=== PATIENT | male | born 1930 | race Caucasian/White ===

== ENCOUNTER → 2017-01-07 | Outpatient (CLI) | payer MEDICARE, BC ==
[~2017-01-07] MED LIST: DILA100C PO; ENAL5TAB98 PO; LABE100T2 PO; LEXA5TAB PO; PHEN30 PO; PROS5TAB2 PO; TAB-TAB PO; TAMS0.4C67 PO; VITA500T10 PO; ZITH250T PO
[2017-01-07 13:33] LABS: AUTOMATED NEUTROPHIL # 3.9 TH/MM3 (1.8-7.7); BASOPHIL # 0.1 TH/MM3 (0-0.2); BASOPHIL % 0.9 % (0.0-2.0); EOSINOPHIL # 0.3 TH/MM3 (0-0.4); EOSINOPHIL % 4.2 % (0.0-4.0); HEMATOCRIT 40.9 % (39.0-51.0); HEMO FLAGS DIFF FINAL; LYMPH % 22.2 % (9.0-44.0); LYMPHOCYTE # 1.3 TH/MM3 (1.0-4.8); MEAN CELL VOLUME 90.1 FL (80.0-100.0); MEAN CORPUSCULAR HEMOGLOBIN 30.2 PG (27.0-34.0); MEAN CORPUSCULAR HGB CONC 33.5 % (32.0-36.0); NEUT % 64.7 % (16.0-70.0); PLATELET COUNT 196 TH/MM3 (150-450); RED BLOOD COUNT 4.54 MIL/MM3 (4.50-5.90); RED CELL DISTRIBUTION WIDTH 13.4 % (11.6-17.2)
[2017-01-07 14:15] LABS: ALKALINE PHOSPHATASE 58 U/L (45-117); ALT (GPT) 24 U/L (12-78); ANION GAP 8 MEQ/L (5-15); AST (GOT) 20 U/L (15-37); BLOOD UREA NITROGEN 15 MG/DL (7-18); CHLORIDE 106 MEQ/L (98-107); GLOMERULAR FILTRATION RATE 63 ML/MIN (>89); GLUCOSE,FASTING 145 MG/DL (74-99); HDL CHOLESTEROL 33.6 MG/DL (40.0-60.0); LDL CHOLESTEROL 99 MG/DL (0-99); POTASSIUM 5.1 MEQ/L (3.5-5.1); SODIUM (NA) 142 MEQ/L (136-145); TOTAL BILIRUBIN ADULT 0.5 MG/DL (0.2-1.0)
[2017-01-07 15:58] LABS: HEMOGLOBIN A1a 1.1 %; HEMOGLOBIN Ao 84.3 %; HEMOGLOBIN F 0.8 %; HEMOGLOBIN LA1C 2.1 %; HEMOGLOBIN P3 3.7 %
== END ==
LOC: PLAB 08:28
DX: I10 Essential (primary) hypertension (principal); E11.9 Type 2 diabetes mellitus without complications; E78.5 Hyperlipidemia, unspecified
CPT/HCPCS: 36415; 80053; 80061; 83036; 84443; 85025

== ENCOUNTER 2017-04-20 10:51 | Inpatient (IN) | payer MEDICARE, BC ==
[~2017-04-20] VITALS: Ht 177.8 cm; Wt 80.0 kg
[2017-04-20] VITALS (7 sets, daily range): BP systolic 169–198; BP diastolic 72–91; PULSE 51–78; RESP 18–20; TEMP 96.1–98.2; O2SAT 96–98
[2017-04-20] MEDS ORDERED: SODIUM CHLOR 0.9% 1000 ML INJ 1,000 ML IV ONE (10:56)
[2017-04-20 11:33] LABS: I-STAT POTASSIUM 4.5 MMOL/L (3.5-4.9); I-STAT SODIUM 140 MMOL/L (138-146)
[2017-04-20 11:35] LABS: AUTOMATED NEUTROPHIL # 3.9 TH/MM3 (1.8-7.7); BASOPHIL % 0.3 % (0.0-2.0); EOSINOPHIL # 0.2 TH/MM3 (0-0.4); EOSINOPHIL % 2.9 % (0.0-4.0); HEMATOCRIT 42.3 % (39.0-51.0); HEMO FLAGS DIFF FINAL; LYMPH % 25.6 % (9.0-44.0); LYMPHOCYTE # 1.6 TH/MM3 (1.0-4.8); MEAN CELL VOLUME 89.6 FL (80.0-100.0); MEAN CORPUSCULAR HGB CONC 34.6 % (32.0-36.0); MONO % 10.4 % (0.0-8.0); NEUT % 60.8 % (16.0-70.0); PLATELET COUNT 179 TH/MM3 (150-450); RED BLOOD COUNT 4.72 MIL/MM3 (4.50-5.90); RED CELL DISTRIBUTION WIDTH 12.9 % (11.6-17.2); WHITE BLOOD COUNT 6.4 TH/MM3 (4.0-11.0)
[2017-04-20 11:46] LABS: APTT (PATIENT) 27.7 SEC (24.3-30.1); PROTHROMBIN TIME - PATIENT 10.5 SEC (9.8-11.6)
[2017-04-20 11:50] LABS: AMPHETAMINE, URINE NEG (NEG); BARBITURATES, URINE NEG (NEG); COCAINE, URINE NEG (NEG)
[2017-04-20 11:53] LABS: CREATINE KINASE 296 U/L (39-308)
--- NOTE | 2017-04-20 11:59 | PD ---
HPI Chief Complaint: Neuro Symptoms/ Deficits Time Seen by Provider: 10:55 Travel History International Travel<30 days: No Contact w/Intl Traveler<30days: No Traveled to known affect area: No History of Present Illness HPI Patient 86-year-old male presents emergency Department with his for complaints of right-sided weakness and dysphasia started approximately 6:30 this morning. 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 Last one was several years ago. Is followed by Dr. Chaudhary. His states that he woke today this morning and was feeling that his leg was cramping, he then displayed slurred speech and was unable to get out of the bed. This occurred approximately 06 30. His states that she thinks that the symptoms started just then certainly is possible that she awoke with the symptoms but she is not 100% sure. No medications prior to arrival, does not take any anticoagulants. PFSH Past Medical History Arthritis: Yes Cerebrovascular Accident: Yes (stroke) Diabetes: Yes Patient Takes Glucophage: No Genitourinary: Yes (PROSTATE PROBLEMS) Past Surgical History Other Surgery: Yes Social History Alcohol Use: No Tobacco Use: No Substance Use: No Allergies-Medications (Allergen,Severity, Reaction): Coded Allergies: Penicillin (Verified Allergy, Severe, rash, 10/13/10) Reported Meds & Prescriptions Reported Meds & Active Scripts Active Zithromax Z-Italo (Azithromycin) 250 Mg Tab 250 Mg PO DIRECTED 5 Days 500 MG (2 TABLETS) PO ON DAY 1, THEN 250 MG (1 TABLET) PO ON DAYS 2 TO 5. Reported Lexapro (Escitalopram Oxalate) 5 Mg Tab 5 Mg PO DAILY Normodyne (Labetalol HCl) 100 Mg Tab 50 Mg PO BID UNKNOWN DOSE Vasotec (Enalapril Maleate) 5 Mg Tab 5 Mg PO BID Dilantin Kapseals (Phenytoin Sodium) 30 Mg Cap 30 Mg PO PM Dilantin Kapseals (Phenytoin Sodium) 100 Mg Cap 100 Mg PO AM Vitamin C (Ascorbic Acid) 500 Mg Tab 500 Mg PO DAILY Flomax (Tamsulosin HCl) 0.4 Mg Cap 0.4 Mg PO DAILY Proscar (Finasteride) 5 Mg Tab 5 Mg PO DAILY Multivitamin (Multivitamins) 1 Tab Tab 1 Tab PO DAILY Review of Systems Except as stated in HPI: all other systems reviewed are Neg Physical Exam Narrative GENERAL: Well-developed well-nourished no obvious distress. SKIN: Focused skin assessment warm/dry. HEAD: Atraumatic. Normocephalic. EYES: Pupils equal and round. No scleral icterus. No injection or drainage. ENT: No nasal bleeding or discharge. Mucous membranes pink and moist. NECK: Trachea midline. No JVD. CARDIOVASCULAR: Regular rate and rhythm. No murmur appreciated. RESPIRATORY: No accessory muscle use. Clear to auscultation. Breath sounds equal bilaterally. GASTROINTESTINAL: Abdomen soft, non-tender, nondistended. Hepatic and splenic margins not palpable. MUSCULOSKELETAL: No obvious deformities. No clubbing. No cyanosis. No edema. NEUROLOGICAL: Awake and alert. Cranial nerves II through XII are grossly intact and nonfocal, 5 out of 5 strength in all 4 extremity's, cerebellar testing negative, no pronator drift, no neglect, no slurred speech. Total NIH stroke scale of 0 PSYCHIATRIC: Appropriate mood and affect; insight and judgment normal. Data Data Last Documented VS Vital Signs Date Time Temp Pulse Resp B/P Pulse Ox O2 Delivery O2 Flow Rate FiO2 04/20/17 13:27 55 20 169/88 04/20/17 11:01 98 04/20/17 10:59 Nasal Cannula 2 04/20/17 10:53 98.2 Orders Diet Npo (04/20/17 Lunch) Activity Bed Rest (04/20/17 ) Electrocardiogram (04/20/17 ) I-Stat Creatinine (04/20/17 10:56) I-Stat Profile (04/20/17 10:56) Prothrombin Time / Inr (Pt) (04/20/17 10:56) Act Partial Throm Time (Ptt) (04/20/17 10:56) Complete Blood Count With Diff (04/20/17 10:56) Fibrinogen (04/20/17 10:56) Creatine Kinase (Cpk) (04/20/17 10:56) Troponin I (04/20/17 10:56) Ua Includes Microscopic (04/20/17 10:56) Drug Screen, Random Urine (04/20/17 10:56) Type And Screen (04/20/17 10:56) Blood Glucose (04/20/17 10:56) Ecg Monitoring (04/20/17 10:56) Neuro Checks Q2HX12,Q4H (04/20/17 10:56) Nursing Bedside Swallow Assess .ONCE (04/20/17 10:56) Iv Access Insert/Monitor (04/20/17 10:56) NPO (04/20/17 10:56) Oximetry (04/20/17 10:56) Oxygen Administration (04/20/17 10:56) Sodium Chlor 0.9% 1000 Ml Inj (Ns 1000 M (04/20/17 10:56) Resp Oxygen Mckinley C Titrat 1-4 L (04/20/17 10:56) Cath For Specimen (04/20/17 10:56) Ct Brain W/O Iv Contrast(Rout) (04/20/17 11:10) Mra Brain W/O Contrast (Cow) (04/20/17 ) Westergren Sedimentation Rate (04/20/17 12:23) Rapid Plasma Regin (Rpr) W Ttr (04/20/17 12:23) Ira Screen (04/20/17 12:23) Thyroid Stimulating Hormone (04/20/17 12:23) Vitamin B12 (04/20/17 12:23) Ast (Sgot) (04/20/17 12:23) Alt (Sgpt) (04/20/17 12:23) Mri Brain W&W/O Contrast (04/20/17 12:23) Eeg Study (04/20/17 12:23) Echo 2d Comp With Doppler (04/20/17 12:23) Holter Monitor Recording (04/20/17 12:23) Slat Pickler / Telemetry FRANCES.Q8H (04/20/17 12:23) ^ Seizure Precautions (04/20/17 12:23) [place] (04/20/17 12:23) Aspirin Ec (Ecotrin Ec) (04/20/17 13:00) Sodium Chlor 0.9% 1000 Ml Inj (Ns 1000 M (04/20/17 12:23) Lipid Profile (04/20/17 12:23) Mra Carotids W Contrast (04/20/17 12:23) Scd&Teds Bilateral/Knee High FRANCES.QSHIFT (04/20/17 12:23) Aspirin Chew (Aspirin Chew) (04/20/17 12:45) Gadodiamide Pf Inj (Omniscan Pf Inj) (04/20/17 13:11) Admit Order (Ed Use Only) (04/20/17 ) Place In Observation (04/20/17 ) Vital Signs (Adult) Q2HX12,Q4H (04/20/17 13:43) Nih Stroke Scale - Nihss .Daily (04/20/17 13:43) Neuro Checks Q2HX12,Q4H (04/20/17 13:43) Notify Dr: Other (04/20/17 13:43) Remove Urinary Catheter .ONCE (04/20/17 13:43) Pt Request For Service (04/20/17 13:43) Activity Oob Ad Caridad (04/20/17 13:43) Nursing Bedside Swallow Assess .ONCE (04/20/17 13:43) Scd Bilateral/Knee High FRANCES.QSHIFT (04/20/17 13:43) Hemoglobin (Hgb) A1c (04/20/17 13:43) Lipid Profile (04/21/17 06:00) ^ Hold Medication (04/20/17 13:43) Sodium Chloride 0.9% Flush (Ns Flush) (04/20/17 21:00) Sodium Chloride 0.9% Flush (Ns Flush) (04/20/17 13:45) Bedside Glucose FRANCES.AC&HS (04/20/17 13:43) Slat Pickler / Telemetry FRANCES.Q8H (04/20/17 13:43) Consult Stoke Navigator (04/20/17 ) Enoxaparin Inj (Lovenox Inj) (04/20/17 15:00) Labs Laboratory Tests Test 04/20/17 04/20/17 11:02 11:10 White Blood Count 6.4 TH/MM3 Red Blood Count 4.72 MIL/MM3 Hemoglobin 14.6 GM/DL Bedside Hemoglobin 14.3 G/DL Hematocrit 42.3 % Bedside Hematocrit 42.0 % Mean Corpuscular Volume 89.6 FL Mean Corpuscular Hemoglobin 31.0 PG Mean Corpuscular Hemoglobin 34.6 % Concent Red Cell Distribution Width 12.9 % Platelet Count 179 TH/MM3 Mean Platelet Volume 8.3 FL Neutrophils (%) (Auto) 60.8 % Lymphocytes (%) (Auto) 25.6 % Monocytes (%) (Auto) 10.4 % Eosinophils (%) (Auto) 2.9 % Basophils (%) (Auto) 0.3 % Neutrophils # (Auto) 3.9 TH/MM3 Lymphocytes # (Auto) 1.6 TH/MM3 Monocytes # (Auto) 0.7 TH/MM3 Eosinophils # (Auto) 0.2 TH/MM3 Basophils # (Auto) 0.0 TH/MM3 CBC Comment DIFF FINAL Differential Comment Prothrombin Time 10.5 SEC Prothromb Time International 1.0 RATIO Ratio Activated Partial 27.7 SEC Thromboplast Time Fibrinogen 324 mg/dL Bedside Sodium 140 MMOL/L Bedside Potassium 4.5 MMOL/L Bedside Chloride 106 MMOL/L Bedside Blood Urea Nitrogen 14 MG/DL Bedside Creatinine 1.1 MG/DL Bedside Glucose 137 MG/DL Total Creatine Kinase 296 U/L Troponin I LESS THAN 0.02 NG/ML Blood Type A POSITIVE Antibody Screen NEGATIVE Blood Bank Comment Urine Color YELLOW Urine Turbidity CLEAR Urine pH 7.5 Urine Specific [place] 1.012 Urine Protein NEG mg/dL Urine Glucose (UA) NEG mg/dL Urine Ketones NEG mg/dL Urine Occult Blood NEG Urine Nitrite NEG Urine Bilirubin NEG Urine Urobilinogen LESS THAN 2.0 MG/DL Urine Leukocyte Esterase NEG Urine RBC LESS THAN 1 /hpf Urine WBC 1 /hpf Microscopic Urinalysis Comment Urine Opiates Screen NEG Urine Barbiturates Screen NEG Urine Amphetamines Screen NEG Urine Benzodiazepines Screen NEG Urine Cocaine Screen NEG Urine Cannabinoids Screen NEG MDM Medical Decision Making Medical Screen Exam Complete: Yes Emergency Medical Condition: Yes Differential Diagnosis Stroke, TIA, intracranial hemorrhage, electrolyte abnormality, atrial fibrillation, carotid stenosis. Narrative Course Patient roomed emergency department, on arrival to the emergency department his NIH stroke scale is 0, he does not meet criteria for an acute stroke, furthermore given his history of multiple hemorrhages in the past to be a very poor candidate for TPA. Patient was given aspirin after discussed with Dr. Mahmood CAT scan of the head showed no acute changes. Neurologically nonfocal , MRI MRA ordered. Basic labs ordered and negative, the patient is in sinus rhythm on EKG. Patient was discussed with Dr. Mendez for admission to the hospital. Diagnosis Primary Impression: TIA (transient ischemic attack) Qualified Code: G45.9 - Transient cerebral ischemia, unspecified type Admitting Information Admitting Physician Requests: Observation Condition: Stable Harjeet Shah MD Apr 20, 2017 11:59
[2017-04-20 12:06] LABS: BLOOD, URINE NEG (NEG); GLUCOSE,URINE NEG (NEG); KETONE, URINE NEG (NEG); NITRITE,URINE NEG (NEG); PH, URINE 7.5 (5.0-8.5); URINE COLOR YELLOW (YELLW/STRAW)
[2017-04-20] MEDS ORDERED: SODIUM CHLOR 0.9% 1000 ML INJ 1,000 ML IV SCH (12:23)
[2017-04-20] MEDS ORDERED: ASPIRIN 81 MG CHEW TAB CHEW ONE (12:45)
--- NOTE | 2017-04-20 12:47 | RADRPT ---
EXAM DATE/TIME: 04/20/2017 12:16 [facility] COMPARISON: CT BRAIN W/O CONTRAST, January 03, 2010, 3:15. INDICATIONS : Right sided weakness and aphasia today. RADIATION DOSE: 56.35 CTDIvol (mGy) MEDICAL HISTORY : Stroke. diabetes SURGICAL HISTORY : None. ENCOUNTER: Initial ACUITY: 1 day PAIN SCALE: 0/10 LOCATION: Bilateral head TECHNIQUE: Multiple contiguous axial images were obtained of the head. Using automated exposure control and adj ustment of the mA and/or kV according to patient size, radiation dose was kept as low as reasonably a chievable to obtain optimal diagnostic quality images. DICOM format image data is available electro nically for review and comparison. FINDINGS: CEREBRUM: A prominent area of encephalomalacia is identified in the right exit the lobe extending into the osmany etal lobe. This was the site of a previous large hematoma. There is no evidence of acute infarct or h emorrhage at this time. There is no significant mass effect. POSTERIOR FOSSA: The cerebellum and brainstem are intact. The 4th ventricle is midline. The cerebellopontine angle i s unremarkable. EXTRACRANIAL: The visualized portion of the orbits is intact. SKULL: The calvaria is intact. No evidence of skull fracture. CONCLUSION: 1. 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 2. No evidence of acute infarct, hemorrhage, mass or edema. 3. Stable CSF spaces. Arnie Austin MD on April 20, 2017 at 12:43 Board Certified Radiologist. This report was verified electronically.
--- NOTE | 2017-04-20 13:03 | MB ---
cc: GIGI ASHFORD M.D. DATE OF CONSULTATION: 04/20/2017. HISTORY OF PRESENT ILLNESS: This is an 86-year-old right-handed man with hypertension, non-insulin diabetes, positive right EEG in the past, a right parietal intracranial hemorrhage back in 2009. This morning he woke up and had some slurred speech. No facial droop or asymmetrical weakness or numbness but was leaning a little bit over to the right. It lasted about 30 minutes or so. He felt it was a speech production problem and it was not just slurred speech. No headache, chest pain or palpitations with it. Then it recurred about two hours later for a few minutes and he came into the hospital. It has since resolved. REVIEW OF SYSTEMS: He denies any hypercholesterolemia, myocardial infarction, CABG, stents, angioplasty, atrial fibrillation, coumadin, renal, hepatic, or pulmonary disease, thyroid disease, lupus, ulcer. SOCIAL HISTORY: He is not a smoker or a drinker. He lives with his . FAMILY HISTORY: Negative for cancer, seizure or stroke. MEDICATIONS: 1. He does not take an aspirin or any blood thinners a day. 2. He is on Lexapro. 3. Normodyne. 4. Vasotec. 5. It is written down here he is on dilantin but I believe he is not on dilantin, I believe he is on Keppra 500 milligrams a day extended-release. 6. Flomax. 7. Proscar. 8. A multivitamin. ALLERGIES: PENICILLIN. PHYSICAL EXAMINATION: VITAL SIGNS: Sinus rhythm, 78, 21, 88/78. NECK: There are no carotid bruits. HEART: Regular rhythm. I do not detect a murmur. NEUROLOGICAL EXAMINATION: Pupils are equal. Visual nam are full. Extraocular movements intact without nystagmus. Face is symmetric with normal sensation. Tongue was midline. No drift. Normal strength in upper and lower extremities bilaterally. DTRs are 1+ and symmetric throughout. Toes are downgoing bilaterally. Pin prick is intact throughout. He is not ataxic on [id number]. He had normal speech. He had normal naming, calculations, repetition. There is no language problem now or facial droop. LABORATORY STUDIES: CBC is normal. Urine drug screen is negative. Urinalysis is negative. Coags normal. Basic metabolic profile is normal. Troponin negative. Glucose 137. IMPRESSION TIA. He is having CT scan now and if that is negative, I would give him aspirin 325. Do an MRI of the brain. MRA [place] and neck. Check an echocardiogram. I do know he had a negative carotid ultrasound back in 2010 and a normal ejection fraction by an echo in the past. A small seizure could also be considered. Will check an EEG. He does have a history of right parietal intracranial hemorrhage and that is why he has not been on aspirin a day. I note he did have an MRA of the [place] in the past that was normal remotely. MD MICHELE Pina/KAYLEY /12:26 PM /12:56 PM
[2017-04-20] MEDS ORDERED: GADODIAMIDE PF 287 MG/ML 20 ML VIAL (for RAD MRI) IV ONE (13:11)
[2017-04-20] MEDS: ASPIRIN EC 325 MG TABEC PO SCH (13:27)
[2017-04-20] MEDS ORDERED: SODIUM CHLORIDE 0.9% FLUSH 5 ML FLUSH IV FLUSH PRN (13:45)
--- NOTE | 2017-04-20 13:47 | RADRPT ---
EXAM DATE/TIME: 04/20/2017 12:49 [facility] COMPARISON: No previous studies available for comparison. INDICATIONS : Slurred speech. CONTRAST: 20 cc Omniscan (gadodiamide) IV MEDICAL HISTORY : Hypertension. Diabetes mellitus type 2. SURGICAL HISTORY : Rotator cuff, left. ENCOUNTER: Initial ACUITY: 1 day PAIN SCORE: 0/10 LOCATION: cranial TECHNIQUE: Multiplanar, multisequence MRI of the brain was performed both prior to and following the administrat ion of paramagnetic contrast. FINDINGS: There is encephalomalacia in the right occipital lobe extending to the periventricular regions. Slight degree of brain atrophy is seen. Slight periventricular white matter changes are seen nonspeci fic mostly consistent with chronic small vessel ischemic changes. There is small area of restriction diffusion involving the posterior portion of the internal capsule on the left side characteristic of small acute lacunar infarction. There is no hemorrhage or mass effect. CONCLUSION: Small area of acute lacunar infarction in the posterior portion of the left posterior limb internal c apsule without hemorrhage or mass effect. Mary Lou Baltazar MD on April 20, 2017 at 13:41 Board Certified Radiologist. This report was verified electronically.
--- NOTE | 2017-04-20 13:49 | RADRPT ---
EXAM DATE/TIME: 04/20/2017 12:49 [facility] COMPARISON: MRI BRAIN W & W/O CONTRAST, April 20, 2017, 12:49. MRA CAROTIDS W CONTRAST, April 20, 2017, 12:49. C T BRAIN W/O CONTRAST, April 20, 2017, 12:16. INDICATIONS : Slurred speech. MEDICAL HISTORY : Hypertension. Diabetes mellitus type 2. SURGICAL HISTORY : Left rotator cuff ENCOUNTER: Initial ACUITY: 1 day PAIN SCORE: 0/10 LOCATION: cranial Please note a normal MRA of the brain does not entirely exclude the possibility of a small aneurysm, nor the possibility of distal intracranial vessel disease. TECHNIQUE: 3D time of flight MRA was performed. Source images, multiplanar STS MIP, and 3D volume MIP reconstru ctions were reviewed. FINDINGS: No significant vascular malformations, vessel truncation or aneurysmal dilatations are seen except fo r slight atherosclerotic changes involving multiple branches bilaterally mainly the MCAs. CONCLUSION: Slight atherosclerotic changes of distal branches bilaterally, otherwise unremarkable . Mary Lou Baltazar MD on April 20, 2017 at 13:46 Board Certified Radiologist. This report was verified electronically.
--- NOTE | 2017-04-20 13:50 | RADRPT ---
EXAM DATE/TIME: 04/20/2017 12:49 [facility] COMPARISON: No previous studies available for comparison. INDICATIONS : Slurred speech CONTRAST: 20 cc Omniscan (gadodiamide) IV MEDICAL HISTORY : Hypertension. Diabetes mellitus type 2. SURGICAL HISTORY : Rotator cuff, left. ENCOUNTER: Initial ACUITY: 1 day PAIN SCORE: 0/10 LOCATION: neck Percent stenosis is calculated using the diameter of the stenotic region over the diameter of the nor mal distal internal carotid artery. TECHNIQUE: Bolus infused MRA of the extracranial circulation was performed using a neurovascular coil. Post pro cessing was performed including rotating subvolume maximum intensity projections of each carotid marcie ry, rotating full volume maximum intensity projections of both carotid arteries, sagittal and coronal sliding thin slab reformations of each carotid artery, and left oblique sliding thin slab reformatio n through the aortic arch to include the origin of the arch branch vessels. FINDINGS: AORTIC ARCH: There is a three vessel origin of the great vessels from the aorta. No evidence of ostial narrowing. RIGHT CAROTID: The common carotid artery is intact. The carotid bulb has a normal configuration without ulceration or narrowing. The internal carotid artery lumen is smooth without stenosis. The external carotid ar karley is intact. LEFT CAROTID: The common carotid artery is intact. The carotid bulb has a normal configuration without ulceration or narrowing. The internal carotid artery lumen is smooth without stenosis. The external carotid ar karley is intact. VERTEBRALS: The vertebral arteries have a symmetric diameter. No stenotic lesions are seen. CONCLUSION: Normal examination. Mary Lou Baltazar MD on April 20, 2017 at 13:47 Board Certified Radiologist. This report was verified electronically.
[2017-04-20] MEDS ORDERED: ENOXAPARIN SODIUM 30 MG/0.3 ML SYRINGE SQ SCH (15:00)
--- NOTE | 2017-04-20 15:02 | HHI.HP ---
cc: Alhaji Mahmood MD [facility]Staff Admission Diagnosis TIA Diagnoses: Chief Complaint: dysarthria/slurred speech Travel History International Travel<30 Days: No Contact w/Intl Traveler <30 Da: No Traveled to Known Affected Are: No History of Present Illness 86-year-old male with history of hypertension, ICH in 2009, diet controlled diabetes, BPH, presents with acute onset of slurred speech today. The patient reports early this morning he was stretching his legs in bed, then tried to speak to his however noticed it was difficult for him to put a sentence together and his speech was slurred. The patient states his symptoms resolved within 30 minutes, however later on while he was sitting down eating lunch the slurred speech and dysarthria returned therefore he decided to come to the ER. His also noticed him to be leaning more towards the right while sitting in the chair. He denies any headache, lightheadedness, dizziness, blurred vision, facial droop, unilateral numbness or weakness. The patient has not been on any anticoagulation including aspirin since his ICH in 2009. He has followed with neurologist Dr. Mahmood for the last 7years. Patient is currently seen in the ED, brain MRI positive for small acute lacunar infarct. The patient reports his speech still does not feel "right". He is able to form sentences, but occasionally has trouble getting the words out throughout conversation. Review of Systems Except as stated in HPI: all other systems reviewed are Neg Past Family Social History Past Medical History Hypertension Diabetes Mellitus, diet controlled Intracranial Hemorrhage 2009 BPH Osteoarthritis Past Surgical History Bilateral shoulder rotator cuff repair 2 Left elbow surgery Tonsillectomy as a child Arthroscopic knee surgery Reported Medications Testosterone (Testosterone (Bulk)) 1 Pow Pow 125 DAILY Cialis (Tadalafil) 5 Mg Tab 5 Mg PO DAILY Do not exceed 1 dose/day. Probiotic (Lactobacillus Combo No.10) 1 Each Capsule 1 DAILY Centrum (Multiple Vitamins W/ Minerals) 1 Chew 1 Tab CHEW DAILY [place]-C 500 mg Tablet (Ascorbate Calcium/Bioflavonoid) 1 Each Tablet 500 DAILY Tylenol Extra Strength (Acetaminophen) 500 Mg Tablet 1,000 BID Flomax (Tamsulosin HCl) 0.4 Mg Cap 0.4 Mg PO HS Keppra (Levetiracetam) 500 Mg Tab 500 Mg PO DAILY Enalapril (Enalapril Maleate) 10 Mg Tab 10 Mg PO BID Labetalol (Labetalol HCl) 100 Mg Tab 100 Mg PO BID Finasteride 5 Mg Tab 5 Mg PO DAILY Do not crush. Allergies: Coded Allergies: Penicillin (Verified Allergy, Severe, rash, 10/13/10) Active Ordered Medications Current Medications Medications (Trade) Dose Ordered Sig/Kalin Route Start Time Stop Time Status Last Admin Aspirin 325 mg 325 mg DAILY PO 04/20/17 13:00 (NS 1000 ml Inj) 1,000 ml @ 75 mls/hr [id number] IV 04/20/17 12:23 04/20/17 12:46 (NS Flush) 2 ml BID IV FLUSH 04/20/17 21:00 (NS Flush) 2 ml UNSCH PRN IV FLUSH 04/20/17 13:45 (Lovenox Inj) 30 mg Q24H SQ 04/20/17 15:00 04/20/17 14:53 Family History Mother with colon cancer, age 89 Father with heart disease, age 81 Children fairly healthy Social History Denies any tobacco, alcohol, or illicit drug use. Lives at home with his Ambulates with a cane however does not use it all the time Physical Exam Vital Signs Vital Signs Date Time Temp Pulse Resp B/P Pulse Ox O2 Delivery O2 Flow Rate FiO2 04/20/17 14:11 57 20 186/89 04/20/17 13:27 55 20 169/88 04/20/17 12:18 78 20 188/78 04/20/17 11:01 98 04/20/17 10:59 Nasal Cannula 2 04/20/17 10:53 98.2 68 20 198/88 96 Physical Exam GENERAL: Well-nourished, well-developed pleasant elderly male patient in [facility]. SKIN: Warm and dry. No rash. HEAD: Normocephalic. Atraumatic. EYES: Pupils equal and round. No scleral icterus. No injection or drainage. ENT: No nasal bleeding or discharge. Mucous membranes pink and moist. NECK: Supple. Trachea midline. CARDIOVASCULAR: Regular rate and rhythm. S1, S2 noted. No murmur appreciated. RESPIRATORY: No accessory muscle use. Clear to auscultation. Breath sounds equal bilaterally. GASTROINTESTINAL: Abdomen soft, non-tender, nondistended. Normoactive bowel sounds x4. MUSCULOSKELETAL: No obvious deformities. Extremities without clubbing, cyanosis , or edema. NEUROLOGICAL: Awake and alert. No obvious cranial nerve deficits. Motor grossly within normal limits. 5/5 muscle strength in bilateral upper and lower extremities. Normal speech, however occasional difficulty/hesitation getting his words out but still able to form sentences.. No facial droop/lid lag/ tongue deviation. Nasolabial fold symmetric. Equal and intact sensation throughout the face, upper and lower extremities. PSYCHIATRIC: Appropriate mood and affect; insight and judgment normal. Laboratory Laboratory Tests Test 04/20/17 04/20/17 11:02 11:10 White Blood Count 6.4 Red Blood Count 4.72 Hemoglobin 14.6 Bedside Hemoglobin 14.3 Hematocrit 42.3 Bedside Hematocrit 42.0 Mean Corpuscular Volume 89.6 Mean Corpuscular Hemoglobin 31.0 Mean Corpuscular Hemoglobin 34.6 Concent Red Cell Distribution Width 12.9 Platelet Count 179 Mean Platelet Volume 8.3 Neutrophils (%) (Auto) 60.8 Lymphocytes (%) (Auto) 25.6 Monocytes (%) (Auto) 10.4 Eosinophils (%) (Auto) 2.9 Basophils (%) (Auto) 0.3 Neutrophils # (Auto) 3.9 Lymphocytes # (Auto) 1.6 Monocytes # (Auto) 0.7 Eosinophils # (Auto) 0.2 Basophils # (Auto) 0.0 CBC Comment DIFF FINAL Differential Comment Prothrombin Time 10.5 Prothromb Time International 1.0 Ratio Activated Partial 27.7 Thromboplast Time Fibrinogen 324 Bedside Sodium 140 Bedside Potassium 4.5 Bedside Chloride 106 Bedside Blood Urea Nitrogen 14 Bedside Creatinine 1.1 Bedside Glucose 137 Total Creatine Kinase 296 Troponin I LESS THAN 0.02 Blood Type A POSITIVE Antibody Screen NEGATIVE Blood Bank Comment Urine Color YELLOW Urine Turbidity CLEAR Urine pH 7.5 Urine Specific [place] 1.012 Urine Protein NEG Urine Glucose (UA) NEG Urine Ketones NEG Urine Occult Blood NEG Urine Nitrite NEG Urine Bilirubin NEG Urine Urobilinogen LESS THAN 2.0 Urine Leukocyte Esterase NEG Urine RBC LESS THAN 1 Urine WBC 1 Microscopic Urinalysis Comment Urine Opiates Screen NEG Urine Barbiturates Screen NEG Urine Amphetamines Screen NEG Urine Benzodiazepines Screen NEG Urine Cocaine Screen NEG Urine Cannabinoids Screen NEG Result Diagram: 04/20/17 1102 Imaging Last Impressions Neck Magnetic Resonance Angiography 04/20/17 1223 Signed Impressions: Service Date/Time: Thursday, April 20, 2017 12:49 - CONCLUSION: Normal examination. Mary Lou Baltazar MD Brain MRI 04/20/17 1223 Signed Impressions: Service Date/Time: Thursday, April 20, 2017 12:49 - CONCLUSION: Small area of acute lacunar infarction in the posterior portion of the left posterior limb internal capsule without hemorrhage or mass effect. Mary Lou Baltazar MD Head CT 04/20/17 1110 Signed Impressions: Service Date/Time: Thursday, April 20, 2017 12:16 - CONCLUSION: 1. 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 2. No evidence of acute infarct, hemorrhage, mass or edema. 3. Stable CSF spaces. Arnie Austin MD Head Magnetic Resonance Angiography 04/20/17 0000 Signed Impressions: Service Date/Time: Thursday, April 20, 2017 12:49 - CONCLUSION: Slight atherosclerotic changes of distal branches bilaterally, otherwise unremarkable. Mary Lou Baltazar MD Assessment and Plan Problem List: (1) Acute ischemic stroke ICD Code: I63.9 Status: Acute Assessment and Plan 86-year-old male with history of hypertension, ICH in 2010, diet controlled diabetes, BPH, osteoarthritis, presents with acute onset of slurred speech today. Acute Ischemic CVA: Patient presented with slurred speech/dysarthria, symptoms improving. -Initial head CT images reviewed, shows right parietal-occipital cephalohematoma from prior parenchymal hemorrhage; no acute infarct/hemorrhage/ mass/edema. -Brain MRI images reviewed, shows small area of acute lacunar infarction in the posterior portion of the left posterior limb internal capsule without hemorrhage or mass effect. -Head/neck MRA reviewed, shows slight atherosclerotic changes, no hemodynamically significant stenosis. -Monitor neuro checks, NIHSS -HOB flat x12hrs, allow permissive hypertension -PT/ST evaluation -Start statin, Check lipid panel, HgbA1c -Consult stroke navigator, rehab medicine -Check holter monitor, echocardiogram, EEG -Neurology Dr. Mahmood consulted, started on full strength aspirin 325mg daily Hypertension: awaiting medication list to be updated however allowing permissive hypertension for now -monitor BP, restart antihypertensives in 24hours or when ok with neurology -IV Vasotec 1.25mg q6h prn SBP > 220 Diet Controlled Diabetes: -checking HgbA1c -monitor Accu-checks -will need diabetic diet after swallow evaluation BPH: chronic -continue patient's flomax and proscar All other medical conditions stable, continue home meds once list updated. DVT Prophylaxis: teds/SCDs, avoid further chemical prophylaxis with history of ICH (will defer to neurology) Discussed Condition With Patient, patient's and friends at bedside, Dr. Mendez, ED RN Attending Statement Attestation Patient seen and examined with Katya Helm PA-C. The exam, history, and the medical decision-making described in the above note were completed with the assistance of the dictating practitioner. I attest that I had a [id number] encounter with the patient on the same day, and personally performed all of the history, exam, or medical decision making. Discussed case with her thoroughly after seeing the patient, reviewed and agreed with the plan. Please see addendum in History, Physical examination. See below for any errata/additional input: This is 86-year-old male with history of hypertension, ICH in 2010, diet controlled diabetes, BPH, presents with acute onset of slurred speech today, dysarthria, and imbalance. This initially resolved but symptoms returned after a few hours since patient presented to the hospital. Presently, patient's symptoms have improved. MRI showed a left lacunar infarct internal capsule. For details please see above. Not in distress Regular rate and rhythm Clear breath sounds Abdomen soft, nontender Alert, awake, oriented 3. Very mild dysarthria, no expressive aphasia seen, mildly deficient concentration, no dysdiadochokinesia. Cranial nerves are intact. Negative for meningismus. Muscle strength testing 5 over 5. Agree with above, admitted to inpatient. Permissive hypertension, check echocardiogram, hemoglobin A1c, lipid panel, EEG. Neurology consulted. Will defer DVT prophylaxis to neurology given history of ICH. Ashley Helm PA-C Apr 20, 2017 15:02 Juan Mendez MD Apr 20, 2017 17:48
[2017-04-20] MEDS ORDERED: ENALAPRILAT 1.25 MG/ML VIAL IV PRN (15:45)
[2017-04-20] MEDS ORDERED: ENAL10TA PO (15:57)
[2017-04-20] MEDS ORDERED: TEST-55 (15:57)
[2017-04-20] MEDS ORDERED: LACT1CAP18 (15:57)
[2017-04-20] MEDS ORDERED: CIAL5TAB PO (15:57)
[2017-04-20] MEDS ORDERED: LABE100T2 PO (15:57)
[2017-04-20] MEDS ORDERED: CENTCHW4 CHEW (15:57)
[2017-04-20] MEDS ORDERED: ACET-822 (15:57)
[2017-04-20] MEDS ORDERED: ESTETAB3 (15:57)
[2017-04-20] MEDS ORDERED: TAMS5CAP PO (15:57)
[2017-04-20] MEDS ORDERED: LEVE500 PO (15:57)
[2017-04-20] MEDS ORDERED: FINA5TAB2 PO (15:57)
[2017-04-20 18:31] LABS: HDL CHOLESTEROL 36.5 MG/DL (40.0-60.0)
[2017-04-20] MEDS: ATORVASTATIN 40 MG TAB PO SCH (20:52)
[2017-04-20] MEDS: TAMSULOSIN HCL 0.4 MG CAP PO SCH (20:52)
[2017-04-20] MEDS: SODIUM CHLORIDE 0.9% FLUSH 5 ML FLUSH IV FLUSH SCH (20:52)
[2017-04-20] MEDS: SODIUM CHLOR 0.9% 1000 ML INJ 1,000 ML IV SCH (22:21)
[2017-04-21] VITALS (8 sets, daily range): BP systolic 155–193; BP diastolic 70–92; PULSE 55–86; RESP 16–20; TEMP 96.1–98.3; O2SAT 95–97
--- NOTE | 2017-04-21 07:47 | HHI.PR ---
Subjective Remarks sr Objective Vital Signs Date Time Temp Pulse Resp B/P Pulse Ox O2 Delivery O2 Flow Rate FiO2 04/21/17 00:00 96.3 56 18 163/70 97 04/21/17 00:00 97.3 55 18 155/74 96 04/20/17 20:00 96.1 52 18 182/72 96 04/20/17 16:36 51 20 181/91 04/20/17 14:58 Nasal Cannula 2.00 04/20/17 14:11 57 20 186/89 04/20/17 13:27 55 20 169/88 04/20/17 12:18 78 20 188/78 04/20/17 11:01 98 04/20/17 10:59 Nasal Cannula 2 04/20/17 10:53 98.2 68 20 198/88 96 Result Diagram: 04/20/17 1102 Objective Remarks awake alert vff face sym 5/5 t/o Assessment and Plan Assessment and Plan imp sr likley lacunar cva asa 325 mrax2 neg small left deep lacunar cva on mri [id number] could do statin fu echo and holter prob dc in am keep ivf on and bp up for now Alhaji Mahmood MD Apr 21, 2017 07:47
[2017-04-21] MEDS ORDERED: levETIRAcetam 500 MG TAB PO SCH (09:00)
[2017-04-21] MEDS: FINASTERIDE 5 MG TAB PO SCH (09:48)
[2017-04-21] MEDS: ASPIRIN EC 325 MG TABEC PO SCH (09:48)
[2017-04-21] MEDS: SODIUM CHLORIDE 0.9% FLUSH 5 ML FLUSH IV FLUSH SCH ×2 (09:49→21:00)
[2017-04-21] MEDS: SODIUM CHLOR 0.9% 1000 ML INJ 1,000 ML IV SCH ×2 (09:51→23:48)
[2017-04-21 11:27] LABS: RAPID PLASMA REAGIN SCREEN NON-REACTIVE (NON-REACTVE)
[2017-04-21 11:49] LABS: HDL CHOLESTEROL 31.7 MG/DL (40.0-60.0)
--- NOTE | 2017-04-21 13:01 | HHI.PR ---
Subjective Remarks Follow-up lacunar CVA 04/21/17-patient seen and examined, reports some improvement of slurred speech ; by the bedside Objective Vitals Vital Signs Date Time Temp Pulse Resp B/P Pulse Ox O2 Delivery O2 Flow Rate FiO2 04/21/17 11:12 Nasal Cannula 2.00 04/21/17 08:00 96.4 56 16 171/81 96 04/21/17 00:00 96.3 56 18 163/70 97 04/21/17 00:00 97.3 55 18 155/74 96 04/20/17 20:00 96.1 52 18 182/72 96 04/20/17 16:36 51 20 181/91 04/20/17 14:58 Nasal Cannula 2.00 04/20/17 14:11 57 20 186/89 04/20/17 13:27 55 20 169/88 Result Diagram: 04/20/17 1102 Imaging Last Impressions Neck Magnetic Resonance Angiography 04/20/17 1223 Signed Impressions: Service Date/Time: Thursday, April 20, 2017 12:49 - CONCLUSION: Normal examination. Mary Lou Baltazar MD Brain MRI 04/20/17 1223 Signed Impressions: Service Date/Time: Thursday, April 20, 2017 12:49 - CONCLUSION: Small area of acute lacunar infarction in the posterior portion of the left posterior limb internal capsule without hemorrhage or mass effect. Mary Lou Baltazar MD Head CT 04/20/17 1110 Signed Impressions: Service Date/Time: Thursday, April 20, 2017 12:16 - CONCLUSION: 1. 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 2. No evidence of acute infarct, hemorrhage, mass or edema. 3. Stable CSF spaces. Arnie Austin MD Head Magnetic Resonance Angiography 04/20/17 0000 Signed Impressions: Service Date/Time: Thursday, April 20, 2017 12:49 - CONCLUSION: Slight atherosclerotic changes of distal branches bilaterally, otherwise unremarkable. Mary Lou Baltazar MD Objective Remarks GENERAL: NAD SKIN: Warm and dry. HEAD: Normocephalic. EYES: No scleral icterus. No injection or drainage. NECK: Supple, trachea midline. No JVD or lymphadenopathy. CARDIOVASCULAR: Regular rate and rhythm without murmurs, gallops, or rubs. RESPIRATORY: Breath sounds equal bilaterally. No accessory muscle use. GASTROINTESTINAL: Abdomen soft, non-tender, nondistended. MUSCULOSKELETAL: No cyanosis, or edema. BACK: Nontender without obvious deformity. No CVA tenderness. A/P Problem List: (1) Acute ischemic stroke ICD Code: I63.9 Status: Acute (2) Lacunar infarct, acute ICD Code: I63.9 Status: Acute Assessment and Plan 86-year-old man with Acute Lacunar CVA: -Initial head CT images reviewed, shows right parietal-occipital cephalohematoma from prior parenchymal hemorrhage; no acute infarct/hemorrhage/ mass/edema. -Brain MRI images reviewed, shows small area of acute lacunar infarction in the posterior portion of the left posterior limb internal capsule without hemorrhage or mass effect. -Head/neck MRA reviewed, shows slight atherosclerotic changes, no hemodynamically significant stenosis. -Monitor neuro checks, NIHSS -allow permissive hypertension -PT/ST/OT evaluation -Continue statin, aspirin, HgbA1c -Consult stroke navigator, rehab medicine -Check holter monitor, echocardiogram, EEG -Appreciate input from Neurology Dr. Mccloud Hypertension Continue permissive hypertension -IV Vasotec 1.25mg q6h prn SBP > 220 Diet Controlled Diabetes: -A1c pending -monitor Accu-checks; insulin sliding scale BPH: chronic -continue Flomax and Proscar All other medical conditions stable, continue home meds once list updated. DVT Prophylaxis: zaid/Gretchen Tanner Eric MD Apr 21, 2017 13:01
[2017-04-21 14:46] LABS: ANA SCREEN NEG (NEG)
--- NOTE | 2017-04-21 16:37 | MG ---
cc: YAZAN KOO MD Lab No: Date: 04/21/2017 Age: Sex: M Race: DATE OF [address] Mahmood[address] PAST MEDICAL HISTORY 1. Right-sided weakness. 2. Dysphasia. 3. Slurred speech. 4. Cramping. 5. History of multiple hemorrhages. 6. Arthritis. 7. Prostate. 8. Urinary frequency. 9. Stroke. MEDICATIONS 1. Flomax. 2. Lipitor. 3. Vasotec. 4. Aspirin. DESCRIPTION The background activity is 8-9 Hz alpha located posteriorly superimposed by excess movement artifact. During the recording there were intermittent periods of background slowing. Photic stimulation did not elicit a driving response. Hyperventilation was not done. There was excessive muscle artifact during the recording. There were no electrographic seizures or epileptiform discharges noted during the recording. INTERPRETATION This is an awake EEG with excess muscle artifact. Intermittent background slowing, may indicate mild encephalopathy. The absence of electrographic seizures or epileptiform discharges does not rule out a diagnosis of epilepsy. Clinical correlation. Yazan Koo MD RGO/KK /4:12 PM /4:26 PM [id number]
[2017-04-21 16:52] LABS: HEMOGLOBIN A1a 1.3 %; HEMOGLOBIN Ao 84.6 %; HEMOGLOBIN F 0.9 %; HEMOGLOBIN LA1C 1.5 %; HEMOGLOBIN P3 3.6 %
--- NOTE | 2017-04-21 19:36 | EKG ---
Date Performed: 04/20/2017 Time Performed: 10:58:59 PTAGE: 86 years EKG: SINUS BRADYCARDIA WITH SINUS ARRHYTHMIA WITH FIRST DEGREE AV BLOCK INFERIOR MYOCARDIAL INFA RCTION ABNORMAL ECG PREVIOUS TRACING : 01/01/2010 10.34 Since previous tracing, no significant change noted DOCTOR: John Mata Interpretating Date/Time 04/21/2017 19:35:08
--- NOTE | 2017-04-21 22:15 | ECHRPT ---
Indication: CVA/TIA CONCLUSIONS Normal left ventricular size. Mild concentric left ventricular hypertrophy. The left ventricular systolic function is grossly normal on limited imaging. Doppler parameters are consistent with impaired left ventricular relaxtion (grade 1 diastolic dysfun ction). No regional wall motion abnormalities are present. BP: 198 / 88 HR: 78 Rhythm: Sinus MEASUREMENTS (Male / Female) Normal Values Technical Quality:Technically difficult study 2D ECHO LVOT Diameter 2.2 cm Aortic Root Diameter 3.2 cm M-MODE LV Diastolic Diameter MM 5.8 cm 4.2 - 5.9 / 3.9 - 5.3 cm LV Systolic Diameter MM 3.6 cm LV Ejection Fraction MM Teich 65.8 % LV Cardiac Index MM Teich 4236.4 cm/minm IVS Diastolic Thickness MM 1.2 cm 0.6 - 1.0 / 0.6 - 0.9 cm LVPW Diastolic Thickness MM 1.2 cm 0.6 - 1.0 / 0.6 - 0.9 cm LV Relative Wall Thickness MM 0.4 0.24 - 0.42 / 0.22 - 0.42 LV Mass Index MM 143.3 g/m 49 - 115 / 43 - 95 g/m AV Cusp Separation MM 2.0 cm DOPPLER AV Peak Velocity 113.0 cm/s AV Peak Gradient 5.1 mmHg AV Mean Gradient 3.0 mmHg AV Velocity Time Integral 25.2 cm LVOT Peak Velocity 75.2 cm/s LVOT Peak Gradient 2.3 mmHg LVOT Velocity Time Integral 16.9 cm LVOT Cardiac Index 2512.3 cm/minm AV Area Cont Eq vti 2.5 cm AV Area Cont Eq pk 2.5 cm Mitral E Point Velocity 100.0 cm/s Mitral A Point Velocity 118.0 cm/s Mitral E to A Ratio 0.8 LV E' Lateral Velocity 7.8 cm/s Mitral E to LV E' Lateral Ratio 12.8 LV E' Septal Velocity 8.6 cm/s Mitral E to LV E' Septal Ratio 11.7 FINDINGS LEFT VENTRICLE Normal left ventricular size. Mild concentric left ventricular hypertrophy. The left ventricular systolic function is grossly normal on limited imaging. Doppler parameters are consistent with impaired left ventricular relaxtion (grade 1 diastolic dysfun ction). No regional wall motion abnormalities are present. Riccardo Caballero MD, FACC (Electronically Signed) Final Date:21 April 2017 22:14
--- NOTE | 2017-04-21 23:25 | RADRPT ---
EXAM DATE/TIME: 04/21/2017 22:52 [place] COMPARISON: CT BRAIN W/O CONTRAST, April 20, 2017, 12:16. INDICATIONS : Trauma, fall today. RADIATION DOSE: 56.77 CTDIvol (mGy) MEDICAL HISTORY : Stroke. Diabetes mellitus type 2. SURGICAL HISTORY : None. ENCOUNTER: Initial ACUITY: 1 day PAIN SCALE: 0/10 LOCATION: cranial TECHNIQUE: Multiple contiguous axial images were obtained of the head. Using automated exposure control and adj ustment of the mA and/or kV according to patient size, radiation dose was kept as low as reasonably a chievable to obtain optimal diagnostic quality images. DICOM format image data is available electro nically for review and comparison. FINDINGS: CEREBRUM: The ventricles are normal for age. There is bilateral cortical atrophy. There is a stable area of enc ephalomalacia involving the right occipital lobe. No evidence of midline shift, mass lesion, hemorrha ge or acute infarction. No extra-axial fluid collections are seen. POSTERIOR FOSSA: The cerebellum and brainstem are intact. The 4th ventricle is midline. The cerebellopontine angle i s unremarkable. EXTRACRANIAL: The visualized portion of the orbits is intact. SKULL: The calvaria is intact. No evidence of skull fracture. No significant change compared to the prior examination. CONCLUSION: 1. No focal or acute intracranial hemorrhage. 2. Stable CT scan of the brain compared to the prior examination. Alex Dupont MD on April 21, 2017 at 23:21 Board Certified Radiologist. This report was verified electronically.
[2017-04-21] MEDS: ATORVASTATIN 40 MG TAB PO SCH (23:44)
[2017-04-21] MEDS: TAMSULOSIN HCL 0.4 MG CAP PO SCH (23:45)
[2017-04-21] MEDS: levETIRAcetam 500 MG TAB PO SCH (23:45)
[2017-04-22] VITALS (16 sets, daily range): BP systolic 135–198; BP diastolic 77–92; PULSE 65–180; RESP 18–20; TEMP 96–99.7; O2SAT 93–97
--- NOTE | 2017-04-22 07:32 | HHI.PR ---
Subjective Remarks sr Objective Vital Signs Date Time Temp Pulse Resp B/P Pulse Ox O2 Delivery O2 Flow Rate FiO2 04/22/17 04:00 96.0 83 20 184/92 95 04/22/17 01:31 65 04/22/17 00:00 96.6 79 20 191/90 97 04/21/17 22:30 169/85 04/21/17 21:32 86 192/92 96 04/21/17 21:30 192/92 04/21/17 20:00 98.3 73 20 193/84 95 04/21/17 20:00 98.3 73 20 193/84 95 04/21/17 16:02 96.1 65 20 184/73 96 04/21/17 12:00 98.1 66 17 191/85 97 04/21/17 11:12 Nasal Cannula 2.00 04/21/17 08:00 56 04/21/17 08:00 96.4 56 16 171/81 96 04/21/17 08:00 56 I/O 04/21/17 04/21/17 04/21/17 04/22/17 04/22/17 04/22/17 06:59 14:59 22:59 06:59 14:59 22:59 Intake Total 240 ml 495 ml Output Total 800 ml Balance 240 ml -305 ml Intake Oral 240 ml IV Total 495 ml Output Urine Total 800 ml # Voids 4 3 2 Result Diagram: 04/20/17 1102 Objective Remarks awake alert vff face sym 5/5 t/o still Assessment and Plan Assessment and Plan imp sr likley lacunar cva asa 325 mrax2 neg small left deep lacunar cva on mri ldl99 on statin fu echo and holter pend prob dc in am keep ivf on and bp now ok to rx to/ oob and filipe dc tomotoorow if bp better and steady on feet Alhaji Mahmood MD Apr 22, 2017 07:32
[2017-04-22] MEDS: SODIUM CHLORIDE 0.9% FLUSH 5 ML FLUSH IV FLUSH SCH ×2 (08:20→21:00)
[2017-04-22] MEDS: LABETALOL HCL 100 MG TAB PO SCH ×2 (08:20→22:58)
[2017-04-22] MEDS: ASPIRIN EC 325 MG TABEC PO SCH (08:20)
[2017-04-22] MEDS: FINASTERIDE 5 MG TAB PO SCH (08:20)
[2017-04-22] MEDS: ENALAPRIL MALEATE 10 MG TAB PO SCH ×2 (08:20→22:57)
[2017-04-22] MEDS: SODIUM CHLOR 0.9% 1000 ML INJ 1,000 ML IV SCH (12:34)
--- NOTE | 2017-04-22 12:46 | HHI.PR ---
Subjective Remarks Follow-up lacunar CVA 04/21/17-patient seen and examined, reports some improvement of slurred speech ; by the bedside 04/22/17-patient seen and examined, states he's feeling much better, reports significant improvement of slurred speech. Able to ambulate. Objective Vitals Vital Signs Date Time Temp Pulse Resp B/P Pulse Ox O2 Delivery O2 Flow Rate FiO2 04/22/17 08:13 97.7 77 18 167/77 95 04/22/17 07:00 81 04/22/17 04:00 96.0 83 20 184/92 95 04/22/17 01:31 65 04/22/17 00:00 96.6 79 20 191/90 97 04/21/17 22:30 169/85 04/21/17 21:32 86 192/92 96 04/21/17 21:30 192/92 04/21/17 20:00 98.3 73 20 193/84 95 04/21/17 20:00 98.3 73 20 193/84 95 04/21/17 16:02 96.1 65 20 184/73 96 I/O 04/21/17 04/21/17 04/21/17 04/22/17 04/22/17 04/22/17 07:00 15:00 23:00 07:00 15:00 23:00 Intake Total 240 ml 495 ml Output Total 800 ml Balance 240 ml -305 ml Intake Oral 240 ml IV Total 495 ml Output Urine Total 800 ml # Voids 4 3 2 Result Diagram: 04/20/17 1102 Imaging Last Impressions Head CT 04/21/17 0000 Signed Impressions: Service Date/Time: Friday, April 21, 2017 22:52 - CONCLUSION: 1. No focal or acute intracranial hemorrhage. 2. Stable CT scan of the brain compared to the prior examination. Alex Dupont MD Neck Magnetic Resonance Angiography 04/20/17 1223 Signed Impressions: Service Date/Time: Thursday, April 20, 2017 12:49 - CONCLUSION: Normal examination. Mary Lou Baltazar MD Brain MRI 04/20/17 1223 Signed Impressions: Service Date/Time: Thursday, April 20, 2017 12:49 - CONCLUSION: Small area of acute lacunar infarction in the posterior portion of the left posterior limb internal capsule without hemorrhage or mass effect. Mary Lou Baltazar MD Head Magnetic Resonance Angiography 04/20/17 0000 Signed Impressions: Service Date/Time: Thursday, April 20, 2017 12:49 - CONCLUSION: Slight atherosclerotic changes of distal branches bilaterally, otherwise unremarkable. Mary Lou Baltazar MD Objective Remarks GENERAL: NAD SKIN: Warm and dry. HEAD: Normocephalic. EYES: No scleral icterus. No injection or drainage. NECK: Supple, trachea midline. No JVD or lymphadenopathy. CARDIOVASCULAR: Regular rate and rhythm without murmurs, gallops, or rubs. RESPIRATORY: Breath sounds equal bilaterally. No accessory muscle use. GASTROINTESTINAL: Abdomen soft, non-tender, nondistended. MUSCULOSKELETAL: No cyanosis, or edema. BACK: Nontender without obvious deformity. No CVA tenderness. A/P Problem List: (1) Acute ischemic stroke ICD Code: I63.9 Status: Acute (2) Lacunar infarct, acute ICD Code: I63.9 Status: Acute Assessment and Plan 86-year-old man with Acute Lacunar CVA: -Initial head CT images reviewed, shows right parietal-occipital cephalohematoma from prior parenchymal hemorrhage; no acute infarct/hemorrhage/ mass/edema. -Brain MRI images reviewed, shows small area of acute lacunar infarction in the posterior portion of the left posterior limb internal capsule without hemorrhage or mass effect. -Head/neck MRA reviewed, shows slight atherosclerotic changes, no hemodynamically significant stenosis. -Monitor neuro checks, NIHSS -d/c permissive hypertension -PT/ST/OT evaluation -Continue statin, aspirin, HgbA1c -Consult stroke navigator, rehab medicine -Check holter monitor, echocardiogram, EEG -Appreciate input from Neurology Dr. Mccloud Hypertension d/c permissive hypertension Resume outpatient oral antihypertensive medication today 04/22/17 IV Vasotec 1.25mg q6h prn SBP > 220 Diet Controlled Diabetes: -A1c pending -monitor Accu-checks; insulin sliding scale BPH: chronic -continue Flomax and Proscar All other medical conditions stable, continue home meds DVT Prophylaxis: teds/SCDs, Discharge Planning Likely discharge home with home health care 04/23/17 pending clearance from neurology Jj Godinez MD Apr 22, 2017 12:46
--- NOTE | 2017-04-22 19:33 | HM ---
Date Performed: 04/20/2017 Time Performed: 19:48:00 HOOKUP DATE: 04/20/17 07:48:00 PM Sun ANALYSIS START TIME: 04/20/2017 7:53:00 PM ANALYSIS END TIME: 04/21/2017 7:57:00 PM PATIENT AGE: 86 PATIENT HEIGHT PATIENT WEIGHT DRUG LIST PATIENT DIAGNOSIS: NEURO TEST NARRATIVE: The patient's average heart rate was 64 BPM. No episodes of tachycardia wer e noted. Heart rates less than 50 BPM were noted 10% of the time. No pauses exceeding 2.0 second s were noted. 22 ventricular ectopics, which represented < 1% of the total beat count, were noted . The highest ventricular ectopic frequency occurred from 12:00 AM to 01:00 AM Mon. During this laura e 3 VE(s) occurred. Ventricular ectopics were observed as 20 isolated beat(s) and as 1 couplet(s). No runs were noted. 40 supraventricular ectopics, which represented < 1% of the total beat count, were noted. The highest supraventricular ectopic frequency occurred from 03:00 PM to 04:00 PM Mon. During this time 10 SVE(s) occurred. No episodes of ST depression (defined as -1.0 mm or more) w ere noted in channel 1. No episodes of ST depression (defined as -1.0 mm or more) were noted in [place] 2. No episodes of ST depression (defined as -1.0 mm or more) were noted in channel 3. no diary m aintained TEST INTERPRETATION: 1) Baseline Sinus rhythm with sinus arrhythmia 2) Heart rate less than 50 bpm 10% of the time, no pauses noted, no AV blocks noted 3) Rare PVC 4) Rare PAC, 2 atrial runs of 3 beats each, not felt to be atrial fibrillation 5) N o ST changes noted 6) No diary with symptoms available Signed by : Miguel Mishra
[2017-04-22] MEDS: TAMSULOSIN HCL 0.4 MG CAP PO SCH (22:57)
[2017-04-22] MEDS: ATORVASTATIN 40 MG TAB PO SCH (22:58)
[2017-04-22] MEDS: levETIRAcetam 500 MG TAB PO SCH (23:01)
[2017-04-23] VITALS (7 sets, daily range): BP systolic 132–190; BP diastolic 61–86; PULSE 64–99; RESP 17–20; TEMP 97.8–98.7; O2SAT 92–95
[2017-04-23] MEDS: SODIUM CHLOR 0.9% 1000 ML INJ 1,000 ML IV SCH ×2 (02:42→16:02)
--- NOTE | 2017-04-23 07:52 | HHI.PR ---
Subjective Remarks sr on toilet had inc hr 180 and near syncope very lethargic and woke right up in bed Objective Vital Signs Date Time Temp Pulse Resp B/P Pulse Ox O2 Delivery O2 Flow Rate FiO2 04/23/17 04:00 98.2 84 20 148/71 92 04/23/17 00:00 97.8 93 20 145/74 95 04/23/17 00:00 97.8 93 20 145/74 95 04/22/17 22:10 93 04/22/17 20:22 97 21 04/22/17 20:00 98.1 110 20 173/80 93 04/22/17 20:00 98.1 110 20 173/80 93 04/22/17 17:44 97.8 97 20 164/77 93 04/22/17 17:42 98.8 98 20 179/82 95 04/22/17 17:15 180 20 176/82 95 04/22/17 17:12 175 20 135/91 93 04/22/17 15:44 99.7 84 18 181/88 96 04/22/17 15:00 91 04/22/17 12:47 98.2 73 18 198/88 97 04/22/17 10:45 96 04/22/17 08:13 97.7 77 18 167/77 95 I/O 04/22/17 04/22/17 04/22/17 04/23/17 04/23/17 04/23/17 07:00 15:00 23:00 07:00 15:00 23:00 Intake Total 495 ml 360 ml Output Total 800 ml Balance -305 ml 360 ml Intake Oral 360 ml IV Total 495 ml Output Urine Total 800 ml # Voids 2 2 1 Result Diagram: 04/20/17 1102 Objective Remarks awake alert vff face sym 5/5 t/o still Assessment and Plan Assessment and Plan imp sr likley lacunar cva asa 325 mrax2 neg small left deep lacunar cva on mri [id number] on statin fu echo and holter both neg 2 bp meds started yest and syncope on toilet probable vasovagal with recent cva however have cards see and trop and recheck mri if all ok could dc then if bp stable check standing bp Alhaji Mahmood MD Apr 23, 2017 07:52
[2017-04-23] MEDS: SODIUM CHLORIDE 0.9% FLUSH 5 ML FLUSH IV FLUSH SCH ×2 (08:14→21:00)
[2017-04-23] MEDS: LABETALOL HCL 100 MG TAB PO SCH ×2 (08:15→20:33)
[2017-04-23] MEDS: ASPIRIN EC 325 MG TABEC PO SCH (08:15)
[2017-04-23] MEDS: ENALAPRIL MALEATE 10 MG TAB PO SCH ×2 (08:15→20:33)
[2017-04-23] MEDS: FINASTERIDE 5 MG TAB PO SCH (08:15)
--- NOTE | 2017-04-23 12:28 | MB ---
cc: NATACHA GARCIA DATE OF CONSULTATION: 04/23/2017 DATE OF : 1930 REASON FOR CONSULTATION CVA/syncope. HISTORY OF PRESENT ILLNESS 86-year-old male with past medical history significant for hypertension, diabetes and right parietal intracranial hemorrhage in 2009, who was admitted to the hospital with symptoms of slurred speech that lasted about 30 minutes in the setting of an acute ischemic stroke. Yesterday during the day apparently the patient while he was walking to the bathroom had an episode of syncope. Telemetry is showing SVT at 170. Cardiology has been consulted for evaluation of syncope. REVIEW OF SYSTEMS A review of systems is negative except for what is mentioned in the HPI. PAST MEDICAL HISTORY 1. Hypertension. 2. Diabetes. 3. Seizures. 4. Right parietal intracranial hemorrhage in 2009. 5. Hyperlipidemia. PAST SURGICAL HISTORY 1. Bilateral rotator cuff repair. 2. Left elbow surgery. 3. Tonsillectomy. 4. Knee surgery. MEDICATIONS Cardiac home medications: 1. Labetalol 100 mg p.o. b.i.d. 2. Enalapril 10 mg p.o. b.i.d. ALLERGIES PENICILLIN. FAMILY HISTORY Noncontributory. SOCIAL HISTORY Denies alcohol, tobacco or illicit drug use. PHYSICAL EXAMINATION VITAL SIGNS: Temperature 98, heart rate 79, respiratory rate 18, blood pressure 153/70, O2 sat 94% on room air. GENERAL: Awake, alert, oriented x3, in no acute distress. NECK: No JVD. No carotid bruits. HEART: Regular rate and rhythm. No murmurs, rubs or gallops. LUNGS: Clear to auscultation bilaterally. No wheezes, rhonchi or rales. ABDOMEN: Soft, nontender, nondistended. Positive bowel sounds. EXTREMITIES: No cyanosis or edema. Pulses throughout. LABORATORY Hemoglobin 14, hematocrit 42, platelet count 179. INR 1. Sodium 140, potassium 4.7, BUN 14, creatinine 1.1. Troponin less than 0.02 and 0.2. Triglycerides 198, cholesterol 175, LDL 99, HDL 36. Urinalysis is unremarkable. IMAGING Brain MRI: A small area of acute lacunar infarction in the posterior fossa in the left posterior limb in the internal capsule without hemorrhage. ECHOCARDIOGRAM Normal LV systolic size and function with no wall motion abnormalities. Holter is unremarkable. ASSESSMENT AND PLAN 86-year-old male admitted with a stroke, consulted for syncope. He remains afebrile and hemodynamically stable. Interestingly, his episode of syncope correlated with an episode of SVT on telemetry. He converted back to normal sinus rhythm, however, I wonder whether he has paroxysmal atrial fibrillation. He has a benign Holter monitor done here as well as an echocardiogram that was unremarkable. However, the question of an atrial fibrillation state is still in mid, especially with the negative neurological work-up. If this actually is atrial fibrillation his CHADS score is 4, for which he is an 8.5% increase risk per year to have another event, thus chronic oral anticoagulation will be strongly recommended. However, he has history of a hemorrhagic stroke in 2010 and will need clearance from Neurology if chronic anticoagulation. In regards to SVT given Holter monitor was unremarkable will recommended to get a LINQ's monitor to assess atrial fibrillation burden. RECOMMENDATIONS 1. Start chronic oral anticoagulation if cleared by neurology. 2. Loop recorder implantation. 3. Continue rate control for heart rate. Thank you for the opportunity to take part in the care of this patient. MD TEJINDER Perry/BT /11:20 AM /12:11 PM REGINO
--- NOTE | 2017-04-23 12:49 | HHI.PR ---
Subjective Remarks had syncope/ SVT episode last night denies palpitations denies cp/sob denies headache Objective Vitals Vital Signs Date Time Temp Pulse Resp B/P Pulse Ox O2 Delivery O2 Flow Rate FiO2 04/23/17 12:00 98.5 71 17 132/61 95 04/23/17 08:00 98.3 79 18 153/70 94 04/23/17 08:00 64 04/23/17 04:00 98.2 84 20 148/71 92 04/23/17 00:00 97.8 93 20 145/74 95 04/23/17 00:00 97.8 93 20 145/74 95 04/22/17 22:10 93 04/22/17 20:22 97 21 04/22/17 20:00 98.1 110 20 173/80 93 04/22/17 20:00 98.1 110 20 173/80 93 04/22/17 17:44 97.8 97 20 164/77 93 04/22/17 17:42 98.8 98 20 179/82 95 04/22/17 17:15 180 20 176/82 95 04/22/17 17:12 175 20 135/91 93 04/22/17 15:44 99.7 84 18 181/88 96 04/22/17 15:00 91 I/O 04/22/17 04/22/17 04/22/17 04/23/17 04/23/17 04/23/17 07:00 15:00 23:00 07:00 15:00 23:00 Intake Total 495 ml 360 ml Output Total 800 ml 220 ml Balance -305 ml 360 ml -220 ml Intake Oral 360 ml IV Total 495 ml Output Urine Total 800 ml 220 ml # Voids 2 2 1 Result Diagram: 04/20/17 1102 Imaging Last Impressions Head CT 04/21/17 0000 Signed Impressions: Service Date/Time: Friday, April 21, 2017 22:52 - CONCLUSION: 1. No focal or acute intracranial hemorrhage. 2. Stable CT scan of the brain compared to the prior examination. Alex Dupont MD Neck Magnetic Resonance Angiography 04/20/17 1223 Signed Impressions: Service Date/Time: Thursday, April 20, 2017 12:49 - CONCLUSION: Normal examination. Mary Lou Baltazar MD Brain MRI 04/20/17 1223 Signed Impressions: Service Date/Time: Thursday, April 20, 2017 12:49 - CONCLUSION: Small area of acute lacunar infarction in the posterior portion of the left posterior limb internal capsule without hemorrhage or mass effect. Mary Lou Baltazar MD Head Magnetic Resonance Angiography 04/20/17 0000 Signed Impressions: Service Date/Time: Thursday, April 20, 2017 12:49 - CONCLUSION: Slight atherosclerotic changes of distal branches bilaterally, otherwise unremarkable. Mary Lou Baltazar MD Objective Remarks AAOx3, nad Clear lungs BL S1S2 RRR, no MRG Medications and IVs Current Medications Medications (Trade) Dose Ordered Sig/Kalin Route Start Time Stop Time Status Last Admin (Ecotrin Ec) 325 mg DAILY PO 04/20/17 13:00 04/23/17 08:15 (NS Flush) 2 ml BID IV FLUSH 04/20/17 21:00 04/22/17 21:00 (NS Flush) 2 ml UNSCH PRN IV FLUSH 04/20/17 13:45 (Vasotec Inj) 1.25 mg Q4H PRN IV 04/20/17 15:45 (Proscar) 5 mg DAILY PO 04/21/17 09:00 04/23/17 08:15 (Flomax) 0.4 mg HS PO 04/20/17 21:00 04/23/17 20:33 Atorvastatin Calcium 40 mg 40 mg HS PO 04/20/17 21:00 04/23/17 20:33 (NS 1000 ml Inj) 1,000 ml @ 75 mls/hr [id number] IV 04/20/17 21:22 04/23/17 16:02 (Keppra) 500 mg DAILY@2150 PO 04/21/17 21:50 04/22/17 23:01 (Vasotec) 10 mg BID PO 04/22/17 09:00 04/23/17 20:33 Labetalol HCl 100 mg 100 mg BID PO 04/22/17 09:00 04/23/17 20:33 (NS 1000 ml Inj) 1,000 ml @ 30 mls/hr Q24H IV 04/23/17 17:45 Urinary Catheter: No Vascular Central Line Catheter: No A/P Problem List: (1) Acute ischemic stroke ICD Code: I63.9 Status: Acute (2) Lacunar infarct, acute ICD Code: I63.9 Status: Acute Assessment and Plan 86-year-old man with Acute Lacunar CVA: -Initial head CT images reviewed, shows right parietal-occipital cephalohematoma from prior parenchymal hemorrhage; no acute infarct/hemorrhage/ mass/edema. -Brain MRI images reviewed, shows small area of acute lacunar infarction in the posterior portion of the left posterior limb internal capsule without hemorrhage or mass effect. -Head/neck MRA reviewed, shows slight atherosclerotic changes, no hemodynamically significant stenosis. -Monitor neuro checks, NIHSS -Continue PT/ST/OT evaluation -Continue statin, aspirin, HgbA1c - 6.6 -appreciate rehab medicine consultation -EEG positive for encephalopathy but negative for epileptiform discharges. -Appreciate input from Neurology Dr. Mccloud Hypertension Oral antihypertensive medications resumed on 04/22/17 Patient currently on enalapril 10 mg by mouth twice a day, labetalol 100 mg by mouth twice a day IV Vasotec 1.25mg q6h prn SBP > 220 Patient still with a severe exacerbation of hypertension. I will increase the dose of enalapril to 20 mg by mouth twice a day Diet Controlled Diabetes: -A1c 6.6. Blood sugar stable -monitor Accu-checks; insulin sliding scale BPH: chronic -continue Flomax and Proscar Syncope/SVT -Patient had a syncopal episode last night. Concurrently SVT on telemetry. Cardiology consulted. -Cardiology recommends a loop recorder and to start anticoagulation when cleared by neurology. All other medical conditions stable, continue home meds DVT Prophylaxis: teds/SCDs, Discharge Planning Continue to monitor in the medical floor. Vasu Peoples MD Apr 23, 2017 12:49
[2017-04-23] MEDS ORDERED: VANCOMYCIN HCL 1000 MG VIAL ONE (17:28)
[2017-04-23] MEDS ORDERED: SODIUM CHLOR 0.9% 250 ML INJ 250 ML ONE (17:28)
[2017-04-23] MEDS ORDERED: MIDAZOLAM HCL 2 MG/2 ML VIAL ONE (17:42)
[2017-04-23] MEDS ORDERED: MUPIROCIN 2% OINT 1 APPLIC/GM SYR NASAL SCH (17:45)
[2017-04-23] MEDS ORDERED: ceFAZolin 2 GM PREMIX 50 ML IV SCH (17:45)
[2017-04-23] MEDS ORDERED: POVIDONE IODINE 5% (ANTISEPSIS KIT) 4 APPLICATIONS EACH NARE SCH (17:45)
[2017-04-23] MEDS ORDERED: CHLORHEXIDINE GLUCONATE 2 % 1 PACK (2 CLOTHS) TOPICAL SCH (17:45)
[2017-04-23] MEDS ORDERED: VANCOMYCIN HCL 1000 MG ON-CALL/NS 250 ML IV SCH ×2 (17:45)
[2017-04-23] MEDS: NS 1000 ML IV SCH (17:45)
[2017-04-23] MEDS: ATORVASTATIN 40 MG TAB PO SCH (20:33)
[2017-04-23] MEDS: TAMSULOSIN HCL 0.4 MG CAP PO SCH (20:33)
[2017-04-23] MEDS: levETIRAcetam 500 MG TAB PO SCH (21:50)
[2017-04-24] VITALS (11 sets, daily range): BP systolic 164–205; BP diastolic 72–92; PULSE 76–92; RESP 17–20; TEMP 96.1–99; O2SAT 94–98
[2017-04-24] MEDS: SODIUM CHLOR 0.9% 1000 ML INJ 1,000 ML IV SCH ×2 (05:22→15:52)
[2017-04-24 07:25] LABS: AUTOMATED NEUTROPHIL # 6.6 TH/MM3 (1.8-7.7); BASOPHIL % 0.3 % (0.0-2.0); EOSINOPHIL # 0.1 TH/MM3 (0-0.4); EOSINOPHIL % 0.6 % (0.0-4.0); HEMATOCRIT 38.4 % (39.0-51.0); HEMO FLAGS DIFF FINAL; LYMPH % 9.9 % (9.0-44.0); LYMPHOCYTE # 0.9 TH/MM3 (1.0-4.8); MEAN CELL VOLUME 88.1 FL (80.0-100.0); MEAN CORPUSCULAR HEMOGLOBIN 30.9 PG (27.0-34.0); MONO % 16.6 % (0.0-8.0); NEUT % 72.6 % (16.0-70.0); PLATELET COUNT 153 TH/MM3 (150-450); RED BLOOD COUNT 4.36 MIL/MM3 (4.50-5.90); RED CELL DISTRIBUTION WIDTH 12.9 % (11.6-17.2); WHITE BLOOD COUNT 9.2 TH/MM3 (4.0-11.0)
--- NOTE | 2017-04-24 07:31 | HHI.PR ---
Subjective Remarks sr loop in no more syncope bp up still Objective Vital Signs Date Time Temp Pulse Resp B/P Pulse Ox O2 Delivery O2 Flow Rate FiO2 04/24/17 05:44 168/72 04/24/17 04:31 178/72 04/24/17 04:00 98.6 85 20 205/92 94 04/24/17 00:00 98.3 83 20 164/77 94 04/23/17 20:00 98.7 90 20 175/81 93 04/23/17 17:46 21 04/23/17 16:00 98.2 99 19 190/86 94 170/77 174/79 04/23/17 15:00 85 04/23/17 12:00 98.5 71 17 132/61 95 04/23/17 08:00 98.3 79 18 153/70 94 04/23/17 08:00 64 I/O 04/23/17 04/23/17 04/23/17 04/24/17 04/24/17 04/24/17 06:59 14:59 22:59 06:59 14:59 22:59 Intake Total 240 ml 0 ml Output Total 220 ml Balance -220 ml 240 ml 0 ml Intake Oral 240 ml 0 ml Output Urine Total 220 ml # Voids 1 3 1 1 # Bowel Movements 1 0 0 Result Diagram: 04/24/17 0657 Objective Remarks awake alert vff face sym 5/ t/o still no change Assessment and Plan Assessment and Plan imp sr likley lacunar cva asa 325 mrax2 neg small left deep lacunar cva on mri ldl99 on statin fu echo and holter both neg 2 bp meds started yest and syncope on toilet probable vasovagal with recent cva however have cards see and trop and recheck mri if all ok could dc then if bp stable check standing bp 04/24/17 loop in no afib documented likely lacunar cva so asa and if any afib on cloop can change to eliquis in future he can dc when bp lower to 120-140/ Alhaji Mahmood MD Apr 24, 2017 07:31
[2017-04-24 07:49] LABS: ANION GAP 8 MEQ/L (5-15); AST (GOT) 36 U/L (15-37); BICARBONATE 25.2 MEQ/L (21.0-32.0); BLOOD UREA NITROGEN 15 MG/DL (7-18); CHLORIDE 104 MEQ/L (98-107); MAGNESIUM 1.8 MG/DL (1.5-2.5); POTASSIUM 3.8 MEQ/L (3.5-5.1); SODIUM (NA) 137 MEQ/L (136-145)
[2017-04-24 07:56] LABS: ALKALINE PHOSPHATASE 57 U/L (45-117); ALT (GPT) 28 U/L (12-78); GLOMERULAR FILTRATION RATE 72 ML/MIN (>89); TOTAL BILIRUBIN ADULT 1.1 MG/DL (0.2-1.0)
[2017-04-24] MEDS: LABETALOL HCL 100 MG TAB PO SCH ×2 (08:01→21:06)
[2017-04-24] MEDS: FINASTERIDE 5 MG TAB PO SCH (08:02)
[2017-04-24] MEDS: ASPIRIN EC 325 MG TABEC PO SCH (08:02)
[2017-04-24] MEDS: SODIUM CHLORIDE 0.9% FLUSH 5 ML FLUSH IV FLUSH SCH ×2 (08:02→21:08)
[2017-04-24] MEDS: ENALAPRIL MALEATE 10 MG TAB PO SCH ×2 (08:02→21:06)
--- NOTE | 2017-04-24 09:31 | RADRPT ---
EXAM DATE/TIME: 04/24/2017 08:52 [place] COMPARISON: MRI BRAIN W & W/O CONTRAST, April 20, 2017, 12:49. INDICATIONS : Slurred speech. MEDICAL HISTORY : Hypertension. Diabetes mellitus type 2. SURGICAL HISTORY : Tonsillectomy. knee, eblow, cataract, [employer] reveal linq loop recorder ENCOUNTER: Subsequent ACUITY: 4-6 days PAIN SCORE: 3/10 LOCATION: neck TECHNIQUE: Multiplanar, multisequence MRI of the brain was performed without contrast. FINDINGS: Redemonstration of right parieto-occipital encephalomalacic defect containing old blood products and extending to the periventricular region. Evolution of previous small region of restricted diffusion i n the posterior left internal capsule. No new or regions of restricted diffusion. Remainder of exam i s unchanged. There is mild diffuse cerebral atrophy. Exvacuo dilatation of the posterior right lateral ventricle. Ventricles otherwise stable and within normal limits for degree of atrophy. Minimal periventricular i ncreased flair signal consistent with ischemic white matter demyelination. Midbrain and cerebellum ar e unremarkable. No significant intra-or extra-axial fluid collections or mass or hemorrhage. CONCLUSION: 1. Evolving subacute lacunar infarction of the left posterior limb of the internal capsule. 2. 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 3. Otherwise, no acute abnormality. Lucian Farley MD on April 24, 2017 at 9:13 Board Certified Radiologist. This report was verified electronically.
--- NOTE | 2017-04-24 14:57 | HHI.PR ---
Subjective Remarks seen ambulating with PT denies cp/sob BP elevated Objective Vitals Vital Signs Date Time Temp Pulse Resp B/P Pulse Ox O2 Delivery O2 Flow Rate FiO2 04/24/17 12:00 98.1 85 17 177/82 95 04/24/17 08:05 96.1 81 18 178/79 96 04/24/17 08:00 76 04/24/17 05:44 168/72 04/24/17 04:31 178/72 04/24/17 04:00 98.6 85 20 205/92 94 04/24/17 00:00 98.3 83 20 164/77 94 04/23/17 20:00 98.7 90 20 175/81 93 04/23/17 17:46 21 04/23/17 16:00 98.2 99 19 190/86 94 170/77 174/79 04/23/17 15:00 85 I/O 04/23/17 04/23/17 04/23/17 04/24/17 04/24/17 04/24/17 06:59 14:59 22:59 06:59 14:59 22:59 Intake Total 240 ml 0 ml Output Total 220 ml Balance -220 ml 240 ml 0 ml Intake Oral 240 ml 0 ml Output Urine Total 220 ml # Voids 1 3 1 1 # Bowel Movements 1 0 0 Result Diagram: 04/24/17 0657 04/24/17 0657 Imaging Last Impressions Brain MRI 04/24/17 0000 Signed Impressions: Service Date/Time: April 08:52 - CONCLUSION: 1. Evolving subacute lacunar infarction of the left posterior limb of the internal capsule. 2. 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 3. Otherwise, no acute abnormality. Lucian Farley MD Head CT 04/21/17 0000 Signed Impressions: Service Date/Time: Friday, April 21, 2017 22:52 - CONCLUSION: 1. No focal or acute intracranial hemorrhage. 2. Stable CT scan of the brain compared to the prior examination. Alex Dupont MD Neck Magnetic Resonance Angiography 04/20/17 1223 Signed Impressions: Service Date/Time: Thursday, April 20, 2017 12:49 - CONCLUSION: Normal examination. Mary Lou Baltazar MD Head Magnetic Resonance Angiography 04/20/17 0000 Signed Impressions: Service Date/Time: Thursday, April 20, 2017 12:49 - CONCLUSION: Slight atherosclerotic changes of distal branches bilaterally, otherwise unremarkable. Mary Lou Baltazar MD Objective Remarks AAOx3, nad Clear lungs BL S1S2 RRR, no MRG Procedures sp Loop recorder implantation Medications and IVs Current Medications Medications (Trade) Dose Ordered Sig/Kalin Route Start Time Stop Time Status Last Admin (Ecotrin Ec) 325 mg DAILY PO 04/20/17 13:00 04/24/17 08:02 (NS Flush) 2 ml BID IV FLUSH 04/20/17 21:00 04/24/17 08:02 (NS Flush) 2 ml UNSCH PRN IV FLUSH 04/20/17 13:45 (Vasotec Inj) 1.25 mg Q4H PRN IV 04/20/17 15:45 (Proscar) 5 mg DAILY PO 04/21/17 09:00 04/24/17 08:02 (Flomax) 0.4 mg HS PO 04/20/17 21:00 04/23/17 20:33 Atorvastatin Calcium 40 mg 40 mg HS PO 04/20/17 21:00 04/23/17 20:33 (NS 1000 ml Inj) 1,000 ml @ 75 mls/hr [id number] IV 04/20/17 21:22 04/23/17 16:02 (Keppra) 500 mg DAILY@2150 PO 04/21/17 21:50 04/23/17 21:50 Labetalol HCl 100 mg 100 mg BID PO 04/22/17 09:00 04/24/17 08:01 (NS 1000 ml Inj) 1,000 ml @ 30 mls/hr Q24H IV 04/23/17 17:45 (Vasotec) 20 mg BID PO 04/24/17 09:00 04/24/17 08:02 (K-Phos Neutral) 250 mg Q8HR PO 04/24/17 15:00 04/24/17 15:00 (Cardura) 2 mg DAILY PO 04/25/17 09:00 A/P Problem List: (1) Acute ischemic stroke ICD Code: I63.9 Status: Acute (2) Lacunar infarct, acute ICD Code: I63.9 Status: Acute (3) Uncontrolled hypertension ICD Code: I10 Status: Acute (4) SVT (supraventricular tachycardia) ICD Code: I47.1 Status: Resolved Assessment and Plan 86-year-old man with Acute Lacunar CVA: -Initial head CT images reviewed, shows right parietal-occipital cephalohematoma from prior parenchymal hemorrhage; no acute infarct/hemorrhage/ mass/edema. -Brain MRI images reviewed, shows small area of acute lacunar infarction in the posterior portion of the left posterior limb internal capsule without hemorrhage or mass effect. -Head/neck MRA reviewed, shows slight atherosclerotic changes, no hemodynamically significant stenosis. -Monitor neuro checks, NIHSS -Continue PT/ST/OT evaluation -Continue statin, aspirin, HgbA1c - 6.6 -appreciate rehab medicine consultation -EEG positive for encephalopathy but negative for epileptiform discharges. -Appreciate input from Neurology Dr. Mccloud - Patient cleared for DC by neurology once BP controlled. Hypertension Oral antihypertensive medications resumed on 04/22/17 Patient currently on enalapril 20 mg by mouth twice a day, labetalol 100 mg by mouth twice a day 04/24 BP still severely uncontrolled - will start patient on Doxazosin 2mg po daily - first dose now. Continue IV Vasotec 1.25mg q6h prn SBP > 220 Diet Controlled Diabetes: -A1c 6.6. Blood sugar stable -monitor Accu-checks; insulin sliding scale BPH: chronic -continue Flomax and Proscar Syncope/SVT -Patient had a syncopal episode last night. Concurrently SVT on telemetry. Cardiology consulted. -sp Loop recorder implantation - recommendation is to switch aspirin to Coumadin if there is A. fib on loop recorder. All other medical conditions stable, continue home meds DVT Prophylaxis: teds/SCDs, Discharge Planning Continue to monitor in the medical floor. Vasu Peoples MD Apr 24, 2017 14:57
[2017-04-24] MEDS: POTASSIUM PHOSPHATE/SODIUM PHOSPHATE 250 MG TAB PO SCH ×2 (15:00→21:12)
[2017-04-24] MEDS ORDERED: DOXAZOSIN MESYLATE 4 MG TAB PO SCH (15:00)
[2017-04-24] MEDS: NS 1000 ML IV SCH (15:52)
[2017-04-24] MEDS: ACETAMINOPHEN/HYDROcodone 325 MG/5 MG TAB PO PRN (21:04)
[2017-04-24] MEDS: ATORVASTATIN 40 MG TAB PO SCH (21:05)
[2017-04-24] MEDS: TAMSULOSIN HCL 0.4 MG CAP PO SCH (21:07)
[2017-04-24] MEDS: levETIRAcetam 500 MG TAB PO SCH (21:12)
[2017-04-24] MEDS: DOXAZOSIN MESYLATE 2 MG TAB PO SCH (21:12)
[2017-04-25 00:45] VITALS: BP 170/77; PULSE 69; RESP 19; TEMP 97; O2SAT 96
[2017-04-25] MEDS: ACETAMINOPHEN/HYDROcodone 325 MG/5 MG TAB PO PRN ×3 (01:00→21:06)
[2017-04-25] MEDS: SODIUM CHLOR 0.9% 1000 ML INJ 1,000 ML IV SCH ×2 (01:03→21:22)
[2017-04-25 05:55] VITALS: PULSE 74
[2017-04-25] MEDS: POTASSIUM PHOSPHATE/SODIUM PHOSPHATE 250 MG TAB PO SCH ×3 (05:55→21:05)
[2017-04-25 08:50] VITALS: BP 163/79; PULSE 78; RESP 16; TEMP 98.4; O2SAT 94
[2017-04-25] MEDS: ASPIRIN EC 325 MG TABEC PO SCH (08:56)
[2017-04-25] MEDS: DOXAZOSIN MESYLATE 2 MG TAB PO SCH (08:56)
[2017-04-25] MEDS: LABETALOL HCL 100 MG TAB PO SCH ×2 (08:56→21:06)
[2017-04-25] MEDS: ENALAPRIL MALEATE 10 MG TAB PO SCH ×2 (08:56→21:05)
[2017-04-25] MEDS: FINASTERIDE 5 MG TAB PO SCH (08:56)
[2017-04-25] MEDS: SODIUM CHLORIDE 0.9% FLUSH 5 ML FLUSH IV FLUSH SCH ×2 (08:57→21:43)
[2017-04-25] MEDS ORDERED: DEXAMETHASONE SOD PHOS 4 MG/ML VIAL IV PUSH ONE (09:00)
[2017-04-25] MEDS ORDERED: DOXAZOSIN MESYLATE 2 MG TAB PO SCH (09:00)
--- NOTE | 2017-04-25 09:00 | HHI.PR ---
Subjective Remarks sr loop in no more syncope bp up still Objective Vital Signs Date Time Temp Pulse Resp B/P Pulse Ox O2 Delivery O2 Flow Rate FiO2 04/25/17 08:50 98.4 78 16 163/79 94 04/25/17 00:45 97.0 69 19 170/77 96 04/24/17 21:30 99.0 92 20 180/86 94 04/24/17 20:03 86 04/24/17 16:00 98.0 85 18 190/88 98 04/24/17 15:00 87 04/24/17 12:00 98.1 85 17 177/82 95 I/O 04/24/17 04/24/17 04/24/17 04/25/17 04/25/17 04/25/17 07:00 15:00 23:00 07:00 15:00 23:00 Intake Total 0 ml 480 ml 500 ml 900 ml Balance 0 ml 480 ml 500 ml 900 ml Intake Oral 0 ml 480 ml 500 ml IV Total 900 ml # Voids 1 2 0 # Bowel Movements 0 0 Result Diagram: 04/24/1757 04/24/17 0657 Objective Remarks awake alert vff face sym 5/5 t/o still no change left thumb painful as is left trap not red or swollen Assessment and Plan Assessment and Plan imp sr likley lacunar cva asa 325 mrax2 neg small left deep lacunar cva on mri [id number] on statin fu echo and holter both neg 2 bp meds started yest and syncope on toilet probable vasovagal with recent cva however have cards see and trop and recheck mri if all ok could dc then if bp stable check standing bp 04/24/17 loop in no afib documented likely lacunar cva so asa and if any afib on cloop can change to eliquis in future he can dc when bp lower to 120-140/ 04/25/17 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
[2017-04-25] MEDS: FAMOTIDINE 20 MG TAB PO SCH ×2 (09:30→21:06)
[2017-04-25 12:03] VITALS: BP 171/81; PULSE 82; RESP 16; TEMP 98.7; O2SAT 94
[2017-04-25] MEDS ORDERED: GLUCAGON 1 MG/ML VIAL OTHER PRN (16:30)
[2017-04-25] MEDS ORDERED: DEXTROSE 50% IN WATER 50 ML VIAL(D50) IV PRN (16:30)
[2017-04-25 16:35] VITALS: BP 135/63; PULSE 72; RESP 16; TEMP 98.4; O2SAT 93
--- NOTE | 2017-04-25 19:29 | HHI.PR ---
Subjective Remarks Patient c/o of neck pain also c/o left thumb pain localized at the base of the thumb denies headache Objective Vitals Vital Signs Date Time Temp Pulse Resp B/P Pulse Ox O2 Delivery O2 Flow Rate FiO2 04/25/17 16:35 98.4 72 16 135/63 93 04/25/17 12:03 98.7 82 16 171/81 94 04/25/17 08:50 98.4 78 16 163/79 94 04/25/17 05:55 74 04/25/17 00:45 97.0 69 19 170/77 96 04/24/17 21:30 99.0 92 20 180/86 94 04/24/17 20:03 86 I/O 04/24/17 04/24/17 04/24/17 04/25/17 04/25/17 04/25/17 06:59 14:59 22:59 06:59 14:59 22:59 Intake Total 0 ml 480 ml 500 ml 900 ml 480 ml Balance 0 ml 480 ml 500 ml 900 ml 480 ml Intake Oral 0 ml 480 ml 500 ml 480 ml IV Total 900 ml # Voids 1 2 0 5 # Bowel Movements 0 0 Result Diagram: 04/24/17 0657 04/24/17 0657 Imaging Last Impressions Brain MRI 04/24/17 0000 Signed Impressions: Service Date/Time: April 08:52 - CONCLUSION: 1. Evolving subacute lacunar infarction of the left posterior limb of the internal capsule. 2. 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 3. Otherwise, no acute abnormality. Lucian Farley MD Head CT 04/21/17 0000 Signed Impressions: Service Date/Time: Friday, April 21, 2017 22:52 - CONCLUSION: 1. No focal or acute intracranial hemorrhage. 2. Stable CT scan of the brain compared to the prior examination. Alex Dupont MD Neck Magnetic Resonance Angiography 04/20/17 1223 Signed Impressions: Service Date/Time: Thursday, April 20, 2017 12:49 - CONCLUSION: Normal examination. Mary Lou Baltazar MD Head Magnetic Resonance Angiography 04/20/17 0000 Signed Impressions: Service Date/Time: Thursday, April 20, 2017 12:49 - CONCLUSION: Slight atherosclerotic changes of distal branches bilaterally, otherwise unremarkable. Mary Lou Baltazar MD Objective Remarks AAOx3, nad Clear lungs BL S1S2 RRR, no MRG Procedures sp Loop recorder implantation Medications and IVs Current Medications Medications (Trade) Dose Ordered Sig/Kalin Route Start Time Stop Time Status Last Admin (Ecotrin Ec) 325 mg DAILY PO 04/20/17 13:00 04/25/17 08:56 (NS Flush) 2 ml BID IV FLUSH 04/20/17 21:00 04/24/17 21:08 (NS Flush) 2 ml UNSCH PRN IV FLUSH 04/20/17 13:45 (Vasotec Inj) 1.25 mg Q4H PRN IV 04/20/17 15:45 (Proscar) 5 mg DAILY PO 04/21/17 09:00 04/25/17 08:56 (Flomax) 0.4 mg HS PO 04/20/17 21:00 04/24/17 21:07 Atorvastatin Calcium 40 mg 40 mg HS PO 04/20/17 21:00 04/24/17 21:05 (NS 1000 ml Inj) 1,000 ml @ 75 mls/hr [id number] IV 04/20/17 21:22 04/25/17 01:03 (Keppra) 500 mg DAILY@2150 PO 04/21/17 21:50 04/24/17 21:12 (Trandate) 100 mg BID PO 04/22/17 09:00 04/25/17 08:56 (Vasotec) 20 mg BID PO 04/24/17 09:00 04/25/17 08:56 (K-Phos Neutral) 250 mg Q8HR PO 04/24/17 15:00 04/25/17 14:01 (Cardura) 2 mg DAILY PO 04/24/17 20:00 04/25/17 08:56 ([place] 5-325 Mg) 1 tab Q4H PRN PO 04/24/17 21:00 04/25/17 05:55 (Pepcid) 10 mg BID PO 04/25/17 09:00 04/25/17 09:30 (D50w (Vial) Inj) 50 ml UNSCH PRN IV 04/25/17 16:30 (Glucagon Inj) 1 mg UNSCH PRN OTHER 04/25/17 16:30 A/P Problem List: (1) Acute ischemic stroke ICD Code: I63.9 Status: Acute (2) Lacunar infarct, acute ICD Code: I63.9 Status: Acute (3) Uncontrolled hypertension ICD Code: I10 Status: Acute (4) SVT (supraventricular tachycardia) ICD Code: I47.1 Status: Resolved Assessment and Plan 86-year-old man with Acute Lacunar CVA: -Initial head CT images reviewed, shows right parietal-occipital cephalohematoma from prior parenchymal hemorrhage; no acute infarct/hemorrhage/ mass/edema. -Brain MRI images reviewed, shows small area of acute lacunar infarction in the posterior portion of the left posterior limb internal capsule without hemorrhage or mass effect. -Head/neck MRA reviewed, shows slight atherosclerotic changes, no hemodynamically significant stenosis. -Monitor neuro checks, NIHSS -Continue PT/ST/OT evaluation -Continue statin, aspirin, HgbA1c - 6.6 -appreciate rehab medicine consultation -EEG positive for encephalopathy but negative for epileptiform discharges. -Appreciate input from Neurology Dr. Mccloud - Patient cleared for DC by neurology once BP controlled. Hypertension Oral antihypertensive medications resumed on 04/22/17 Patient currently on enalapril 20 mg by mouth twice a day, labetalol 100 mg by mouth twice a day 04/24 BP still severely uncontrolled - will start patient on Doxazosin 2mg po daily - first dose now. Continue IV Vasotec 1.25mg q6h prn SBP > 220 04/25 BP much better - Continue Cardura 2 mg po daily. If BP goes up again will go up on dose to 4 mg. Diabetes with Hyperglycemia: -A1c 6.6. Blood sugar stable -04/25 Blood sugars severely elevated in the 300's. Hyperglycemia is steroid- induced. Will place on sliding scale and continue to monitor Accu-Cheks. BPH: chronic -continue Flomax and Proscar Syncope/SVT -Patient had a syncopal episode last night. Concurrently SVT on telemetry. Cardiology consulted. -sp Loop recorder implantation - recommendation is to switch aspirin to Coumadin if there is A. fib on loop recorder. -No a fib on loop recorder. Left Thumb pain -Likely after patient fell in hospital room. -Will x ray left hand to r/o fracture - Will order a splint. Neck pain -SP decadron by neurology without much relief. -Will order Flexeril. -Given that patient has had multiple falls - will order CT of cervical spine. All other medical conditions stable, continue home meds DVT Prophylaxis: teds/SCDs, Discharge Planning DC pending CT neck, hand x ray, bp stabilization. Possible DC in am. Vasu Peoples MD Apr 25, 2017 19:28
[2017-04-25] MEDS ORDERED: CYCLOBENZAPRINE HCL 10 MG TAB PO PRN (19:30)
[2017-04-25] MEDS ORDERED: PILL SPLITTER OTHER PRN (20:00)
--- NOTE | 2017-04-25 20:21 | RADRPT ---
EXAM DATE/TIME: 04/25/2017 20:00 [facility] COMPARISON: No previous studies available for comparison. INDICATIONS : Left hand pain and sensitivity in fingers, unknown cause. MEDICAL HISTORY : Stroke. Diabetes mellitus type 2. SURGICAL HISTORY : None. ENCOUNTER: Initial ACUITY: 1 day PAIN SCORE: 5/10 LOCATION: Left hand FINDINGS: There is severe degenerative changes at the thumb basal joint area no fracture or dislocation. Mild o steoarthritis of the DIP joints. Mild decreased bone density. No fracture. 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 Nahum Dubose MD on April 25, 2017 at 20:19 Board Certified Radiologist. This report was verified electronically.
--- NOTE | 2017-04-25 20:38 | RADRPT ---
EXAM DATE/TIME: 04/25/2017 20:14 [facility] COMPARISON: MRI BRAIN W/O CONTRAST, April 24, 2017, 8:52. INDICATIONS : Neck pain, back of neck.Fall, CVA RADIATION DOSE: 25.67 CTDIvol (mGy) MEDICAL HISTORY : Cerebrovascular disease. Hearling loss, diabetes. SURGICAL HISTORY : None. ENCOUNTER: Initial ACUITY: 3 days PAIN SCALE: 6/10 LOCATION: Bilateral neck TECHNIQUE: Volumetric scanning of the cervical spine was performed. Multiplanar reconstructions in the sagittal, coronal and oblique axial planes were performed. Using automated exposure control and adjustment o f the mA and/or kV according to patient size, radiation dose was kept as low as reasonably achievable to obtain optimal diagnostic quality images. DICOM format image data is available electronically f or review and comparison. FINDINGS: VERTEBRAE: Normal vertebral body height. There is prominent pannus formation posterior to the odontoid process w hich narrows the canal at this level. Multilevel facet hypertrophy greatest at C4-5. There is interve rtebral fusion at C5-6 and severe disc space narrowing at C6-7. There is no prevertebral soft tissue swelling or compression deformity. ALIGNMENT: No evidence of subluxation. C2-C3: Moderate left foraminal narrowing secondary to facet and uncovertebral hypertrophy. Moderate to sever e canal stenosis. C3-C4: Severe facet arthropathy and foraminal stenosis on the left. Mild canal stenosis. C4-C5: Moderate to severe bilateral foraminal narrowing secondary to facet and uncovertebral hypertrophy. Mi ld to moderate canal stenosis. C5-C6: Moderate bilateral foraminal narrowing secondary to facet and uncovertebral hypertrophy. Posterior di sc osteophyte complex is noted. Moderate canal stenosis. C6-C7: Moderate bilateral foraminal stenosis secondary to facet and posterior diffuse disc osteophyte comple x. Moderate canal stenosis. C7-T1: The bony spinal canal is normal in size. No evidence of disc bulge or herniation. The neural forami na are bilaterally patent. CONCLUSION: 1. Degenerative changes are noted as above. Nahum Dubose MD on April 25, 2017 at 20:33 Board Certified Radiologist. This report was verified electronically.
[2017-04-25] MEDS: ATORVASTATIN 40 MG TAB PO SCH (21:05)
[2017-04-25] MEDS: TAMSULOSIN HCL 0.4 MG CAP PO SCH (21:05)
[2017-04-25] MEDS: levETIRAcetam 500 MG TAB PO SCH (21:05)
[2017-04-25 21:45] VITALS: BP_SYST 166; BP_SYST 170; BP_DIAS 82; BP_DIAS 86; PULSE 79; RESP 18; TEMP 98.1; O2SAT 93
[2017-04-25] MEDS: INSULIN ASPART SUPPLEMENTAL SCALE SQ SCH (23:18)
[2017-04-26] VITALS (11 sets, daily range): BP systolic 144–179; BP diastolic 65–89; PULSE 54–78; RESP 17–20; TEMP 97.4–98.9; O2SAT 92–96
[2017-04-26] MEDS: POTASSIUM PHOSPHATE/SODIUM PHOSPHATE 250 MG TAB PO SCH ×3 (06:37→21:53)
[2017-04-26] MEDS: INSULIN ASPART SUPPLEMENTAL SCALE SQ SCH ×4 (06:38→21:51)
[2017-04-26] MEDS: SODIUM CHLORIDE 0.9% FLUSH 5 ML FLUSH IV FLUSH SCH (08:30)
[2017-04-26] MEDS: ENALAPRIL MALEATE 10 MG TAB PO SCH ×2 (08:31→21:54)
[2017-04-26] MEDS: FINASTERIDE 5 MG TAB PO SCH (08:31)
[2017-04-26] MEDS: DOXAZOSIN MESYLATE 2 MG TAB PO SCH (08:31)
[2017-04-26] MEDS: FAMOTIDINE 20 MG TAB PO SCH ×2 (08:31→21:54)
[2017-04-26] MEDS: ASPIRIN EC 325 MG TABEC PO SCH (08:31)
[2017-04-26] MEDS: LABETALOL HCL 100 MG TAB PO SCH ×2 (08:31→21:53)
[2017-04-26] MEDS: SODIUM CHLOR 0.9% 1000 ML INJ 1,000 ML IV SCH (08:33)
[2017-04-26] MEDS: ACETAMINOPHEN/HYDROcodone 325 MG/5 MG TAB PO PRN ×3 (11:40→21:55)
[2017-04-26] MEDS ORDERED: DOXAZOSIN MESYLATE 2 MG TAB PO ONE (16:30)
--- NOTE | 2017-04-26 17:42 | HHI.PR ---
Subjective Remarks neck pain is better left thumb pain improving BP still elevated this am Objective Vitals Vital Signs Date Time Temp Pulse Resp B/P Pulse Ox O2 Delivery O2 Flow Rate FiO2 04/26/17 16:56 98.1 58 18 145/67 95 04/26/17 13:16 97.4 61 17 144/65 94 04/26/17 11:57 54 04/26/17 10:47 94 21 04/26/17 08:57 97.4 69 17 179/89 95 04/26/17 04:30 98.9 69 19 163/83 96 04/26/17 03:34 92 04/26/17 01:22 70 04/26/17 00:40 97.8 78 20 165/80 94 04/25/17 21:45 98.1 79 18 166/82 93 170/86 I/O 04/25/17 04/25/17 04/25/17 04/26/17 04/26/17 04/26/17 07:00 15:00 23:00 07:00 15:00 23:00 Intake Total 900 ml 1130 ml 650 ml 240 ml Balance 900 ml 1130 ml 650 ml 240 ml Intake Oral 1130 ml 650 ml 240 ml IV Total 900 ml # Voids 6 4 # Bowel Movements 0 0 Result Diagram: 04/24/17 0657 04/24/17 0657 Imaging Last Impressions Hand X-Ray 04/25/17 0000 Signed Impressions: Service Date/Time: Tuesday, April 25, 2017 20:00 - CONCLUSION: 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 Nahum Dubose MD Cervical Spine CT 04/25/17 0000 Signed Impressions: Service Date/Time: Tuesday, April 25, 2017 20:14 - CONCLUSION: 1. Degenerative changes are noted as above. Nahum Dubose MD Brain MRI 04/24/17 0000 Signed Impressions: Service Date/Time: April 08:52 - CONCLUSION: 1. Evolving subacute lacunar infarction of the left posterior limb of the internal capsule. 2. 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 3. Otherwise, no acute abnormality. Lucian Farley MD Head CT 04/21/17 0000 Signed Impressions: Service Date/Time: Friday, April 21, 2017 22:52 - CONCLUSION: 1. No focal or acute intracranial hemorrhage. 2. Stable CT scan of the brain compared to the prior examination. Alex Dupont MD Neck Magnetic Resonance Angiography 04/20/17 1223 Signed Impressions: Service Date/Time: Thursday, April 20, 2017 12:49 - CONCLUSION: Normal examination. Mary Lou Blatazar MD Head Magnetic Resonance Angiography 04/20/17 0000 Signed Impressions: Service Date/Time: Thursday, April 20, 2017 12:49 - CONCLUSION: Slight atherosclerotic changes of distal branches bilaterally, otherwise unremarkable. Mary Lou Baltazar MD Objective Remarks AAOx3, nad Clear lungs BL S1S2 RRR, no MRG pain over palpation of left trap pain over palpation of the metacarpal phalangeal joint Procedures sp Loop recorder implantation Medications and IVs Current Medications Medications (Trade) Dose Ordered Sig/Kalin Route Start Time Stop Time Status Last Admin (Ecotrin Ec) 325 mg DAILY PO 04/20/17 13:00 04/26/17 08:31 (NS Flush) 2 ml BID IV FLUSH 04/20/17 21:00 04/26/17 08:30 (NS Flush) 2 ml UNSCH PRN IV FLUSH 04/20/17 13:45 (Vasotec Inj) 1.25 mg Q4H PRN IV 04/20/17 15:45 (Proscar) 5 mg DAILY PO 04/21/17 09:00 04/26/17 08:31 (Flomax) 0.4 mg HS PO 04/20/17 21:00 04/25/17 21:05 (Lipitor) 40 mg HS PO 04/20/17 21:00 04/25/17 21:05 (Keppra) 500 mg DAILY@2150 PO 04/21/17 21:50 04/25/17 21:05 (Trandate) 100 mg BID PO 04/22/17 09:00 04/26/17 08:31 (Vasotec) 20 mg BID PO 04/24/17 09:00 04/26/17 08:31 (K-Phos Neutral) 250 mg Q8HR PO 04/24/17 15:00 04/26/17 13:26 ([place] 5-325 Mg) 1 tab Q4H PRN PO 04/24/17 21:00 04/26/17 16:19 (Pepcid) 10 mg BID PO 04/25/17 09:00 04/26/17 08:31 (D50w (Vial) Inj) 50 ml UNSCH PRN IV 04/25/17 16:30 (Glucagon Inj) 1 mg UNSCH PRN OTHER 04/25/17 16:30 (Flexeril) 5 mg Q8H PRN PO 04/25/17 19:30 (Pill Splitter) 1 ea UNSCH PRN OTHER 04/25/17 20:00 (Cardura) 4 mg DAILY PO 04/27/17 09:00 A/P Problem List: (1) Acute ischemic stroke ICD Code: I63.9 Status: Acute (2) Lacunar infarct, acute ICD Code: I63.9 Status: Acute (3) Uncontrolled hypertension ICD Code: I10 Status: Acute (4) SVT (supraventricular tachycardia) ICD Code: I47.1 Status: Resolved Assessment and Plan 86-year-old man with Acute Lacunar CVA: -Initial head CT images reviewed, shows right parietal-occipital cephalohematoma from prior parenchymal hemorrhage; no acute infarct/hemorrhage/ mass/edema. -Brain MRI images reviewed, shows small area of acute lacunar infarction in the posterior portion of the left posterior limb internal capsule without hemorrhage or mass effect. -Head/neck MRA reviewed, shows slight atherosclerotic changes, no hemodynamically significant stenosis. -Monitor neuro checks, NIHSS -Continue PT/ST/OT evaluation -Continue statin, aspirin, HgbA1c - 6.6 -appreciate rehab medicine consultation -EEG positive for encephalopathy but negative for epileptiform discharges. -Appreciate input from Neurology Dr. Mccloud - Patient cleared for DC by neurology once BP controlled. Hypertension Oral antihypertensive medications resumed on 04/22/17 Patient currently on enalapril 20 mg by mouth twice a day, labetalol 100 mg by mouth twice a day 04/24 BP still severely uncontrolled - will start patient on Doxazosin 2mg po daily - first dose now. Continue IV Vasotec 1.25mg q6h prn SBP > 220 04/25 BP much better - Continue Cardura 2 mg po daily. If BP goes up again will go up on dose to 4 mg. Diabetes with Hyperglycemia: -A1c 6.6. Blood sugar stable -04/25 Blood sugars severely elevated in the 300's. Hyperglycemia is steroid- induced. Will place on sliding scale and continue to monitor Accu-Cheks. BPH: chronic -continue Flomax and Proscar Syncope/SVT -Patient had a syncopal episode last night. Concurrently SVT on telemetry. Cardiology consulted. -sp Loop recorder implantation - recommendation is to switch aspirin to Coumadin if there is A. fib on loop recorder. -No a fib on loop recorder. Left Thumb pain -Likely after patient fell in hospital room. - x ray of the left hand shows osteoarthritis of the DIP joints and severe degenerative changes at the thumb basal joint. Neck pain -SP decadron by neurology without much relief. - Neck pain which is improving. -Continue Flexeril. -CT of the cervical spine showed degenerative changes but no fracture. -Continue pain control with [place]. All other medical conditions stable, continue home meds DVT Prophylaxis: teds/SCDs, Discharge Planning Discharge home pending stabilization of blood pressure. Vasu Peoples MD Apr 26, 2017 17:42
[2017-04-26] MEDS: ATORVASTATIN 40 MG TAB PO SCH (21:53)
[2017-04-26] MEDS: levETIRAcetam 500 MG TAB PO SCH (21:54)
[2017-04-26] MEDS: TAMSULOSIN HCL 0.4 MG CAP PO SCH (21:54)
[2017-04-27] VITALS: BP 160/83; PULSE 66; RESP 20; TEMP 97.5; O2SAT 95
[2017-04-27 04:00] VITALS: BP 172/82; PULSE 66; RESP 18; TEMP 97.5; O2SAT 94
[2017-04-27] MEDS: POTASSIUM PHOSPHATE/SODIUM PHOSPHATE 250 MG TAB PO SCH ×2 (05:53→12:39)
[2017-04-27] MEDS: INSULIN ASPART SUPPLEMENTAL SCALE SQ SCH ×3 (06:18→16:15)
[2017-04-27 07:39] VITALS: BP 184/87; PULSE 55; RESP 16; TEMP 98; O2SAT 95
[2017-04-27] MEDS: FINASTERIDE 5 MG TAB PO SCH (07:44)
[2017-04-27] MEDS: ASPIRIN EC 325 MG TABEC PO SCH (07:44)
[2017-04-27] MEDS: ENALAPRIL MALEATE 10 MG TAB PO SCH (07:44)
[2017-04-27] MEDS: SODIUM CHLORIDE 0.9% FLUSH 5 ML FLUSH IV FLUSH SCH (07:45)
[2017-04-27] MEDS: FAMOTIDINE 20 MG TAB PO SCH (07:45)
[2017-04-27] MEDS: LABETALOL HCL 100 MG TAB PO SCH (07:45)
[2017-04-27] MEDS ORDERED: DOXAZOSIN MESYLATE 4 MG TAB PO SCH (09:00)
[2017-04-27 09:01] VITALS: O2SAT 95
[2017-04-27 12:00] VITALS: BP 145/63; PULSE 59; RESP 18; TEMP 97.7; O2SAT 97
[2017-04-27 12:05] VITALS: PULSE 54
[2017-04-27] MEDS ORDERED: amLODIPine BESYLATE 5 MG TAB PO ONE (13:45)
[2017-04-27] MEDS ORDERED: CARD4TAB2 PO (14:28)
[2017-04-27] MEDS ORDERED: AMLO5 PO (14:28)
[2017-04-27] MEDS ORDERED: LEVE500 PO (14:28)
[2017-04-27] MEDS ORDERED: CYCL1TAB29 PO (14:28)
[2017-04-27] MEDS ORDERED: HYDR-3516 PO (14:28)
[2017-04-27] MEDS ORDERED: ASPI325T33 PO (14:28)
[2017-04-27] MEDS ORDERED: ATOR40TA16 PO (14:28)
--- NOTE | 2017-04-27 14:29 | HHI.DCPOC ---
Discharge Care Plan Diagnosis: (1) Acute ischemic stroke (2) Lacunar infarct, acute (3) SVT (supraventricular tachycardia) (4) Uncontrolled hypertension Goals to Promote Your Health * To prevent worsening of your condition and complications * To maintain your health at the optimal level Directions to Meet Your Goals Take your medications as prescribed Follow your dietary instruction Follow activity as directed Keep your appointments as scheduled Take your immunizations and boosters as scheduled If your symptoms worsen call your PCP, if no PCP go to Urgent Care Center or Emergency Room Smoking is Dangerous to Your Health. Avoid second hand smoke Call the 24-hour hour crisis hotline for domestic abuse at Vasu Peoples MD Apr 27, 2017 14:29
--- NOTE | 2017-04-27 14:38 | HHI.DS ---
Discharge Summary Admission Date Apr 20, 2017 at 15:03 Discharge Date: Apr 27, 2017 Admitting Diagnosis TIA (1) Acute ischemic stroke ICD Code: I63.9 (2) Lacunar infarct, acute ICD Code: I63.9 (3) Uncontrolled hypertension ICD Code: I10 (4) SVT (supraventricular tachycardia) ICD Code: I47.1 Procedures sp Loop recorder implantation Brief History - From Admission 86-year-old male with history of hypertension, ICH in 2009, diet controlled diabetes, BPH, presents with acute onset of slurred speech today. The patient reports early this morning he was stretching his legs in bed, then tried to speak to his however noticed it was difficult for him to put a sentence together and his speech was slurred. The patient states his symptoms resolved within 30 minutes, however later on while he was sitting down eating lunch the slurred speech and dysarthria returned therefore he decided to come to the ER. His also noticed him to be leaning more towards the right while sitting in the chair. He denies any headache, lightheadedness, dizziness, blurred vision, facial droop, unilateral numbness or weakness. The patient has not been on any anticoagulation including aspirin since his ICH in 2009. He has followed with neurologist Dr. Mccloud for the last 7years. Patient is currently seen in the ED, brain MRI positive for small acute lacunar infarct. The patient reports his speech still does not feel "right". He is able to form sentences, but occasionally has trouble getting the words out throughout conversation. 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 Nahum Dubose MD Cervical Spine CT 04/25/17 0000 Signed Impressions: Service Date/Time: Tuesday, April 25, 2017 20:14 - CONCLUSION: 1. Degenerative changes are noted as above. Nahum Dubose MD Brain MRI 04/24/17 0000 Signed Impressions: Service Date/Time: April 08:52 - CONCLUSION: 1. Evolving subacute lacunar infarction of the left posterior limb of the internal capsule. 2. 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 3. Otherwise, no acute abnormality. Lucian Farley MD Head CT 04/21/17 0000 Signed Impressions: Service Date/Time: Friday, April 21, 2017 22:52 - CONCLUSION: 1. No focal or acute intracranial hemorrhage. 2. Stable CT scan of the brain compared to the prior examination. Alex Dupont MD Neck Magnetic Resonance Angiography 04/20/17 1223 Signed Impressions: Service Date/Time: Thursday, April 20, 2017 12:49 - CONCLUSION: Normal examination. Mary Lou Baltazar MD Head Magnetic Resonance Angiography 04/20/17 0000 Signed Impressions: Service Date/Time: Thursday, April 20, 2017 12:49 - CONCLUSION: Slight atherosclerotic changes of distal branches bilaterally, otherwise unremarkable. Mary Lou Baltazar MD PE at Discharge AAOx3, nad Clear lungs BL S1S2 RRR, no MRG pain over palpation of left trap pain over palpation of the metacarpal phalangeal joint Pt Condition on Discharge: Stable Discharge Disposition: Discharge Home Discharge Time: > 30 minutes Discharge Instructions DIET: Follow Instructions for: Diabetic Diet Speech Therapy-Diet Recommends: Regular Activities you can perform: See Additionl Instruction Other Activity Instructions: out of bed with assistance ambulate with assistance of walker Follow up Referrals: Cardiology - 2 Weeks with Yared Marlow MD Neurology - 2 Weeks PCP Follow-up New Medications: Amlodipine (Norvasc) 5 Mg Tab 5 MG PO DAILY Blood Pressure Management #[address] (Aspirin EC) 325 Mg Tabdr 325 MG PO DAILY Blood Clot Prevention #31 TAB Atorvastatin (Atorvastatin) 40 Mg Tab 40 MG PO HS Cholesterol Management #31 TAB Cyclobenzaprine (Flexeril) 10 Mg Tab 5 MG PO Q8H PRN NECK PAIN #30 TAB Doxazosin (Cardura) 4 Mg Tab 4 MG PO DAILY Blood Pressure Management #31 TAB Hydrocodone-Acetaminophen (Hydrocodone-Acetaminophen) 5-325 mg Tab 1 TAB PO Q4H PRN PAIN SCALE 1 TO 10 #31 TAB Continued Medications: Ascorbate Calcium/Bioflavonoid ([place]-C 500 mg Tablet) 1 Each Tablet 500 DAILY Finasteride (Finasteride) 5 Mg Tab 5 MG PO DAILY Do not crush. Manage Prostate Problems #30 Ref 0 TAB Labetalol (Labetalol) 100 Mg Tab 100 MG PO BID Blood Pressure Management Ref 0 TAB Lactobacillus Combo No.10 (Probiotic) 1 Each Capsule 1 DAILY Levetiracetam (Keppra) 500 Mg Tab 500 MG PO DAILY Control Seizures #60 Ref 0 TAB Multiple Vitamins W/ Minerals (Centrum) 1 Chew 1 TAB CHEW DAILY Nutritional Supplement Ref 0 TAB Tamsulosin (Flomax) 0.4 Mg Cap 0.4 MG PO HS Manage Prostate Problems #30 Ref 0 CAP Testosterone (Bulk) (Testosterone) 1 Pow Pow 125 DAILY Discontinued Medications: Acetaminophen (Tylenol Extra Strength) 500 Mg Tablet 1000 BID Enalapril (Enalapril) 10 Mg Tab 10 MG PO BID #60 Ref 0 TAB Tadalafil (Cialis) 5 Mg Tab 5 MG PO DAILY Do not exceed 1 dose/day. Ref 0 TAB Vasu Peoples MD Apr 27, 2017 14:38
[2017-04-28] MEDS ORDERED: amLODIPine BESYLATE 5 MG TAB PO SCH (09:00)
== END 2017-04-27 17:28 | disposition home or self-care (01) | DRG 65 ==
LOC: NEPE 10:51 → NEDA 13:46 → OBSVTOIN 15:03 → N05A 18:48
PROVIDERS: ADMIT Hospitalist; ATTEND Hospitalist
DX: I63.8 Other cerebral infarction (principal); I47.1 Supraventricular tachycardia; E11.65 Type 2 diabetes mellitus with hyperglycemia; I10 Essential (primary) hypertension; R47.02 Dysphasia; R29.700 NIHSS score 0; M19.90 Unspecified osteoarthritis, unspecified site; R47.81 Slurred speech; N40.0 Benign prostatic hyperplasia without lower urinary tract symptoms; R55 Syncope and collapse; M54.2 Cervicalgia; W19.XXXA Unspecified fall, initial encounter; Y92.230 Patient room in hospital as the place of occurrence of the external cause; M79.645 Pain in left finger(s); T38.0X5A Adverse effect of glucocorticoids and synthetic analogues, initial encounter; E78.5 Hyperlipidemia, unspecified; R29.6 Repeated falls; R47.1 Dysarthria and anarthria
CPT/HCPCS: 70450; 70544; 70548; 70551; 70553; 72125; 73130; 80053; 80061; 80307; 81001; 82435; 82550; 82565; 82607; 82947; 82948; 83036; 83735; 84100; 84132; 84295; 84443; 84450; 84460; 84484; 84520; 85025; 85384; 85610; 85652; 85730; 86038; 86592; 86850; 86900; 86901; 93005; 93225; 93226; 93306; 95819; 96360; 96361; A9579; G8987-GP; G8988-GP; J1100; J1650; J1815; J2250; J3010; J3370; J7030; J7050

== ENCOUNTER → 2017-05-08 | Outpatient (CLI) | payer MEDICARE, BC ==
[~2017-05-08] MED LIST changes: +AMLO5 PO; +ASPI325T33 PO; +ATOR40TA16 PO; +CARD4TAB2 PO; +CENTCHW4 CHEW; +CYCL1TAB29 PO; -DILA100C PO; -ENAL5TAB98 PO; +ESTETAB3; +FINA5TAB2 PO; +HYDR-3516 PO; +LACT1CAP18; +LEVE500 PO; -LEXA5TAB PO; -PHEN30 PO; -PROS5TAB2 PO; -TAB-TAB PO; -TAMS0.4C67 PO; +TAMS5CAP PO; +TEST-55; -VITA500T10 PO; -ZITH250T PO
[2017-05-08 09:41] LABS: ANION GAP 9 MEQ/L (5-15); AST (GOT) 15 U/L (15-37); BICARBONATE 28.1 MEQ/L (21.0-32.0); BLOOD UREA NITROGEN 18 MG/DL (7-18); CHLORIDE 99 MEQ/L (98-107); GLOMERULAR FILTRATION RATE 63 ML/MIN (>89); GLUCOSE,FASTING 166 MG/DL (74-99); POTASSIUM 4.1 MEQ/L (3.5-5.1); SODIUM (NA) 136 MEQ/L (136-145)
[2017-05-08 09:55] LABS: ALKALINE PHOSPHATASE 88 U/L (45-117); ALT (GPT) 22 U/L (12-78); HDL CHOLESTEROL 39.9 MG/DL (40.0-60.0); LDL CHOLESTEROL 49 MG/DL (0-99); TOTAL BILIRUBIN ADULT 0.8 MG/DL (0.2-1.0)
[2017-05-08 10:39] LABS: HEMOGLOBIN A1b 1.1 %; HEMOGLOBIN Ao 83.1 %; HEMOGLOBIN F 0.9 %; HEMOGLOBIN LA1C 2.3 %; HEMOGLOBIN P3 4.1 %
== END ==
LOC: PLAB 07:36
DX: E11.9 Type 2 diabetes mellitus without complications (principal); E78.5 Hyperlipidemia, unspecified
CPT/HCPCS: 36415; 80053; 80061; 83036; 84443

== ENCOUNTER → 2017-08-13 | Outpatient (CLI) | payer MEDICARE, BC ==
[~2017-08-13] MED LIST changes: +CYCL10TA PO; -CYCL1TAB29 PO
[2017-08-13 09:41] LABS: AUTOMATED NEUTROPHIL # 3.2 TH/MM3 (1.8-7.7); BASOPHIL % 0.7 % (0.0-2.0); EOSINOPHIL # 0.2 TH/MM3 (0-0.4); EOSINOPHIL % 4.4 % (0.0-4.0); HEMATOCRIT 40.5 % (39.0-51.0); HEMO FLAGS DIFF FINAL; LYMPH % 27.1 % (9.0-44.0); LYMPHOCYTE # 1.4 TH/MM3 (1.0-4.8); MEAN CELL VOLUME 89.1 FL (80.0-100.0); MEAN CORPUSCULAR HEMOGLOBIN 30.6 PG (27.0-34.0); MEAN CORPUSCULAR HGB CONC 34.3 % (32.0-36.0); MONO % 8.5 % (0.0-8.0); NEUT % 59.3 % (16.0-70.0); PLATELET COUNT 173 TH/MM3 (150-450); RED BLOOD COUNT 4.55 MIL/MM3 (4.50-5.90); RED CELL DISTRIBUTION WIDTH 13.5 % (11.6-17.2); WHITE BLOOD COUNT 5.3 TH/MM3 (4.0-11.0)
[2017-08-13 10:04] LABS: BLOOD, URINE NEG (NEG); GLUCOSE,URINE NEG (NEG); HYALINE CAST, URINE 1 /lpf (RARE); KETONE, URINE NEG (NEG); MUCUS URINE FEW /lpf (OCC); NITRITE,URINE NEG (NEG); PH, URINE 5.5 (5.0-8.5); URINE COLOR YELLOW (YELLW/STRAW)
[2017-08-13 12:44] LABS: ANION GAP 7 MEQ/L (5-15); AST (GOT) 20 U/L (15-37); BICARBONATE 26.5 MEQ/L (21.0-32.0); BLOOD UREA NITROGEN 14 MG/DL (7-18); CHLORIDE 107 MEQ/L (98-107); GLOMERULAR FILTRATION RATE 70 ML/MIN (>89); SODIUM (NA) 140 MEQ/L (136-145)
[2017-08-13 12:59] LABS: ALKALINE PHOSPHATASE 84 U/L (45-117); ALT (GPT) 26 U/L (12-78); CREATINE KINASE 134 U/L (39-308); GLUCOSE,FASTING 143 MG/DL (74-99); HDL CHOLESTEROL 41.1 MG/DL (40.0-60.0); LDL CHOLESTEROL 110 MG/DL (0-99); TOTAL BILIRUBIN ADULT 0.6 MG/DL (0.2-1.0)
[2017-08-13 17:25] LABS: HEMOGLOBIN A1a 1.1 %; HEMOGLOBIN Ao 84.1 %; HEMOGLOBIN F 0.9 %; HEMOGLOBIN LA1C 2.2 %; HEMOGLOBIN P3 3.7 %
[2017-08-13 18:04] LABS: MICRO ALBUMIN RANDOM URINE RAW 8.6 MG/L (0.0-30.0)
== END ==
LOC: PLAB 07:40
DX: E78.5 Hyperlipidemia, unspecified (principal); I10 Essential (primary) hypertension; E11.9 Type 2 diabetes mellitus without complications
CPT/HCPCS: 36415; 80053; 80061; 81001; 82043; 82550; 83036; 84443; 85025

== ENCOUNTER 2017-09-04 11:17 | Emergency (ER) | payer MEDICARE, BC ==
[2017-09-04 11:19] VITALS: BP 126/68; PULSE 79; TEMP 97.6; O2SAT 98
[2017-09-04] MEDS ORDERED: BACT800T5 PO (11:41)
[2017-09-04] MEDS ORDERED: CEPH-460 PO (11:41)
[2017-09-04] MEDS ORDERED: SULFAMETHOXAZOLE-TRIMETHOPRIM DS 800-160 MG TAB PO ONE (11:45)
[2017-09-04] MEDS ORDERED: CEPHALEXIN MONOHYDRATE 500 MG CAP PO ONE (11:45)
--- NOTE | 2017-09-04 11:48 | PD ---
HPI Chief Complaint: Skin Problem Time Seen by Provider: 11:38 Travel History International Travel<30 days: No Contact w/Intl Traveler<30days: No Traveled to known affect area: No History of Present Illness HPI This Is 86-year-old male with history of diet-controlled diabetes who presents for evaluation of right foot redness. He notes that 4-5 days ago there is a small blister lesion on the dorsal proximal right fourth toe which popped. Over the past few days he is developed some redness on the dorsum of the right foot around the area. This is what prompted evaluation today. He denies any pain, itching, denies history of diabetic neuropathy. Denies fevers, chills, decreased energy level. His primary care physician is Dr. Vargas. He has a shot blast equipment operator as well, Dr. Mcallister. No other complaints. PFSH Past Medical History Arthritis: Yes Atrial Fibrillation: Yes Cancer: No Cerebrovascular Accident: Yes (stroke) Diabetes: Yes (diet controlled) Patient Takes Glucophage: No Diminished Hearing: No Genitourinary: Yes (PROSTATE PROBLEMS) Immune Disorder: No Psychiatric: No Tetanus Vaccination: Unknown ?: Not Past Surgical History Other Surgery: Yes Social History Alcohol Use: No Tobacco Use: No Substance Use: No Allergies-Medications (Allergen,Severity, Reaction): Coded Allergies: penicillin G (Unverified Allergy, Severe, rash, 09/04/17) Reported Meds & Prescriptions Reported Meds & Active Scripts Active Keflex (Cephalexin) 500 Mg Cap 500 Mg PO Q8H Bactrim DS (Sulfamethoxazole-Trimethoprim) 800-160 Mg Tab 1 Tab PO BID Hydrocodone-Acetaminophen 5-325 mg Tab 1 Tab PO Q4H PRN Cardura (Doxazosin Mesylate) 4 Mg Tab 4 Mg PO DAILY Flexeril (Cyclobenzaprine HCl) 10 Mg Tab 5 Mg PO Q8H PRN Atorvastatin (Atorvastatin Calcium) 40 Mg Tab 40 Mg PO HS Aspirin EC (Aspirin) 325 Mg Tabdr 325 Mg PO DAILY Norvasc (Amlodipine Besylate) 5 Mg Tab 5 Mg PO DAILY Reported Testosterone (Testosterone (Bulk)) 1 Pow Pow 125 DAILY Probiotic (Lactobacillus Combo No.10) 1 Each Capsule 1 DAILY Centrum (Multiple Vitamins W/ Minerals) 1 Chew 1 Tab CHEW DAILY Angeles-C 500 mg Tablet (Ascorbate Calcium/Bioflavonoid) 1 Each Tablet 500 DAILY Flomax (Tamsulosin HCl) 0.4 Mg Cap 0.4 Mg PO HS Keppra (Levetiracetam) 500 Mg Tab 500 Mg PO DAILY Labetalol (Labetalol HCl) 100 Mg Tab 100 Mg PO BID Finasteride 5 Mg Tab 5 Mg PO DAILY Do not crush. Review of Systems General / Constitutional: No: Fever, Chills Cardiovascular: No: Chest Pain or Discomfort Respiratory: No: Shortness of Breath Gastrointestinal: No: Nausea, Vomiting Skin: Positive Other (positive for skin redness), No Itching Physical Exam Narrative GENERAL: Well-developed well-nourished male in no acute distress SKIN: Warm and dry. There is no area of erythema on the dorsum of the right foot. There is a small ruptured papular lesion on the dorsum of the proximal right fourth toe. There is no induration, drainage, fluctuance. HEAD: Atraumatic. Normocephalic. EYES: Pupils equal and round. No scleral icterus. No injection or drainage. ENT: No nasal bleeding or discharge. Mucous membranes pink and moist. NECK: Trachea midline. No JVD. CARDIOVASCULAR: Regular rate and rhythm. No murmur appreciated. RESPIRATORY: No accessory muscle use. Clear to auscultation. Breath sounds equal bilaterally. GASTROINTESTINAL: Abdomen soft, non-tender, nondistended. Hepatic and splenic margins not palpable. MUSCULOSKELETAL: Skin as noted above. No edema. 2+ dorsalis pedis and posterior tibial pulses. NEUROLOGICAL: Awake and alert. No obvious cranial nerve deficits. Motor grossly within normal limits. Normal speech. PSYCHIATRIC: Appropriate mood and affect; insight and judgment normal. Data Data Last Documented VS Vital Signs Date Time Temp Pulse Resp B/P (MAP) Pulse Ox O2 Delivery O2 Flow Rate FiO2 09/04/17 11:19 97.6 79 126/68 (87) 98 Orders Orders Sulfamet-Trimeth Ds 800-160 Mg (Bactrim (09/04/17 11:45) Cephalexin (Keflex) (09/04/17 11:45) Ed Discharge Order (09/04/17 11:43) MDM Medical Decision Making Medical Screen Exam Complete: Yes Emergency Medical Condition: Yes Medical Record Reviewed: Yes Differential Diagnosis Cellulitis, localized reaction, erysipelas, necrotizing fasciitis, osteomyelitis Narrative Course 86-year-old male presents for evaluation of an area of redness on the dorsum of the right foot. Examination is consistent with cellulitis. He appears well with no systemic symptoms or signs. The area of redness was circled with a surgical marker. The patient will be started on oral antibiotics and he will be following up with his shot blast equipment operator early next week. Discussed signs and symptoms that would warrant return to the emergency room. He is stable for discharge. Diagnosis Primary Impression: Cellulitis of right foot Additional Instructions: Medication as prescribed. Warm compresses several times a day 15 minutes at a time. Follow-up with your shot blast equipment operator. Return for any new or worsening symptoms such as increasing redness, increasing pain, red streaks up the leg, fevers, lethargy. Med/Other Pt SpecificInfo: Prescription(s) given Scripts Cephalexin (Keflex) 500 Mg Cap 500 MG PO Q8H for Infection, #30 CAP 0 Refills Prov: Harjeet Shah MD 09/04/17 Sulfamethoxazole-Trimethoprim (Bactrim DS) 800-160 Mg Tab 1 TAB PO BID for Infection, #20 TAB 0 Refills Prov: Harjeet Shah MD 09/04/17 Disposition: 01 DISCHARGE HOME Condition: Stable Crow Edouard Sep 04, 2017 11:48
== END 2017-09-04 12:29 | disposition home or self-care (01) ==
LOC: NEPC 11:17
DX: L03.115 Cellulitis of right lower limb (principal); E11.9 Type 2 diabetes mellitus without complications
CPT/HCPCS: 99284

== ENCOUNTER → 2017-11-18 | Outpatient (CLI) | payer MEDICARE, OTHER, BC ==
[~2017-11-18] MED LIST changes: +BACT800T5 PO; +CEPH-460 PO
[2017-11-18 13:51] LABS: AUTOMATED NEUTROPHIL # 3.9 TH/MM3 (1.8-7.7); BASOPHIL % 0.5 % (0.0-2.0); EOSINOPHIL # 0.2 TH/MM3 (0-0.4); EOSINOPHIL % 2.6 % (0.0-4.0); HEMATOCRIT 41.1 % (39.0-51.0); HEMOGLOBIN 14.2 GM/DL (13.0-17.0); LYMPH % 23.1 % (9.0-44.0); LYMPHOCYTE # 1.4 TH/MM3 (1.0-4.8); MEAN CELL VOLUME 89.7 FL (80.0-100.0); MEAN CORPUSCULAR HEMOGLOBIN 31.1 PG (27.0-34.0); MEAN CORPUSCULAR HGB CONC 34.6 % (32.0-36.0); MEAN PLATELET VOLUME 8.3 FL (7.0-11.0); MONO % 9.1 % (0.0-8.0); MONOCYTE # 0.6 TH/MM3 (0-0.9); NEUT % 64.7 % (16.0-70.0); PLATELET COUNT 207 TH/MM3 (150-450); RED BLOOD COUNT 4.58 MIL/MM3 (4.50-5.90); RED CELL DISTRIBUTION WIDTH 13.7 % (11.6-17.2); WHITE BLOOD COUNT 6.1 TH/MM3 (4.0-11.0)
[2017-11-18 14:02] LABS: ALBUMIN 3.9 GM/DL (3.4-5.0); ALT (GPT) 20 U/L (12-78); AST (GOT) 19 U/L (15-37); BICARBONATE 26.7 MEQ/L (21.0-32.0); BLOOD UREA NITROGEN 13 MG/DL (7-18); CALCIUM 9.3 MG/DL (8.5-10.1); CHLORIDE 105 MEQ/L (98-107); CREATININE 1.13 MG/DL (0.60-1.30); GLOMERULAR FILTRATION RATE 61 ML/MIN (>89); GLUCOSE,FASTING 148 MG/DL (74-99); SODIUM (NA) 139 MEQ/L (136-145)
[2017-11-18 14:03] LABS: TRIGLYCERIDES 93 MG/DL (42-150)
[2017-11-18 14:11] LABS: ALKALINE PHOSPHATASE 67 U/L (45-117); CHOLESTEROL 167 MG/DL (120-200); CHOLESTEROL/ HDL RATIO 4.03 RATIO; HDL CHOLESTEROL 41.4 MG/DL (40.0-60.0); LDL CHOLESTEROL 107 MG/DL (0-99); TOTAL BILIRUBIN ADULT 0.7 MG/DL (0.2-1.0); TOTAL PROTEIN 7.3 GM/DL (6.4-8.2)
[2017-11-18 14:18] LABS: BACTERIA, URINE RARE /hpf; BILIRUBIN, URINE NEG (NEG); BLOOD, URINE NEG (NEG); GLUCOSE,URINE NEG (NEG); KETONE, URINE NEG (NEG); MUCUS URINE FEW /lpf (OCC); NITRITE,URINE NEG (NEG); PH, URINE 5.5 (5.0-8.5); URINE COLOR YELLOW (YELLW/STRAW); URINE LEUKOCYTE ESTERASE MOD (NEG); WHITE BLOOD CELL CLUMPS RARE
[2017-11-18 17:56] LABS: HEMOGLOBIN A1C 6.4 % (4.3-6.0)
== END ==
LOC: PLAB 08:14
DX: I10 Essential (primary) hypertension (principal); E11.9 Type 2 diabetes mellitus without complications; E78.5 Hyperlipidemia, unspecified
CPT/HCPCS: 36415; 80053; 80061; 81001; 82043; 82550; 83036; 84443; 85025

== ENCOUNTER → 2017-12-16 | Day surgery (SDC) | payer MEDICARE, BC ==
[~2017-12-16] MED LIST changes: +APIX5TAB PO; +LIDOCAINE HCL 1% PF 30 ML VIAL INFIL ONE; +MEPERIDINE HCL 25 MG/ML VIAL IV ONE; +MIDAZOLAM HCL 2 MG/2 ML VIAL IV ONE; +PROPOFOL 200 MG/20 ML AMP IV ONE; +SODIUM CHLORIDE 0.9% 10 ML VIAL ONE; +methylPREDNISolone ACETATE 40 MG/ML VIAL I-ARTICULR ONE
--- NOTE | 2017-12-16 09:05 | M6 ---
cc: Pepe Machado MD 12/16/2017 PROCEDURE: Cooled radiofrequency ablation right S1, S2 and S3 nerve roots (right sacroiliac joint). History and physical was completed and signed. Consent was signed. Procedure site was marked. Medications were listed and reconciled. Pain score was recorded. Allergies were noted. Time out was taken. Fluoroscopy time was recorded where applicable. Sedation was administered or directed by Dr. Machado. The patient was given oxygen. The patient was monitored by a registered nurse. Total procedure time was greater than 15 minutes. IV was started, blood pressure cuff, pulse oximeter and EKG were applied. The patient was placed in the prone position on a Adam table, sedated with small amounts of propofol and Demerol titrated to effect. Vital signs were monitored and remained stable throughout the procedure. The sacral area was prepped with alcohol and 10% Betadine solution and draped with sterile drapes. Fluoroscopy was used to visualize the right S1, S2 and S3 neural foramen. The skin was infiltrated with 1% Xylocaine using a 27 gauge needle. Then an insulated 18 gauge radiofrequency introducers were placed just lateral to each neural foramen and thermal lesions were made at 60 degrees centigrade x 2.5 minutes at the cephalad and caudal portions just lateral to each neural foramen. This was followed by injection of a small amount of Depo-Medrol for a total of 40 mg of Depo-Medrol. Following the procedure, the patient was taken to the recovery room with stable vital signs neurologically intact. MD TAMMY Vizcaino/LIZANDRO , 08:27 AM , 09:03 AM
== END | disposition home or self-care (01) ==
LOC: PHSDC 06:33
PROVIDERS: ATTEND Pain Medicine Interventional Pain Medicine
DX: M54.5 Low back pain (principal); M25.551 Pain in right hip
CPT/HCPCS: 64635; 64636; 99152; 99153; J1030; J2175; J2250

== ENCOUNTER → 2018-01-27 | Outpatient (CLI) | payer MEDICARE, BC ==
[~2018-01-27] MED LIST changes: -AMLO5 PO; -ASPI325T33 PO; -BACT800T5 PO; -CEPH-460 PO; -CYCL10TA PO; -HYDR-3516 PO; -LIDOCAINE HCL 1% PF 30 ML VIAL INFIL ONE; -MEPERIDINE HCL 25 MG/ML VIAL IV ONE; -MIDAZOLAM HCL 2 MG/2 ML VIAL IV ONE; -PROPOFOL 200 MG/20 ML AMP IV ONE; -SODIUM CHLORIDE 0.9% 10 ML VIAL ONE; -methylPREDNISolone ACETATE 40 MG/ML VIAL I-ARTICULR ONE
[2018-01-27 10:24] LABS: ALBUMIN 3.7 GM/DL (3.4-5.0); ALT (GPT) 36 U/L (12-78); AST (GOT) 24 U/L (15-37); BICARBONATE 26.5 MEQ/L (21.0-32.0); BLOOD UREA NITROGEN 13 MG/DL (7-18); CALCIUM 8.8 MG/DL (8.5-10.1); CHLORIDE 106 MEQ/L (98-107); CHOLESTEROL 93 MG/DL (120-200); CREATININE 1.13 MG/DL (0.60-1.30); GLOMERULAR FILTRATION RATE 61 ML/MIN (>89); GLUCOSE,FASTING 184 MG/DL (74-99); SODIUM (NA) 141 MEQ/L (136-145)
[2018-01-27 10:26] LABS: ALKALINE PHOSPHATASE 104 U/L (45-117); CHOLESTEROL/ HDL RATIO 2.27 RATIO; HDL CHOLESTEROL 40.8 MG/DL (40.0-60.0); LDL CHOLESTEROL 41 MG/DL (0-99); TOTAL BILIRUBIN ADULT 0.9 MG/DL (0.2-1.0); TOTAL PROTEIN 7.3 GM/DL (6.4-8.2); TRIGLYCERIDES 57 MG/DL (42-150)
== END ==
LOC: PLAB 08:02
PROVIDERS: ATTEND Internal Medicine Cardiovascular Disease
DX: E78.5 Hyperlipidemia, unspecified (principal); I10 Essential (primary) hypertension
CPT/HCPCS: 36415; 80053; 80061; 82550

== ENCOUNTER → 2018-02-18 | Outpatient (CLI) | payer MEDICARE, BC ==
[2018-02-18 10:26] LABS: ALBUMIN 3.7 GM/DL (3.4-5.0); ALT (GPT) 44 U/L (12-78); AST (GOT) 29 U/L (15-37); BICARBONATE 25.9 MEQ/L (21.0-32.0); BLOOD UREA NITROGEN 12 MG/DL (7-18); CALCIUM 8.5 MG/DL (8.5-10.1); CHLORIDE 106 MEQ/L (98-107); CHOLESTEROL 112 MG/DL (120-200); CREATININE 1.07 MG/DL (0.60-1.30); GLOMERULAR FILTRATION RATE 65 ML/MIN (>89); GLUCOSE,FASTING 171 MG/DL (74-99); SODIUM (NA) 142 MEQ/L (136-145); TRIGLYCERIDES 97 MG/DL (42-150)
[2018-02-18 10:36] LABS: ALKALINE PHOSPHATASE 104 U/L (45-117); CHOLESTEROL/ HDL RATIO 2.68 RATIO; HDL CHOLESTEROL 41.7 MG/DL (40.0-60.0); LDL CHOLESTEROL 51 MG/DL (0-99); TOTAL BILIRUBIN ADULT 1.1 MG/DL (0.2-1.0); TOTAL PROTEIN 7.3 GM/DL (6.4-8.2)
[2018-02-18 15:45] LABS: HEMOGLOBIN A1C 7.6 % (4.3-6.0)
== END ==
LOC: PLAB 07:36
DX: E78.5 Hyperlipidemia, unspecified (principal); E11.9 Type 2 diabetes mellitus without complications
CPT/HCPCS: 36415; 80053; 80061; 82550; 83036; 84443

== ENCOUNTER 2018-09-01 20:28 | Inpatient (IN) ==
[2018-09-01] MEDS ORDERED: Aspirin 325 MG Tablet PO ONE (20:41)
--- NOTE | 2018-09-01 21:02 | XR ---
EXAM DATE: 09/01/2018 8:59 PM EST AGE/SEX: 87 years / Male INDICATIONS: Chest pain. CLINICAL DATA: This is the patient's initial encounter. Patient reports that signs and symptoms have been present for 1 day and indicates a pain score of 3/10. MEDICAL/SURGICAL HISTORY: . Cerebrovascular disease. Hearling loss, diabetes type 2. Stroke. . Stent placement. COMPARISON: No prior exams available for comparison. FINDINGS: A single AP view of the chest demonstrates the lungs to be symmetrically aerated without evidence of mass, infiltrate or effusion. The cardiomediastinal contours are unremarkable. Osseous structures a re intact. Pacemaker device overlying the left cardiac border CONCLUSION: Negative examination. Electronically signed by: Alexander Galvan MD 09/01/2018 9:00 PM EST
[2018-09-01 21:31] LABS: Baso % (Auto) 0.5 % (0.0-2.0); Eos # (Auto) 0.2 th/mm3 (0.0-0.4); Hematocrit 38.6 % (39.0-51.0); Hemoglobin 13.6 gm/dL (13.0-17.0); Lymph # (Auto) 1.8 th/mm3 (1.0-4.8); Lymph % (Auto) 30.6 % (9.0-44.0); Mean Corpuscular HGB Conc 35.2 % (32.0-36.0); Mean Corpuscular Hemoglobin 31.1 pg (27.0-34.0); Mean Corpuscular Volume 88.4 fL (80.0-100.0); Mean Platelet Volume 8.7 fL (7.0-11.0); Mono # (Auto) 0.6 th/mm3 (0.0-0.9); Neut # (Auto) 3.2 th/mm3 (1.8-7.7); Neut % (Auto) 55.9 % (16.0-70.0); Platelet Count 175 th/mm3 (150-450); Red Blood Count 4.37 mil/mm3 (4.50-5.90); Red Cell Distribution Width 13.5 % (11.6-17.2); White Blood Count 5.8 th/mm3 (4.0-11.0)
[2018-09-01 21:40] LABS: Activated Partial Thrombo Time 29.8 sec (23.4-31.7); INR 1.1 Ratio; Prothrombin Time 10.7 sec (9.8-11.6)
--- NOTE | 2018-09-01 21:48 | ED ---
HPI General Chief Complaint: Chest Pain Stated Complaint: cardiac Time Seen by Provider: 09/01/18 20:39 Source: patient and family Mode of arrival: ambulatory Limitations: no limitations History of Present Illness HPI narrative: Mr Webb is an 87 year old male who presents to the ED complaining of chest pain for several weeks that increased in intensity 3 days ago and peaked today. He describes the pain as pressure over the sternum without SOB. The pain was strictly upon exertion until 3 days ago when it began to occur at rest. He states it will occasionally radiate to the bilateral arms down to the elbow. Nitroglycerin relieves the pain for a few hours, and he has taken 2 today. He also takes 81mg of ASA daily and has taken his dose today. He denies nausea, vomiting, fever, abdominal pain, cough, SOB, or syncope. The patient sees a computer network and systems engineer regularly and has an appointment scheduled on 2017 to discuss catheterization and possible pacemaker implantation. The patient 's PMH is also significant for chronic back pain, HTN, a TIA, and diabetes. He denies tobacco, alcohol, and drug use. He follows up with Dr Gómez. Takes aspirin daily and no blood thinners. No stents or CABG history in the past. MD complaint: Reports chest pain Related Data Home Medications Medication Instructions Recorded Confirmed amlodipine 2.5 mg PO DAILY 09/01/18 09/01/18 aspirin [Aspir-Low] 81 mg PO DAILY 09/01/18 09/01/18 doxazosin 4 mg PO DAILY 09/01/18 09/01/18 finasteride 5 mg PO DAILY 09/01/18 09/01/18 isosorbide dinitrate 30 mg PO DAILY 09/01/18 09/01/18 levetiracetam 500 mg PO HS 09/01/18 09/01/18 nitroglycerin [Nitrostat] 0.4 mg SUBLINGUAL Q5-15M PRN 09/01/18 09/01/18 tamsulosin 0.4 mg PO DAILY 09/01/18 09/01/18 Allergies Allergy/AdvReac Type Severity Reaction Status Date / Time penicillin G Allergy Severe rash Verified 09/01/18 21:30 Review of Systems ROS: all other systems reviewed are negative [facility] Medical History Medical History Aneurysm (Acute) Diabetes (Acute) Hypertension (Acute) Surgical History Surgical History H/O eye surgery (Acute) H/O knee surgery (Acute) H/O shoulder surgery (Acute) Social History Social History Second Hand Smoke Exposure: No Smoking Status: Never smoker How Often Do You Have a Drink Containing Alcohol: Never Recent Travel in [facility] within the Last 8 Weeks: No Recent Out of Country Travel within the Last 8 Weeks: No Immunization History Tetanus Immunization: >5 Years Exam Narrative Exam Narrative: GENERAL: Patient is a well developed well nourished male in [facility]. SKIN: Warm and dry. HEAD: Atraumatic. Normocephalic. EYES: Pupils equal and round. No scleral icterus. No injection or drainage. ENT: No nasal bleeding or discharge. Mucous membranes pink and moist. NECK: Trachea midline. No JVD. CARDIOVASCULAR: Regular rate and rhythm. No murmurs rubs or gallops. Mild pain with palpation of the sternum. RESPIRATORY: No accessory muscle use. Clear to auscultation. Breath sounds equal bilaterally. GASTROINTESTINAL: Abdomen soft, non-tender, nondistended. Hepatic and splenic margins not palpable. MUSCULOSKELETAL: Extremities without clubbing, cyanosis, or edema. No obvious deformities. Full ROM of the upper and lower extremities bilaterally. 2+ pulses. NEUROLOGICAL: Awake and alert. No obvious cranial nerve deficits. Motor grossly within normal limits. Five out of 5 muscle strength in the arms and legs. Normal speech. PSYCHIATRIC: Appropriate mood and affect; insight and judgment normal. Course Initial Documented Vital Signs Temperature 97.8 F 09/01/18 20:30 Pulse Rate 78 09/01/18 20:30 Respiratory Rate 18 09/01/18 20:30 Blood Pressure 191/81 H 09/01/18 20:30 Pulse Oximetry 97 09/01/18 20:30 Last Documented Vital Signs Temperature 97.8 F 09/01/18 20:30 Pulse Rate 76 09/01/18 22:40 Respiratory Rate 14 09/01/18 22:40 Blood Pressure 166/79 H 09/01/18 22:40 Pulse Oximetry 96 09/01/18 22:40 Medical Decision Making WILLIE Attestation WILLIE supervised visit: Yes Attestation: I, Dr. Garcia, have reviewed the advance practice practitioner's documentation and am in agreement, met with the patient face to face, made the diagnosis, and the medical decision making was done by me. See his note for further details. This is an 87-year-old male with several cardiac risk factors, followed by computer network and systems engineer Dr. li, here with his for evaluation of intermittent sense of chest pain. His pain resolved with sublingual nitroglycerin. He has ST depressions in V2 through V5 as well as lateral limb leads which are new for him. There are no ST segment elevations. On exam he is overall very well- appearing and is comfortable. Sounds like he has unstable angina. His troponin is 0.08. He has had a slightly elevated troponin in the past. He will be admitted for further treatment and evaluation. MDM Narrative Medical decision making narrative: 87 yo male that presents to the ED for evaluation of chest pain. Patient was properly examined and found to have findings concerning for unstable angina. Labs and imaging ordered. My attending Dr Garcia agrees with plan. Aspirin and nitro given with improvement of symptoms. Labs and imaging here showed positive troponin of 0.08, and some changes to his EKG but no obvious ST elevation. Dr Garcia recommends admission to medicine. Discussed case with Dr Heath who agrees to admission to her service. At this time she recommends no heparin. Medical Screen Exam Complete: Yes Emergency Medical Condition: Yes Differential Diagnosis Differential Diagnosis: chest pain vs atypical chest pain vs ACS vs NSTEMI vs unstable angina Medical Records Medical records reviewed: Yes I reviewed the patient's medical records. Lab Data Lab results reviewed: Yes I reviewed the patient's lab results. Result diagrams: 09/01/18 21:00 09/01/18 21:00 Lab Results 09/01/18 09/01/18 09/01/18 Range/Units 21:00 21:00 21:00 WBC 5.8 (4.0-11.0) th/mm3 RBC 4.37 L (4.50-5.90) mil/mm3 Hgb 13.6 (13.0-17.0) gm/dL Hct 38.6 L (39.0-51.0) % MCV 88.4 (80.0-100.0) fL MCH 31.1 (27.0-34.0) pg MCHC 35.2 (32.0-36.0) % RDW 13.5 (11.6-17.2) % Plt Count 175 (150-450) th/mm3 MPV 8.7 (7.0-11.0) fL Neut % (Auto) 55.9 (16.0-70.0) % Lymph % (Auto) 30.6 (9.0-44.0) % Imperial % (Auto) 10.0 H (0.0-8.0) % Eos % (Auto) 3.0 (0.0-4.0) % Baso % (Auto) 0.5 (0.0-2.0) % Neut # (Auto) 3.2 (1.8-7.7) th/mm3 Lymph # (Auto) 1.8 (1.0-4.8) th/mm3 Imperial # (Auto) 0.6 (0.0-0.9) th/mm3 Eos # (Auto) 0.2 (0.0-0.4) th/mm3 Baso # (Auto) 0.0 (0.0-0.2) th/mm3 WBC Differential . Differential Comment Auto diff final PT 10.7 (9.8-11.6) sec INR 1.1 Ratio APTT 29.8 (23.4-31.7) sec Sodium 138 (136-145) meq/L Potassium 4.1 (3.5-5.1) meq/L Chloride 106 (98-107) meq/L Carbon Dioxide 26.2 (21.0-32.0) meq/L Anion Gap 6 (5-15) meq/L BUN 17 (7-18) mg/dL Creatinine 1.19 (0.60-1.30) mg/dL Estimated GFR 58 L (>89) mL/min Random Glucose 175 H (74-106) mg/dL Calcium 8.9 (8.5-10.1) mg/dL Total Bilirubin 0.4 (0.2-1.0) mg/dL AST 31 (15-37) U/L ALT 49 (12-78) U/L Alkaline Phosphatase 120 H (45-117) U/L Total Creatine Kinase 74 (39-308) U/L Troponin I 0.08 H (0.02-0.05) ng/mL Total Protein 7.5 (6.4-8.2) g/dL Albumin 3.7 (3.4-5.0) g/dL Imaging Data Attestation: I personally reviewed and interpreted this imaging study as follows : Radiologist's impression: Chest X-Ray 09/01/18 20:41 CONCLUSION: Negative examination. ECG Data Attestation: I personally reviewed and interpreted this ECG as follows: Interpretation: EKG shows sinus rhythm but no obvious ST elevation. Read by me and attending. Discharge Plan Discharge Disposition Patient Disposition: 30 Still Patient Discharge Details Diagnosis: Chest pain, Elevated troponin, Acute electrocardiogram changes Physicians Team ED Provider: Tarun Garcia ED Midlevel Provider: Gianni Matos Primary Care Provider: Oliver Vargas Attending Provider: Liya Heath Status ED Status: Admitted Patient
[2018-09-01 21:53] LABS: Albumin 3.7 g/dL (3.4-5.0); Anion Gap 6 meq/L (5-15); Aspartate Aminotransferase 31 U/L (15-37); Blood Urea Nitrogen 17 mg/dL (7-18); Calcium 8.9 mg/dL (8.5-10.1); Carbon Dioxide 26.2 meq/L (21.0-32.0); Chloride 106 meq/L (98-107); Glomerular Filtration Rate 58 mL/min (>89); Glucose,Random 175 mg/dL (74-106); Potassium 4.1 meq/L (3.5-5.1); Sodium 138 meq/L (136-145)
[2018-09-01 21:54] LABS: Alanine Aminotransferase 49 U/L (12-78)
[2018-09-01 21:58] LABS: Alkaline Phosphatase 120 U/L (45-117); Total Protein 7.5 g/dL (6.4-8.2); Troponin I 0.08 ng/mL (0.02-0.05)
[2018-09-01 21:59] LABS: Creatine Kinase 74 U/L (39-308)
[2018-09-02] MEDS ORDERED: Acetaminophen 325 MG Tablet PO PRN (00:13)
[2018-09-02] MEDS ORDERED: Bisacodyl 10 MG Supp RECTAL PRN (00:13)
[2018-09-02] MEDS ORDERED: Prochlorperazine 25 MG Supp RECTAL PRN (00:13)
[2018-09-02] MEDS ORDERED: Nitroglycerin SL (Override) 0.4 MG Tab SL PRN (00:18)
--- NOTE | 2018-09-02 01:29 | P.HP ---
History of Present Illness Service: [facility] Primary Care Physician: Oliver Vargas MD History of Present Illness: 87-year-old male with a past medical history significant for hypertension, hyperlipidemia, diet controlled diabetes mellitus, BPH and history of intracranial hemorrhage 8 years ago presents to the emergency department for evaluation of chest pain. The patient is currently undergoing a chest pain workup as an outpatient with his scallop cutter machine, Dr. Sanchez. He currently has a loop recorder. He states there was discussion of doing a cardiac catheterization in the near future. The patient reports that he was sitting at rest earlier yesterday afternoon when he had chest pain which he described as a substernal pressure that radiated down his bilateral upper extremities that was relieved by nitro. He reports the pressure returned 1 hour later and he had to take another nitro. At that time, the patient's insisted that he come to the emergency department for further evaluation. He denies any episodes of diaphoresis. No associated shortness of breath. No abdominal pain. No nausea/ vomiting/diarrhea. No fever/chills. No focal neurologic symptoms. Inpatient Certification: I certify that the inpatient services were ordered in accordance with Medicare regulations governing the order. This includes certification that hospital inpatient services are reasonable and necessary and in the case of services not specified as inpatient-only under 42 CFR 419.22(n), that they are appropriately provided as inpatient services in accordance to with the 2-midnight benchmark under 43 CFR 412.3(e) Estimated Total Length of Stay (Days): 3 Plans for Post Hospital Care: Not yet determined Review of Systems All other systems reviewed negative except as stated in HPI [facility] - History History Provided By: Patient, Family Member - Medical History Medical History: Medical History (Last Updated 09/02/18 @ 01:17 by Liya Heath MD) Aneurysm BPH (benign prostatic hyperplasia) Diabetes Hyperlipidemia Hypertension Intracranial hemorrhage - Surgical History Surgical History: Surgical History (Last Reviewed 09/02/18 @ 01:17 by Liya Heath MD) H/O eye surgery H/O knee surgery H/O shoulder surgery - Family History Family History: Family History (Last Updated 09/02/18 @ 01:17 by Liya Heath MD) Other Coronary artery disease Diabetes mellitus - Social History I have reviewed the patient's Social History: Yes - Tobacco History Second Hand Smoke Exposure: No Smoking Status: Never smoker - Alcohol History How Often Do You Have a Drink Containing Alcohol: Never - Travel History Recent Travel in the [place] Within the Last 8 Weeks: No Recent Travel Out of the Country Within the Last 8 Weeks: No - Immunization History Tetanus Immunization: >5 Years Medications and Allergies Active Medications: Active Medications Acetaminophen (Tylenol) 650 mg PO Q4H PRN PRN Reason: Temp > 100.4 Amlodipine Besylate (Norvasc) 2.5 mg PO DAILY [facility] Aspirin (Ecotrin) 81 mg PO DAILY [facility] Bisacodyl (Dulcolax Supp) 10 mg RECTAL DAILY PRN PRN Reason: SEVERE CONSITIPATION Doxazosin Mesylate (Cardura) 4 mg PO DAILY [facility] Finasteride (Proscar) 5 mg PO DAILY [facility] Levetiracetam (Keppra) 500 mg PO HS [facility] Nitroglycerin (Nitrostat Sl (Override)) 0.4 mg SL Q5M PRN PRN Reason: Chest Pain Non-Formulary Medication (Isosorbide Dinitrate [Isosorbide Dinitrate]) 30 mg PO DAILY [facility] Prochlorperazine (Compazine Supp) 25 mg RECTAL Q12HR PRN PRN Reason: NAUSEA OR VOMITING Sennosides (Senokot) 17.2 mg PO Q12H PRN PRN Reason: Moderate Constipation Tamsulosin HCl (Flomax) 0.4 mg PO DAILY [facility] Allergies Allergy/AdvReac Type Severity Reaction Status Date / Time penicillin G Allergy Severe rash Verified 09/01/18 21:30 Home Medications Medication Instructions Recorded Confirmed Type amlodipine 2.5 mg PO DAILY 09/01/18 09/01/18 History aspirin [Aspir-Low] 81 mg PO DAILY 09/01/18 09/01/18 History doxazosin 4 mg PO DAILY 09/01/18 09/01/18 History finasteride 5 mg PO DAILY 09/01/18 09/01/18 History isosorbide dinitrate 30 mg PO DAILY 09/01/18 09/01/18 History levetiracetam 500 mg PO HS 09/01/18 09/01/18 History nitroglycerin [Nitrostat] 0.4 mg SUBLINGUAL Q5-15M PRN 09/01/18 09/01/18 History tamsulosin 0.4 mg PO DAILY 09/01/18 09/01/18 History Exam Vital signs: Vital Signs 09/01/18 20:30 09/01/18 20:41 09/01/18 21:16 Temperature 97.8 F Pulse Rate 78 87 71 Respiratory Rate 18 20 16 Blood Pressure 191/81 H 164/79 H 171/74 H Pulse Oximetry 97 96 96 09/01/18 21:30 09/01/18 22:25 09/01/18 22:40 Temperature Pulse Rate 70 60 76 Respiratory Rate 14 14 14 Blood Pressure 156/79 H 178/80 H 166/79 H Pulse Oximetry 96 97 96 Intake & Output 09/01/18 09/01/18 09/02/18 06:59 18:59 06:59 Weight 68.492 kg Narrative: Gen.: No acute distress Head: Normocephalic. Atraumatic. EENT: Pupils equal round and reactive to light. Nose without drainage. Airway intact. Throat without injection. Cardiovascular: Regular rate and rhythm. No murmurs, rubs or gallops. Respiratory: Lungs clear to auscultation bilaterally. No wheezes or rhonchi. Abdomen: Soft, nontender, nondistended. No peritoneal signs. Musculoskeletal: No gross deformities. No edema. Skin: No obvious rashes or erythema. Neuro: Sensory and motor grossly intact. Cranial nerves II through XII grossly intact. Results - Labs CBC & Chem 7: 09/01/18 21:00 09/01/18 21:00 Labs: Laboratory Results - last 24 hr 09/01/18 09/01/18 09/01/18 21:00 21:00 21:00 WBC 5.8 RBC 4.37 L Hgb 13.6 Hct 38.6 L MCV 88.4 MCH 31.1 MCHC 35.2 RDW 13.5 Plt Count 175 MPV 8.7 Neut % (Auto) 55.9 Lymph % (Auto) 30.6 Frederick % (Auto) 10.0 H Eos % (Auto) 3.0 Baso % (Auto) 0.5 Neut # (Auto) 3.2 Lymph # (Auto) 1.8 Frederick # (Auto) 0.6 Eos # (Auto) 0.2 Baso # (Auto) 0.0 WBC Differential . Differential Comment Auto diff final PT 10.7 INR 1.1 APTT 29.8 Sodium 138 Potassium 4.1 Chloride 106 Carbon Dioxide 26.2 Anion Gap 6 BUN 17 Creatinine 1.19 Estimated GFR 58 L Random Glucose 175 H Calcium 8.9 Total Bilirubin 0.4 AST 31 ALT 49 Alkaline Phosphatase 120 H Total Creatine Kinase 74 Troponin I 0.08 H Total Protein 7.5 Albumin 3.7 - Imaging Impressions Chest X-Ray 09/01/18 20:41 CONCLUSION: Negative examination. Caprini VTE Risk Assessment Caprini VTE Risk Assessment: Moderate/High Risk (score >= 2) Caprini Risk Assessment Model: Point Value = 1 Point Value = 2 Point Value = 3 Point Value = 5 Age 41-60 Minor surgery BMI > 25 kg/m2 Swollen legs Varicose veins or History of unexplained or recurrent spontaneous Oral contraceptives or hormone replacement Sepsis (< 1 month) Serious lung disease, including pneumonia (< 1 month) Abnormal pulmonary function Acute myocardial infarction Congestive heart failure (< 1 month) History of inflammatory bowel disease Medical patient at bed rest Age 61-74 Arthroscopic surgery Major open surgery (> 45 min) Laparoscopic surgery (> 45 min) Malignancy Confined to bed (> 72 hours) Immobilizing plaster cast Central venous access Age >= 75 History of VTE Family history of VTE Factor V Leiden Prothrombin [id number] Lupus anticoagulant Anticardiolipin antibodies Elevated serum homocysteine Heparin-induced thrombocytopenia Other congenital or acquired thrombophilia Stroke (< 1 month) Elective arthroplasty Hip, pelvis, or leg fracture Acute spinal cord injury (< 1 month) Prophylaxis Regimen: Total Risk Factor Score Risk Level Prophylaxis Regimen 0-1 Low Early ambulation 2 Moderate Order ONE of the following: *Sequential Compression Device (SCD) *Heparin 5000 units SQ BID 3-4 Higher Order ONE of the following medications: *Heparin 5000 units SQ TID *Enoxaparin/Lovenox 40 mg SQ daily (WT < 150 kg, CrCl > 30 mL/min) *Enoxaparin/Lovenox 30 mg SQ daily (WT < 150 kg, CrCl > 10-29 mL/min) *Enoxaparin/Lovenox 30 mg SQ BID (WT < 150 kg, CrCl > 30 mL/min) AND/OR *Sequential Compression Device (SCD) 5 or more Highest Order ONE of the following medications: *Heparin 5000 units SQ TID (Preferred with Epidurals) *Enoxaparin/Lovenox 40 mg SQ daily (WT < 150 kg, CrCl > 30 mL/min) *Enoxaparin/Lovenox 30 mg SQ daily (WT < 150 kg, CrCl > 10-29 mL/min) *Enoxaparin/Lovenox 30 mg SQ BID (WT < 150 kg, CrCl > 30 mL/min) AND *Sequential Compression Device (SCD) Assessment and Plan - Plan Assessment/plan: 1. Unstable angina Initial troponin 0.08 EKG shows sinus rhythm with nonspecific ST and T wave abnormalities, no ST segment elevation or depression, personally reviewed Chest pain resolved at this time ACS rule out pending; serial troponins/EKGs Patient's scallop cutter machine consulted, appreciate recommendations 2. History of intracranial hemorrhage Patient reports spontaneous intracranial hemorrhage 8 years ago On Keppra nightly -continue Caution with systemic anticoagulation; patient's neurologist is Dr. Mahmood 3. Hypertension/hyperlipidemia Continue home medications 4. BPH Continue home finasteride FEN N.p.o. Electrolytes: Monitor and replete as needed NS at 70 cc/hour SCDs
[2018-09-02] MEDS ORDERED: Sod Chloride 0.9% Inj 1,000 ML IV.CONT SCH ×2 (01:30→09:00)
[2018-09-02 03:17] LABS: Troponin I 0.13 ng/mL (0.02-0.05)
--- NOTE | 2018-09-02 07:54 | ECG ---
Date Performed: 09/01/2018 Time Performed: 21:11:06 PTAGE: 87 years EKG: Sinus rhythm WITH SINUS ARRHYTHMIA NONSPECIFIC ST & T-WAVE ABNORMALITY BORDERLINE ECG PREVIOUS TRACING : 04/20/2017 10.58 DOCTOR: Alexander Landaverde Interpretating Date/Time 09/02/2018 07:53:57
[2018-09-02] MEDS ORDERED: diazePAM 5 MG Tablet PO SCH (09:00)
[2018-09-02] MEDS ORDERED: amLODIPine 5 MG Tablet PO SCH (09:00)
--- NOTE | 2018-09-02 09:46 | ECG ---
Date Performed: 09/02/2018 Time Performed: 03:12:11 PTAGE: 87 years EKG: Sinus rhythm WITH OCCASIONAL SUPRAVENTRICULAR PREMATURE COMPLEXES NONSPECIFIC ST & T-WAVE ABNORMALITY BORDERLINE ECG PREVIOUS TRACING : 09/01/2018 21.11 DOCTOR: Alexander Landaverde Interpretating Date/Time 09/02/2018 09:44:34
[2018-09-02] MEDS: Doxazosin 4 MG Tablet PO SCH (09:58)
[2018-09-02] MEDS: Finasteride 5 MG Tablet PO SCH (09:58)
[2018-09-02] MEDS: Isosorbide Mononitrate 30 MG ER 24HR Tablet (Imdur) PO SCH (09:59)
[2018-09-02 10:10] LABS: Troponin I 0.21 ng/mL (0.02-0.05)
--- NOTE | 2018-09-02 10:11 | ECG ---
Date Performed: 09/01/2018 Time Performed: 20:46:56 PTAGE: 87 years EKG: Sinus rhythm WITH OCCASIONAL SUPRAVENTRICULAR PREMATURE COMPLEXES POSSIBLE RIGHT VENTRICULAR CONDUCTION DELAY NON SPECIFIC ST & T-WAVE ABNORMALITY BORDERLINE ECG NO PREVIOUS TRACING DOCTOR: Alexander Landaverde Interpretating Date/Time 09/02/2018 10:11:05
--- NOTE | 2018-09-02 10:25 | MB ---
cc: Daniel Worthy MD DATE: 09/02/2018 CARDIOLOGY CONSULTATION REASON FOR CONSULTATION: Evaluation of chest pain and elevated troponin. HISTORY OF PRESENT ILLNESS: Thanh Webb is an 87-year-old man who sees my colleague, Dr. Liu. The patient has multiple risk factors for coronary artery disease and for the past 3 weeks has been having anginal symptoms. He has a substernal chest pain radiating down both arms. He has been placed on Imdur and Norvasc; unable to use a beta viv because of known tachybrady syndrome with previous pauses on his loop recorder. He had chest pain yesterday afternoon; took a nitroglycerin and it went away, came back about an hour later, took another nitro; had chest pains get recur here in the hospital. He is currently pain free. EKG showed clear-cut ST changes and his troponins are elevated. At the time of seeing him, he is pain free. PAST MEDICAL HISTORY: Includes paroxysmal atrial fibrillation with very brief episodes, type 2 diabetes, hyperlipidemia, hypertension intracranial hemorrhage, 01/01/2010, right parietooccipital hemorrhage thought secondary to uncontrolled hypertension, lacunar CVA in 2017, history of 1-2+ mitral regurgitation and trivial aortic stenosis by echo. History of PSVT at 176 beats per minute detected on event monitor lasting 10 seconds. History of previous syncope, tachybrady syndrome, previous TIA. PAST SURGICAL HISTORY: Includes back surgery, loop recorder implantation, bilateral shoulder surgery. MEDICATIONS: Include: 1. Amlodipine 2.5 mg. 2. Atorvastatin 40 mg. 3. Doxazosin 4 mg 4. Finasteride 5 mg. 5. Imdur 30 mg. 6. Levetiracetam 500 mg at bedtime. 7. Nitroglycerin sublingual. 8. Tamsulosin 0.4 mg. ALLERGIES: PENICILLIN. FAMILY HISTORY: Positive for heart disease in his father, type 2 diabetes in his father and cancer in the mother. SOCIAL HISTORY: Never smoked. Used to be a competitive swimmer. REVIEW OF SYSTEMS: Otherwise negative. PHYSICAL EXAMINATION: GENERAL: Well-developed, well-nourished, elderly white male. VITAL SIGNS: Charted. HEENT: Unremarkable. NECK: No JVD. No bruits. CHEST: Clear to auscultation. CARDIOVASCULAR: Normal S1, S2. Regular rate and regular rhythm with a grade 1-2/6 systolic murmur. ABDOMEN: Soft, nontender. No masses or organomegaly. EXTREMITIES: No clubbing, cyanosis or edema. DIAGNOSTIC DATA: EKG shows sinus rhythm with about [address] depression in V3 through V6, consistent with ischemia. LABORATORY DATA: Troponin has gone from 0.08-0.13 consistent with a non-STEMI. Creatinine is 1.19, hematocrit 38.6. IMPRESSION: Suspect acute non-ST segment elevation myocardial infarction. The patient is very high risk with multiple cardiac risk factors and he is old and frail. He is also high risk because he has uncorrected tachybrady syndrome. He has adamantly refused a pacemaker in the past and I am not able to safely add beta viv at this point. RECOMMENDATIONS: I would like to take him to the cardiac catheterization lab today to define his anatomy and see if we can revascularize him easily. Informed consent has been obtained including risk of . I think this is the best way to approach him at the present time. Further therapy to be determined. MD JOSEFINA Reyes/amparo , 09:06 AM , 09:14 AM
[2018-09-02] MEDS ORDERED: Heparin/NS PF Inj 1,000 ML ONE (11:04)
[2018-09-02] MEDS ORDERED: Lidocaine PF 1% Inj 30 ML Vial ONE (11:09)
[2018-09-02] MEDS ORDERED: HEPARIN IV.CONT ONE (11:55)
[2018-09-02] MEDS ORDERED: Heparin 10,000 UNITS/10 ML Vial (for IV use) ONE (11:55)
[2018-09-02] MEDS ORDERED: Heparin Drip 25,000 UNIT/250 ML BAG IV.CONT ONE (11:57)
[2018-09-02] MEDS ORDERED: Nitroglycerin Drip Premix 50 MG/250 ML BOTTLE ONE (11:57)
[2018-09-02] MEDS ORDERED: Insulin Regular (For Infusion) 100 UNIT in Sodium Chlor 0.9% Inj 99 ML IV.CONT PRN (12:20)
[2018-09-02] MEDS ORDERED: Dextrose 50% in Water 50 ML Vial IV.PUSH PRN ×2 (12:20→18:49)
[2018-09-02] MEDS ORDERED: Sodium Chloride 0.9% Irr Bot 1,000 ML, Vancomycin Inj 1,000 MG IRRIGATION SCH ×2 (12:30)
[2018-09-02] MEDS ORDERED: Sodium Chlor 0.9% Inj 77.5 ML, Papaverine Inj 60 MG, Nitroglycerin Inj 100 MCG, dilTIAZ... IRRIGATION SCH ×3 (12:30)
[2018-09-02] MEDS ORDERED: Chlorhexidine 4% Topical 120 APPLIC/120 ML Bottle TOPICAL SCH (12:30)
--- NOTE | 2018-09-02 12:54 | ECG ---
Date Performed: 09/02/2018 Time Performed: 09:17:11 PTAGE: 87 years EKG: Sinus rhythm WITH OCCASIONAL SUPRAVENTRICULAR PREMATURE COMPLEXES NONSPECIFIC ST & T-WAVE ABNORMALITY BORDERLINE ECG PREVIOUS TRACING : 09/02/2018 03.12 DOCTOR: Alexander Landaverde Interpretating Date/Time 09/02/2018 12:53:17
[2018-09-02 12:59] LABS: INR 1.2 Ratio; Prothrombin Time 11.8 sec (9.8-11.6)
[2018-09-02] MEDS ORDERED: Vancomycin Inj 1,000 MG in Sodium Chlor 0.9% Inj 250 ML IV.SIG SCH (13:00)
--- NOTE | 2018-09-02 13:10 | MA ---
cc: Daniel Worthy MD DATE: 09/02/2018 PROCEDURES PERFORMED: 1. Left heart catheterization. 2. Left ventriculography. 3. Coronary angiography. 4. Intraaortic balloon pump insertion. DESCRIPTION OF PROCEDURE: The patient was brought to the cardiac catheterization lab under urgent conditions. The right groin was prepped and draped. A micropuncture set was used for access of the common femoral artery and a 6-Barbadian sheath placed. Left coronary angiography was completed using a left 4.5 Flores. Right coronary angiography required a modified right Amplatz for a high anterior takeoff. After completion of angiography, I inserted a balloon pump. There were no complications. Blood loss was 10 mL. FINDINGS: 1. HEMODYNAMICS: Left ventricular pressure is 122/0 with an end diastolic pressure of 3. Aortic pressure is 119/62 with a mean of 87. There was no gradient during pullback from the left ventricle to the aorta. 2. LEFT VENTRICULOGRAPHY: Left ventriculography shows a preserved ejection fraction of 55%. There is a slight degree of anteroapical hypokinesis. 3. CORONARY VENTRICULOGRAPHY: Left main coronary artery has about 75% stenosis. The ostium of the LAD has a 95% stenosis. There is diffuse disease of the LAD with about a 70% mid stenosis after the last major diagonal; circumflex artery has about 40% proximal disease. Right coronary artery has about 75% PDA disease. CONCLUSIONS: 1. Normal hemodynamics. 2. Preserved left ventricular function. 3. Critical coronary artery disease. RECOMMENDATIONS: Coronary artery bypass grafting to the LAD, circumflex marginal branch, posterior descending artery branch of the right coronary artery, the second diagonal which is large and if possible, the first diagonal branch which is small. MD JOSEFINA Reyes/amparo , 12:26 PM , 12:34 PM
--- NOTE | 2018-09-02 13:15 | CATHPROC ---
[employer] HIS Report Study Information Study Number Admission Scheduled Start Study Start [id number] Sep 01 2018 10:26PM 09/02/2018 Sep 02 2018 11:00AM [place] [facility] Cardiac Catheterization Admit Source Facility Department Emergency department [facility] Physician and Clinical Staff Initial Daniel Garcia [employer] Brayden Pastor,[place] [employer] Marti Sykes,[place] Recorder Sima Fox,RT(R) (BS) Scrub Jenna KrausRT(R) Procedures Performed Procedure Location (Site) Vessel Name Angiogram LV LV Ventricle Coronary Angiograms LCA Left Coronary Coronary Angiograms RCA Right Coronary IABP Fem Art (right) Femoral Art L Heart Cath Equipment Time Smokehouse Worker Description Size Mfg Part Number Used/Scraped TRANSDUCER, TRUWAVE [id number] 11:20 CLAYTON KRUGER * Used W/STOCKCOCK *[id number] INTRODUCER SET, 11:19 [employer] FR 5 [id number] *[id number] Used MICROPUNCTURE STIFF [id number] *[id number] 534-648T *[id number] [id number] *[id number] PIGTAIL ANG. 145 INFINITI [id number] CATHETER *[id number] BALLOON, FR8 50CC SENSATION [id number]- 11:59 MAQUET FR 8 50CC Used PLUS 01U *[id number] 11:20 [employer] BLANKET,WARM AIR CCL * Used *[id number] 11:20 [employer] PACK, CCL CUSTOM * Used *[id number] 11:20 [employer] PACER PEN, SKIN DUAL W/ RULER * Used *[id number] 11:20 [employer] MEDICAL SHEATH, FR6.5 PRELUDE 11CM FR 6.5 038ACT Used *[id number] 11:20 [employer] MEDICAL WIRE, 3MMJ .035 180CM 180CM Used *[id number] 11:20 [employer]AMIC MANIFOLD, 4 PORT * Used *[id number] 11:28 [employer] OMNIPAQUE, 300 MG, 50ML 50ML [id number] Used 11:28 [employer] OMNIPAQUE, 300 MG, 50ML 50ML [id number] Used 11:20 [employer] OMNIPAQUE, 350 MG, 150ML 150ML [id number] Used 11:28 [employer] OMNIPAQUE, 350 MG, 50ML 50ML [id number] Used Equipment Model, Serial, Lot Number and Expiration Data Description Model Number Serial Number Lot Number Expiration Date INTRODUCER SET, [id number] 06-04-2021 MICROPUNCTURE STIFF History: Current Medications Medication Dosage/Unit Route Frequency Last Date/Time Taken ASA History: Allergies Allergy Reaction Penicillin rash penicillin G rash History: Risk Factors Family History of Hypertension Dyslipidemia Previous NV Previous Heart Failure Premature CAD Yes Yes Yes No No Prior Valve Prior PCI Prior CABG Surgery No No No Cerebrovascular Peripheral Artery Chronic Lung On Dialysis Diabetes Diabetes Therapy Disease Disease Disease No Yes No No Yes Diet History: Symptoms/Diagnosis Selection Items Chest pain History: Stress Tests Stress or Imaging Studies Performed No History: Other Current Smoker No Labs Hgb (g/dl) Hct (%) WBC (l/cumm) Platelets (thousands) 11.60-17.00 35.00-51.00 4.00-11.00 150.00-450.00 13.6 38.6 5.8 175 Glucose (mg/dl) BUN (mg/dl) Creatinine (mg/dl) BUN:Creatinine (1:x) 74.00-106.00 7.00-18.00 0.50-1.30 10.00-20.00 175 17 1.1 15.5 Na (meq/l) K (meq/l) 136.00-145.00 3.50-5.10 135 4.1 INR (PTT:PT) 0.90-1.10 1.1 Troponin I (ng/ml) CPK (u/l) CPK-MB (ng/ML) 0.02-0.05 26.00-308.00 0.50-3.60 0.13 60 Not Drawn Medication Medication Total Dose (Bolus/Oral) Medication Total Dosage/Unit 1% XYLOCAINE 20 mL HEPARIN 5000 units VERSED 2 mg Medications (Bolus/Oral) Medication Time Given Dosage/Unit Administered By Reason 09/02/2018 11:18:22 VERSED 1 mg Brayden Pastor AM 1 mg VERSED given in lab by Brayden Pastor, RN via Peripheral IV. 09/02/2018 11:21:23 1% XYLOCAINE 20 mL Daniel Worthy AM 20 mL 1% XYLOCAINE given in lab by Daniel Worthy in Right Groin via Subcutaneous. 09/02/2018 11:55:18 HEPARIN 5000 units Brayden Pastor AM 5000 units HEPARIN given in lab by Brayden Pastor, [place] via Peripheral IV. 09/02/2018 11:55:47 VERSED 1 mg Brayden Pastor AM 1 mg VERSED given in lab by Brayden Pastor, [place] via Peripheral IV. Medication (Drip) Medication Time Given Dosage/Unit Concentration/Unit Diluent (ml) Solution 09/02/2018 12:00:27 HEPARIN DRIP 1000 units/hr 92741 units 250 D5W PM 1000 units/hr HEPARIN DRIP given in lab by Brayden Pastor, [place] via Peripheral IV. Pump/Drip Flow = 10 ml/hr [place] D5W [place] [address] units in 250 ml. 09/02/2018 11:00:21 IV Solutions 0 mL (IV) 500 NaCl .9 AM IV Solutions given in lab by Daniel Worthy via Peripheral IV. Pump/Drip Flow = 30 ml/hr using NaCl .9 . Initial Case Assessment Cardiovascular HR Rhythm NIBP Chest Pain 100 reg 150/86 0 Edema Present Skin color Skin None Normal Warm Dry Circulatory - Right Pulses Dorsalis Pedis Femoral 2 2 Scale (0,1,2,3,4,d) Circulatory - Left Pulses Dorsalis Pedis Femoral 2 2 Scale (0,1,2,3,4,d) Circulatory - Lower Extremities Color Lower Right Color Lower Left Normal Normal Neurological State Oriented to time-place- Alert Moves all extremities person Respiration - General Respiration Rate SpO2 (%) (B/min) 14 98 Final Case Assessment Cardiovascular HR Rhythm NIBP Chest Pain 93 Sinus 99/52 0 Edema Present Skin color Skin None Normal Warm Dry Circulatory - Right Pulses Dorsalis Pedis Femoral 2 2 Scale (0,1,2,3,4,d) Circulatory - Left Pulses Dorsalis Pedis Femoral 2 2 Scale (0,1,2,3,4,d) Neurological State Oriented to time-place- Alert Moves all extremities person Respiration - General Respiration Rate SpO2 (%) O2 (lpm) (B/min) 14 92 0 Chronological Log Time Study Chronological Log 10:55:55 Patient arrived via Bed. 10:55:59 Patient Name, D.O.B, / Armband Verified By R.N. 11:00:04 Consent signed by the physician and the patient and verified by the [facility] staff. 11:00:05 Pre-op and post- op instructions given; patient acknowledges understanding of instructions. 11:00:09 Presedation assessment performed by [facility] RN. 11:00:12 Patient has been NPO for More than 6Hrs. 11:00:13 Skin Breakdown- none noted or reported 11:00:15 Patient Warmer Placed on the Table. 11:00:17 Ambreen Prominences Protected 11:00:18 A # 20 IV was noted in the Antecubital (right). Grade = 0 11:00:21 IV Solutions given in lab by Daniel Worthy via Peripheral IV. Pump/Drip Flow = 30 ml/hr usi ng NaCl .9. 11:00:22 History and physical on the chart or being dictated. Assessment: Initial Case, KK=495 BPM, Rhythm=reg, HEDB=615/86 mmhg, Chest Pain=0, Edema=None, Color=Normal, Skin = Warm, Dry Right Pulses: Tex Ped=2, Femoral=2 Left Pulses: Tex Ped=2, Femoral=2 11:00:23 Lower Right Extremities: Color=Normal Lower Left Extremities: Color=Normal Neurological: State=Alert, Ox3, HESS Respiration: Resp=14 B/min, SpO2=98 % Vitals capture started with the following parameters, Patient=Adult, Interval=5 min, Initial Pr eptyqx=972 mmHg, 11:12:03 Deflation Rate=5 mmHg, Cuff placed on Left Arm 11:13:08 XE=887 bpm, OCXE=752/86 mmhg, SpO2=97.0 %, Resp=7 B/min, Ildefonso=10 11:16:28 Reference ECG taken 11:16:51 Pressure channel 1 zeroed. 11:17:46 UX=410 bpm, XBQJ=547/82 mmhg, SpO2=98.0 %, Resp=6 B/min, Pain=0, Ildefonso=10, Cox=2 11:18:22 1 mg VERSED given in lab by Brayden Pastor, [place] via Peripheral IV. Time Out. Correct patient, correct procedure, correct physician, labs, allergies, and equipment verified with drop crew laborer 11:19:36 team present. Fire risk assesment completed (see hard stop sheet for coding). Time Out Conc urred by and individual staff in procedure. 11:19:57 Case Start 11:21:23 20 mL 1% XYLOCAINE given in lab by Daniel Worthy in Right Groin via Subcutaneous. 11:22:45 EU=929 bpm, YDVC=536/82 mmhg, SpO2=98.0 %, Resp=16 B/min, Pain=0, Ildefonso=10, Cox=2 11:23:34 Access site was Right Femoral Artery. A INTRODUCER SET, MICROPUNCTURE STIFF FR 5 was advanced into the Fem Art (right) using the Perc utaneous 11:23:41 technique. A SHEATH, FR6.5 PRELUDE 11CM FR 6.5 was exchanged in the Fem Art (right). This was necessary in order to 11:23:48 accomodate a larger catheter. 11:24:56 An injection in the Fem Art (right) was made through the SHEATH, FR6.5 PRELUDE 11CM FR 6.5. A PIGTAIL ANG. 145 INFINITI CATHETER FR 6 was advanced over a wire. OMNIPAQUE, 350 MG, 150ML 15 0ML was 11:25:25 used for injections. Recorded Pressure: LV, HR=98, Condition=Condition 1 11:26:29 (Left Ventricle) LV 127/0/4 11:27:42 HR=95 bpm, TEAV=403/83 mmhg, SpO2=93.0 %, Resp=11 B/min, Pain=0, Ildefonso=10, Cox=2 11:28:00 The LV was injected at 8 cc/sec for a total of 16. OMNIPAQUE, 350 MG, 50ML 50ML used. Recorded Pressure: LV, Ao, BP=110, Condition=Condition 1 11:28:37 (Left Ventricle) LV 122/0/3, (Aorta) Ao 133/70/97 11:28:52 Catheter was removed A JL 4.5 INFINITI CATHETER FR 6 was advanced over a wire. OMNIPAQUE, 350 MG, 150ML 150ML was us ed for 11:28:56 injections. Recorded Pressure: Ao, HR=90, Condition=Condition 1 11:30:26 (Aorta) Ao 119/62/87 11:31:37 The LCA was injected and visualized at various angles. OMNIPAQUE, 350 MG, 150ML 150ML used . 11:32:48 HR=99 bpm, RRCA=097/71 mmhg, SpO2=91.0 %, Resp=15 B/min, Pain=0, Ildefonso=10, Cox=2 11:34:36 Catheter was removed A 3DRC INFINITI CATHETER FR 6 was advanced over a wire. OMNIPAQUE, 350 MG, 150ML 150ML was used for 11:34:39 injections. 11:37:04 Catheter was removed 11:37:45 HR=93 bpm, ZZWM=394/82 mmhg, SpO2=93.0 %, Resp=13 B/min, Pain=0, Ildefonso=10, Cox=2 11:38:26 A AR MOD INFINITI CATHETER FR 6 was advanced over a wire. contrast was used for injections. 11:39:42 The RCA was injected and visualized at various angles. OMNIPAQUE, 350 MG, 150ML 150ML used . 11:41:02 Catheter was removed 11:43:25 HR=88 bpm, NVZY=844/81 mmhg, SpO2=92.0 %, Resp=13 B/min, Pain=0, Ildefonso=10, Cox=2 11:45:59 VW reviewing images 11:48:13 HR=81 bpm, BZMQ=357/77 mmhg, SpO2=97.0 %, Resp=9 B/min, Pain=0, Ildefonso=10, Cox=2 11:52:44 HR=91 bpm, WGUU=242/86 mmhg, SpO2=96.0 %, Resp=10 B/min, Pain=0, Ildefonso=10, Cox=2 11:55:18 5000 units HEPARIN given in lab by Brayden Pastor, [place] via Peripheral IV. 11:55:47 1 mg VERSED given in lab by Brayden Pastor, [place] via Peripheral IV. 11:58:11 HR=94 bpm, YVJZ=146/75 mmhg, SpO2=96.0 %, Resp=11 B/min, Pain=0, Ildefonso=10, Cox=2 An BALLOON, FR8 50CC SENSATION PLUS FR 8 50CC was advanced to the descending aorta. Proper plac ement was 11:58:49 confired under fluoroscopy and the balloon was sutured in place. Ratio = ~RATIO~. Augmented BP ~SYS~/~KRISS~ 1000 units/hr HEPARIN DRIP given in lab by Brayden Pastor, RN via Peripheral IV. Pump/Drip Flow = 10 ml/hr using D5W 12:00:27 [place] [address] units in 250 ml. 12:02:48 HR=97 bpm, NIBP=95/63 mmhg, SpO2=91.0 %, Resp=13 B/min, Pain=0, Ildefosno=10, Cox=2 12:07:26 In the Fem Art (right) the sheath was sutured in place by Jenna Kraus RT(R). Balloon pu mp sheath. 12:07:45 HR=87 bpm, NIBP=84/43 mmhg, SpO2=96.0 %, Resp=10 B/min, Pain=0, Ildefonso=10, Cox=2 12:12:34 Sterile dressing applied to site 12:12:35 No case complications noted. 12:12:37 Cine recording checked. 12:12:40 HR=78 bpm, NIBP=99/52 mmhg, SpO2=90.0 %, Resp=11 B/min, Pain=0, Ildefonso=10, Cox=2 12:14:01 A Left Heart Cath was performed. Assessment: Final Case, HR=93 BPM, Rhythm=Sinus, NIBP=99/52 mmhg, Chest Pain=0, Edema=None, Col or=Normal, Skin = Warm, Dry Right Pulses: Tex Ped=2, Femoral=2 12:14:10 Left Pulses: Tex Ped=2, Femoral=2 Neurological: State=Alert, Ox3, HESS Respiration: Resp=14 B/min, SpO2=92 %, O2=0 lpm 12:18:20 AT=212 bpm, VGFT=237/47 mmhg, Resp=16 B/min, Pain=0, Ildefonso=10, Ocx=2 12:22:46 HR=96 bpm, OTFB=932/62 mmhg, Resp=9 B/min, Pain=0, Ildefonso=10, Cox=2 12:27:53 HR=88 bpm, RKIG=350/40 mmhg, Resp=17 B/min, Pain=0, Ildefonso=10, Cox=2 12:32:46 HR=91 bpm, QZKH=255/71 mmhg, Resp=14 B/min, Pain=0, Ildefonso=10, Cox=2 12:37:23 HR=78 bpm, VTTZ=638/55 mmhg, SpO2=98.0 %, Resp=8 B/min, Pain=0, Ildefonso=10, Cox=2 12:42:22 HR=84 bpm, GOMR=618/44 mmhg, SpO2=97.0 %, Resp=7 B/min, Pain=0, Ildefonso=10, Cox=2 12:47:56 HR=85 bpm, NIBP=99/56 mmhg, SpO2=98.0 %, Resp=7 B/min, Pain=0, Ildefonso=10, Cox=2 12:52:51 HR=93 bpm, GDET=615/57 mmhg, SpO2=92.0 %, Resp=16 B/min, Pain=0, Ildefonso=10, Cox=2 12:57:25 HR=86 bpm, QGAQ=718/54 mmhg, Resp=9 B/min, Pain=0, Ildefonso=10, Cox=2 13:02:26 Vitals capture stopped. 13:10:53 Patient moved to [facility] End Study - Contrast Media Used In Study Contrast Total Opened (mL) Total Used (mL) Total Wasted (mL) Omnipaque 350 150 80 70 End Study - Maximum Contrast Load Max Contrast Load (mL) 311.4 End Study - Radiation Exposure Fluoro Time (minutes) 5.9 End Study - Patient Disposition Complications Transferred To Interventional Outcome No Critical Care Bed No attempt made
[2018-09-02] MEDS ORDERED: Iohexol 350 MG/ML 100 ML Vial (for Cath Lab) IVCONTRAST ONE (13:21)
--- NOTE | 2018-09-02 14:45 | US ---
EXAM DATE: 09/02/2018 2:41 PM EST AGE/SEX: 87 years / Male INDICATIONS: Preop cardiac surgery. CLINICAL DATA: This is the patient's initial encounter. Patient reports that signs and symptoms have been present for 1 day and indicates a pain score of 0/10. MEDICAL/SURGICAL HISTORY: Hypertension. Aneurysm. BPH. Hyperlipidemia. Intracranial hemorrhage. . Eye surgery. Knee surgery. Shoulder surgery. [place] [facility] [place]. . MEASUREMENTS: RIGHT THIGH: Proximal:__2 mm Mid:__ 2 mm Distal:__2 mm LEFT THIGH: Proximal:__4 mm Mid:__2 mm Distal:__2 mm RIGHT CALF: Proximal:__2 mm Mid:__1 mm Distal:__2 mm LEFT CALF: Proximal:__2 mm Mid:__1 mm Distal:__2 mm FINDINGS: The venous system of the lower extremities are patent by color Doppler imaging. Measurements of the leg veins (in mm) are listed above. CONCLUSION: 1. Vein mapping as above. Electronically signed by: Sixto Nagy MD 09/02/2018 2:44 PM EST
--- NOTE | 2018-09-02 14:50 | US ---
EXAM DATE: 09/02/2018 2:47 PM EST AGE/SEX: 87 years / Male INDICATIONS: Preop cardiac surgery. CLINICAL DATA: This is the patient's initial encounter. Patient reports that signs and symptoms have been present for 1 day and indicates a pain score of 0/10. MEDICAL/SURGICAL HISTORY: Diabetes. Hypertension. Aneurysm. BPH. Hyperlipidemia. Intracranial hemorrhage. . Eye surgery. Knee surgery. Shoulder surgery. COMPARISON: No prior exams available for comparison. VELOCITY PARAMETERS: ICA/CCA Ratio: Right 1.1 , Left 0.8 ICA: Right 68 cm/sec, Left 72 cm/sec CCA: Right 61 cm/sec, Left 88 cm/sec ECA: Right 97 cm/sec, Left 94 cm/sec Vertebral: Right 36 cm/sec antegrade, Left 54 cm/sec antegrade FINDINGS: Right Carotid: Mild arteriosclerotic plaque is visualized.The waveforms are within normal limits. Left Carotid: Mild arteriosclerotic plaque is visualized. The waveforms are within normal limits. Other: None. CONCLUSION: 1. Right Internal Carotid Artery: The exam demonstrates moderate atherosclerotic plaquing at the bif urcation. There is no hemodynamically significant stenosis identified. 2. Left Internal Carotid Artery: Moderate atherosclerotic plaquing at the bifurcation. No hemodynami darvin significant stenosis identified. Electronically signed by: Sixto Nagy MD 09/02/2018 2:49 PM EST
--- NOTE | 2018-09-02 15:00 | US ---
EXAM DATE: 09/02/2018 2:53 PM EST AGE/SEX: 87 years / Male INDICATIONS: Preop cardiac surgery. CLINICAL DATA: This is the patient's initial encounter. Patient reports that signs and symptoms have been present for 1 day and indicates a pain score of 0/10. MEDICAL/SURGICAL HISTORY: Hypertension. Aneurysm. BPH. Hyperlipidemia. Intracranial hemorrhage. . Eye surgery. Knee surgery. Shoulder surgery. COMPARISON: No prior exams available for comparison. TECHNIQUE: Venous ultrasound of both lower extremities was performed from the inguinal ligament to t he proximal calf. Real-time, color Doppler and spectral tracing, compression and augmentation techni ques were used. FINDINGS: Right Leg: Right common femoral vein and iliac vein are not evaluated secondary to presence of aorti c balloon pump. The right popliteal and calf veins were also not visualized because of inability to p osition correctly with the implements present in the groin vessels. The superficial femoral vein does appear to be patent. Left Leg: Normal compression of the deep venous system from the inguinal region to the proximal calf . No echogenic clot is seen. Normal response of the venous system to augmentation and respiration. Other: None. CONCLUSION: 1. Very limited evaluation of the right leg. 2. Normal study on the left Electronically signed by: Ciro Sexton MD 09/02/2018 2:59 PM EST
[2018-09-02] MEDS: Sod Chloride 0.9% Inj 1,000 ML IV.CONT SCH (15:58)
[2018-09-02] MEDS ORDERED: Heparin Drip 25,000 UNIT/250 ML BAG IV.CONT PRN (16:00)
[2018-09-02 16:32] LABS: Hemoglobin A1c 6.9 % (4.3-6.0)
--- NOTE | 2018-09-02 16:41 | P.PNCV ---
- Note Subjective/Hospital Course: PT SEEN AND EVALUATED, FULL CONSULT TO FOLLOW STS DATA DISCUSSED WITH PT RISK SCORES Procedure: Isolated CAB CALCULATE Risk of Mortality: 4.427% Renal Failure: 1.863% Permanent Stroke: 1.960% Prolonged Ventilation: 15.326% DSW Infection: 0.124% Reoperation: 5.055% Morbidity or Mortality: 23.336% Short Length of Stay: 17.145% Long Length of Stay: 10.761% Objective: Vital Signs - 24 hr 09/01/18 20:30 09/01/18 20:41 09/01/18 21:16 Temperature 97.8 F Pulse Rate 78 87 71 Respiratory Rate 18 20 16 Blood Pressure 191/81 H 164/79 H 171/74 H Pulse Oximetry 97 96 96 09/01/18 21:30 09/01/18 22:25 09/01/18 22:40 Temperature Pulse Rate 70 60 76 Respiratory Rate 14 14 14 Blood Pressure 156/79 H 178/80 H 166/79 H Pulse Oximetry 96 97 96 09/02/18 05:00 09/02/18 07:41 09/02/18 08:46 Temperature Pulse Rate 76 82 Respiratory Rate 16 16 Blood Pressure 154/76 H 129/72 Pulse Oximetry 99 95 98 09/02/18 13:15 09/02/18 13:30 09/02/18 15:00 Temperature 97.6 F Pulse Rate 73 84 Respiratory Rate 14 Blood Pressure 126/71 Pulse Oximetry 92 L 99 Labs: Laboratory Results - last 12 hr 09/02/18 09/02/18 09/02/18 09:10 12:15 12:25 PT 11.8 H INR 1.2 Total Creatine Kinase 72 Troponin I 0.21 H Blood Type A Positive Antibody Screen Negative MTS Gel Crossmatch See Detail Result Diagrams: 09/01/18 21:00 09/01/18 21:00
[2018-09-02] MEDS ORDERED: Morphine Sulfate Inj 2 MG/ML Vial IV.PUSH PRN (17:09)
--- NOTE | 2018-09-02 17:14 | P.PNADD ---
Addendum to Inpatient Note Reason for Addendum: Additional Documentation Additional information: The pt went for cardiac cath and was found to have multi-vessel disease. A balloon pump was placed and CTS was consulted. The pt had a Pastor placed and he complains of discomfort. Pain medications have been ordered. CTS has started a work-up and surgery is tentatively scheduled for 09/03. The pt is currently in the CVICU. Discussed with nursing.
--- NOTE | 2018-09-02 17:17 | MB ---
cc: DarRebekahCandicegladys Singer APRN DATE: 09/02/2018 HISTORY OF PRESENT ILLNESS: This is an 87-year-old male patient of Dr. Rosibel Liu, Dr. Alhaji Mahmood, Dr. Oliver Vargas. History of coronary artery disease, recently developed some new onset of angina. He is an avid swimmer which developed over a couple weeks ago. He was placed on dual antianginal therapy and he also has a history of some paroxysmal atrial fibrillation. The loop recorder showed a rate up to 146 in July, which he was entirely asymptomatic. They discussed permanent pacemaker, but he wanted to wait until after for that to be placed. He underwent elective cardiac catheterization today by Dr. Worthy, which showed a left main disease of 75%, proximal LAD 95%, mid distal LAD 70%, RCA 75%. We were consulted to evaluate for coronary artery bypass grafting x3. The patient had an intraaortic balloon pump placed to the right groin, which is currently at a 1:1 augmentation. The augmentation is somewhat difficult to capture; however, the augmentation pressure is good. PAST MEDICAL HISTORY: Includes paroxysmal atrial fibrillation, sick sinus syndrome, diabetes mellitus type 2, hyperlipidemia, hypertension. He had a history of intracranial hemorrhage in 2009, had a CVA also following that in 2016. PAST SURGICAL HISTORY: Include back surgery, loop recorder, left repair of rotator cuff on the right. ALLERGIES: PENICILLIN. HOME MEDICATIONS: Include: 1. Amlodipine. 2. AndroGel. 3. Atorvastatin. 4. Doxazosin. 5. Finasteride. 6. Imdur 7. Keppra following the intracranial hemorrhage in 2009. 8. Nitro p.r.n. 9. Flomax 0.4 mg. FAMILY HISTORY: Father had history of heart disease, in his 70s. SOCIAL HISTORY: The patient is . No tobacco or alcohol. REVIEW OF SYSTEMS: Currently, the patient is slightly confused. He just received some of the Versed for his catheterization. Currently, denies any pain. PHYSICAL EXAMINATION: VITAL SIGNS: Blood pressure 126/70, heart rate of 70, afebrile, O2 saturation 99 on 2 liters. GENERAL: The patient is awake, pleasantly confused. HEENT: Head is normocephalic, atraumatic. Pupils equal and reactive. Oral mucosa pink, moist. NECK: Supple. No JVD. HEART: Sounds S1, S2, with a grade 2/6 systolic murmur best in the left sternal border. LUNGS: Clear to auscultation. No wheezes, rales or rhonchi. ABDOMEN: Soft, nontender. No masses or organomegaly. EXTREMITIES: No cyanosis, clubbing or edema. He does have an intraaortic balloon pump to the right groin with fair augmentation good pressures, however. LABORATORY DATA: Shows hemoglobin of 13, hematocrit of 38, white cell count of 5.8, platelet count of 175. Sodium 138, potassium 4.1, BUN is 17, creatinine 1.19. Troponin elevated at 0.21. INR 1.2. RADIOLOGICAL EXAMS: Ultrasound of the lower extremities, he has fair targets. Ultrasound venous Doppler limited on the right due to the intraaortic balloon pump, but normal study on the left. No DVT. Carotid ultrasound showed some moderate atherosclerotic plaquing at the bifurcation on both the right and the left internal carotid, but no hemodynamically stenosis identified. Chest x-ray was unremarkable. IMPRESSION: This is an 87-year-old male with unstable angina, presented and underwent cardiac catheterization with 3-vessel coronary artery disease, ejection fraction 55%. At this time, the cardiac films have been evaluated by Dr. Mc Kimbrough. The plan will be for coronary artery bypass graft x3 in the a.m. In the meantime, the patient is still trying to make his decision regarding the surgery; however, he is scheduled and the patient's was also agreeable to proceed which will need to sign the consent form. Further plan per Dr. Kimbrough as his data will be documented in the electronic record. ALAN Bowen MD JRT/ct , 04:48 PM , 04:59 PM
--- NOTE | 2018-09-02 18:39 | P.CONCC ---
History of Present Illness Service: critical care Consult date: 09/02/18 Requesting Physician: Oliver Garcia Reason for Consult: NSTEMI Primary Care Provider: Oliver Vargas MD Chief Complaint: Chest pain History of Present Illness: This is an 87-year-old male patient with paroxysmal atrial fibrillation, sick sinus syndrome, diabetes mellitus type 2, hyperlipidemia, hypertension. He had a history of intracranial hemorrhage in 2010, ischemic CVA in 2017, history of coronary artery disease, recently developed some new onset of angina. Previously recommended to receive pacemaker for sick sinus syndrome, however he wanted to hold off at least until January time. He underwent elective cardiac catheterization today by Dr. Worthy, which showed a left main disease of 75%, proximal LAD 95%, mid distal LAD 70%, RCA 75%. IABP was placed and patient was admitted to the CVICU. Cardiothoracic surgery was consulted for coronary artery bypass grafting x3. Critical care consulted for ICU management I evaluated the patient in the ICU he denies chest pain. Right groin intraaortic balloon pump 1:1 with good augmentation. Currently patient is on IV heparin. Scheduled for CABG x3 tomorrow Review of Systems All other systems reviewed negative except as stated in HPI PMFSH - History History Provided By: Patient, Family Member - Medical History Medical History: Medical History (Last Reviewed 09/02/18 @ 18:39 by Saeid Tanner MD) Aneurysm BPH (benign prostatic hyperplasia) Diabetes Hyperlipidemia Hypertension Intracranial hemorrhage - Surgical History Surgical History: Surgical History (Last Reviewed 09/02/18 @ 18:39 by Saeid Tanner MD) H/O eye surgery H/O knee surgery H/O shoulder surgery - Family History Family History: Family History (Last Updated 09/02/18 @ 01:17 by Lyia Heath MD) Other Coronary artery disease Diabetes mellitus - Tobacco History Second Hand Smoke Exposure: No Smoking Status: Never smoker - Alcohol History How Often Do You Have a Drink Containing Alcohol: Never - Travel History Recent Travel in the [place] Within the Last 8 Weeks: No Recent Travel Out of the Country Within the Last 8 Weeks: No - Immunization History Tetanus Immunization: >5 Years Medications and Allergies Active Medications: Active Medications Acetaminophen (Tylenol) 650 mg PO Q4H PRN PRN Reason: Temp > 100.4 Amlodipine Besylate (Norvasc) 2.5 mg PO DAILY JAQUELIN Last Admin: 09/02/18 09:58 Dose: 2.5 mg Aspirin (Ecotrin) 81 mg PO DAILY [facility] Last Admin: 09/02/18 09:58 Dose: 81 mg Bisacodyl (Dulcolax Supp) 10 mg RECTAL DAILY PRN PRN Reason: SEVERE CONSITIPATION Chlorhexidine Gluconate (Hibiclens 4% Topical) 1 applicatio TOPICAL BOBBIN DRIER [facility] Stop: 09/08/18 12:20 Sodium Chloride 1,000 ml/ (Vancomycin HCl 1,000 mg) 0 ml IRRIGATION BOBBIN DRIER [facility] Stop: 09/08/18 12:21 Sodium Chloride 77.5 ml/Papaverine HCl 60 mg/Nitroglycerin 100 mcg/Diltiazem HCl 100 mg 0 ml IRRIGATION BOBBIN DRIER [facility] Stop: 09/08/18 12:20 Dextrose (D50w Vial) 50 ml IV.PUSH UNSCH PRN PRN Reason: PER HYPOGLYCEMIA PROTOCOL Diazepam (Valium) 2.5 mg PO BOBBIN DRIER [facility] Stop: 09/06/18 08:59 Last Admin: 09/02/18 09:59 Dose: 2.5 mg Diphenhydramine HCl (Benadryl) 25 mg PO BOBBIN DRIER [facility] Stop: 09/04/18 09:59 Last Admin: 09/02/18 09:59 Dose: 25 mg Doxazosin Mesylate (Cardura) 4 mg PO DAILY [facility] Last Admin: 09/02/18 09:58 Dose: 4 mg Finasteride (Proscar) 5 mg PO DAILY [facility] Last Admin: 09/02/18 09:58 Dose: 5 mg Heparin Sodium (Porcine) (Heparin Inj) 2,500 units IV.PUSH UNSCH PRN PRN Reason: aPTT 25-39 Heparin Sodium (Porcine) (Heparin Inj) 5,000 units IV.PUSH UNSCH PRN PRN Reason: aPTT < 25 Insulin Human Regular 100 unit (/ Sodium Chloride) 100 mls @ 3 mls/hr IV.CONT TITRATE PRN; Protocol PRN Reason: See Protocol Vancomycin HCl 1,000 mg/ (Sodium Chloride) 250 mls @ 250 mls/hr IV.SIG BOBBIN DRIER [facility] Stop: 09/08/18 12:21 Sodium Chloride (Ns Inj) 1,000 mls @ 100 mls/hr IV.CONT .Q10H [facility] Last Infusion: 09/02/18 18:17 Dose: 100 mls/hr Heparin Sodium/Dextrose (Heparin/D5w 25,000 U/250 Ml) 25,000 unit in 250 mls @ 0 mls/hr IV.CONT TITRATE PRN; Protocol PRN Reason: Per Protocol Last Titration: 09/02/18 18:16 Dose: 1,000 units/hr, 10 mls/hr Isosorbide Mononitrate (Imdur) 30 mg PO DAILY [facility] Last Admin: 09/02/18 09:59 Dose: 30 mg Levetiracetam (Keppra) 500 mg PO [facility] Metoprolol Tartrate (Lopressor) 12.5 mg PO BOBBIN DRIER [facility] Stop: 09/08/18 12:21 Miscellaneous (Pill Splitter) 1 each OTHER PRN PRN PRN Reason: SEE LABEL COMMENTS Morphine Sulfate (Morphine Inj) 2 mg IV.PUSH Q4H PRN PRN Reason: BREAKTHROUGH PAIN Nitroglycerin (Nitrostat Sl (Override)) 0.4 mg SL Q5M PRN PRN Reason: Chest Pain Prochlorperazine (Compazine Supp) 25 mg RECTAL Q12HR PRN PRN Reason: NAUSEA OR VOMITING Sennosides (Senokot) 17.2 mg PO Q12H PRN PRN Reason: Moderate Constipation Sodium Chloride (Ns Flush) 2 ml IV.FLUSH BID [facility] Sodium Chloride (Ns Flush) 2 ml IV.FLUSH PRN PRN PRN Reason: FLUSH AFTER USING IV ACCESS Tamsulosin HCl (Flomax) 0.4 mg PO DAILY [facility] Last Admin: 09/02/18 09:58 Dose: 0.4 mg Tramadol HCl (Ultram) 50 mg PO Q6H PRN PRN Reason: pain 3-10 Last Admin: 09/02/18 18:26 Dose: 50 mg Allergies Allergy/AdvReac Type Severity Reaction Status Date / Time penicillin G Allergy Severe rash Verified 09/01/18 21:30 Home Medications Medication Instructions Recorded Confirmed Type amlodipine 2.5 mg PO DAILY 09/01/18 09/01/18 History aspirin [Aspir-Low] 81 mg PO DAILY 09/01/18 09/01/18 History doxazosin 4 mg PO DAILY 09/01/18 09/01/18 History finasteride 5 mg PO DAILY 09/01/18 09/01/18 History levetiracetam 500 mg PO HS 09/01/18 09/01/18 History nitroglycerin [Nitrostat] 0.4 mg SUBLINGUAL Q5-15M PRN 09/01/18 09/01/18 History tamsulosin 0.4 mg PO DAILY 09/01/18 09/01/18 History isosorbide mononitrate 30 mg PO DAILY 09/02/18 09/02/18 History Physical Exam Vital signs: Vital Signs 09/01/18 20:30 09/01/18 20:41 09/01/18 21:16 Temperature 97.8 F Pulse Rate 78 87 71 Respiratory Rate 18 20 16 Blood Pressure 191/81 H 164/79 H 171/74 H Pulse Oximetry 97 96 96 09/01/18 21:30 09/01/18 22:25 09/01/18 22:40 Temperature Pulse Rate 70 60 76 Respiratory Rate 14 14 14 Blood Pressure 156/79 H 178/80 H 166/79 H Pulse Oximetry 96 97 96 09/02/18 05:00 09/02/18 07:41 09/02/18 08:46 Temperature Pulse Rate 76 82 Respiratory Rate 16 16 Blood Pressure 154/76 H 129/72 Pulse Oximetry 99 95 98 09/02/18 13:15 09/02/18 13:30 09/02/18 15:00 Temperature 97.6 F Pulse Rate 73 84 Respiratory Rate 14 Blood Pressure 126/71 Pulse Oximetry 92 L 99 09/02/18 16:00 Temperature 98.3 F Pulse Rate 88 Respiratory Rate 14 Blood Pressure 125/76 Pulse Oximetry 98 Intake & Output 09/01/18 09/02/18 09/02/18 18:59 06:59 18:59 Intake Total 1247 / 1247 Output Total 1000 / 1000 380 / 380 Balance -1000 / -1000 867 / 867 Weight 68.492 kg Intake: IV 1247 / 1247 Heparin/D5W 25,000 U/250 mL 25, 47 / 47 000 unit In 250 ml @ Per Protocol IV.CONT TITRATE PRN Rx #:[id number] NS Inj 1,000 ML @ 100 mls/hr IV 1200 / 1200 .CONT .Q10H JAQUELIN Rx#:[id number] Output: Urine 1000 / 1000 Urine Amount (Catheter) 380 / 380 Indwelling Temp Sensing 380 / 380 Catheter Narrative: Gen: Lying in ICU bed no acute distress Head: Normocephalic. Atraumatic. EENT: Pupils equal round and reactive Cardiovascular: Regular rate and rhythm. No murmurs, rubs or gallops. Sinus rhythm with frequent PVCs. IABP conducted sounds heard, 1:1 with good augmentation Respiratory: Lungs clear to auscultation bilaterally. No wheezes or rhonchi. Abdomen: Soft, nontender, nondistended. No peritoneal signs. Musculoskeletal: No gross deformities. No edema. Bilateral pedal pulses are palpable. No right groin hematoma at the IABP insertion site Skin: No obvious rashes or erythema. Neuro: Alert awake, denies any chest pain. Moves all 4 extremities - Urinary Catheter Management Indwelling Temp Sensing Catheter Cath placed during this visit: yes Reason for continuing: Hourly intake/output Insertion date: 09/02/18 Insertion time: 15:40 Septic Shock Reassessment Septic shock perfusion: reassessment completed Assessment and Plan - Assessment and Plan Plan: ASSESSMENT: Acute NSTEMI Severe three-vessel coronary artery disease Anticipated CABG x3 tomorrow 09/03/[address] Diabetes Hyperlipidemia Hypertension Hx of Intracranial hemorrhage PLAN: NEURO: -Minimize sedation use as needed IV morphine and Tylenol for pain RESP: -Aggressive pulmonary toilet -DuoNeb as needed CV: -IABP 1:1 with good augmentation -Continue IV heparin, aspirin. Start Lipitor 40 mg nightly -Hold beta-blockers secondary to borderline hypotension -CABG x3 tomorrow with Dr. Kimbrough GI: -N.p.o after midnight. IV Protonix : -Monitor renal function closely. Strict I/O ID: -Antibiotics perioperatively HEME: -Monitor CBC, coags. Continue IV heparin ENDO: -Electrolyte replacement per protocol -Sliding scale insulin PROPH: -IV heparin/Protonix CC time 35 min Code Status: Full
[2018-09-02] MEDS ORDERED: Potassium Phosphate 500 MG Soluble Tablet PO PRN ×2 (18:48)
[2018-09-02] MEDS ORDERED: Magnesium Oxide 400 MG Tablet PO PRN (18:48)
[2018-09-02] MEDS ORDERED: Potassium Chloride 25 MEQ Effervescent Tablet PO PRN (18:48)
[2018-09-02] MEDS ORDERED: Potassium Chlor 40 mEq Premix 40 MEQ/100 ML PIGGYBACK IV.SIG PRN (18:48)
[2018-09-02] MEDS ORDERED: Magnesium Sulfate Inj 4 GM in Sodium Chlor 0.9% Inj 92 ML IV.SIG PRN (18:48)
[2018-09-02] MEDS ORDERED: Potassium Chlor 20 mEq Premix 20 MEQ/100 ML PIGGYBACK IV.SIG PRN (18:48)
[2018-09-02] MEDS ORDERED: Sodium Phosphate Inj 30 MMOL in Sodium Chlor 0.9% Inj 250 ML IV.SIG PRN (18:48)
[2018-09-02] MEDS ORDERED: Magnesium Sulfate Inj 2 GM in Sodium Chlor 0.9% Inj 96 ML IV.SIG PRN (18:48)
[2018-09-02] MEDS ORDERED: Potassium Phosphate Inj 30 MMOL in Sodium Chlor 0.9% Inj 250 ML IV.SIG PRN (18:48)
[2018-09-02 20:03] LABS: Albumin 3.2 g/dL (3.4-5.0); Anion Gap 8 meq/L (5-15); Aspartate Aminotransferase 30 U/L (15-37); Blood Urea Nitrogen 12 mg/dL (7-18); Calcium 8.4 mg/dL (8.5-10.1); Carbon Dioxide 23.2 meq/L (21.0-32.0); Chloride 110 meq/L (98-107); Glomerular Filtration Rate 77 mL/min (>89); Glucose,Random 189 mg/dL (74-106); Magnesium 1.8 mg/dL (1.5-2.5); Potassium 3.7 meq/L (3.5-5.1); Sodium 141 meq/L (136-145)
[2018-09-02 20:04] LABS: Alanine Aminotransferase 42 U/L (12-78)
[2018-09-02 20:06] LABS: Alkaline Phosphatase 102 U/L (45-117); Total Protein 6.4 g/dL (6.4-8.2)
[2018-09-02] MEDS: Pantoprazole Inj 40 MG Vial IV.PUSH SCH (20:59)
[2018-09-02] MEDS: levETIRAcetam 500 MG Tablet PO SCH (20:59)
[2018-09-02] MEDS ORDERED: Heparin 10,000 UNITS/10 ML Vial (for IV use) IV.PUSH PRN ×2 (21:39)
[2018-09-02] MEDS ORDERED: Metoprolol Inj 5 MG/5 ML Vial ONE (22:56)
[2018-09-02] MEDS ORDERED: Digoxin Inj 500 MCG/2 ML Ampul ONE (23:10)
[2018-09-02] MEDS ORDERED: Potassium Chlor 40 mEq Premix 40 MEQ/100 ML PIGGYBACK IV.SIG ONE (23:30)
--- NOTE | 2018-09-02 23:37 | P.PCN ---
Date of procedure: 09/02/18 Pre-op diagnosis: Syncope, tachyarrhythmia, hypotension Post-op diagnosis: same Procedure: Right radial arterial line placement I wore a surgical cap, mask with protective eyewear, and sterile gloves throughout the procedure. Right radial region was prepped using chlorhexidine scrub and draped in sterile fashion. Anesthesia was achieved 1% lidocaine. The introducer needle was inserted into the right radial artery under ultrasound guidance and arterial flash was obtained. The syringe was removed and a guidewire was advanced into the introducer needle, and the introducer needle was removed. The 16 cm 20-gauge arterial catheter was placed over the wire. The wire was removed and the catheter was secured with single suture, and a sterile central line dressing was placed over the catheter at the insertion site. The patient tolerated the procedure without any hemodynamic compromise. Good arterial waveform obtained Anesthesia: local Surgeon: Saeid Tanner Estimated blood loss (mL): 1 Pathology: none sent Condition: critical Disposition: ICU
[2018-09-03] MEDS ORDERED: Sod Chloride 0.9% Inj 1,000 ML IV.SIG SCH
[2018-09-03] MEDS: Phenylephrine Inj 40 MG in Dextrose 5% in Water Inj 496 ML IV.CONT PRN ×2
[2018-09-03] MEDS ORDERED: Digoxin Inj 500 MCG/2 ML Ampul IV.PUSH SCH
[2018-09-03] MEDS: Insulin NovoLIN Regular Correctional Sugar Inj SQ SCH ×2 (02:03→07:24)
[2018-09-03] MEDS: Sod Chloride 0.9% Inj 1,000 ML IV.CONT SCH ×3 (02:04→20:21)
[2018-09-03] MEDS ORDERED: Metoprolol Inj 5 MG/5 ML Vial IV.PUSH SCH ×2 (02:10)
[2018-09-03] MEDS ORDERED: Metoprolol Inj 5 MG/5 ML Vial ONE (02:15)
[2018-09-03] MEDS ORDERED: dilTIAZem Inj 125 MG in Sodium Chlor 0.9% Inj 100 ML IV.CONT PRN (02:25)
[2018-09-03 04:40] LABS: Baso % (Auto) 0.3 % (0.0-2.0); Eos # (Auto) 0.1 th/mm3 (0.0-0.4); Eos % (Auto) 0.6 % (0.0-4.0); Hematocrit 36.4 % (39.0-51.0); Hemoglobin 12.4 gm/dL (13.0-17.0); Lymph # (Auto) 1.2 th/mm3 (1.0-4.8); Mean Corpuscular HGB Conc 34.2 % (32.0-36.0); Mean Corpuscular Volume 90.7 fL (80.0-100.0); Mean Platelet Volume 8.5 fL (7.0-11.0); Mono # (Auto) 0.7 th/mm3 (0.0-0.9); Mono % (Auto) 7.5 % (0.0-8.0); Neut # (Auto) 6.7 th/mm3 (1.8-7.7); Neut % (Auto) 77.6 % (16.0-70.0); Platelet Count 146 th/mm3 (150-450); Red Blood Count 4.01 mil/mm3 (4.50-5.90); Red Cell Distribution Width 13.5 % (11.6-17.2); White Blood Count 8.7 th/mm3 (4.0-11.0)
[2018-09-03 04:53] LABS: Calcium 8.2 mg/dL (8.5-10.1); Carbon Dioxide 22.4 meq/L (21.0-32.0); Potassium 4.4 meq/L (3.5-5.1)
[2018-09-03] MEDS ORDERED: Chlorhexidine Gluconate 2% 1 Pack (2 Cloths) TOPICAL ONE (05:27)
[2018-09-03] MEDS: Metoprolol Tartrate 25 MG Tablet PO SCH (05:35)
[2018-09-03 05:41] LABS: Magnesium 2.1 mg/dL (1.5-2.5)
[2018-09-03 05:47] LABS: Troponin I 1.06 ng/mL (0.02-0.05)
[2018-09-03] MEDS ORDERED: Sodium Chlor 0.9% Inj 500 ML IV.SIG SCH (06:00)
[2018-09-03] MEDS ORDERED: Heparin - SQ 10,000 UNITS/ML Vial ONE ×2 (06:48→06:49)
[2018-09-03] MEDS ORDERED: Potassium Chlor 40 mEq Premix 40 MEQ/100 ML PIGGYBACK ONE (08:44)
[2018-09-03] MEDS: Doxazosin 4 MG Tablet PO SCH (08:47)
[2018-09-03] MEDS: Finasteride 5 MG Tablet PO SCH (08:48)
[2018-09-03] MEDS: Isosorbide Mononitrate 30 MG ER 24HR Tablet (Imdur) PO SCH (08:48)
[2018-09-03] MEDS ORDERED: Morphine Sulfate Inj 2 MG/ML Vial IV.PUSH PRN (12:54)
[2018-09-03] MEDS ORDERED: Potassium Chlor 20 mEq Premix 20 MEQ/100 ML PIGGYBACK IV.SIG PRN ×2 (12:54)
[2018-09-03] MEDS ORDERED: Ketorolac Inj 30 MG/ML (IVP) Vial IV.PUSH PRN (12:54)
[2018-09-03] MEDS ORDERED: Dexmedetomidine Inj 200 MCG in Sodium Chlor 0.9% Inj 48 ML IV.CONT PRN (12:54)
[2018-09-03] MEDS ORDERED: RESP: Racemic Epinephrine 2.25% 0.5 ML Neb NEB PRN (12:54)
[2018-09-03] MEDS ORDERED: Calcium Chloride Inj 1 GM/10 ML Syringe IV.PUSH PRN (12:54)
[2018-09-03] MEDS ORDERED: Post-op Orders (for Pharmacy) OTHER STA (12:54)
--- NOTE | 2018-09-03 13:04 | P.OP ---
Date of procedure: 09/03/18 Anesthesia: GEORGEA Surgeon: Mc Kimbrough MD Operation and Findings: PREPROCEDURE DIAGNOSES 1. Severe Multi Vessel Coronary Artery Disease. 2. Critical Left Main Stenosis 3. Supraventricular Tachyarrhythmias with Sick Sinus Syndrome 4. IABP Circulatory Support POSTPROCEDURE DIAGNOSES Same SURGICAL PROCEDURE 1. Urgent Off-pump Coronary Artery Bypass Grafting x 4 with Left Internal Mammary Artery (CEBALLOS) to Left Anterior Descending (LAD), reverse saphenous vein graft to obtuse Marginal branch of the left Circumflex artery, reverse saphenous vein graft to the posterior Descending branch of the right Coronary artery, reverse saphenous vein graft to the Diagonal 2 branch of the LAD 2. Left leg Endoscopic Vein [place] 3. Intraoperative Vein Mapping. SURGEON Mc Kimbrough MD TERRAZZO INSTALLER SANDIE Lee ANESTHESIA General endotracheal RECORD SYSTEMS ANALYST MAGDALENA Brown MD PREPARATION ChloraPrep. COUNTS Needle, sponge, and instrument counts were correct. DRAINS Two 32-Welsh mediastinal tubes. COMPLICATIONS None. INDICATIONS FOR PROCEDURE The patient is a 87-year-old presenting with chest pain. Patient was noted to have left main and multi-vessel coronary artery disease. Intra-aortic balloon pump was placed. The patient is being brought to the operating room for surgical revascularization therapy. PROCEDURE Patient was brought to the operating room and placed supine on the OR table. Following the induction of adequate general endotracheal anesthesia and placement of appropriate monitoring devices, intraoperative vein mapping was performed which revealed good-caliber conduit in bilateral lower extremities. The patient was then prepped and draped in standard sterile fashion. Next, 2500 units of intravenous heparin was given. The left greater saphenous vein was harvested endoscopically. This appeared to be a useable-caliber conduit. Simultaneously, a median sternotomy was performed and the left internal mammary artery dissected free off the posterior sternal table. The patient was systemically heparinized and anticoagulation monitored by serial ACT measurements. The internal mammary artery had excellent pulsatile flow in it and was a good-caliber conduit. The pericardium was then divided in the midline , the cradle created and targets analyzed. At this point, all anastomoses were performed in a beating-heart fashion using the [employer] [place] stabilizing system. The left internal mammary artery was anastomosed to the distal LAD (1.75 mm) in an end-to-side fashion using 7-0 Prolene. Segment of saphenous vein graft was then anastomosed to the OM1 (2 mm) in an end-to-side fashion using 7-0 Prolene. The next segment was anastomosed to the D2 branch (1.75 mm) of the LAD in end-to- side fashion using a running 7-0 Prolene. The final segment was anastomosed to the RPDA (2 mm) in an end-to-side fashion using 7-0 Prolene. The proximal anastomoses were then constructed to the ascending aorta in a running manner using 6-0 Prolene. All anastomotic sites were inspected and appeared to be hemostatic and patent. Protamine solution was given. Strict hemostasis was assured. The closure was undertaken. 2 chest tubes as well as atrial and ventricular pacing wires were placed. The pericardium was reapproximated in the midline. The sternum was approximated using sternal wires. The muscular and fascial layer were then closed in 3 layers. The endoscopic vein harvest site was closed in 2 layers. The patient tolerated the procedure well and was transferred to CVICU in stable condition.
[2018-09-03] MEDS: Insulin Regular (For Infusion) 100 UNIT in Sodium Chlor 0.9% Inj 99 ML IV.CONT PRN (13:35)
[2018-09-03] MEDS: Potassium Chlor 40 mEq Premix 40 MEQ/100 ML PIGGYBACK IV.SIG PRN (13:45)
[2018-09-03] MEDS ORDERED: fentaNYL Citrate Inj 250 MCG/5 ML Ampul ONE (13:56)
--- NOTE | 2018-09-03 14:12 | XR ---
EXAM DATE: 09/03/2018 2:08 PM EST AGE/SEX: 87 years / Male INDICATIONS: Post op CABG. CLINICAL DATA: This is the patient's initial encounter. Patient reports that signs and symptoms have been present for 1 day and indicates a pain score of Nonresponsive. MEDICAL/SURGICAL HISTORY: Non-responsive. Non-responsive. COMPARISON: C, CHEST 1V SINGLE AP, 09/01/2018. . FINDINGS: The endotracheal tube, right jugular central line, left chest tube and mediastinal drain are all in g ood position. There is no pneumothorax. The lungs are clear. The heart is normal in size. CONCLUSION: Stable postoperative chest. Electronically signed by: Sixto Nagy MD 09/03/2018 2:11 PM EST
[2018-09-03] MEDS: fentaNYL Citrate Inj 100 MCG/2 ML Ampul IV.PUSH PRN (14:21)
--- NOTE | 2018-09-03 14:38 | ECG ---
Date Performed: 09/02/2018 Time Performed: 23:10:28 PTAGE: 87 years EKG: Atrial fibrillation with rapid ventricular response. 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
[2018-09-03] MEDS ORDERED: RASS Change Order OTHER ONE (15:00)
[2018-09-03] MEDS: Calcium Chloride Inj 1 GM in Sodium Chlor 0.9% Inj 100 ML IV.SIG PRN (15:30)
[2018-09-03] MEDS: Albumin Human 5% Inj 250 ML IV.SIG PRN ×2 (15:30→22:04)
--- NOTE | 2018-09-03 15:38 | P.DCO ---
- Diagnosis (1) Acute electrocardiogram changes Status: Acute (2) CAD (coronary artery disease), [place] coronary artery Status: Acute (3) Chest pain Status: Acute (4) Elevated troponin Status: Acute (5) S/P CABG x 4 Status: Acute - Home Health Nursing Order: Medical education, Signs/symptoms of disease process, Wound care and dressing changes, Nursing assessment with vital signs Instructions: Heart and Vascular Surgery patients *Special attention to sternal dressing Mandatory frequency Assess and evaluation, 4 days in a row The next week 3X week 2 times a week for 4 weeks 1 time a week for 5 weeks Schedule Heart and Vascular patients for full 60 day certification period Initial visit Review Open Heart Surgery Discharge Instructions (Sternal precautions, Activity, Elastic hose, Incision care, Driving, Incentive spirometry, Smoking, [place], Work and other) Need Betadine to paint incision Medication reconciliation Importance of follow up care/ check on appointments Make calendar record temperature daily When to call [facility] nurse, review instructions, phone list Incentive Spirometry, demonstration Visit 1- Begin discharge instruction for patient family and/ or caregiver using teach back method- Signs and symptoms of infection Disease characteristics Medicines and side effects Foods and nutrition/ appetite Infection control/ hand washing/ hygiene Visit 2- Continue teaching Discharge instructions- include additional information on smoking cessation , sternal dressing (sternal vac) Visit 3- Continue teaching- Cough and deep breathing, incision monitoring. Choose my plate Visit 4- Continue teaching- Discuss limitations Discuss how they are feeling Discuss progress toward goals Remaining visits- continue teaching and monitoring For any questions please call : Friday 8am-5pm Heart & Vascular Surgery Office ( Dr. Kimbrough & Dr. Shearer), After Hours / Nights (5pm -8am) Weekends and Holidays Please call [facility] Cardiac Intermediate Care Unit (CIC) Charge Nurse PREVENA Single Use Negative Wound Therapy System Caregiver Instruction Sheet 1. A Prevena dressing system was applied to the chest incision during surgery , to promote wound healing. It works via a suction device (negative pressure wound therapy) to remove low to moderate levels of exudate (drainage) and infectious materials. We recommend that the device stay in place for up to seven days, from day of surgery. 2. Day of Surgery__09/03/ Day of Removal ___09/10/18 3. The dressing should only be removed by a health campground caretaker. Please arrange removal of device to coincide with Home Health visit and or with Nursing staff at Rehab 4. If skin reddening or irritation of skin occurs, or excessive drainage, please notify the Cardiovascular Surgeons office at [phone]. 5. Light showering is permissible; however the pump should be disconnected and placed in safe location, where it will not get wet. The dressing should not be exposed to direct spray or submerged in water. No bath tub / shower only. Ensure the end of the tubing attached to the dressing is facing down so that water does not enter the top of the tube. 6. To remove Prevena dressing: press purple button to turn off device / remove the suction. Then disconnect the tubing from the pump. The fixation strips should be stretched away from the skin and the dressing lifted at one corner and peeled back until it has been fully removed. 7. After removal, it is ok to shower daily using liquid dial soap and clean wash cloth, rinse and pat dry, and leave incision open to air dry. For any concerns regarding Prevena dressing, and or wounds, please contact Nalini Urbano, patient navigator at [phone] or notify the Cardiovascular Surgeons office at [phone]. Incentive spirometry Q1 hr x 10, while awake, also use acapella device hourly whole awake Sternal Breast Bone Precautions: NO pushing or pulling, ( pt must use sternal pillow to support chest with all activities and with coughing ( takes up to 3 months breast bone to heal ) Daily incision care: ok to shower daily, no tub bath. Wash all incisions with liquid dial soap, clean wash cloth to each site, rinse and pat dry. Observe for any signs of infection, such as drainage which is dark yellow, valente, green or foul smelling. Immediately report to the surgeon any drainage from the chest incision, or legs, and for any abnormal drainage from the chest tube sites. Notify surgeon if any temp >101.5 degrees F. When specialty dressing removed/ or if you do not have one, continue to shower daily as above, then rinse and pat incision dry and paint with betadine daily x 5 days. Allow steri strips to fall off if you have any. Avoid lotions, creams, salves, oils, etc. for the first month Please see attached forms for additional instructions regarding post Open Heart specialty wound vacuum dressings. JACQUE or Prevena , Dressing to be removed by Nursing staff on F/U appointment: as per DC instructions: PCP in 2 weeks, CV surgeon 2 weeks, Layout Designer 3-4 weeks For any questions regarding incisions/ dressing / meds / post op care or above Symptoms, Friday 8am-5pm Heart & Vascular Surgery Office ( Dr. Kimbrough & Dr. Shearer), After Hours / Nights (5pm -8am) Weekends and Holidays Please call [facility] Cardiac Intermediate Care Unit (CIC) Charge Nurse - Case Management Consult Case Management Consult-Home Health: Yes - Certification I have seen patient Thanh Webb on 09/03/18. My clinical findings support the need for the requested home health care services because: Deconditioned with increased weakness I certify that my clinical findings support that this patient is homebound because: Post-op weakness (3) Chest pain Qualifiers: Chest pain type: unspecified Qualified Code(s): R07.9 - Chest pain, unspecified
--- NOTE | 2018-09-03 15:46 | P.PNCV ---
- Note Subjective/Hospital Course: 87-year-old male patient of Dr. Rosibel Liu, Dr. Alhaji Mahmood, Dr. Oliver Vargas. History of coronary artery disease, recently developed some new onset of angina. He is an avid swimmer which developed over a couple weeks ago. He was placed on dual antianginal therapy and he also has a history of some paroxysmal atrial fibrillation. The loop recorder showed a rate up to 146 in July, which he was entirely asymptomatic. They discussed permanent pacemaker, but he wanted to wait until after for that to be placed. He underwent elective cardiac catheterization today by Dr. Worthy, which showed a left main disease of 75%, proximal LAD 95%, mid distal LAD 70%, RCA 75%. We were consulted to evaluate for coronary artery bypass grafting x3. The patient had an intraaortic balloon pump placed to the right groin, which is currently at a 1:1 augmentation. EF 55% PAST MEDICAL HISTORY: Includes paroxysmal atrial fibrillation, sick sinus syndrome, diabetes mellitus type 2, hyperlipidemia, hypertension. He had a history of intracranial hemorrhage in 2009, had a CVA also following that in 2017. 09/03 surgery : SURGICAL PROCEDURE 1. Urgent Off-pump Coronary Artery Bypass Grafting x 4 with Left Internal Mammary Artery (CEBALLOS) to Left Anterior Descending (LAD), reverse saphenous vein graft to obtuse Marginal branch of the left Circumflex artery, reverse saphenous vein graft to the posterior Descending branch of the right Coronary artery, reverse saphenous vein graft to the Diagonal 2 branch of the LAD 2. Left leg Endoscopic Vein [place] 3. Intraoperative Vein Mapping. Objective: Vital Signs - 24 hr 09/02/18 16:00 09/02/18 19:00 09/02/18 19:55 Temperature 98.3 F Pulse Rate 88 93 H Respiratory Rate 14 Blood Pressure 125/76 Pulse Oximetry 98 98 09/02/18 20:00 09/02/18 23:00 09/03/18 00:00 Temperature 98.4 F 98.4 F Pulse Rate 96 H 146 H 81 Respiratory Rate 18 18 Blood Pressure 144/85 H 120/58 L Pulse Oximetry 97 99 09/03/18 03:00 09/03/18 04:00 09/03/18 07:00 Temperature 98.0 F 97.9 F Pulse Rate 81 67 Respiratory Rate 18 18 16 Blood Pressure 154/57 H Pulse Oximetry 96 97 09/03/18 13:35 09/03/18 13:45 Temperature 93 F L Pulse Rate 60 Respiratory Rate 12 12 Blood Pressure 93/68 L Pulse Oximetry 98 99 Labs: Laboratory Results - last 12 hr 09/02/18 09/03/18 09/03/18 12:15 04:15 04:15 WBC 8.7 RBC 4.01 L Hgb 12.4 L Hct 36.4 L MCV 90.7 MCH 31.0 MCHC 34.2 RDW 13.5 Plt Count 146 L MPV 8.5 Neut % (Auto) 77.6 H Lymph % (Auto) 14.0 [place] % (Auto) 7.5 Eos % (Auto) 0.6 Baso % (Auto) 0.3 Neut # (Auto) 6.7 Lymph # (Auto) 1.2 [place] # (Auto) 0.7 Eos # (Auto) 0.1 Baso # (Auto) 0.0 WBC Differential . Differential Comment Auto diff final APTT Sodium 141 Potassium 4.4 Chloride 112 H Carbon Dioxide 22.4 Anion Gap 7 BUN 14 Creatinine 1.05 Estimated GFR 67 L POC Glucose Random Glucose 168 H Calcium 8.2 L Magnesium Troponin I Blood Type A Positive Antibody Screen Negative MTS Gel Crossmatch See Detail 09/03/18 09/03/18 09/03/18 04:15 04:15 06:36 WBC RBC Hgb Hct MCV MCH MCHC RDW Plt Count MPV Neut % (Auto) Lymph % (Auto) [place] % (Auto) Eos % (Auto) Baso % (Auto) Neut # (Auto) Lymph # (Auto) [place] # (Auto) Eos # (Auto) Baso # (Auto) WBC Differential Differential Comment APTT 47.6 H Sodium Potassium Chloride Carbon Dioxide Anion Gap BUN Creatinine Estimated GFR POC Glucose 134 H Random Glucose Calcium Magnesium 2.1 Troponin I 1.06 H* Blood Type Antibody Screen MTS Gel Crossmatch Result Diagrams: 09/03/18 04:15 09/03/18 04:15 - Plan (3) Chest pain (3) Chest pain Qualifiers: Chest pain type: unspecified Qualified Code(s): R07.9 - Chest pain, unspecified
--- NOTE | 2018-09-03 16:55 | P.PNCC ---
Subjective Subjective Remarks/Hospital Course: Hospital Course: This is an 87-year-old male patient with paroxysmal atrial fibrillation, sick sinus syndrome, diabetes mellitus type 2, hyperlipidemia, hypertension. He had a history of intracranial hemorrhage in 2010, ischemic CVA in 2017, history of coronary artery disease, recently developed some new onset of angina. Previously recommended to receive pacemaker for sick sinus syndrome, however he wanted to hold off at least until January time. He underwent elective cardiac catheterization today by Dr. Worthy, which showed a left main disease of 75%, proximal LAD 95%, mid distal LAD 70%, RCA 75%. IABP was placed and patient was admitted to the CVICU. Cardiothoracic surgery was consulted for coronary artery bypass grafting x3. Critical care consulted for ICU management I evaluated the patient in the ICU he denies chest pain. Right groin intraaortic balloon pump 1:1 with good augmentation. Currently patient is on IV heparin. Scheduled for CABG x3 tomorrow Patient developed tachyarrhythmia possible SVT with heart rate in 190s. I ordered 2.5 mg IV metoprolol. Prior to administration of metoprolol patient suddenly became unresponsive and hypotensive. I evaluated the patient emergently. When I arrived at the bedside patient was more responsive systolic blood pressure improving currently in 100s. Patient remained tachycardic with intermittent pauses. Bony-Synephrine started to maintain map above. EKG shows probable A. fib with RVR. There are intermittent pauses. I discussed with Dr. Worthy. Patient has history of sick sinus syndrome and had been recommended pacemaker before. Will give 2.5 metoprolol now for rate control. Use AV joyce blockers cautiously. Continue IV heparin. IABP changed to 1:[address] Worthy. I also placed a right radial arterial line for invasive blood pressure monitoring. Cardizem gtt if persistent RVR Subjective: 09/03: for CABG today. came out on phenylephrine at 150 mcg/min. IABP remains 1: 1. lactate clearing to 2. uop adequate. 200cc chest tube output in 2 hours. moves all extremities, not following commands yet. Objective Vital Signs / I&O: Vital Signs 09/02/18 19:00 09/02/18 19:55 09/02/18 20:00 Temperature 36.9 C Pulse Rate 93 H 96 H Respiratory Rate 18 Blood Pressure 144/85 H Pulse Oximetry 98 97 11/28/18 23:00 09/03/18 00:00 09/03/18 03:00 Temperature 36.9 C 36.7 C Pulse Rate 146 H 81 81 Respiratory Rate 18 18 Blood Pressure 120/58 L Pulse Oximetry 99 96 09/03/18 04:00 09/03/18 07:00 09/03/18 13:35 Temperature 36.6 C Pulse Rate 67 Respiratory Rate 18 16 12 Blood Pressure 154/57 H Pulse Oximetry 97 98 09/03/18 13:45 09/03/18 14:43 Temperature 33.8 C L 34.6 C L Pulse Rate 60 Respiratory Rate 12 Blood Pressure 93/68 L Pulse Oximetry 99 Intake & Output 09/02/18 09/03/18 09/03/18 18:59 06:59 18:59 Intake Total 1247 / 1247 1020 / 1020 5560 / 5560 Output Total 380 / 380 650 / 650 1840 / 1840 Balance 867 / 867 370 / 370 3720 / 3720 Weight 73 kg Intake: IV 1247 / 1247 900 / 900 3060 / 3060 Heparin/D5W 25,000 U/250 mL 25, 47 / 47 0 / 0 000 unit In 250 ml @ Per Protocol IV.CONT TITRATE PRN Rx #:[id number] NS Inj 1,000 ML @ 100 mls/hr IV 1200 / 1200 800 / 800 1000 / 1000 .CONT .Q10H JAQUELIN Rx#:[id number] Ofirmev Inj 1,000 mg In 100 ml 100 / 100 @ 400 mls/hr IV.SIG Q6H JAQUELIN Rx# :[id number] Buminate 5% Inj 250 ML @ 250 250 / 250 mls/hr IV.SIG UNSCH PRN Rx#: [id number] Calcium Chloride Inj 1 GM In NS 110 / 110 Inj 100 ML @ 100 mls/hr IV.SIG PRN PRN Rx#:[id number] LR 1000 mL Inj 500 ML @ 500 mls 500 / 500 /hr IV.SIG .Q1H PRN Rx#: [id number] Magnesium Sulfate Inj 2 GM In 100 / 100 NS Inj 96 ML @ 50 mls/hr IV.SIG UNSCH PRN Rx#:[id number] KCl 40 mEq Premix Inj 40 meq In 100 / 100 100 ml @ 25 mls/hr IV.SIG ONCE ONE Rx#:[id number] Oral 120 / 120 Anesthesia Amount 2500 / 2500 Output: Estimated Blood Loss 650 / 650 Urine Amount (Catheter) 380 / 380 650 / 650 1000 / 1000 Indwelling Temp Sensing 380 / 380 650 / 650 1000 / 1000 Catheter Chest Tube Drainage 190 / 190 #1Y and #2Y Mediastinal 190 / 190 Result Diagrams: 09/03/18 04:15 09/03/18 04:15 Objective Remarks: GENERAL: Elderly male, lying in bed, intubated, sedated HEENT: Normocephalic. Atraumatic. Pupils equal, round, reactive, conjugate. Mucous membranes are moist NECK: Trachea is midline. There is no JVD. Right IJ sheath in place, site clean dry and intact. CHEST: Midline sternal wound VAC dressing in place, site clean dry and intact. 2 chest tubes exit subxiphoid, moderate sanguinous output. A+V wires in place. Equal chest rise. PRVC. 50% FiO2. PEEP of 5. CARDIOVASCULAR: Intermittently a paced, DDD backup at 50. Phenylephrine 150 mcg /min. IABP one-to-one. Augmented mean 100. ABDOMEN: Soft, nontender, nondistended. No guarding. MUSCULOSKELETAL: Pulses 2+. No peripheral edema. NEUROLOGICAL: RASS -2. Moves all extremities. No focal deficits. Assessment and Plan - Assessment and Plan Plan: ASSESSMENT: Acute NSTEMI Severe three-vessel coronary artery disease CABG x3 09/03/[address] Diabetes Hyperlipidemia Hypertension Hx of Intracranial hemorrhage PLAN: NEURO: -Minimize sedation use as needed IV morphine and Tylenol for pain - frequent neuro checks - avoid long-acting sedatives RESP: -Aggressive pulmonary toilet -DuoNeb as needed - wean to extubate CV: -IABP 1:1 with good augmentation -Continue IV heparin, aspirin. Lipitor 40 mg nightly -Hold beta-blockers secondary to borderline hypotension -CABG x3 today with Dr. Kimbrough - watch chest tube output closely - trend uop, lactates - wean phenylephrine as tolerated. goal augmented map > 90 mmHg - would anticipate weaning of IABP tomorrow GI: -can advance diet once extubated. : -Monitor renal function closely. Strict I/O ID: -Antibiotics perioperatively HEME: -Monitor CBC, coags. Continue IV heparin ENDO: -Electrolyte replacement per protocol -Sliding scale insulin PROPH: -IV heparin/Protonix
[2018-09-03] MEDS: Potassium Chlor 20 mEq Premix 20 MEQ/100 ML PIGGYBACK IV.SIG PRN (18:16)
[2018-09-03] MEDS: Pantoprazole Inj 40 MG Vial IV.PUSH SCH (20:31)
[2018-09-03] MEDS: Amiodarone 200 MG Tablet PO SCH (20:55)
[2018-09-04] MEDS: Vancomycin Inj 1,000 MG in Sodium Chlor 0.9% Inj 250 ML IV.SIG SCH ×3 (01:35→22:00)
[2018-09-04] MEDS: levETIRAcetam 500 MG Tablet PO SCH ×2 (01:35→22:31)
[2018-09-04] MEDS ORDERED: DOPamine 400 MG/250 ML Premix 400 MG/250 ML BAG IV.CONT ONE (03:18)
[2018-09-04] MEDS ORDERED: DOPamine 800 MG/500 ML Premix 800 MG/500 ML PLAST..BAG IV.CONT PRN (03:47)
[2018-09-04 04:45] LABS: Hematocrit 27.1 % (39.0-51.0); Hemoglobin 9.7 gm/dL (13.0-17.0); Mean Corpuscular HGB Conc 35.9 % (32.0-36.0); Mean Corpuscular Hemoglobin 31.9 pg (27.0-34.0); Mean Corpuscular Volume 88.9 fL (80.0-100.0); Mean Platelet Volume 9.4 fL (7.0-11.0); Platelet Count 91 th/mm3 (150-450); Red Blood Count 3.05 mil/mm3 (4.50-5.90); Red Cell Distribution Width 13.5 % (11.6-17.2); White Blood Count 10.2 th/mm3 (4.0-11.0)
[2018-09-04 05:05] LABS: Calcium 7.6 mg/dL (8.5-10.1); Carbon Dioxide 21.9 meq/L (21.0-32.0); Magnesium 1.9 mg/dL (1.5-2.5); Potassium 4.3 meq/L (3.5-5.1)
--- NOTE | 2018-09-04 06:35 | XR ---
EXAM DATE: 09/04/2018 5:59 AM EST AGE/SEX: 87 years / Male INDICATIONS: S/P CABG. CLINICAL DATA: This is the patient's subsequent encounter. Patient reports that signs and symptoms h ave been present for 2 days and indicates a pain score of Nonresponsive. MEDICAL/SURGICAL HISTORY: Non-responsive. CABG. COMPARISON: [facility] – [place], CHEST 1V SINGLE AP, 09/03/2018. . FINDINGS: Portable AP view of the chest demonstrates a normal-sized cardiac silhouette post median sternotomy. ETT, nasogastric tube, right IJ central line, left chest tube, and mediastinal drain remain present. The lungs are underinflated with bibasilar opacity most likely representing atelectasis. There is a q uestionable airspace opacity at the left lung apex. No pneumothorax or definite pleural effusion is i dentified. CONCLUSION: Stable examination of the chest with tubes and lines, as above. No pneumothorax is identified. There is likely atelectasis at the lung bases and questionable airspace opacity in the left upper lobe. Electronically signed by: Ciro Paredes MD 09/04/2018 6:34 AM EST
--- NOTE | 2018-09-04 09:25 | P.PNCV ---
- Note Subjective/Hospital Course: 87-year-old male patient of Dr. Rosibel Liu, Dr. Alhaji Mahmood, Dr. Oliver Vargas. History of coronary artery disease, recently developed some new onset of angina. He is an avid swimmer which developed over a couple weeks ago. He was placed on dual antianginal therapy and he also has a history of some paroxysmal atrial fibrillation. The loop recorder showed a rate up to 146 in July, which he was entirely asymptomatic. They discussed permanent pacemaker, but he wanted to wait until after for that to be placed. He underwent elective cardiac catheterization today by Dr. Worthy, which showed a left main disease of 75%, proximal LAD 95%, mid distal LAD 70%, RCA 75%. We were consulted to evaluate for coronary artery bypass grafting x3. The patient had an intraaortic balloon pump placed to the right groin, which is currently at a 1:1 augmentation. EF 55% PAST MEDICAL HISTORY: Includes paroxysmal atrial fibrillation, sick sinus syndrome, diabetes mellitus type 2, hyperlipidemia, hypertension. He had a history of intracranial hemorrhage in 2009, had a CVA also following that in 2016. 09/03 surgery : SURGICAL PROCEDURE 1. Urgent Off-pump Coronary Artery Bypass Grafting x 4 with Left Internal Mammary Artery (CEBALLOS) to Left Anterior Descending (LAD), reverse saphenous vein graft to obtuse Marginal branch of the left Circumflex artery, reverse saphenous vein graft to the posterior Descending branch of the right Coronary artery, reverse saphenous vein graft to the Diagonal 2 branch of the LAD 2. Left leg Endoscopic Vein [place] 3. Intraoperative Vein Mapping. crystalloid 3500cc, 380cc cell saver 09/04 pt remains intubated, weaning in progress awake on low dose precedex remains on pressors / IABP 1:2 plan once pt extubated / eval for possible IABP removal on insulin gtt ASA, statin , no BB 2/2 hypotension Objective: Vital Signs - 24 hr 09/03/18 13:35 09/03/18 13:45 09/03/18 14:43 Temperature 93 F L 94.2 F L Pulse Rate 60 Respiratory Rate 12 12 Blood Pressure 93/68 L Pulse Oximetry 98 99 09/03/18 15:00 09/03/18 16:00 09/03/18 16:10 Temperature 94.2 F L 94.2 F L 94.6 F L Pulse Rate 52 L 52 L Respiratory Rate 12 12 Blood Pressure 84/64 L 84/64 L Pulse Oximetry 96 96 09/03/18 17:00 09/03/18 17:01 09/03/18 17:28 Temperature 95 F L Pulse Rate 89 Respiratory Rate 12 12 11 L Blood Pressure 96/58 L Pulse Oximetry 93 L 98 09/03/18 17:58 09/03/18 19:00 09/03/18 20:00 Temperature 96.9 F L 97.7 F Pulse Rate 88 89 Respiratory Rate 12 Blood Pressure 90/53 L Pulse Oximetry 99 09/03/18 20:20 09/03/18 21:15 09/03/18 22:18 Temperature Pulse Rate 89 Respiratory Rate 12 12 Blood Pressure Pulse Oximetry 99 99 09/03/18 23:00 09/04/18 00:05 09/04/18 00:25 Temperature Pulse Rate 88 Respiratory Rate 12 Blood Pressure Pulse Oximetry 99 99 09/04/18 01:00 09/04/18 03:00 09/04/18 03:22 Temperature 98.8 F Pulse Rate 89 88 Respiratory Rate 12 12 Blood Pressure 103/67 Pulse Oximetry 98 98 09/04/18 04:00 09/04/18 08:37 Temperature 99.1 F Pulse Rate 88 Respiratory Rate 23 12 Blood Pressure Pulse Oximetry 98 99 GENERAL: opens eyes , attempts to follow SKIN: Warm and dry. prevena dressing to chest , anju wrap left leg , IABP right groin HEAD: Normocephalic. EYES: No scleral icterus. No injection or drainage. NECK: Supple, trachea midline. No JVD or lymphadenopathy. CARDIOVASCULAR: Regular rate and rhythm without murmurs, gallops, or rubs. mild general edema , + distal pulses / A&V wires RESPIRATORY: Breath sounds equal bilaterally. No accessory muscle use. diminished in bases, orally intubated / chest tube to wall suction + 1 air leak , chest tube drained 180cc/ 12hrs GASTROINTESTINAL: Abdomen soft, non-tender, nondistended. MUSCULOSKELETAL: No cyanosis, or edema. BACK: Nontender without obvious deformity. No CVA tenderness. Labs: Laboratory Results - last 12 hr 09/02/18 09/03/18 09/04/18 12:15 23:30 00:36 WBC RBC Hgb Hct MCV MCH MCHC RDW Plt Count MPV Sodium Potassium Chloride Carbon Dioxide Anion Gap BUN Creatinine Estimated GFR POC Glucose 138 H 114 H Random Glucose Calcium Magnesium Blood Type A Positive Antibody Screen Negative MTS Gel Crossmatch See Detail 09/04/18 09/04/18 09/04/18 02:18 03:55 03:55 WBC 10.2 RBC 3.05 L Hgb 9.7 L D Hct 27.1 L MCV 88.9 MCH 31.9 MCHC 35.9 RDW 13.5 Plt Count 91 L D MPV 9.4 Sodium 143 Potassium 4.3 Chloride 113 H Carbon Dioxide 21.9 Anion Gap 8 BUN 13 Creatinine 0.86 Estimated GFR 84 L POC Glucose 86 Random Glucose 126 H Calcium 7.6 L Magnesium 1.9 Blood Type Antibody Screen MTS Gel Crossmatch 09/04/18 05:31 WBC RBC Hgb Hct MCV MCH MCHC RDW Plt Count MPV Sodium Potassium Chloride Carbon Dioxide Anion Gap BUN Creatinine Estimated GFR POC Glucose 122 H Random Glucose Calcium Magnesium Blood Type Antibody Screen MTS Gel Crossmatch Result Diagrams: 09/04/18 03:55 09/04/18 03:55 Cardiovascular: NSR - Plan (3) Chest pain CCM following , wean vent as tolerated pressors to maintain MAP> 65 possible remove IABP later today on ASA, statin, amio OOB with assistance once cleared after IABP removal wean off insulin gtt once extubated monitor HGB (3) Chest pain Qualifiers: Chest pain type: unspecified Qualified Code(s): R07.9 - Chest pain, unspecified
[2018-09-04] MEDS: Doxazosin 4 MG Tablet PO SCH (09:57)
[2018-09-04] MEDS: Amiodarone 200 MG Tablet PO SCH ×2 (09:57→22:31)
[2018-09-04] MEDS: Isosorbide Mononitrate 30 MG ER 24HR Tablet (Imdur) PO SCH (09:58)
[2018-09-04] MEDS: Finasteride 5 MG Tablet PO SCH (09:59)
[2018-09-04] MEDS: Phenylephrine Inj 40 MG in Dextrose 5% in Water Inj 496 ML IV.CONT PRN ×2 (10:01)
[2018-09-04] MEDS: fentaNYL Citrate Inj 100 MCG/2 ML Ampul IV.PUSH PRN ×6 (12:28→22:38)
--- NOTE | 2018-09-04 13:55 | ECG ---
Date Performed: 09/04/2018 Time Performed: 04:34:44 PTAGE: 87 years EKG: Sinus rhythm . Lateral T wave changes are nonspecific Low QRS voltages in limb leads Compared to previous tracing sinus rhythm has replaced atrial fibrillation with normalization of ST depression Borderline ECG PREVIOUS TRACING : 09/02/2018 23.10 DOCTOR: Reddy Singleton Interpretating Date/Time 09/04/2018 13:49:51
[2018-09-04] MEDS ORDERED: Potassium Chlor 40 mEq Premix 40 MEQ/100 ML PIGGYBACK IV.SIG ONE (15:00)
[2018-09-04] MEDS: Calcium Chloride Inj 1 GM in Sodium Chlor 0.9% Inj 100 ML IV.SIG PRN (15:12)
--- NOTE | 2018-09-04 15:18 | P.PNCC ---
Subjective Subjective Remarks/Hospital Course: Hospital Course: This is an 87-year-old male patient with paroxysmal atrial fibrillation, sick sinus syndrome, diabetes mellitus type 2, hyperlipidemia, hypertension. He had a history of intracranial hemorrhage in 2010, ischemic CVA in 2017, history of coronary artery disease, recently developed some new onset of angina. Previously recommended to receive pacemaker for sick sinus syndrome, however he wanted to hold off at least until January time. He underwent elective cardiac catheterization today by Dr. Worthy, which showed a left main disease of 75%, proximal LAD 95%, mid distal LAD 70%, RCA 75%. IABP was placed and patient was admitted to the CVICU. Cardiothoracic surgery was consulted for coronary artery bypass grafting x3. Critical care consulted for ICU management I evaluated the patient in the ICU he denies chest pain. Right groin intraaortic balloon pump 1:1 with good augmentation. Currently patient is on IV heparin. Scheduled for CABG x3 tomorrow Patient developed tachyarrhythmia possible SVT with heart rate in 190s. I ordered 2.5 mg IV metoprolol. Prior to administration of metoprolol patient suddenly became unresponsive and hypotensive. I evaluated the patient emergently. When I arrived at the bedside patient was more responsive systolic blood pressure improving currently in 100s. Patient remained tachycardic with intermittent pauses. Bony-Synephrine started to maintain map above. EKG shows probable A. fib with RVR. There are intermittent pauses. I discussed with Dr. Worthy. Patient has history of sick sinus syndrome and had been recommended pacemaker before. Will give 2.5 metoprolol now for rate control. Use AV joyce blockers cautiously. Continue IV heparin. IABP changed to 1:[address] Worthy. I also placed a right radial arterial line for invasive blood pressure monitoring. Cardizem gtt if persistent RVR Subjective: 09/03: for CABG today. came out on phenylephrine at 150 mcg/min. IABP remains 1: 1. lactate clearing to 2. uop adequate. 200cc chest tube output in 2 hours. moves all extremities, not following commands yet. 09/04: remains on vasopressors. IABP in place 1:2. lactate cleared. scvo2 stable. uop marginal but adequate. cvp rising and cxr suggestive of pulmonary vascular congestion. start with lasix 40mg iv x 1. wean to extubate as able, but elevated fio2 overnight prevented pathway extubation. Objective Vital Signs / I&O: Vital Signs 09/03/18 16:00 09/03/18 16:10 09/03/18 17:00 Temperature 34.6 C L 34.8 C L 35 C L Pulse Rate 52 L 89 Respiratory Rate 12 12 Blood Pressure 84/64 L 96/58 L Pulse Oximetry 96 93 L 09/03/18 17:01 09/03/18 17:28 09/03/18 17:58 Temperature 36.1 C L Pulse Rate Respiratory Rate 12 11 L Blood Pressure Pulse Oximetry 98 09/03/18 19:00 09/03/18 20:00 09/03/18 20:20 Temperature 36.5 C Pulse Rate 88 89 Respiratory Rate 12 12 Blood Pressure 90/53 L Pulse Oximetry 99 09/03/18 21:15 09/03/18 22:18 09/03/18 23:00 Temperature Pulse Rate 89 88 Respiratory Rate 12 Blood Pressure Pulse Oximetry 99 99 09/04/18 00:05 09/04/18 00:25 09/04/18 01:00 Temperature 37.1 C Pulse Rate 89 Respiratory Rate 12 12 Blood Pressure 103/67 Pulse Oximetry 99 99 98 09/04/18 03:00 09/04/18 03:22 09/04/18 04:00 Temperature 37.3 C Pulse Rate 88 88 Respiratory Rate 12 23 Blood Pressure Pulse Oximetry 98 98 09/04/18 08:37 09/04/18 13:16 Temperature Pulse Rate Respiratory Rate 12 Blood Pressure Pulse Oximetry 99 98 Intake & Output 09/03/18 09/04/18 09/04/18 18:59 06:59 18:59 Intake Total 6912 / 6912 300 / 300 387 / 387 Output Total 1974 490 / 490 Balance 4937 / 4937 -190 / -190 387 / 387 Weight 83 kg Intake: IV 4412 / 4412 300 / 300 387 / 387 Precedex Inj 200 MCG In NS Inj 48 ML @ 0.2 MCG/KG/HR 3.65 mls/ hr IV.CONT TITRATE PRN Rx#: [id number] Heparin/D5W 25,000 U/250 mL 25, 0 / 0 000 unit In 250 ml @ Per Protocol IV.CONT TITRATE PRN Rx #:[id number] NovoLIN R (IV Infusion) 100 31 / 31 UNIT In NS Inj 99 ML @ 3 UNITS/ HR 3 mls/hr IV.CONT TITRATE PRN Rx#:[id number] Neosynephrine Inj 40 MG In D5W 213 / 213 287 / 287 Inj 496 ML @ 40 MCG/MIN 30 mls/ hr IV.CONT TITRATE PRN Rx#: [id number] NS Inj 1,000 ML @ 100 mls/hr IV 1000 / 1000 .CONT .Q10H JAQUELIN Rx#:[id number] Ofirmev Inj 1,000 mg In 100 ml 100 / 100 200 / 200 100 / 100 @ 400 mls/hr IV.SIG Q6H JAQUELIN Rx# :[id number] Buminate 5% Inj 250 ML @ 250 250 / 250 mls/hr IV.SIG UNSCH PRN Rx#: [id number] Calcium Chloride Inj 1 GM In NS 110 / 110 Inj 100 ML @ 100 mls/hr IV.SIG PRN PRN Rx#:[id number] LR 1000 mL Inj 500 ML @ 500 mls 1500 / 1500 /hr IV.SIG .Q1H PRN Rx#: [id number] KCl 20 mEq Premix Inj 20 meq In 100 / 100 100 ml @ 50 mls/hr IV.SIG PRN PRN Rx#:[id number] KCl 40 mEq Premix Inj 40 meq In 200 / 200 100 ml @ 25 mls/hr IV.SIG UNSCH PRN Rx#:[id number] Anesthesia Amount 2500 / 2500 Output: Estimated Blood Loss 650 / 650 Urine Amount (Catheter) 1075 / 1075 310 / 310 Indwelling Temp Sensing 1075 / 1075 310 / 310 Catheter Chest Tube Drainage 250 / 250 180 / 180 #1Y and #2Y Mediastinal 250 / 250 180 / 180 Result Diagrams: 09/04/18 03:55 09/04/18 03:55 Objective Remarks: GENERAL: Elderly male, lying in bed, intubated, sedated HEENT: Normocephalic. Atraumatic. Pupils equal, round, reactive, conjugate. Mucous membranes are moist NECK: Trachea is midline. There is no JVD. Right IJ sheath in place, site clean dry and intact. CHEST: Midline sternal wound VAC dressing in place, site clean dry and intact. 2 chest tubes exit subxiphoid, minimal additional output. A+V wires in place. Equal chest rise. PRVC. 40% FiO2. PEEP of 5. CARDIOVASCULAR: Intermittently a paced, DDD backup at 80. Phenylephrine 100 mcg /min. levophed at 6 mcg/min. IABP one-to-two. Augmented mean 105mmHg ABDOMEN: Soft, nontender, nondistended. No guarding. MUSCULOSKELETAL: Pulses 2+. No peripheral edema. NEUROLOGICAL: RASS -1. Moves all extremities. No focal deficits. follows commands. Assessment and Plan - Assessment and Plan Plan: ASSESSMENT: Acute NSTEMI Severe three-vessel coronary artery disease CABG x3 09/03/[address] Diabetes Hyperlipidemia Hypertension Hx of Intracranial hemorrhage sick sinus syndrome intermittent SVT post-op respiratory insufficiency post-op hypotension PLAN: NEURO: -Minimize sedation use as needed IV morphine and Tylenol for pain - frequent neuro checks - avoid long-acting sedatives RESP: -Aggressive pulmonary toilet -DuoNeb as needed - wean to extubate - initiate forced diuresis. CV: -IABP 1:2 with good augmentation - once extubated, will wean to remove IABP -aspirin. Lipitor 40 mg nightly -Hold beta-blockers secondary to borderline hypotension -CABG x3 09/[address] Kimbrough - watch chest tube output closely - air leak in chest tubes. keep to suction. - trend uop, lactates - wean phenylephrine as tolerated. goal augmented map > 90 mmHg GI: -can advance diet once extubated. : -Monitor renal function closely. Strict I/O ID: -Antibiotics perioperatively HEME: -Monitor CBC, coags. Continue IV heparin ENDO: -Electrolyte replacement per protocol -insulin drip post-op PROPH: -Protonix
[2018-09-04] MEDS ORDERED: Magnesium Sulfate Inj 2 GM in Sodium Chlor 0.9% Inj 96 ML IV.SIG ONE (16:00)
[2018-09-04] MEDS ORDERED: Amiodarone Inj 150 MG in Dextrose 5% in Water Inj 97 ML IV.SIG ONE ×2 (16:20)
[2018-09-04] MEDS: Pantoprazole Inj 40 MG Vial IV.PUSH SCH (22:32)
[2018-09-04] MEDS: Insulin Regular (For Infusion) 100 UNIT in Sodium Chlor 0.9% Inj 99 ML IV.CONT PRN (23:00)
[2018-09-05] MEDS: fentaNYL Citrate Inj 100 MCG/2 ML Ampul IV.PUSH PRN ×4 (02:51→22:04)
[2018-09-05] MEDS ORDERED: Albumin Human 5% Inj 500 ML IV.SIG ONE (03:30)
[2018-09-05] MEDS ORDERED: Sodium Chlor 0.9% Inj 250 ML IV.SIG SCH (08:00)
[2018-09-05 08:15] LABS: Baso % (Auto) 0.5 % (0.0-2.0); Eos # (Auto) 0.1 th/mm3 (0.0-0.4); Eos % (Auto) 0.6 % (0.0-4.0); Hematocrit 21.6 % (39.0-51.0); Hemoglobin 7.4 gm/dL (13.0-17.0); Lymph # (Auto) 0.7 th/mm3 (1.0-4.8); Lymph % (Auto) 6.8 % (9.0-44.0); Mean Corpuscular HGB Conc 34.5 % (32.0-36.0); Mean Corpuscular Hemoglobin 31.4 pg (27.0-34.0); Mean Corpuscular Volume 91.2 fL (80.0-100.0); Neut % (Auto) 83.1 % (16.0-70.0); Platelet Count 83 th/mm3 (150-450); Red Blood Count 2.37 mil/mm3 (4.50-5.90); Red Cell Distribution Width 13.8 % (11.6-17.2); White Blood Count 10.8 th/mm3 (4.0-11.0)
--- NOTE | 2018-09-05 08:33 | P.PNCV ---
- Note Subjective/Hospital Course: 87-year-old male patient of Dr. Rosibel Liu, Dr. Alhaji Mahmood, Dr. Oliver Vargas. History of coronary artery disease, recently developed some new onset of angina. He is an avid swimmer which developed over a couple weeks ago. He was placed on dual antianginal therapy and he also has a history of some paroxysmal atrial fibrillation. The loop recorder showed a rate up to 146 in July, which he was entirely asymptomatic. They discussed permanent pacemaker, but he wanted to wait until after for that to be placed. He underwent elective cardiac catheterization today by Dr. Worthy, which showed a left main disease of 75%, proximal LAD 95%, mid distal LAD 70%, RCA 75%. We were consulted to evaluate for coronary artery bypass grafting x3. The patient had an intraaortic balloon pump placed to the right groin, which is currently at a 1:1 augmentation. EF 55% PAST MEDICAL HISTORY: Includes paroxysmal atrial fibrillation, sick sinus syndrome, diabetes mellitus type 2, hyperlipidemia, hypertension. He had a history of intracranial hemorrhage in 2009, had a CVA also following that in 2017. 09/03 surgery : SURGICAL PROCEDURE 1. Urgent Off-pump Coronary Artery Bypass Grafting x 4 with Left Internal Mammary Artery (CEBALLOS) to Left Anterior Descending (LAD), reverse saphenous vein graft to obtuse Marginal branch of the left Circumflex artery, reverse saphenous vein graft to the posterior Descending branch of the right Coronary artery, reverse saphenous vein graft to the Diagonal 2 branch of the LAD 2. Left leg Endoscopic Vein [place] 3. Intraoperative Vein Mapping. crystalloid 3500cc, 380cc cell saver 09/04 pt remains intubated, weaning in progress awake on low dose precedex remains on pressors / IABP 1:2 plan once pt extubated / eval for possible IABP removal on insulin gtt ASA, statin , no BB 2/2 hypotension 09/05 Doing well clinically Weaning norepinephrine as tolerated IABP pulled yesterday. Right groin soft without hematoma Out of bed to chair today Physical therapy Maintain chest tubes to drainage for now Objective: Vital Signs - 24 hr 09/04/18 08:37 09/04/18 11:00 09/04/18 11:44 Temperature 99.2 F 98.6 F Pulse Rate 89 Respiratory Rate 12 23 Blood Pressure 101/45 L Pulse Oximetry 99 99 09/04/18 12:07 11/30/18 13:00 09/04/18 13:16 Temperature 98.6 F Pulse Rate Respiratory Rate Blood Pressure Pulse Oximetry 99 98 09/04/18 15:00 09/04/18 19:00 09/04/18 20:00 Temperature 97.6 F 99.4 F Pulse Rate 112 H 98 H Respiratory Rate 23 20 Blood Pressure 93/47 L 110/54 L Pulse Oximetry 98 99 94 L 09/04/18 20:18 09/04/18 21:16 09/04/18 21:24 Temperature Pulse Rate 101 H Respiratory Rate 16 28 H 16 Blood Pressure Pulse Oximetry 95 09/04/18 21:55 09/04/18 23:00 09/05/18 03:00 Temperature 101.9 F H Pulse Rate 101 H 96 H Respiratory Rate 16 18 Blood Pressure 125/57 L Pulse Oximetry 94 L 09/05/18 03:25 09/05/18 05:00 09/05/18 05:29 Temperature 100.0 F H Pulse Rate 96 H Respiratory Rate 18 18 18 Blood Pressure 124/63 Pulse Oximetry 98 09/05/18 05:43 Temperature Pulse Rate 103 H Respiratory Rate 24 Blood Pressure Pulse Oximetry Labs: Laboratory Results - last 12 hr 09/02/18 09/04/18 09/04/18 12:15 21:11 22:24 WBC RBC Hgb Hct MCV MCH MCHC RDW Plt Count MPV Prelim Diff (Auto) Neut % (Auto) Lymph % (Auto) [place] % (Auto) Eos % (Auto) Baso % (Auto) Neut # (Auto) Lymph # (Auto) [place] # (Auto) Eos # (Auto) Baso # (Auto) Differential Comment POC Glucose 81 138 H Blood Type A Positive Antibody Screen Negative MTS Gel Crossmatch See Detail 09/04/18 09/04/18 09/05/18 22:26 23:27 00:10 WBC RBC Hgb Hct MCV MCH MCHC RDW Plt Count MPV Prelim Diff (Auto) Neut % (Auto) Lymph % (Auto) [place] % (Auto) Eos % (Auto) Baso % (Auto) Neut # (Auto) Lymph # (Auto) [place] # (Auto) Eos # (Auto) Baso # (Auto) Differential Comment POC Glucose 142 H 139 H 128 H Blood Type Antibody Screen MTS Gel Crossmatch 09/05/18 09/05/18 09/05/18 01:21 02:24 03:41 WBC RBC Hgb Hct MCV MCH MCHC RDW Plt Count MPV Prelim Diff (Auto) Neut % (Auto) Lymph % (Auto) [place] % (Auto) Eos % (Auto) Baso % (Auto) Neut # (Auto) Lymph # (Auto) [place] # (Auto) Eos # (Auto) Baso # (Auto) Differential Comment POC Glucose 112 H 119 H 110 Blood Type Antibody Screen MTS Gel Crossmatch 09/05/18 09/05/18 09/05/18 04:43 05:26 06:46 WBC RBC Hgb Hct MCV MCH MCHC RDW Plt Count MPV Prelim Diff (Auto) Neut % (Auto) Lymph % (Auto) [place] % (Auto) Eos % (Auto) Baso % (Auto) Neut # (Auto) Lymph # (Auto) [place] # (Auto) Eos # (Auto) Baso # (Auto) Differential Comment POC Glucose 126 H 143 H 135 H Blood Type Antibody Screen MTS Gel Crossmatch 09/05/18 09/05/18 09/05/18 07:45 08:03 08:18 WBC 10.8 RBC 2.37 L Hgb 7.4 L D Hct 21.6 L MCV 91.2 MCH 31.4 MCHC 34.5 RDW 13.8 Plt Count 83 L MPV 9.0 Prelim Diff (Auto) Slide review pending Neut % (Auto) 83.1 H Lymph % (Auto) 6.8 L [place] % (Auto) 9.0 H Eos % (Auto) 0.6 Baso % (Auto) 0.5 Neut # (Auto) 9.0 H Lymph # (Auto) 0.7 L [place] # (Auto) 1.0 H Eos # (Auto) 0.1 Baso # (Auto) 0.0 Differential Comment . POC Glucose 106 Blood Type Antibody Screen MTS Gel Crossmatch See Detail Result Diagrams: 09/05/18 07:45 09/04/18 03:55 - Plan (3) Chest pain (3) Chest pain Qualifiers: Chest pain type: unspecified Qualified Code(s): R07.9 - Chest pain, unspecified
[2018-09-05 08:35] LABS: Calcium 8.2 mg/dL (8.5-10.1); Carbon Dioxide 22.6 meq/L (21.0-32.0); Magnesium 2.2 mg/dL (1.5-2.5); Phosphorus 2.6 mg/dL (2.5-4.9); Potassium 3.9 meq/L (3.5-5.1)
[2018-09-05] MEDS: Finasteride 5 MG Tablet PO SCH (08:53)
[2018-09-05] MEDS: Amiodarone 200 MG Tablet PO SCH ×3 (08:54→23:50)
[2018-09-05] MEDS: Isosorbide Mononitrate 30 MG ER 24HR Tablet (Imdur) PO SCH (08:54)
[2018-09-05] MEDS: Doxazosin 4 MG Tablet PO SCH (08:54)
[2018-09-05] MEDS: Potassium Chlor 20 mEq Premix 20 MEQ/100 ML PIGGYBACK IV.SIG PRN (09:03)
[2018-09-05 09:06] LABS: Acanthocytes Occ
[2018-09-05 09:07] LABS: Toxic Granulation 1+
[2018-09-05] MEDS: Insulin NovoLOG Aspart Correctional Sugar Inj SQ SCH ×4 (10:23→23:47)
[2018-09-05] MEDS: Milrinone Inj 20 MG in Sodium Chlor 0.9% Inj 80 ML IV.CONT SCH (16:09)
--- NOTE | 2018-09-05 16:14 | P.PNCC ---
Subjective Subjective Remarks/Hospital Course: Hospital Course: This is an 87-year-old male patient with paroxysmal atrial fibrillation, sick sinus syndrome, diabetes mellitus type 2, hyperlipidemia, hypertension. He had a history of intracranial hemorrhage in 2010, ischemic CVA in 2017, history of coronary artery disease, recently developed some new onset of angina. Previously recommended to receive pacemaker for sick sinus syndrome, however he wanted to hold off at least until January time. He underwent elective cardiac catheterization today by Dr. Worthy, which showed a left main disease of 75%, proximal LAD 95%, mid distal LAD 70%, RCA 75%. IABP was placed and patient was admitted to the CVICU. Cardiothoracic surgery was consulted for coronary artery bypass grafting x3. Critical care consulted for ICU management I evaluated the patient in the ICU he denies chest pain. Right groin intraaortic balloon pump 1:1 with good augmentation. Currently patient is on IV heparin. Scheduled for CABG x3 tomorrow Patient developed tachyarrhythmia possible SVT with heart rate in 190s. I ordered 2.5 mg IV metoprolol. Prior to administration of metoprolol patient suddenly became unresponsive and hypotensive. I evaluated the patient emergently. When I arrived at the bedside patient was more responsive systolic blood pressure improving currently in 100s. Patient remained tachycardic with intermittent pauses. Bony-Synephrine started to maintain map above. EKG shows probable A. fib with RVR. There are intermittent pauses. I discussed with Dr. Worthy. Patient has history of sick sinus syndrome and had been recommended pacemaker before. Will give 2.5 metoprolol now for rate control. Use AV joyce blockers cautiously. Continue IV heparin. IABP changed to 1:[address] Worthy. I also placed a right radial arterial line for invasive blood pressure monitoring. Cardizem gtt if persistent RVR Subjective: 09/03: for CABG today. came out on phenylephrine at 150 mcg/min. IABP remains 1: 1. lactate clearing to 2. uop adequate. 200cc chest tube output in 2 hours. moves all extremities, not following commands yet. 09/04: remains on vasopressors. IABP in place 1:2. lactate cleared. scvo2 stable. uop marginal but adequate. cvp rising and cxr suggestive of pulmonary vascular congestion. start with lasix 40mg iv x 1. wean to extubate as able, but elevated fio2 overnight prevented pathway extubation. 09/05: extubated yesterday. this morning, poor uop, 20cc/hr. lactate is slowly rising, and trend of scvo2 is falling. patient denies complaints. OOB to chair. may need transient inotropic therapy. IABP removed yesterday. appears euvolemic. Objective Vital Signs / I&O: Vital Signs 09/04/18 19:00 09/04/18 20:00 09/04/18 20:18 Temperature 37.4 C Pulse Rate 98 H Respiratory Rate 20 16 Blood Pressure 110/54 L Pulse Oximetry 99 94 L 09/04/18 21:16 09/04/18 21:24 09/04/18 21:55 Temperature Pulse Rate 101 H Respiratory Rate 28 H 16 16 Blood Pressure Pulse Oximetry 95 09/04/18 23:00 09/05/18 03:00 09/05/18 03:25 Temperature 38.8 C H Pulse Rate 101 H 96 H Respiratory Rate 18 18 Blood Pressure 125/57 L Pulse Oximetry 94 L 09/05/18 05:00 09/05/18 05:29 09/05/18 05:43 Temperature 37.8 C H Pulse Rate 96 H 103 H Respiratory Rate 18 18 24 Blood Pressure 124/63 Pulse Oximetry 98 09/05/18 07:00 09/05/18 08:00 09/05/18 08:42 Temperature 36.7 C 37.4 C Pulse Rate 96 H 98 H Respiratory Rate 14 16 Blood Pressure 109/55 L 121/58 L Pulse Oximetry 97 94 L 94 L 09/05/18 08:47 09/05/18 09:37 09/05/18 11:00 Temperature 36.9 C Pulse Rate 94 H 102 H Respiratory Rate 16 18 16 Blood Pressure 122/66 Pulse Oximetry 96 94 L 09/05/18 13:04 09/05/18 15:00 Temperature 36.9 C Pulse Rate 106 H 106 H Respiratory Rate 20 17 Blood Pressure 126/56 L Pulse Oximetry 94 L Intake & Output 09/04/18 09/05/18 09/05/18 18:59 06:59 18:59 Intake Total 797 / 797 1669 / 1669 1036 / 1036 Output Total 1485 / 1485 478 / 478 Balance -688 / -688 1191 / 1191 1036 / 1036 Weight 84 kg Intake: IV 797 / 797 1569 / 1569 621 / 621 Cordarone Inj 450 MG In D5W Inj 250 / 250 241 ML @ 0.5 MG/MIN 16.66 mls/ hr IV.CONT CONT PRN Rx#: [id number] NovoLIN R (IV Infusion) 100 69 / 69 21 / 21 UNIT In NS Inj 99 ML @ 3 UNITS/ HR 3 mls/hr IV.CONT TITRATE PRN Rx#:[id number] Levophed Inj 16 MG In D5W Inj 250 / 250 234 ML @ 2 MCG/MIN 1.87 mls/hr IV.CONT TITRATE PRN Rx#: [id number] Neosynephrine Inj 40 MG In D5W 287 / 287 Inj 496 ML @ 40 MCG/MIN 30 mls/ hr IV.CONT TITRATE PRN Rx#: [id number] Ofirmev Inj 1,000 mg In 100 ml 100 / 100 @ 400 mls/hr IV.SIG Q6H [facility] Rx# :[id number] Alburx 5% Inj 500 ML @ 250 mls/ 500 / 500 hr IV.SIG ONCE ONE Rx#:[id number] Cordarone Inj 150 MG In D5W Inj 100 / 100 97 ML @ 100 mls/hr IV.SIG NOW ONE Rx#:[id number] Calcium Chloride Inj 1 GM In NS 110 / 110 Inj 100 ML @ 100 mls/hr IV.SIG PRN PRN Rx#:[id number] Magnesium Sulfate Inj 2 GM In 100 / 100 NS Inj 96 ML @ 50 mls/hr IV.SIG ONCE ONE Rx#:[id number] KCl 20 mEq Premix Inj 20 meq In 100 / 100 100 ml @ 50 mls/hr IV.SIG PRN PRN Rx#:[id number] KCl 40 mEq Premix Inj 40 meq In 100 / 100 100 ml @ 25 mls/hr IV.SIG ONCE ONE Rx#:[id number] Vancomycin Inj 1,000 MG In NS 750 / 750 Inj 250 ML @ 250 mls/hr IV.SIG [employer]OR [employer]TER [facility] Rx#:[id number] Oral 100 / 100 Other Rbc As-3 Leukoreduced Unit [id number] Intake (Blood Product) Amt 400 / 400 Rbc As-3 Leukoreduced Unit 400 / 400 [id number] Output: Urine Amount (Catheter) 1375 / 1375 378 / 378 Indwelling Temp Sensing 1375 / 1375 378 / 378 Catheter Chest Tube Drainage 110 / 110 100 / 100 #1Y and #2Y Mediastinal 110 / 110 100 / 100 Other: Other Intake Source Rbc As-3 Leukoreduced Unit Saline Solution [id number] # Bowel Movements 0 Result Diagrams: 09/05/18 07:45 09/05/18 07:45 Objective Remarks: GENERAL: Elderly male, lying in bed, awake, alert. HEENT: Normocephalic. Atraumatic. Pupils equal, round, reactive, conjugate. Mucous membranes are moist NECK: Trachea is midline. There is no JVD. Right IJ sheath in place, site clean dry and intact. CHEST: Midline sternal wound VAC dressing in place, site clean dry and intact. 2 chest tubes exit subxiphoid, minimal additional output. A+V wires in place. Equal chest rise. nc o2. CARDIOVASCULAR: Intermittently a paced, DDD backup at 50. levophed at 4 mcg/ min. ABDOMEN: Soft, nontender, nondistended. No guarding. MUSCULOSKELETAL: Pulses 2+. No peripheral edema. NEUROLOGICAL: RASS 0. Moves all extremities. No focal deficits. follows commands. Assessment and Plan - Assessment and Plan Plan: ASSESSMENT: Acute NSTEMI Severe three-vessel coronary artery disease CABG x3 09/03/2018 s/p IABP (removed 09/04) Diabetes Hyperlipidemia Hypertension Hx of Intracranial hemorrhage sick sinus syndrome intermittent SVT post-op respiratory insufficiency post-op hypotension post-op myocardial dysfunction early cardiogenic shock PLAN: NEURO: -Minimize sedation use as needed IV morphine and Tylenol for pain - frequent neuro checks - avoid long-acting sedatives RESP: -Aggressive pulmonary toilet -DuoNeb as needed - PT and OOB - wean o2 by nc for goal spo2 > 90% - hold further diuresis. CV: -aspirin. Lipitor 40 mg nightly -Hold beta-blockers secondary to borderline hypotension -CABG x3 09/[address] Kimbrough - watch chest tube output closely - air leak in chest tubes. keep to suction. - add low-dose milrinone 0.25 mcg/kg/min. watch uop and trend scvo2, lactates - rising lactate suggestive of early cardiogenic shock: likely secondary to persistent myocardial dysfunction. - wean levophed for goal map > 65 mmHg. GI: -advance diet as tolerated. : -Monitor renal function closely. Strict I/O ID: -Antibiotics perioperatively HEME: -Monitor CBC, coags. Continue IV heparin ENDO: -Electrolyte replacement per protocol -insulin drip post-op transitioning to SSI. PROPH: -Protonix OVERALL IMPRESSION: off-pathway. early shock will need to be aggressively treated to prevent organ dysfunction. given age and comorbidities, high risk. keep in ICU. Critical care medicine will continue to follow while patient remains in the CVICU.
[2018-09-05] MEDS: levETIRAcetam 500 MG Tablet PO SCH ×2 (21:44→23:50)
[2018-09-05] MEDS: Pantoprazole Inj 40 MG Vial IV.PUSH SCH (21:44)
[2018-09-06] MEDS: Insulin NovoLOG Aspart Correctional Sugar Inj SQ SCH ×6 (02:30→23:08)
[2018-09-06 05:32] LABS: Hematocrit 21.2 % (39.0-51.0); Hemoglobin 7.3 gm/dL (13.0-17.0); Mean Corpuscular HGB Conc 34.7 % (32.0-36.0); Mean Corpuscular Hemoglobin 30.4 pg (27.0-34.0); Mean Corpuscular Volume 87.7 fL (80.0-100.0); Mean Platelet Volume 8.4 fL (7.0-11.0); Platelet Count 87 th/mm3 (150-450); Red Blood Count 2.42 mil/mm3 (4.50-5.90); Red Cell Distribution Width 15.9 % (11.6-17.2); White Blood Count 9.1 th/mm3 (4.0-11.0)
[2018-09-06 05:50] LABS: Calcium 7.8 mg/dL (8.5-10.1); Carbon Dioxide 21.8 meq/L (21.0-32.0); Potassium 3.9 meq/L (3.5-5.1)
[2018-09-06] MEDS ORDERED: Sodium Chlor 0.9% Inj 250 ML IV.SIG SCH (07:00)
[2018-09-06] MEDS: Metoprolol Inj 5 MG/5 ML Vial IV.PUSH PRN (07:28)
--- NOTE | 2018-09-06 07:45 | P.PNCC ---
Subjective Subjective Remarks/Hospital Course: Hospital Course: This is an 87-year-old male patient with paroxysmal atrial fibrillation, sick sinus syndrome, diabetes mellitus type 2, hyperlipidemia, hypertension. He had a history of intracranial hemorrhage in 2010, ischemic CVA in 2017, history of coronary artery disease, recently developed some new onset of angina. Previously recommended to receive pacemaker for sick sinus syndrome, however he wanted to hold off at least until January time. He underwent elective cardiac catheterization today by Dr. Worthy, which showed a left main disease of 75%, proximal LAD 95%, mid distal LAD 70%, RCA 75%. IABP was placed and patient was admitted to the CVICU. Cardiothoracic surgery was consulted for coronary artery bypass grafting x3. Critical care consulted for ICU management I evaluated the patient in the ICU he denies chest pain. Right groin intraaortic balloon pump 1:1 with good augmentation. Currently patient is on IV heparin. Scheduled for CABG x3 tomorrow Patient developed tachyarrhythmia possible SVT with heart rate in 190s. I ordered 2.5 mg IV metoprolol. Prior to administration of metoprolol patient suddenly became unresponsive and hypotensive. I evaluated the patient emergently. When I arrived at the bedside patient was more responsive systolic blood pressure improving currently in 100s. Patient remained tachycardic with intermittent pauses. Bony-Synephrine started to maintain map above. EKG shows probable A. fib with RVR. There are intermittent pauses. I discussed with Dr. Worthy. Patient has history of sick sinus syndrome and had been recommended pacemaker before. Will give 2.5 metoprolol now for rate control. Use AV joyce blockers cautiously. Continue IV heparin. IABP changed to 1:[address] Worthy. I also placed a right radial arterial line for invasive blood pressure monitoring. Cardizem gtt if persistent RVR Subjective: 09/03: for CABG today. came out on phenylephrine at 150 mcg/min. IABP remains 1: 1. lactate clearing to 2. uop adequate. 200cc chest tube output in 2 hours. moves all extremities, not following commands yet. 09/04: remains on vasopressors. IABP in place 1:2. lactate cleared. scvo2 stable. uop marginal but adequate. cvp rising and cxr suggestive of pulmonary vascular congestion. start with lasix 40mg iv x 1. wean to extubate as able, but elevated fio2 overnight prevented pathway extubation. 09/05: extubated yesterday. this morning, poor uop, 20cc/hr. lactate is slowly rising, and trend of scvo2 is falling. patient denies complaints. OOB to chair. may need transient inotropic therapy. IABP removed yesterday. appears euvolemic. 09/06: scvo2 improved with milrinone. lactate downtrending. clinically improving , though more short of breath and now on pNRB. starting diuresis. Objective Vital Signs / I&O: Vital Signs 09/05/18 08:00 09/05/18 08:42 09/05/18 08:47 Temperature 37.4 C Pulse Rate 98 H Respiratory Rate 16 16 Blood Pressure 121/58 L Pulse Oximetry 94 L 94 L 09/05/18 09:37 09/05/18 11:00 09/05/18 13:04 Temperature 36.9 C Pulse Rate 94 H 102 H 106 H Respiratory Rate 18 16 20 Blood Pressure 122/66 Pulse Oximetry 96 94 L 09/05/18 15:00 09/05/18 16:42 09/05/18 19:00 Temperature 36.9 C Pulse Rate 106 H 107 H Respiratory Rate 17 15 Blood Pressure 126/56 L Pulse Oximetry 94 L 09/05/18 20:00 09/05/18 20:06 09/05/18 22:30 Temperature 37.0 C Pulse Rate 106 H 105 H Respiratory Rate 20 18 16 Blood Pressure 127/51 L Pulse Oximetry 95 92 L 09/05/18 23:00 09/06/18 03:14 09/06/18 04:00 Temperature 36.9 C 37.1 C Pulse Rate 109 H 110 H 109 H Respiratory Rate 18 18 18 Blood Pressure 143/54 H 134/53 L Pulse Oximetry 95 95 Intake & Output 09/05/18 09/06/18 09/06/18 18:59 06:59 18:59 Intake Total 1050 / 1050 300 / 300 Output Total 980 / 980 500 / 500 Balance 70 / 70 -200 / -200 Weight 83 kg Intake: IV 635 / 635 250 / 250 Cordarone Inj 450 MG In D5W Inj 250 / 250 250 / 250 241 ML @ 0.5 MG/MIN 16.66 mls/ hr IV.CONT CONT PRN Rx#: [id number] NovoLIN R (IV Infusion) 100 21 / 21 UNIT In NS Inj 99 ML @ 3 UNITS/ HR 3 mls/hr IV.CONT TITRATE PRN Rx#:[id number] Primacor Inj 20 MG In NS Inj 80 14 / 14 ML @ 0.25 MCG/KG/MIN 6.3 mls/ hr IV.CONT .[id number] [facility] Rx#: [id number] Levophed Inj 16 MG In D5W Inj 250 / 250 234 ML @ 2 MCG/MIN 1.87 mls/hr IV.CONT TITRATE PRN Rx#: [id number] KCl 20 mEq Premix Inj 20 meq In 100 / 100 100 ml @ 50 mls/hr IV.SIG PRN PRN Rx#:[id number] Oral 50 / 50 Other Rbc As-3 Leukoreduced Unit [id number] Intake (Blood Product) Amt 400 / 400 Rbc As-3 Leukoreduced Unit 400 / 400 [id number] Output: Urine Amount (Catheter) 600 / 600 400 / 400 Indwelling Temp Sensing 600 / 600 400 / 400 Catheter Chest Tube Drainage 380 / 380 100 / 100 #1Y and #2Y Mediastinal 380 / 380 100 / 100 Other: Other Intake Source Rbc As-3 Leukoreduced Unit Saline Solution [id number] Result Diagrams: 09/06/18 04:30 09/06/18 04:30 Objective Remarks: GENERAL: Elderly male, sitting in a chair, awake, alert. HEENT: Normocephalic. Atraumatic. Pupils equal, round, reactive, conjugate. Mucous membranes are moist NECK: Trachea is midline. There is no JVD. Right IJ sheath in place, site clean dry and intact. CHEST: Midline sternal wound VAC dressing in place, site clean dry and intact. 2 chest tubes exit subxiphoid, minimal additional output. A+V wires in place. Equal chest rise. nc o2. CARDIOVASCULAR: Intermittently a paced, DDD backup at 50. milrinone at 0.25 mcg /kg/min. ABDOMEN: Soft, nontender, nondistended. No guarding. MUSCULOSKELETAL: Pulses 2+. No peripheral edema. NEUROLOGICAL: RASS 0. Moves all extremities. No focal deficits. follows commands. Assessment and Plan - Assessment and Plan Plan: ASSESSMENT: Acute NSTEMI Severe three-vessel coronary artery disease CABG x3 09/03/2018 s/p IABP (removed 09/04) Diabetes Hyperlipidemia Hypertension Hx of Intracranial hemorrhage sick sinus syndrome intermittent SVT post-op respiratory insufficiency post-op hypotension- resolved post-op myocardial dysfunction persistent myocardial dysfunction PLAN: NEURO: -Minimize sedation use as needed IV morphine and Tylenol for pain - frequent neuro checks - avoid long-acting sedatives RESP: -Aggressive pulmonary toilet -DuoNeb as needed - PT and OOB - wean o2 by nc for goal spo2 > 90% - lasix 80mg iv x 1. CV: -aspirin. Lipitor 40 mg nightly -start gentle beta blockade. -CABG x3 09/[address] Kimbrough - watch chest tube output closely - air leak in chest tubes. keep to suction. - continue milrinone 0.25 mcg/kg/min. - scvo2 and lactate clearing. - wean levophed for goal map > 65 mmHg. GI: -advance diet as tolerated. : -Monitor renal function closely. Strict I/O - keep fournier today. ID: -Antibiotics perioperatively HEME: -Monitor CBC, coags. Continue IV heparin ENDO: -Electrolyte replacement per protocol -SSI PROPH: -Protonix OVERALL IMPRESSION: off-pathway. shock improving. need to start mobilizing fluid. respiratory status tenuous and now on high levels of oxygen. increase forced diuresis. given age and comorbidities, high risk. keep in ICU. Critical care medicine will continue to follow while patient remains in the CVICU.
--- NOTE | 2018-09-06 08:15 | P.PNCV ---
- Note Subjective/Hospital Course: 87-year-old male patient of Dr. Rosibel Liu, Dr. Alhaji Mahmood, Dr. Oliver Vargas. History of coronary artery disease, recently developed some new onset of angina. He is an avid swimmer which developed over a couple weeks ago. He was placed on dual antianginal therapy and he also has a history of some paroxysmal atrial fibrillation. The loop recorder showed a rate up to 146 in July, which he was entirely asymptomatic. They discussed permanent pacemaker, but he wanted to wait until after for that to be placed. He underwent elective cardiac catheterization today by Dr. Worthy, which showed a left main disease of 75%, proximal LAD 95%, mid distal LAD 70%, RCA 75%. We were consulted to evaluate for coronary artery bypass grafting x3. The patient had an intraaortic balloon pump placed to the right groin, which is currently at a 1:1 augmentation. EF 55% PAST MEDICAL HISTORY: Includes paroxysmal atrial fibrillation, sick sinus syndrome, diabetes mellitus type 2, hyperlipidemia, hypertension. He had a history of intracranial hemorrhage in 2009, had a CVA also following that in 2017. 09/03 surgery : SURGICAL PROCEDURE 1. Urgent Off-pump Coronary Artery Bypass Grafting x 4 with Left Internal Mammary Artery (CEBALLOS) to Left Anterior Descending (LAD), reverse saphenous vein graft to obtuse Marginal branch of the left Circumflex artery, reverse saphenous vein graft to the posterior Descending branch of the right Coronary artery, reverse saphenous vein graft to the Diagonal 2 branch of the LAD 2. Left leg Endoscopic Vein [place] 3. Intraoperative Vein Mapping. crystalloid 3500cc, 380cc cell saver 09/04 pt remains intubated, weaning in progress awake on low dose precedex remains on pressors / IABP 1:2 plan once pt extubated / eval for possible IABP removal on insulin gtt ASA, statin , no BB 2/2 hypotension 09/05 Doing well clinically Weaning norepinephrine as tolerated IABP pulled yesterday. Right groin soft without hematoma Out of bed to chair today Physical therapy Maintain chest tubes to drainage for now 12/2 More confused this morning. Likely some component of ICU psychosis in this elderly gentleman Some issues with swallowing. We will have speech evaluate Agree with transfusion and diuresis Physical therapy Keep in ICU for now Objective: Vital Signs - 24 hr 09/05/18 08:42 09/05/18 08:47 09/05/18 09:37 Temperature 99.4 F Pulse Rate 98 H 94 H Respiratory Rate 16 16 18 Blood Pressure 121/58 L Pulse Oximetry 94 L 96 09/05/18 11:00 09/05/18 13:04 09/05/18 15:00 Temperature 98.5 F 98.4 F Pulse Rate 102 H 106 H 106 H Respiratory Rate 16 20 17 Blood Pressure 122/66 126/56 L Pulse Oximetry 94 L 94 L 09/05/18 16:42 09/05/18 19:00 09/05/18 20:00 Temperature 98.6 F Pulse Rate 107 H 106 H Respiratory Rate 15 20 Blood Pressure 127/51 L Pulse Oximetry 95 09/05/18 20:06 09/05/18 22:30 09/05/18 23:00 Temperature 98.4 F Pulse Rate 105 H 109 H Respiratory Rate 18 16 18 Blood Pressure 143/54 H Pulse Oximetry 92 L 95 09/06/18 03:00 09/06/18 03:14 09/06/18 04:00 Temperature 98.8 F Pulse Rate 107 H 110 H 109 H Respiratory Rate 18 18 Blood Pressure 134/53 L Pulse Oximetry 95 09/06/18 07:00 09/06/18 08:00 Temperature 98.7 F Pulse Rate 114 H Respiratory Rate 14 Blood Pressure 131/66 Pulse Oximetry 94 L 94 L Labs: Laboratory Results - last 12 hr 09/05/18 09/06/18 09/06/18 23:39 02:10 04:30 WBC 9.1 RBC 2.42 L Hgb 7.3 L Hct 21.2 L MCV 87.7 D MCH 30.4 MCHC 34.7 RDW 15.9 Plt Count 87 L MPV 8.4 Sodium Potassium Chloride Carbon Dioxide Anion Gap BUN Creatinine Estimated GFR POC Glucose 199 H 197 H Random Glucose Calcium Blood Type MTS Gel Crossmatch 09/06/18 09/06/18 04:30 07:27 WBC RBC Hgb Hct MCV MCH MCHC RDW Plt Count MPV Sodium 139 Potassium 3.9 Chloride 109 H Carbon Dioxide 21.8 Anion Gap 8 BUN 23 H Creatinine 1.13 Estimated GFR 61 L POC Glucose Random Glucose 148 H Calcium 7.8 L Blood Type A Positive MTS Gel Crossmatch See Detail Result Diagrams: 09/06/18 04:30 12/02/18 04:30 - Plan (3) Chest pain (3) Chest pain Qualifiers: Chest pain type: unspecified Qualified Code(s): R07.9 - Chest pain, unspecified
[2018-09-06] MEDS: Isosorbide Mononitrate 30 MG ER 24HR Tablet (Imdur) PO SCH (10:33)
[2018-09-06] MEDS: Doxazosin 4 MG Tablet PO SCH (10:33)
[2018-09-06] MEDS: Amiodarone 200 MG Tablet PO SCH ×2 (10:33→23:02)
[2018-09-06] MEDS: Finasteride 5 MG Tablet PO SCH (10:34)
[2018-09-06] MEDS: Milrinone Inj 20 MG in Sodium Chlor 0.9% Inj 80 ML IV.CONT SCH ×2 (15:14→23:38)
[2018-09-06] MEDS: Pantoprazole Inj 40 MG Vial IV.PUSH SCH (23:00)
[2018-09-06] MEDS: levETIRAcetam 500 MG Tablet PO SCH (23:01)
[2018-09-07] MEDS: Insulin NovoLOG Aspart Correctional Sugar Inj SQ SCH ×6 (03:00→21:46)
[2018-09-07 05:16] LABS: Hematocrit 23.3 % (39.0-51.0); Hemoglobin 8.3 gm/dL (13.0-17.0); Mean Corpuscular HGB Conc 35.5 % (32.0-36.0); Mean Corpuscular Hemoglobin 31.3 pg (27.0-34.0); Mean Corpuscular Volume 88.2 fL (80.0-100.0); Mean Platelet Volume 8.4 fL (7.0-11.0); Platelet Count 107 th/mm3 (150-450); Red Blood Count 2.64 mil/mm3 (4.50-5.90); Red Cell Distribution Width 15.3 % (11.6-17.2); White Blood Count 7.3 th/mm3 (4.0-11.0)
[2018-09-07 05:18] LABS: Albumin 2.4 g/dL (3.4-5.0); Anion Gap 6 meq/L (5-15); Aspartate Aminotransferase 47 U/L (15-37); Blood Urea Nitrogen 21 mg/dL (7-18); Carbon Dioxide 25.6 meq/L (21.0-32.0); Chloride 109 meq/L (98-107); Glomerular Filtration Rate 67 mL/min (>89); Glucose,Random 104 mg/dL (74-106); Magnesium 1.9 mg/dL (1.5-2.5); Potassium 3.4 meq/L (3.5-5.1); Sodium 141 meq/L (136-145)
[2018-09-07 05:19] LABS: Alanine Aminotransferase 34 U/L (12-78); Phosphorus 3.3 mg/dL (2.5-4.9)
[2018-09-07 05:21] LABS: Alkaline Phosphatase 65 U/L (45-117); Total Protein 5.1 g/dL (6.4-8.2)
[2018-09-07] MEDS: Potassium Chlor 40 mEq Premix 40 MEQ/100 ML PIGGYBACK IV.SIG PRN (06:49)
[2018-09-07] MEDS: Metoprolol Inj 5 MG/5 ML Vial IV.PUSH PRN ×2 (07:02→11:39)
--- NOTE | 2018-09-07 08:40 | P.PNCC ---
Subjective Subjective Remarks/Hospital Course: Hospital Course: This is an 87-year-old male patient with paroxysmal atrial fibrillation, sick sinus syndrome, diabetes mellitus type 2, hyperlipidemia, hypertension. He had a history of intracranial hemorrhage in 2010, ischemic CVA in 2017, history of coronary artery disease, recently developed some new onset of angina. Previously recommended to receive pacemaker for sick sinus syndrome, however he wanted to hold off at least until January time. He underwent elective cardiac catheterization today by Dr. Worthy, which showed a left main disease of 75%, proximal LAD 95%, mid distal LAD 70%, RCA 75%. IABP was placed and patient was admitted to the CVICU. Cardiothoracic surgery was consulted for coronary artery bypass grafting x3. Critical care consulted for ICU management I evaluated the patient in the ICU he denies chest pain. Right groin intraaortic balloon pump 1:1 with good augmentation. Currently patient is on IV heparin. Scheduled for CABG x3 tomorrow Patient developed tachyarrhythmia possible SVT with heart rate in 190s. I ordered 2.5 mg IV metoprolol. Prior to administration of metoprolol patient suddenly became unresponsive and hypotensive. I evaluated the patient emergently. When I arrived at the bedside patient was more responsive systolic blood pressure improving currently in 100s. Patient remained tachycardic with intermittent pauses. Bony-Synephrine started to maintain map above. EKG shows probable A. fib with RVR. There are intermittent pauses. I discussed with Dr. Worthy. Patient has history of sick sinus syndrome and had been recommended pacemaker before. Will give 2.5 metoprolol now for rate control. Use AV joyce blockers cautiously. Continue IV heparin. IABP changed to 1:[address] Worthy. I also placed a right radial arterial line for invasive blood pressure monitoring. Cardizem gtt if persistent RVR Subjective: 09/03: for CABG today. came out on phenylephrine at 150 mcg/min. IABP remains 1: 1. lactate clearing to 2. uop adequate. 200cc chest tube output in 2 hours. moves all extremities, not following commands yet. 09/04: remains on vasopressors. IABP in place 1:2. lactate cleared. scvo2 stable. uop marginal but adequate. cvp rising and cxr suggestive of pulmonary vascular congestion. start with lasix 40mg iv x 1. wean to extubate as able, but elevated fio2 overnight prevented pathway extubation. 09/05: extubated yesterday. this morning, poor uop, 20cc/hr. lactate is slowly rising, and trend of scvo2 is falling. patient denies complaints. OOB to chair. may need transient inotropic therapy. IABP removed yesterday. appears euvolemic. 09/06: scvo2 improved with milrinone. lactate downtrending. clinically improving , though more short of breath and now on pNRB. starting diuresis. 09/07: stable. good uop. needs aggressive pulmonary toilet. cr improving. will d/ c milrinone. back down to [place]. Objective Vital Signs / I&O: Vital Signs 09/06/18 08:43 09/06/18 11:00 09/06/18 14:12 Temperature Pulse Rate 99 H 109 H 103 H Respiratory Rate 15 16 18 Blood Pressure 125/43 L 146/60 H Pulse Oximetry 96 96 09/06/18 15:00 09/06/18 19:00 09/06/18 19:43 Temperature 37.2 C 37.2 C Pulse Rate 111 H 101 H 98 H Respiratory Rate 16 22 16 Blood Pressure 140/60 Pulse Oximetry 95 93 L 09/06/18 20:00 09/06/18 21:00 09/06/18 23:00 Temperature 37.2 C Pulse Rate 97 H 96 H Respiratory Rate 22 Blood Pressure Pulse Oximetry 94 L 96 09/07/18 03:00 09/07/18 07:00 Temperature 36.8 C 36.8 C Pulse Rate 86 93 H Respiratory Rate 22 18 Blood Pressure Pulse Oximetry 97 95 Intake & Output 09/06/18 09/07/18 09/07/18 18:59 06:59 18:59 Intake Total 751 / 751 250 / 250 Output Total 2640 / 2640 490 / 490 Balance -1889 / -1889 -240 / -240 Weight 82 kg Intake: IV 336 / 336 250 / 250 Cordarone Inj 450 MG In D5W Inj 250 / 250 250 / 250 241 ML @ 0.5 MG/MIN 16.66 mls/ hr IV.CONT CONT PRN Rx#: [id number] Primacor Inj 20 MG In NS Inj 80 86 / 86 ML @ 0.25 MCG/KG/MIN 6.3 mls/ hr IV.CONT .[id number] [facility] Rx#: [id number] Other Rbc As-3 Leukoreduced Unit [id number] Intake (Blood Product) Amt 400 / 400 Rbc As-3 Leukoreduced Unit 400 / 400 [id number] Output: Urine Amount (Catheter) 2580 / 2580 460 / 460 Indwelling Temp Sensing 2580 / 2580 460 / 460 Catheter Chest Tube Drainage 60 / 60 / #1Y and #2Y Mediastinal 60 Other: Other Intake Source Rbc As-3 Leukoreduced Unit Saline Solution [id number] Result Diagrams: 09/07/18 04:30 09/07/18 04:30 Objective Remarks: GENERAL: Elderly male, lying in bed, awake, alert. HEENT: Normocephalic. Atraumatic. Pupils equal, round, reactive, conjugate. Mucous membranes are moist NECK: Trachea is midline. There is no JVD. Right IJ sheath in place, site clean dry and intact. CHEST: Midline sternal wound VAC dressing in place, site clean dry and intact. 2 chest tubes exit subxiphoid, minimal additional output. A+V wires in place. Equal chest rise. nc o2. CARDIOVASCULAR: Intermittently a paced, DDD backup at 50. ABDOMEN: Soft, nontender, nondistended. No guarding. MUSCULOSKELETAL: Pulses 2+. No peripheral edema. NEUROLOGICAL: RASS 0. Moves all extremities. No focal deficits. follows commands. Assessment and Plan - Assessment and Plan Plan: ASSESSMENT: Acute NSTEMI Severe three-vessel coronary artery disease CABG x3 09/03/2018 s/p IABP (removed 09/04) Diabetes Hyperlipidemia Hypertension Hx of Intracranial hemorrhage sick sinus syndrome intermittent SVT post-op respiratory insufficiency- resolving post-op hypotension- resolved post-op myocardial dysfunction- resolved persistent myocardial dysfunction- resolved PLAN: NEURO: -Minimize sedation use as needed IV morphine and Tylenol for pain - frequent neuro checks - avoid long-acting sedatives RESP: -Aggressive pulmonary toilet -DuoNeb as needed - PT and OOB - wean o2 by nc for goal spo2 > 90% - lasix 40mg iv x 1. CV: -aspirin. Lipitor 40 mg nightly -CABG x3 09/[address] Kimbrough - beta blockade - CT management per surgery. no more air leak. - d/c milrinone - scvo2 and lactate cleared - off pressors - needs permanent pacemaker. will need to discuss with cardiology: cleared from outbound sales professional standpoint for pacemaker. GI: -advance diet as tolerated. : -Monitor renal function closely. Strict I/O - d/c fournier ID: -Antibiotics perioperatively HEME: -Monitor CBC, coags. Continue IV heparin ENDO: -Electrolyte replacement per protocol -SSI PROPH: -Protonix OVERALL IMPRESSION: clinically improving. stable to transfer out of ICU. needs pacemaker before discharge. Critical care medicine will sign off. please reconsult as needed.
[2018-09-07] MEDS: Doxazosin 4 MG Tablet PO SCH (09:11)
[2018-09-07] MEDS: Amiodarone 200 MG Tablet PO SCH (09:11)
[2018-09-07] MEDS: Finasteride 5 MG Tablet PO SCH (09:11)
[2018-09-07] MEDS: Isosorbide Mononitrate 30 MG ER 24HR Tablet (Imdur) PO SCH (09:11)
--- NOTE | 2018-09-07 10:59 | P.PNCV ---
- Note Subjective/Hospital Course: 87-year-old male patient of Dr. Rosibel Liu, Dr. Alhaji Mahmood, Dr. Oliver Vargas. History of coronary artery disease, recently developed some new onset of angina. He is an avid swimmer which developed over a couple weeks ago. He was placed on dual antianginal therapy and he also has a history of some paroxysmal atrial fibrillation. The loop recorder showed a rate up to 146 in July, which he was entirely asymptomatic. They discussed permanent pacemaker, but he wanted to wait until after for that to be placed. He underwent elective cardiac catheterization today by Dr. Worthy, which showed a left main disease of 75%, proximal LAD 95%, mid distal LAD 70%, RCA 75%. We were consulted to evaluate for coronary artery bypass grafting x3. The patient had an intraaortic balloon pump placed to the right groin, which is currently at a 1:1 augmentation. EF 55% PAST MEDICAL HISTORY: Includes paroxysmal atrial fibrillation, sick sinus syndrome, diabetes mellitus type 2, hyperlipidemia, hypertension. He had a history of intracranial hemorrhage in 2009, had a CVA also following that in 2017. 09/03 surgery : SURGICAL PROCEDURE 1. Urgent Off-pump Coronary Artery Bypass Grafting x 4 with Left Internal Mammary Artery (CEBALLOS) to Left Anterior Descending (LAD), reverse saphenous vein graft to obtuse Marginal branch of the left Circumflex artery, reverse saphenous vein graft to the posterior Descending branch of the right Coronary artery, reverse saphenous vein graft to the Diagonal 2 branch of the LAD 2. Left leg Endoscopic Vein [place] 3. Intraoperative Vein Mapping. crystalloid 3500cc, 380cc cell saver 09/04 pt remains intubated, weaning in progress awake on low dose precedex remains on pressors / IABP 1:2 plan once pt extubated / eval for possible IABP removal on insulin gtt ASA, statin , no BB 2/2 hypotension 09/05 Doing well clinically Weaning norepinephrine as tolerated IABP pulled yesterday. Right groin soft without hematoma Out of bed to chair today Physical therapy Maintain chest tubes to drainage for now 12/2 More confused this morning. Likely some component of ICU psychosis in this elderly gentleman Some issues with swallowing. We will have speech evaluate Agree with transfusion and diuresis Physical therapy Keep in ICU for now 09/07 chest tubes dc without difficulty needs aggressive pulm toileting, concern for aspiration swallow eval pending , A&V wires left in place back in NSR, off milrinone, BP stable , fournier cath in place, on diuretics keep in ICU pt has HX tachy bina syndrome , discussed with Dr Mishra Objective: Vital Signs - 24 hr 09/06/18 11:00 09/06/18 14:12 09/06/18 15:00 Temperature 99 F Pulse Rate 109 H 103 H 111 H Respiratory Rate 16 18 16 Blood Pressure 146/60 H 140/60 Pulse Oximetry 96 95 09/06/18 19:00 09/06/18 19:43 09/06/18 20:00 Temperature 98.9 F Pulse Rate 101 H 98 H Respiratory Rate 22 16 Blood Pressure Pulse Oximetry 93 L 94 L 09/06/18 21:00 09/06/18 23:00 09/07/18 03:00 Temperature 98.9 F 98.2 F Pulse Rate 97 H 96 H 86 Respiratory Rate 22 22 Blood Pressure Pulse Oximetry 96 97 09/07/18 07:00 09/07/18 08:00 09/07/18 09:19 Temperature 98.2 F Pulse Rate 93 H 85 Respiratory Rate 18 16 Blood Pressure Pulse Oximetry 95 95 97 GENERAL: more alert , very congested SKIN: Warm and dry. prevena dressing to chest , incision intact to left leg HEAD: Normocephalic. EYES: No scleral icterus. No injection or drainage. NECK: Supple, trachea midline. No JVD or lymphadenopathy. CARDIOVASCULAR: Regular rate and rhythm without murmurs, gallops, or rubs. mild edema / A&V wires in place RESPIRATORY: Breath sounds equal bilaterally. very coarse breath sounds , non- productive No accessory muscle use. GASTROINTESTINAL: Abdomen soft, non-tender, nondistended. MUSCULOSKELETAL: No cyanosis, or edema. BACK: Nontender without obvious deformity. No CVA tenderness. Labs: Laboratory Results - last 12 hr 09/06/18 09/07/18 09/07/18 23:05 02:57 04:30 WBC 7.3 RBC 2.64 L Hgb 8.3 L Hct 23.3 L MCV 88.2 MCH 31.3 MCHC 35.5 RDW 15.3 Plt Count 107 L MPV 8.4 Sodium Potassium Chloride Carbon Dioxide Anion Gap BUN Creatinine Estimated GFR POC Glucose 149 H 122 H Random Glucose Calcium Phosphorus Magnesium Total Bilirubin AST ALT Alkaline Phosphatase Total Protein Albumin 09/07/18 09/07/18 04:30 06:30 WBC RBC Hgb Hct MCV MCH MCHC RDW Plt Count MPV Sodium 141 Potassium 3.4 L Chloride 109 H Carbon Dioxide 25.6 Anion Gap 6 BUN 21 H Creatinine 1.05 Estimated GFR 67 L POC Glucose 99 Random Glucose 104 Calcium 8.0 L Phosphorus 3.3 Magnesium 1.9 Total Bilirubin 1.2 H AST 47 H ALT 34 Alkaline Phosphatase 65 Total Protein 5.1 L D Albumin 2.4 L Result Diagrams: 09/07/18 04:30 09/07/18 04:30 Telemetry: NSR - Plan (3) Chest pain (6) Cardiogenic postoperative shock Plan: resolved PLAN: NEURO: -Minimize sedation use as needed IV morphine and Tylenol for pain - avoid long-acting sedatives RESP: -Aggressive pulmonary toilet -DuoNeb as needed - PT and OOB - wean o2 by nc for goal spo2 > 90% gentle diuresis CV: -aspirin. Lipitor 40 mg nightly -CABG x3 09/[address] Kimbrough - beta blockade - chest tube dc without difficulty milrinone dc -eval for permanent pacemaker, discussed with cardiology GI: -speech eval : -Monitor renal function closely. Strict I/O - d/c [place] ID: -Antibiotics perioperatively -SSI PROPH: -Protonix keep in CVICU for now (3) Chest pain Qualifiers: Chest pain type: unspecified Qualified Code(s): R07.9 - Chest pain, unspecified
[2018-09-07] MEDS: Metoprolol Tartrate 25 MG Tablet PO SCH ×3 (12:26→21:45)
--- NOTE | 2018-09-07 14:19 | ECG ---
Date Performed: 09/05/2018 Time Performed: 03:44:12 PTAGE: 87 years EKG: Sinus tachycardia Anterolateral ST-T changes are nonspecific Rate has increased since prior tracing with diffuse nonspecific ST-T wave changes, cannot exclude ischemia Borderline ECG PREVIOUS TRACING : 09/04/2018 04.34 DOCTOR: Reddy Singleton Interpretating Date/Time 09/07/2018 14:18:48
--- NOTE | 2018-09-07 20:22 | P.PNCA ---
Subjective Interval history: Asked to see for Dr. Worthy Doing well, notes reviewed from hospital course Milrinone off Medications and Allergies Active Medications: Active Medications Acetaminophen (Tylenol) 650 mg PO Q4H PRN PRN Reason: Temp > 100.4 Hydrocodone Bitart/Acetaminophen ([place] 5/325) 1 tab PO Q3H PRN PRN Reason: PAIN SCALE 6 TO 10 Last Admin: 09/05/18 16:07 Dose: 1 tab Albuterol (Duoneb Neb (Prn)) 1 ampul NEB Q2HR NEB PRN PRN Reason: WHEEZING Amlodipine Besylate (Norvasc) 2.5 mg PO DAILY [facility] Last Admin: 09/02/18 09:58 Dose: 2.5 mg Aspirin (Ecotrin) 81 mg PO DAILY [facility] Last Admin: 09/07/18 09:11 Dose: 81 mg Atorvastatin Calcium (Lipitor) 40 mg PO HS [facility] Last Admin: 09/06/18 23:01 Dose: Not Given Bisacodyl (Dulcolax Supp) 10 mg RECTAL DAILY PRN PRN Reason: SEVERE CONSITIPATION Chlorhexidine Gluconate (Hibiclens 4% Topical) 1 applicatio TOPICAL LOAD TESTER [facility] Stop: 09/08/18 12:20 Clopidogrel Bisulfate (Plavix) 75 mg PO DAILY [facility] Last Admin: 09/07/18 09:11 Dose: 75 mg Sodium Chloride 1,000 ml/ (Vancomycin HCl 1,000 mg) 0 ml IRRIGATION LOAD TESTER [facility] Stop: 09/08/18 12:21 Sodium Chloride 77.5 ml/Papaverine HCl 60 mg/Nitroglycerin 100 mcg/Diltiazem HCl 100 mg 0 ml IRRIGATION LOAD TESTER [facility] Stop: 09/08/18 12:20 Dextrose (D50w Vial) 50 ml IV.PUSH UNSCH PRN PRN Reason: PER HYPOGLYCEMIA PROTOCOL Doxazosin Mesylate (Cardura) 4 mg PO DAILY [facility] Last Admin: 09/07/18 09:11 Dose: 4 mg Finasteride (Proscar) 5 mg PO DAILY [facility] Last Admin: 09/07/18 09:11 Dose: 5 mg Glucagon (Glucagon Inj) 1 mg OTHER PRN PRN PRN Reason: for Hypoglycemia Protocol Heparin Sodium (Porcine) (Heparin Inj) 2,500 units IV.PUSH UNSCH PRN PRN Reason: aPTT 25-39 Heparin Sodium (Porcine) (Heparin Inj) 5,000 units IV.PUSH UNSCH PRN PRN Reason: aPTT < 25 Vancomycin HCl 1,000 mg/ (Sodium Chloride) 250 mls @ 250 mls/hr IV.SIG LOAD TESTER [facility] Stop: 09/08/18 12:21 Last Infusion: 09/05/18 00:00 Dose: Infused Sodium Chloride (Ns Inj) 1,000 mls @ 100 mls/hr IV.CONT .Q10H [facility] Last Admin: 09/03/18 20:21 Dose: Not Given Heparin Sodium/Dextrose (Heparin/D5w 25,000 U/250 Ml) 25,000 unit in 250 mls @ 0 mls/hr IV.CONT TITRATE PRN; Protocol PRN Reason: Per Protocol Last Titration: 09/03/18 13:30 Dose: Infused Magnesium Sulfate 4 gm/ Sodium (Chloride) 100 mls @ 50 mls/hr IV.SIG UNSCH PRN PRN Reason: For Magnesium 0.9 - 1.1 mg/dL Magnesium Sulfate 2 gm/ Sodium (Chloride) 100 mls @ 50 mls/hr IV.SIG UNSCH PRN PRN Reason: For Magnesium 1.2 - 1.6 mg/dL Last Infusion: 09/03/18 00:00 Dose: Infused Potassium Chloride (Kcl 40 Meq Premix Inj) 40 meq in 100 mls @ 25 mls/hr IV.SIG Q2H PRN PRN Reason: For Potassium 2.8 - 3.2 mEq/L Potassium Chloride (Kcl 20 Meq Premix Inj) 20 meq in 100 mls @ 50 mls/hr IV.SIG Q2H PRN PRN Reason: For Potassium 3.3 - 3.5 mEq/L Potassium Chloride (Kcl 40 Meq Premix Inj) 40 meq in 100 mls @ 25 mls/hr IV.SIG UNSCH PRN PRN Reason: For Potassium 3.3 - 3.5 mEq/L Last Admin: 09/07/18 06:49 Dose: 25 mls/hr Potassium Chloride (Kcl 20 Meq Premix Inj) 20 meq in 100 mls @ 50 mls/hr IV.SIG Q2H PRN PRN Reason: For Potassium 2.8 - 3.2 mEq/L Potassium Phosphate 30 mmol/ (Sodium Chloride) 260 mls @ 42 mls/hr IV.SIG UNSCH PRN PRN Reason: SEE LABEL COMMENTS Sodium Phosphate 30 mmol/ (Sodium Chloride) 260 mls @ 42 mls/hr IV.SIG UNSCH PRN PRN Reason: For Phosphorus < 2.5 mg/dL Phenylephrine HCl 40 mg/ (Dextrose) 500 mls @ 30 mls/hr IV.CONT TITRATE PRN; Protocol PRN Reason: Per Protocol Last Titration: 09/05/18 09:23 Dose: 0 mcg/min, 0 mls/hr Diltiazem HCl 125 mg/ Sodium (Chloride) 125 mls @ 5 mls/hr IV.CONT TITRATE PRN ; Protocol PRN Reason: Per Protocol Sodium Chloride (Ns Inj) 500 mls @ 30 mls/hr IV.SIG .Q10H [facility] Last Admin: 09/03/18 07:24 Dose: Not Given Dopamine HCl/Dextrose (Dopamine 800 Mg/500 Ml Premix) 800 mg in 500 mls @ 8.213 mls/hr IV.CONT TITRATE PRN; Protocol PRN Reason: Per Protocol Norepinephrine Bitartrate 16 (mg/ Dextrose) 250 mls @ 1.87 mls/hr IV.CONT TITRATE PRN; Protocol PRN Reason: See Protocol Last Titration: 09/05/18 12:49 Dose: 3 mcg/min, 2.81 mls/hr Insulin Aspart (Novolog Insulin Correctional Sugar Inj) 0 unit SQ 02,06,10,14, 18,22 [facility]; Protocol Last Admin: 09/07/18 17:31 Dose: Not Given Isosorbide Mononitrate (Imdur) 30 mg PO DAILY [facility] Last Admin: 09/07/18 09:11 Dose: 30 mg Levetiracetam (Keppra) 500 mg PO HS [facility] Last Admin: 09/06/18 23:01 Dose: Not Given Magnesium Oxide (Mag-Ox) 800 mg PO UNSCH PRN PRN Reason: For Magnesium 1.2 - 1.6 mg/dL Metoprolol Tartrate (Lopressor) 12.5 mg PO LOAD TESTER [facility] Stop: 09/08/18 12:21 Last Admin: 09/03/18 05:35 Dose: 12.5 mg Metoprolol Tartrate (Lopressor Inj) 2.5 mg IV.PUSH Q1H PRN PRN Reason: SEE LABEL COMMENTS Last Admin: 09/07/18 11:39 Dose: 2.5 mg Metoprolol Tartrate (Lopressor) 12.5 mg PO BID [facility] Last Admin: 09/07/18 12:26 Dose: Not Given Miscellaneous (Pill Splitter) 1 each OTHER PRN PRN PRN Reason: SEE LABEL COMMENTS Morphine Sulfate (Morphine Inj) 2 mg IV.PUSH Q4H PRN PRN Reason: BREAKTHROUGH PAIN Last Admin: 09/07/18 11:50 Dose: 2 mg Morphine Sulfate (Morphine Inj) 1 mg IV.PUSH Q10M PRN PRN Reason: PAIN SCALE 1 TO 5 Nitroglycerin (Nitrostat Sl (Override)) 0.4 mg SL Q5M PRN PRN Reason: Chest Pain Ondansetron HCl (Zofran Inj) 4 mg IV.PUSH Q6H PRN PRN Reason: NAUSEA OR VOMITING Pantoprazole Sodium (Protonix Inj) 40 mg IV.PUSH Q24H [facility] Last Admin: 09/06/18 23:00 Dose: 40 mg Pantoprazole Sodium (Protonix) 40 mg PO Q24H [facility] Potassium Bicarb/Potassium Chloride (K-Lyte Cl Eff) 50 meq PO UNSCH PRN PRN Reason: For Potassium 3.3 - 3.5 mEq/L Potassium Phosphate (K-Phos Original) 2,000 mg PO Q4H PRN PRN Reason: Phosphorus Less Than 2.5 mg/dL Potassium Phosphate (K-Phos Original) 2,000 mg PO UNSCH PRN PRN Reason: SEE LABEL COMMENTS Prochlorperazine (Compazine Supp) 25 mg RECTAL Q12HR PRN PRN Reason: NAUSEA OR VOMITING Sennosides (Senokot) 17.2 mg PO Q12H PRN PRN Reason: Moderate Constipation Sodium Chloride (Ns Flush) 2 ml IV.FLUSH BID [facility] Last Admin: 09/07/18 09:11 Dose: 2 ml Sodium Chloride (Ns Flush) 2 ml IV.FLUSH PRN PRN PRN Reason: FLUSH AFTER USING IV ACCESS Tamsulosin HCl (Flomax) 0.4 mg PO DAILY [facility] Last Admin: 09/07/18 09:11 Dose: 0.4 mg Terbutaline Sulfate (Brethine Inj) 1 mg SQ UNSCH PRN PRN Reason: For Extravasation Tramadol HCl (Ultram) 50 mg PO Q6H PRN PRN Reason: PAIN SCALE 1 TO 5 Last Admin: 09/02/18 18:26 Dose: 50 mg Allergies Allergy/AdvReac Type Severity Reaction Status Date / Time penicillin G Allergy Severe rash Verified 09/01/18 21:30 Home Medications Medication Instructions Recorded Confirmed Type amlodipine 2.5 mg PO DAILY 09/01/18 09/01/18 History aspirin [Aspir-Low] 81 mg PO DAILY 09/01/18 09/01/18 History doxazosin 4 mg PO DAILY 09/01/18 09/01/18 History finasteride 5 mg PO DAILY 09/01/18 09/01/18 History levetiracetam 500 mg PO HS 09/01/18 09/01/18 History nitroglycerin [Nitrostat] 0.4 mg SUBLINGUAL Q5-15M PRN 09/01/18 09/01/18 History tamsulosin 0.4 mg PO DAILY 09/01/18 09/01/18 History isosorbide mononitrate 30 mg PO DAILY 09/02/18 09/02/18 History Physical Exam Vital signs: Vital Signs 09/06/18 21:00 09/06/18 23:00 09/07/18 03:00 Temperature 98.9 F 98.2 F Pulse Rate 97 H 96 H 86 Respiratory Rate 22 22 Pulse Oximetry 96 97 09/07/18 07:00 09/07/18 08:00 09/07/18 09:19 Temperature 98.2 F Pulse Rate 93 H 85 Respiratory Rate 18 16 Pulse Oximetry 95 94 L 97 09/07/18 11:00 09/07/18 15:00 09/07/18 18:45 Temperature 98.4 F 98.0 F Pulse Rate 89 94 H Respiratory Rate 18 18 Pulse Oximetry 98 97 97 Intake & Output 09/07/18 09/07/18 09/08/18 06:59 18:59 06:59 Intake Total 250 / 250 850 / 850 Output Total 490 / 490 1450 / 1450 Balance -240 / -240 -600 / -600 Weight 82 kg Intake: IV 250 / 250 250 / 250 Cordarone Inj 450 MG In D5W Inj 250 / 250 250 / 250 241 ML @ 0.5 MG/MIN 16.66 mls/ hr IV.CONT CONT PRN Rx#: [id number] Oral 600 / 600 Output: Urine 1450 / 1450 Urine Amount (Catheter) 460 / 460 Indwelling Temp Sensing 460 / 460 Catheter Chest Tube Drainage 30 / 30 #1Y and #2Y Mediastinal Other: # Bowel Movements 0 Narrative: Gen: Lying in ICU bed no acute distress Head: Normocephalic. Atraumatic. EENT: Pupils equal round and reactive Cardiovascular: Regular rate and rhythm. No murmurs, rubs or gallops. Sinus rhythm with frequent PVCs. Prevena in place Respiratory: Lungs clear to auscultation bilaterally. No wheezes or rhonchi. Abdomen: Soft, nontender, nondistended. No peritoneal signs. Musculoskeletal: No gross deformities. No edema. Bilateral pedal pulses are palpable. No right groin hematoma at the IABP insertion site Skin: No obvious rashes or erythema. Neuro: Alert awake, denies any chest pain. Moves all 4 extremities - Urinary Catheter Management Indwelling Temp Sensing Catheter Cath placed during this visit: yes Reason for continuing: Hourly intake/output Insertion date: 09/02/18 Insertion time: 15:40 Indwelling Urethral Catheter Cath placed during this visit: no Reason for continuing: Hourly intake/output Results 09/07/18 04:30 09/07/18 04:30 Cardiac Enzymes 09/07/18 Range/Units 04:30 AST 47 H (15-37) U/L CBC 09/06/18 09/07/18 Range/Units 04:30 04:30 WBC 9.1 7.3 (4.0-11.0) th/mm3 RBC 2.42 L 2.64 L (4.50-5.90) mil/mm3 Hgb 7.3 L 8.3 L (13.0-17.0) gm/dL Hct 21.2 L 23.3 L (39.0-51.0) % Plt Count 87 L 107 L (150-450) th/mm3 Comprehensive Metabolic Panel 09/06/18 09/07/18 Range/Units 04:30 04:30 Sodium 139 141 (136-145) meq/L Potassium 3.9 3.4 L (3.5-5.1) meq/L Chloride 109 H 109 H (98-107) meq/L Carbon Dioxide 21.8 25.6 (21.0-32.0) meq/L BUN 23 H 21 H (7-18) mg/dL Creatinine 1.13 1.05 (0.60-1.30) mg/dL Calcium 7.8 L 8.0 L (8.5-10.1) mg/dL AST 47 H (15-37) U/L ALT 34 (12-78) U/L Alkaline Phosphatase 65 (45-117) U/L Total Protein 5.1 L D (6.4-8.2) g/dL Albumin 2.4 L (3.4-5.0) g/dL Intake and Output 09/07/18 09/07/18 09/07/18 06:59 14:59 22:59 Intake Total 250 / 250 250 / 250 600 / 600 Output Total 490 / 490 1450 / 1450 Balance -240 / -240 250 / 250 -850 / -850 Intake: IV 250 / 250 250 / 250 Cordarone Inj 450 MG In D5W Inj 250 / 250 250 / 250 241 ML @ 0.5 MG/MIN 16.66 mls/ hr IV.CONT CONT PRN Rx#: [id number] Oral 600 / 600 Output: Urine 1450 / 1450 Urine Amount (Catheter) 460 / 460 Indwelling Temp Sensing 460 / 460 Catheter Chest Tube Drainage 30 / 30 #1Y and #2Y Mediastinal 30 / 30 Other: # Bowel Movements 0 Weight 82 kg Assessment and Plan - Assessment (1) Tachy-bina syndrome Code(s): I49.5 - Sick sinus syndrome Status: Acute (2) Afib Code(s): I48.91 - Unspecified atrial fibrillation Status: Acute (3) Cardiogenic postoperative shock Code(s): T81.11XA - Postprocedural cardiogenic shock, initial encounter Status : Acute (4) CAD (coronary artery disease), [place] coronary artery Code(s): I25.10 - Atherosclerotic heart disease of [place] coronary artery without angina pectoris Status: Acute (5) S/P CABG x 4 Code(s): Z95.1 - Presence of aortocoronary bypass graft Status: Acute (6) Elevated troponin Code(s): R74.8 - Abnormal levels of other serum enzymes Status: Acute (7) Acute electrocardiogram changes Code(s): R94.31 - Abnormal electrocardiogram [ECG] [EKG] Status: Acute - Plan 1) CAD/NSTEMI s/p CABG x4 IABP removed post-surgery 2) Tachy-bina syndrome Had episodes of AFib with RVR while here Continue on Amiodarone Previously had rhythm analysis outpatient showing pauses of 6 seconds Will discuss with EP, but consideration of PPM seems reasonable while here due to the episodes 3) Afib For now, no anticoagulation due to anemia/thrombocytopenia Will need to be reevaluated inpt vs outpt
[2018-09-07] MEDS: levETIRAcetam 500 MG Tablet PO SCH (21:29)
[2018-09-07] MEDS: Pantoprazole Inj 40 MG Vial IV.PUSH SCH (21:46)
[2018-09-08 04:20] LABS: Hematocrit 25.6 % (39.0-51.0); Hemoglobin 8.9 gm/dL (13.0-17.0); Mean Corpuscular HGB Conc 34.5 % (32.0-36.0); Mean Corpuscular Hemoglobin 30.7 pg (27.0-34.0); Mean Corpuscular Volume 88.9 fL (80.0-100.0); Mean Platelet Volume 7.9 fL (7.0-11.0); Platelet Count 165 th/mm3 (150-450); Red Blood Count 2.88 mil/mm3 (4.50-5.90); White Blood Count 6.3 th/mm3 (4.0-11.0)
[2018-09-08 04:52] LABS: Albumin 2.3 g/dL (3.4-5.0); Anion Gap 7 meq/L (5-15); Aspartate Aminotransferase 58 U/L (15-37); Blood Urea Nitrogen 22 mg/dL (7-18); Carbon Dioxide 25.2 meq/L (21.0-32.0); Chloride 107 meq/L (98-107); Glomerular Filtration Rate 71 mL/min (>89); Glucose,Random 104 mg/dL (74-106); Potassium 3.2 meq/L (3.5-5.1); Sodium 139 meq/L (136-145)
[2018-09-08 04:54] LABS: Alanine Aminotransferase 53 U/L (12-78); Phosphorus 3.1 mg/dL (2.5-4.9)
[2018-09-08 04:57] LABS: Alkaline Phosphatase 76 U/L (45-117); Total Protein 5.5 g/dL (6.4-8.2)
--- NOTE | 2018-09-08 06:07 | XR ---
EXAM DATE: 09/08/2018 5:58 AM EST AGE/SEX: 87 years / Male INDICATIONS: Evaluate for pneumothorax. CLINICAL DATA: This is the patient's subsequent encounter. Patient reports that signs and symptoms h ave been present for 1 week and indicates a pain score of 7/10. MEDICAL/SURGICAL HISTORY: Hypertension. Diabetes mellitus type II. Stroke. Intracranial hemo rrhage. Coronary artery disease. A-Fib. CABG. Loop recorder. COMPARISON: C, CHEST 1V SINGLE AP, 09/04/2018. . FINDINGS: A single AP view of the chest demonstrates interval extubation and removal of the nasogastric tube as well as the left thoracostomy tube. Right-sided central line remains. No pneumothorax. Small left ef fusion with bibasilar consolidations. The left basilar consolidation is more pronounced from the prio r study. An electronic device overlies the left heart border. Median sternotomy wires are noted. CONCLUSION: 1. No pneumothorax following left chest tube removal. 2. Left pleural effusion and bibasilar consolidations. The left lower lobe consolidation has progres sed. Electronically signed by: Nahun Ball MD 09/08/2018 6:06 AM EST
[2018-09-08] MEDS: Potassium Chlor 20 mEq Premix 20 MEQ/100 ML PIGGYBACK IV.SIG PRN ×4 (06:54→14:27)
[2018-09-08] MEDS: Insulin NovoLOG Aspart Correctional Sugar Inj SQ SCH ×6 (07:59→22:18)
[2018-09-08] MEDS: Doxazosin 4 MG Tablet PO SCH (08:54)
[2018-09-08] MEDS: Isosorbide Mononitrate 30 MG ER 24HR Tablet (Imdur) PO SCH (08:55)
[2018-09-08] MEDS: Metoprolol Tartrate 25 MG Tablet PO SCH ×2 (08:56→21:58)
[2018-09-08] MEDS: Finasteride 5 MG Tablet PO SCH (08:57)
[2018-09-08] MEDS: Levofloxacin 500 mg Premix Inj 500 MG/100 ML PIGGYBACK IV.SIG SCH (12:00)
--- NOTE | 2018-09-08 14:50 | P.PNCV ---
- Note Subjective/Hospital Course: 87-year-old male patient of Dr. Rosibel Liu, Dr. Alhaji Mahmood, Dr. Oliver Vargas. History of coronary artery disease, recently developed some new onset of angina. He is an avid swimmer which developed over a couple weeks ago. He was placed on dual antianginal therapy and he also has a history of some paroxysmal atrial fibrillation. The loop recorder showed a rate up to 146 in July, which he was entirely asymptomatic. They discussed permanent pacemaker, but he wanted to wait until after for that to be placed. He underwent elective cardiac catheterization today by Dr. Worthy, which showed a left main disease of 75%, proximal LAD 95%, mid distal LAD 70%, RCA 75%. We were consulted to evaluate for coronary artery bypass grafting x3. The patient had an intraaortic balloon pump placed to the right groin, which is currently at a 1:1 augmentation. EF 55% PAST MEDICAL HISTORY: Includes paroxysmal atrial fibrillation, sick sinus syndrome, diabetes mellitus type 2, hyperlipidemia, hypertension. He had a history of intracranial hemorrhage in 2009, had a CVA also following that in 2017. 09/03 surgery : SURGICAL PROCEDURE 1. Urgent Off-pump Coronary Artery Bypass Grafting x 4 with Left Internal Mammary Artery (CEBALLOS) to Left Anterior Descending (LAD), reverse saphenous vein graft to obtuse Marginal branch of the left Circumflex artery, reverse saphenous vein graft to the posterior Descending branch of the right Coronary artery, reverse saphenous vein graft to the Diagonal 2 branch of the LAD 2. Left leg Endoscopic Vein [place] 3. Intraoperative Vein Mapping. crystalloid 3500cc, 380cc cell saver 09/04 pt remains intubated, weaning in progress awake on low dose precedex remains on pressors / IABP 1:2 plan once pt extubated / eval for possible IABP removal on insulin gtt ASA, statin , no BB 2/2 hypotension 09/05 Doing well clinically Weaning norepinephrine as tolerated IABP pulled yesterday. Right groin soft without hematoma Out of bed to chair today Physical therapy Maintain chest tubes to drainage for now 12/2 More confused this morning. Likely some component of ICU psychosis in this elderly gentleman Some issues with swallowing. We will have speech evaluate Agree with transfusion and diuresis Physical therapy Keep in ICU for now 09/07 chest tubes dc without difficulty needs aggressive pulm toileting, concern for aspiration swallow eval pending , A&V wires left in place back in NSR, off milrinone, BP stable , fournier cath in place, on diuretics keep in ICU pt has HX tachy bina syndrome , discussed with Dr Mishra 09/08 now on thickened liquids, still with congested cough , but improved on 02 3 liters for permanent pacer today eval for transfer out of CVICU in am check sputum, add levaquin pulm toileting / CXR noted, has some left lower lobe consolidation will need rehab at discharge Objective: Vital Signs - 24 hr 09/07/18 15:00 09/07/18 18:45 09/07/18 19:00 Temperature 98.0 F 100.0 F H Pulse Rate 94 H 85 Respiratory Rate 18 18 Blood Pressure Pulse Oximetry 97 97 97 09/07/18 20:00 09/07/18 21:53 09/07/18 23:00 Temperature 98.9 F Pulse Rate 84 86 Respiratory Rate 22 18 Blood Pressure Pulse Oximetry 95 96 96 09/08/18 03:00 09/08/18 07:00 09/08/18 08:00 Temperature 99.0 F 98.3 F Pulse Rate 87 86 Respiratory Rate 18 16 Blood Pressure 121/66 Pulse Oximetry 95 97 96 09/08/18 10:24 09/08/18 10:25 09/08/18 11:00 Temperature 98.2 F Pulse Rate 79 92 H Respiratory Rate 20 18 Blood Pressure 106/62 Pulse Oximetry 94 L 96 GENERAL: A&O x 3 SKIN: Warm and dry. prevena dressing to chest , incision intact to left leg HEAD: Normocephalic. EYES: No scleral icterus. No injection or drainage. NECK: Supple, trachea midline. No JVD or lymphadenopathy. CARDIOVASCULAR: Regular rate and rhythm without murmurs, gallops, or rubs. A&V wires removed RESPIRATORY: Breath sounds equal bilaterally. No accessory muscle use. coarse bilateral breath sounds / GASTROINTESTINAL: Abdomen soft, non-tender, nondistended. MUSCULOSKELETAL: No cyanosis, or edema. BACK: Nontender without obvious deformity. No CVA tenderness. Labs: Laboratory Results - last 12 hr 09/08/18 09/08/18 09/08/18 03:15 04:00 04:00 WBC 6.3 RBC 2.88 L Hgb 8.9 L Hct 25.6 L MCV 88.9 MCH 30.7 MCHC 34.5 RDW 15.0 Plt Count 165 D MPV 7.9 Sodium 139 Potassium 3.2 L Chloride 107 Carbon Dioxide 25.2 Anion Gap 7 BUN 22 H Creatinine 1.00 Estimated GFR 71 L POC Glucose 153 H Random Glucose 104 Calcium 8.0 L Phosphorus 3.1 Magnesium 2.0 Total Bilirubin 1.4 H AST 58 H ALT 53 Alkaline Phosphatase 76 Total Protein 5.5 L Albumin 2.3 L 09/08/18 09/08/18 12:07 14:37 WBC RBC Hgb Hct MCV MCH MCHC RDW Plt Count MPV Sodium Potassium Chloride Carbon Dioxide Anion Gap BUN Creatinine Estimated GFR POC Glucose 183 H 89 Random Glucose Calcium Phosphorus Magnesium Total Bilirubin AST ALT Alkaline Phosphatase Total Protein Albumin Result Diagrams: 09/08/18 04:00 09/08/18 04:00 Telemetry: NSR - Plan (3) Chest pain (6) Cardiogenic postoperative shock Plan: resolved PLAN: NEURO: -Minimize sedation use Tylenol for pain RESP: -Aggressive pulmonary toilet -DuoNeb as needed/ add mucomyst - PT and OOB - wean o2 by nc for goal spo2 > 90% CV: -aspirin. Lipitor 40 mg nightly -CABG x3 09/03 - beta blockade - chest tube dc without difficulty for permanent pacemaker today / discussed with cardiology GI: -speech eval / ok for thickened liguids : -Monitor renal function closely. Strict I/O - d/c [place] ID: -Antibiotics add levaquin / possible aspiration -SSI PROPH: -Protonix keep in CVICU for now (3) Chest pain Qualifiers: Chest pain type: unspecified Qualified Code(s): R07.9 - Chest pain, unspecified Documented By: Candice Dodge APRN 09/07/18 1048 Signed By: <Electronically signed by Candice Dodge> 09/07/18 1059 <Electronically signed by Mc Kimbrough MD> 09/08/18 0804 (3) Chest pain Qualifiers: Chest pain type: unspecified Qualified Code(s): R07.9 - Chest pain, unspecified
--- NOTE | 2018-09-08 14:51 | P.PNCA ---
Subjective Interval history: No events overnight Heart rates stable Medications and Allergies Active Medications: Active Medications Acetaminophen (Tylenol) 650 mg PO Q4H PRN PRN Reason: Temp > 100.4 Acetylcysteine (Mucomyst 10% Neb) 2 ml NEB Q6HR NEB [facility] Albuterol (Duoneb Neb (Prn)) 1 ampul NEB Q2HR NEB PRN PRN Reason: wheezing Last Admin: 09/08/18 10:26 Dose: 1 ampul Albuterol (Duoneb Neb (Kalin)) 1 ampul NEB Q6HR WHILE AWAKE [facility] Amlodipine Besylate (Norvasc) 2.5 mg PO DAILY [facility] Last Admin: 09/02/18 09:58 Dose: 2.5 mg Aspirin (Ecotrin) 81 mg PO DAILY [facility] Last Admin: 09/08/18 08:56 Dose: 81 mg Atorvastatin Calcium (Lipitor) 40 mg PO HS [facility] Last Admin: 09/07/18 21:29 Dose: 40 mg Bisacodyl (Dulcolax Supp) 10 mg RECTAL DAILY PRN PRN Reason: SEVERE CONSITIPATION Clopidogrel Bisulfate (Plavix) 75 mg PO DAILY [facility] Last Admin: 09/08/18 08:54 Dose: 75 mg Dextrose (D50w Vial) 50 ml IV.PUSH UNSCH PRN PRN Reason: PER HYPOGLYCEMIA PROTOCOL Doxazosin Mesylate (Cardura) 4 mg PO DAILY [facility] Last Admin: 09/08/18 08:54 Dose: 4 mg Finasteride (Proscar) 5 mg PO DAILY [facility] Last Admin: 09/08/18 08:57 Dose: 5 mg Glucagon (Glucagon Inj) 1 mg OTHER PRN PRN PRN Reason: for Hypoglycemia Protocol Sodium Chloride (Ns Inj) 1,000 mls @ 100 mls/hr IV.CONT .Q10H [facility] Last Admin: 09/03/18 20:21 Dose: Not Given Magnesium Sulfate 4 gm/ Sodium (Chloride) 100 mls @ 50 mls/hr IV.SIG UNSCH PRN PRN Reason: For Magnesium 0.9 - 1.1 mg/dL Magnesium Sulfate 2 gm/ Sodium (Chloride) 100 mls @ 50 mls/hr IV.SIG UNSCH PRN PRN Reason: For Magnesium 1.2 - 1.6 mg/dL Last Infusion: 09/03/18 00:00 Dose: Infused Potassium Chloride (Kcl 40 Meq Premix Inj) 40 meq in 100 mls @ 25 mls/hr IV.SIG Q2H PRN PRN Reason: For Potassium 2.8 - 3.2 mEq/L Potassium Chloride (Kcl 20 Meq Premix Inj) 20 meq in 100 mls @ 50 mls/hr IV.SIG Q2H PRN PRN Reason: For Potassium 3.3 - 3.5 mEq/L Potassium Chloride (Kcl 40 Meq Premix Inj) 40 meq in 100 mls @ 25 mls/hr IV.SIG UNSCH PRN PRN Reason: For Potassium 3.3 - 3.5 mEq/L Last Admin: 09/07/18 06:49 Dose: 25 mls/hr Potassium Chloride (Kcl 20 Meq Premix Inj) 20 meq in 100 mls @ 50 mls/hr IV.SIG Q2H PRN PRN Reason: For Potassium 2.8 - 3.2 mEq/L Last Admin: 09/08/18 14:27 Dose: 50 mls/hr Potassium Phosphate 30 mmol/ (Sodium Chloride) 260 mls @ 42 mls/hr IV.SIG UNSCH PRN PRN Reason: SEE LABEL COMMENTS Sodium Phosphate 30 mmol/ (Sodium Chloride) 260 mls @ 42 mls/hr IV.SIG UNSCH PRN PRN Reason: For Phosphorus < 2.5 mg/dL Phenylephrine HCl 40 mg/ (Dextrose) 500 mls @ 30 mls/hr IV.CONT TITRATE PRN; Protocol PRN Reason: Per Protocol Last Titration: 09/05/18 09:23 Dose: 0 mcg/min, 0 mls/hr Sodium Chloride (Ns Inj) 500 mls @ 30 mls/hr IV.SIG .Q10H [facility] Last Admin: 09/03/18 07:24 Dose: Not Given Norepinephrine Bitartrate 16 (mg/ Dextrose) 250 mls @ 1.87 mls/hr IV.CONT TITRATE PRN; Protocol PRN Reason: See Protocol Last Titration: 09/05/18 12:49 Dose: 3 mcg/min, 2.81 mls/hr Levofloxacin/Dextrose (Levaquin 500 Mg Premix Inj) 500 mg in 100 mls @ 100 mls/ hr IV.SIG Q24H [facility] Stop: 09/15/18 09:59 Last Admin: 09/08/18 12:00 Dose: 100 mls/hr Insulin Aspart (Novolog Insulin Correctional Sugar Inj) 0 unit SQ 02,06,10,14, 18,22 [facility]; Protocol Last Admin: 09/08/18 12:10 Dose: 9 unit Levetiracetam (Keppra) 500 mg PO HS [facility] Last Admin: 09/07/18 21:29 Dose: 500 mg Magnesium Oxide (Mag-Ox) 800 mg PO UNSCH PRN PRN Reason: For Magnesium 1.2 - 1.6 mg/dL Metoprolol Tartrate (Lopressor Inj) 2.5 mg IV.PUSH Q1H PRN PRN Reason: SEE LABEL COMMENTS Last Admin: 09/07/18 11:39 Dose: 2.5 mg Metoprolol Tartrate (Lopressor) 12.5 mg PO BID [facility] Last Admin: 09/08/18 08:56 Dose: 12.5 mg Miscellaneous (Pill Splitter) 1 each OTHER PRN PRN PRN Reason: SEE LABEL COMMENTS Morphine Sulfate (Morphine Inj) 2 mg IV.PUSH Q4H PRN PRN Reason: BREAKTHROUGH PAIN Last Admin: 09/07/18 11:50 Dose: 2 mg Nitroglycerin (Nitrostat Sl (Override)) 0.4 mg SL Q5M PRN PRN Reason: Chest Pain Ondansetron HCl (Zofran Inj) 4 mg IV.PUSH Q6H PRN PRN Reason: NAUSEA OR VOMITING Pantoprazole Sodium (Protonix Inj) 40 mg IV.PUSH Q24H [facility] Last Admin: 09/07/18 21:46 Dose: Not Given Pantoprazole Sodium (Protonix) 40 mg PO Q24H [facility] Last Admin: 09/07/18 21:29 Dose: 40 mg Potassium Bicarb/Potassium Chloride (K-Lyte Cl Eff) 50 meq PO UNSCH PRN PRN Reason: For Potassium 3.3 - 3.5 mEq/L Potassium Phosphate (K-Phos Original) 2,000 mg PO Q4H PRN PRN Reason: Phosphorus Less Than 2.5 mg/dL Potassium Phosphate (K-Phos Original) 2,000 mg PO UNSCH PRN PRN Reason: SEE LABEL COMMENTS Prochlorperazine (Compazine Supp) 25 mg RECTAL Q12HR PRN PRN Reason: NAUSEA OR VOMITING Sennosides (Senokot) 17.2 mg PO Q12H PRN PRN Reason: Moderate Constipation Sodium Chloride (Ns Flush) 2 ml IV.FLUSH BID [facility] Last Admin: 09/08/18 08:56 Dose: 2 ml Sodium Chloride (Ns Flush) 2 ml IV.FLUSH PRN PRN PRN Reason: FLUSH AFTER USING IV ACCESS Tamsulosin HCl (Flomax) 0.4 mg PO DAILY [facility] Last Admin: 09/08/18 08:54 Dose: 0.4 mg Terbutaline Sulfate (Brethine Inj) 1 mg SQ UNSCH PRN PRN Reason: For Extravasation Tramadol HCl (Ultram) 50 mg PO Q6H PRN PRN Reason: PAIN SCALE 1 TO 5 Last Admin: 09/02/18 18:26 Dose: 50 mg Allergies Allergy/AdvReac Type Severity Reaction Status Date / Time penicillin G Allergy Severe rash Verified 09/01/18 21:30 Home Medications Medication Instructions Recorded Confirmed Type amlodipine 2.5 mg PO DAILY 09/01/18 09/01/18 History aspirin [Aspir-Low] 81 mg PO DAILY 09/01/18 09/01/18 History doxazosin 4 mg PO DAILY 09/01/18 09/01/18 History finasteride 5 mg PO DAILY 09/01/18 09/01/18 History levetiracetam 500 mg PO HS 09/01/18 09/01/18 History nitroglycerin [Nitrostat] 0.4 mg SUBLINGUAL Q5-15M PRN 09/01/18 09/01/18 History tamsulosin 0.4 mg PO DAILY 09/01/18 09/01/18 History isosorbide mononitrate 30 mg PO DAILY 09/02/18 09/02/18 History Physical Exam Vital signs: Vital Signs 09/07/18 15:00 09/07/18 18:45 09/07/18 19:00 Temperature 98.0 F 100.0 F H Pulse Rate 94 H 85 Respiratory Rate 18 18 Blood Pressure Pulse Oximetry 97 97 97 09/07/18 20:00 09/07/18 21:53 09/07/18 23:00 Temperature 98.9 F Pulse Rate 84 86 Respiratory Rate 22 18 Blood Pressure Pulse Oximetry 95 96 96 09/08/18 03:00 09/08/18 07:00 09/08/18 08:00 Temperature 99.0 F 98.3 F Pulse Rate 87 86 Respiratory Rate 18 16 Blood Pressure 121/66 Pulse Oximetry 95 97 96 09/08/18 10:24 09/08/18 10:25 09/08/18 11:00 Temperature 98.2 F Pulse Rate 79 92 H Respiratory Rate 20 18 Blood Pressure 106/62 Pulse Oximetry 94 L 96 Intake & Output 09/07/18 09/08/18 09/08/18 18:59 06:59 18:59 Intake Total 850 / 850 240 / 240 300 / 300 Output Total 1450 / 1450 440 / 440 Balance -600 / -600 -200 / -200 300 / 300 Weight 82.5 kg Intake: IV 250 / 250 300 / 300 Cordarone Inj 450 MG In D5W Inj 250 / 250 241 ML @ 0.5 MG/MIN 16.66 mls/ hr IV.CONT CONT PRN Rx#: [id number] KCl 20 mEq Premix Inj 20 meq In 300 / 300 100 ml @ 50 mls/hr IV.SIG Q2H PRN Rx#:[id number] Oral 600 / 600 240 / 240 Output: Urine 1450 / 1450 Urine Amount (Catheter) 440 / 440 Indwelling Temp Sensing 440 / 440 Catheter Other: Date of Last Bowel Movement 09/08/15 09/08/18 # Bowel Movements 0 Narrative: Gen: Lying in ICU bed no acute distress Head: Normocephalic. Atraumatic. EENT: Pupils equal round and reactive Cardiovascular: Regular rate and rhythm. No murmurs, rubs or gallops. Sinus rhythm with frequent PVCs. Prevena in place Respiratory: Lungs clear to auscultation bilaterally. No wheezes or rhonchi. Abdomen: Soft, nontender, nondistended. No peritoneal signs. Musculoskeletal: No gross deformities. No edema. Bilateral pedal pulses are palpable. No right groin hematoma at the IABP insertion site Skin: No obvious rashes or erythema. Neuro: Alert awake, denies any chest pain. Moves all 4 extremities - Urinary Catheter Management Indwelling Temp Sensing Catheter Cath placed during this visit: yes, but has since been removed by the nurse Reason for continuing: Not indwelling catheter Insertion date: 09/02/18 Insertion time: 15:40 Removal date: 09/08/18 Removal time: 08:30 Indwelling Urethral Catheter Cath placed during this visit: no Reason for continuing: Hourly intake/output Results 09/08/18 04:00 09/08/18 04:00 Cardiac Enzymes 09/07/18 09/08/18 Range/Units 04:30 04:00 AST 47 H 58 H (15-37) U/L CBC 09/07/18 09/08/18 Range/Units 04:30 04:00 WBC 7.3 6.3 (4.0-11.0) th/mm3 RBC 2.64 L 2.88 L (4.50-5.90) mil/mm3 Hgb 8.3 L 8.9 L (13.0-17.0) gm/dL Hct 23.3 L 25.6 L (39.0-51.0) % Plt Count 107 L 165 D (150-450) th/mm3 Comprehensive Metabolic Panel 09/07/18 09/08/18 Range/Units 04:30 04:00 Sodium 141 139 (136-145) meq/L Potassium 3.4 L 3.2 L (3.5-5.1) meq/L Chloride 109 H 107 (98-107) meq/L Carbon Dioxide 25.6 25.2 (21.0-32.0) meq/L BUN 21 H 22 H (7-18) mg/dL Creatinine 1.05 1.00 (0.60-1.30) mg/dL Calcium 8.0 L 8.0 L (8.5-10.1) mg/dL AST 47 H 58 H (15-37) U/L ALT 34 53 (12-78) U/L Alkaline Phosphatase 65 76 (45-117) U/L Total Protein 5.1 L D 5.5 L (6.4-8.2) g/dL Albumin 2.4 L 2.3 L (3.4-5.0) g/dL Intake and Output 09/07/18 09/08/18 09/08/18 22:59 06:59 14:59 Intake Total 600 / 600 240 / 240 300 / 300 Output Total 1450 / 1450 440 / 440 Balance -850 / -850 -200 / -200 300 / 300 Intake: IV 300 / 300 KCl 20 mEq Premix Inj 20 meq In 300 / 300 100 ml @ 50 mls/hr IV.SIG Q2H PRN Rx#:[id number] Oral 600 / 600 240 / 240 Output: Urine 1450 / 1450 Urine Amount (Catheter) 440 / 440 Indwelling Temp Sensing 440 / 440 Catheter Other: Date of Last Bowel Movement 09/08/15 09/08/18 # Bowel Movements 0 Weight 82.5 kg - Imaging and Cardiology Imaging: Impressions Chest X-Ray 09/08/18 06:00 CONCLUSION: 1. No pneumothorax following left chest tube removal. 2. Left pleural effusion and bibasilar consolidations. The left lower lobe consolidation has progressed. Assessment and Plan - Assessment (1) Tachy-bina syndrome Code(s): I49.5 - Sick sinus syndrome Status: Acute (2) Afib Code(s): I48.91 - Unspecified atrial fibrillation Status: Acute (3) Cardiogenic postoperative shock Code(s): T81.11XA - Postprocedural cardiogenic shock, initial encounter Status : Acute (4) CAD (coronary artery disease), [place] coronary artery Code(s): I25.10 - Atherosclerotic heart disease of [place] coronary artery without angina pectoris Status: Acute (5) S/P CABG x 4 Code(s): Z95.1 - Presence of aortocoronary bypass graft Status: Acute (6) Elevated troponin Code(s): R74.8 - Abnormal levels of other serum enzymes Status: Acute (7) Acute electrocardiogram changes Code(s): R94.31 - Abnormal electrocardiogram [ECG] [EKG] Status: Acute - Plan 1) CAD/NSTEMI s/p CABG x4 IABP removed post-surgery 2) Tachy-bina syndrome Had episodes of AFib with RVR while here Continue on Amiodarone Previously had rhythm analysis outpatient showing pauses of [address] Velasco, will see and consider PPM 3) Afib For now, no anticoagulation due to anemia/thrombocytopenia Will need to be reevaluated inpt vs outpt
[2018-09-08] MEDS: RESP: Acetylcysteine 10% 4 ML Neb NEB SCH ×2 (16:51→21:16)
[2018-09-08] MEDS ORDERED: Ketamine Inj 500 MG/10 ML Vial ONE (18:48)
[2018-09-08] MEDS ORDERED: Lidocaine 2% Inj 50 ML Vial ONE (18:56)
[2018-09-08] MEDS ORDERED: Sodium Chlor 0.9% Inj 250 ML ONE (18:56)
[2018-09-08] MEDS ORDERED: Heparin/NS PF Inj 500 ML ONE (19:11)
--- NOTE | 2018-09-08 19:12 | MB ---
cc: Ernestine Velasco MD DATE: 09/08/2018 REASON FOR CONSULTATION: AV block. HISTORY OF PRESENT ILLNESS: Mr. Webb is an 87-year-old gentleman with a history of coronary artery disease, status post coronary artery bypass grafting, previous episode of symptomatic bradycardia. The patient was seen in the past by Dr. Worthy. History of paroxysmal atrial fibrillation, high blood pressure, hyperlipidemia intracranial hemorrhage in 2010, history of lacunar infarct. The patient developed multiple episodes of bradycardia during hospitalization. Tachybrady suspected. Apparently before surgery, there was some conversation about possible pacemaker for the same issue. I was consulted for evaluation and management. The chart was reviewed. The patient was evaluated. ALLERGIES: NONE. SOCIAL HISTORY: The patient never smoked. Drinks occasionally. FAMILY HISTORY: Noncontributory to his current medical condition. MEDICATIONS: This gentleman is currently on: 1. Acetaminophen. 2. Albuterol inhaler. 3. Norvasc 2.5 mg a day. 4. Aspirin 81 mg a day. 5. Lipitor 40 mg a day. 6. Plavix 75 mg a day. 7. Cardizem IV. 8. Cardura 4 mg a day. 9. Levofloxacin. 10. Keppra 500 mg at bedtime. 11. Metoprolol 12.5 mg twice a day. REVIEW OF SYSTEMS: According to the patient, no chest pains, fever, feeling tired. No chest discomfort. No fever. PHYSICAL EXAMINATION: GENERAL: Alert, fully oriented. VITAL SIGNS: Blood pressure 127/65, pulse 88, respiratory rate 18. LUNGS: Ventilated. CARDIOVASCULAR: S1, S2. No gallop. No murmur. ABDOMEN: Soft. No mass. EXTREMITIES: With minimal edema. There is some swelling from the surgery. DIAGNOSTIC DATA: Telemetry shows sinus rhythm. Multiple strips indicate severe bradycardia and pauses. Electrocardiogram indicated atrial fibrillation with fast ventricular response. LABORATORY DATA: Hemoglobin is 8.9. White blood cell 6.3. INR is 1.2. Potassium is 3.2, creatinine is 1.0. 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 He is going to be in need of negative chronotropic medication. Also, he has multiple pauses and severe bradycardia. Permanent pacemaker discussed with him. The risks, the nature and the benefits of the procedure were clearly said to him, risks included pneumothorax, cardiac perforation, stroke and even . He understood and agreed to proceed. I discussed with him the option of putting a Micra single-chamber cardiac pacemaker. That would ____ manage his ____ rate response. MD FRANCINE Nielsen/jerrod/deon , 05:25 PM , 05:35 PM
[2018-09-08] MEDS ORDERED: Heparin 10,000 UNITS/10 ML Vial (for IV use) ONE (19:24)
--- NOTE | 2018-09-08 19:51 | CATHPROC ---
[employer] 3 HIS Report Study Information Study Number Admission Scheduled Start Study Start [id number] Sep 01 2018 10:26PM 09/08/2018 Sep 08 2018 4:19PM [place] Service Cardiac Pacer/ICD Admit Source Facility Department Other [facility] - Vice President Digital Strategist Physician and Clinical Staff Initial Ernestine Osorio Ecommerce Merchandising Manager Michael Chawla,RT(R) Other Anesthesia, MANAGER ENVIRONMENTAL Recorder Sis Serna,[place] Scrub Madhuri Coronado,FREDERIC Procedures Performed Procedure Location (Site) Vessel Name Venogram RV Ventricle Wire insertion Fem Vein (right) Femoral Vein Equipment Time Casino Floor Supervisor Description Size Mfg Part Number Used/Scraped BIOSENSE MAST [id number] 19:04 SET, TUBING COOLFLOW * Used INC. *[id number] 16:21 COOK/PACER DILATOR SET (MICRA) FR8-12 Used *[id number] WIRE, GUIDE AMPLATZ STIFF [id number] 16:21 COOK/PACER 3MMJ Used 180CM *[id number] 16:21 SkyBridge BLANKET,WARM AIR CCL * Used *[id number] 16:21 SkyBridge PACK, CCL CUSTOM * Used *[id number] 16:21 Calm PACER SANCHES, LIMB * 2530 *[id number] Used [id number] 16:21 NAMIC TUBING, HIGH PRESSURE 20" 20" Used *[id number] 16:21 NYCOMED OMNIPAQUE, 300 MG, 50ML 50ML [id number] Used SUTURE, 0 ETHIBOND [CT1] (CX21D), 8pk 16:21 VITATRON MEDTRONIC MONITOR, PACEMAKER\\ICD 06721 *[id number] Used SYSTEM, TRANS-CATHETER [id number] 16:21 VITATRON MEDTRONIC Used PACING (MICRA) *[id number] History: Allergies Allergy Reaction Penicillin rash penicillin G rash History: Risk Factors Hypertension Dyslipidemia Yes Yes Diabetes Labs Hgb (g/dl) Hct (%) RBC (MIL/MM3) WBC (l/cumm) Platelets (thousands) 11.60-17.00 35.00-51.00 4.00-5.90 4.00-11.00 150.00-450.00 8.9 25.6 2.8 6.3 165 Glucose (mg/dl) BUN (mg/dl) Creatinine (mg/dl) BUN:Creatinine (1:x) 74.00-106.00 7.00-18.00 0.50-1.30 10.00-20.00 183 22 1.0 22 Na (meq/l) K (meq/l) 136.00-145.00 3.50-5.10 139 3.2 INR (PTT:PT) 0.90-1.10 1.2 Medication Medication Total Dose (Bolus/Oral) Medication Total Dosage/Unit 2% XYLOCAINE 100 mL HEPARIN 3000 units Medications (Bolus/Oral) Medication Time Given Dosage/Unit Administered By Reason 2% XYLOCAINE 09/08/2018 7:15:44 PM 50 mL Ernestine Velasco 50 mL 2% XYLOCAINE given in lab by Ernestine Velasco in Right Groin via Subcutaneous. HEPARIN 09/08/2018 7:23:38 PM 3000 units Anesthesia, MANAGER ENVIRONMENTAL As per physicians ve rbal order 3000 units HEPARIN given in lab by Anesthesia, MANAGER ENVIRONMENTAL via Central IV. Ordered by Ernestine Velasco. Reason: As per physicians verbal order. 2% XYLOCAINE 09/08/2018 7:41:14 PM 50 mL Ernestine Velasco 50 mL 2% XYLOCAINE given in lab by Ernsetine Velasco in Left upper chest via Subcutaneous. Medication (Drip) Medication Time Given Dosage/Unit Concentration/Unit Diluent (ml) Solution LEVAQUIN 09/08/2018 7:10:11 PM 100 mL/hr 500 100 NaCl .9 100 mL/hr LEVAQUIN given in lab by Anesthesia, MANAGER ENVIRONMENTAL via Central IV. Pump/Drip Flow = 0 ml/hr using Na Cl .9 with a concentration of 500 in 100 ml. Ordered by Ernestine Velasco. Reason: As per physicians verbal order. VANCOMYCIN DRIP 09/08/2018 7:00:30 PM 1 g 1 g VANCOMYCIN DRIP given in lab by Anesthesia, MANAGER ENVIRONMENTAL via Central IV. Ordered by Ernestine Velasco. Reason : As per physicians verbal order. Initial Case Assessment Cardiovascular HR Rhythm NIBP Chest Pain [address] st 132/62 0 Edema Present Skin color Skin None Normal Warm Circulatory - Right Pulses Dorsalis Pedis Radial 1 1 Scale (0,1,2,3,4,d) Circulatory - Left Pulses Dorsalis Pedis Radial 1 1 Scale (0,1,2,3,4,d) Circulatory - Lower Extremities Color Lower Right Color Lower Left Normal Normal Neurological State Oriented to time-place- Alert Moves all extremities person Respiration - General Respiration Rate SpO2 (%) O2 (lpm) (B/min) 18 92 4 Final Case Assessment Cardiovascular HR Rhythm NIBP Chest Pain 82 sr 90/50 0 Edema Present Skin color Skin None Normal Warm Dry Circulatory - Right Pulses Dorsalis Pedis 1 Scale (0,1,2,3,4,d) Circulatory - Left Pulses Dorsalis Pedis 1 Scale (0,1,2,3,4,d) Circulatory - Lower Extremities Color Lower Right Color Lower Left Normal Normal Neurological State Drowsy Comment: under care of anesthesia Respiration - General Respiration Rate SpO2 (%) O2 (lpm) (B/min) 16 93 6 Chronological Log Time Study Chronological Log 18:41:34 Patient arrived via Bed. 18:41:36 Patient Name, D.O.B, / Armband Verified By R.N. 18:41:37 Consent signed by the physician and the patient and verified by the Vice President Digital Strategist staff. 18:41:38 Pre-op and post- op instructions given; patient acknowledges understanding of instructions. 18:41:40 Anesthesia at bedside. Assumes care of patient. 18:43:25 A IV was noted in the Jugular Vein (right). Grade = 0 0.9ns kvo 18:43:36 Patient has been NPO for More than 6Hrs. 18:43:37 Skin Breakdown-generalized bruising to right groin. Redness to abd. See chart for nurses no shaji about wounds. 18:43:38 Patient Warmer Placed on the Table. 18:43:39 Disposable Defibrillator Pads Placed On Patient. 18:43:42 Ambreen Prominences Protected 18:43:44 History and physical on the chart or being dictated. 1 g VANCOMYCIN DRIP given in lab by Anesthesia, MANAGER ENVIRONMENTAL via Central IV. Ordered by Ernestine Velasco. Reason: As per 19:00:30 physicians verbal order. Assessment: Initial Case, IY=747 BPM, Rhythm=st, UOAN=030/62 mmhg, Chest Pain=0, Edema=None, Co maryam=Normal, Skin = Warm Right Pulses: Tex Ped=1, Radial=1 Left Pulses: Tex Ped=1, Radial=1 19:02:16 Lower Right Extremities: Color=Normal Lower Left Extremities: Color=Normal Neurological: State=Alert, Ox3, HESS Respiration: Resp=18 B/min, SpO2=92 %, O2=4 lpm 19:02:21 Reference ECG taken 19:05:35 Table restraints applied according to hospital policy 19:05:47 Bilateral groins prepped with 2% chlorhexidine, and draped after a 3 minute waiting time. 100 mL/hr LEVAQUIN given in lab by Anesthesia, MANAGER ENVIRONMENTAL via Central IV. Pump/Drip Flow = 0 ml/hr us ing NaCl .9 with a 19:10:11 concentration of 500 in 100 ml. Ordered by Ernestine Velasco. Reason: As per physicians verbal orde r. Time Out. Correct patient, procedure, procedure equipment, site and side verified with physicia n present. Time 19:15:00 concurred by MD, individual staff and MANAGER ENVIRONMENTAL. Time Out #2 - Consents verified, patient in correct position, all results are labled and displa yed, safety precautions 19:15:39 taken, antibiotics administered. Time out concurred by MD, individual staff and MANAGER ENVIRONMENTAL in procedu re 19:15:42 Case Start 19:15:44 50 mL 2% XYLOCAINE given in lab by Ernestine Velasco in Right Groin via Subcutaneous. 19:17:52 Vascular access was obtained in the Fem Vein (right). 19:18:52 A WIRE, GUIDE AMPLATZ STIFF 180CM 3MMJ was inserted via Fem Vein (right). 19:19:12 A DILATOR SET (MICRA) FR8-12 was advanced into the Fem Vein (right) using the Modified Seld dariana technique. 8 19:19:25 A DILATOR SET (MICRA) FR8-12 was advanced into the Fem Vein (right) using the Modified Seld dariana technique. 12 19:19:42 A DILATOR SET (MICRA) FR8-12 was advanced into the Fem Vein (right) using the Modified Seld dariana technique. 16 19:19:42 A DILATOR SET (MICRA) FR8-12 was advanced into the Fem Vein (right) using the Modified Seld dariana technique. 20 19:20:29 A sheath introducer was advanced into the Fem Vein (right) using the Modified Seldinger elizabet hnique. 19:21:25 Dilator and wie removed. Heparin gtt attached to introducer 19:22:22 Micra device prepped and set up. 19:22:53 A SYSTEM, TRANS-CATHETER PACING (MICRA) was advanced via right fem vein and placed in the R V. 3000 units HEPARIN given in lab by Anesthesia, MANAGER ENVIRONMENTAL via Central IV. Ordered by Ernestine Velasco. Enmanuel heard: As per 19:23:38 physicians verbal order. The RV was manually injected with 10 cc's of contrast. OMNIPAQUE, 300 MG, 50ML 50ML used. To vi sualize septal 19:27:00 placement. 19:29:11 Micra deployed and placement verified under fluoro in 2 views 19:29:16 The Micra device impedance and threshold is being tested. 19:36:37 Delivery system and introducer removed. 19:39:05 Figure 8 knot placed (and to be removed 0800 in am) pressure held by DC for 20 min. 19:39:38 Left upper chest prepped. 19:41:14 50 mL 2% XYLOCAINE given in lab by Ernestine Velasco in Left upper chest via Subcutaneous. 19:41:37 Surgical Incision Made. 19:42:35 Loop recorder removed. 19:45:20 Steri-strips and a sterile dressing applied to left chest site. 19:46:57 CVICU called. Spoke to Dulce 19:47:08 Bedside Report will be given. 19:47:49 Implant Procedure was performed. 19:47:54 A PPM Implant . (Single) Micra 19:48:09 Case End (Physician broke scrub) 19:48:33 No case complications noted. 19:48:34 Cine recording checked. 19:48:48 Defibrillator and ground pads removed. Skin intact. Assessment: Final Case, HR=82 BPM, Rhythm=sr, NIBP=90/50 mmhg, Chest Pain=0, Edema=None, Color =Normal, Skin = Warm, Dry Right Pulses: Tex Ped=1 Left Pulses: Tex Ped=1 19:48:54 Lower Right Extremities: Color=Normal Lower Left Extremities: Color=Normal Neurological: State=Drowsy, Comment=under care of anesthesia Respiration: Resp=16 B/min, SpO2=93 %, O2=6 lpm 20:00:18 [facility] - Maximum Contrast Load Max Contrast Load (mL) 412.5 End Study - Radiation Exposure Fluoro Time (minutes) 2.2 End Study - Patient Disposition Complications Transferred To Telemetry Bed
[2018-09-08] MEDS: Pantoprazole Inj 40 MG Vial IV.PUSH SCH (21:57)
[2018-09-08] MEDS: levETIRAcetam 500 MG Tablet PO SCH (22:00)
--- NOTE | 2018-09-09 | MP ---
cc: Ernestine Velasco MD DATE OF OPERATION: 09/08/2018 Single chamber myocardial pulmonary p implantation and loop recorder removal. INDICATIONS FOR PROCEDURE: Mr. Webb is an 87-year-old gentleman with history of coronary artery disease, status post coronary artery bypass grafting, history of severe bradycardia, symptomatic refused permanent pacemaker in the past. During hospitalization developed multiple pauses and episodes of bradycardia. Decisions about the pacing insertion was taken. The risks, the nature and the benefits of the procedure were clearly said to him. Risks include pneumothorax, cardiac perforation, stroke and even . He understood and agreed to proceed. DESCRIPTION OF PROCEDURE: After written informed consent was obtained, the patient was brought to the EP lab where he was prepped and draped in the usual sterile fashion. Conscious sedation was initiated and maintained throughout the procedure by the anesthesiologist. Once sedation was verified, the right inguinal area was anesthetized with 2% Xylocaine. Using modified Seldinger technique, the right femoral vein was cannulated on one occasion; 1 guidewire was advanced. A stiff Amplatz was advanced all the way to the superior vena cava. Then I made less than a cm incision at the entry point. Then, the area was dilated using an 8, 12, 16 and 20-[place] dilator. The delivery sheath was advanced. This was delivered to the right atrium. Through this sheath, the micro pacer delivery system was advanced. The patient already received 3000 heparin. The sheath was kept in place at the septal area. Subsequently, the device was released. A fluoroscopy showed good seating of the device. Then, at that point, a sensing was performed. He was between 13 and 16 millivolts. On 3 occasions it was around 13-14 and then stable at 16 millivolt. Vein threshold was performed. The patient just come from the coronary artery bypass grafting. Threshold was 1.88 volt at 0.4 millisecond. Most likely it will be in the morning. At that point, the device was released. The sheath and dilator were removed and the delivery system was removed, 2-0 Ethibond suture were placed at the exit point to prevent backbleeding. It was tied in a pursestring fashion. Sutures are going to be removed 6-8 post-procedure. At that point, I did proceed with loop recorder removal. The left parasternal area was anesthetized with 2% Xylocaine. Using an 11 blade scalpel, less than a cm incision was made. Subsequently, the lead was removed. The border of the wound was reapproximated using Dermabond and Steri-Strip. No incident to report. That was a very complex procedure. BLOOD LOSS: Minimal. 1. Accelerated or decelerated loop recorder. It is a [employer]tron[employer] model number LNQ11, serial number [id number]. 2. ablated myocardial permanent pacemaker is a [employer]tron[employer] model number OY6GD32, serial number [id number]. Setting the device in the VVI 50. Rate at this point will be evaluated after device interrogation. CONCLUSION: Successful loop recorder removal, successful myocardium permanent pacemaker insertion. RECOMMENDATIONS: The patient is going to be transferred to the telemetry unit. Will be observed when stable, can be discharged home whenever it is okay with the managing team. MD FRANCNIE Nielsen/fco/ , 07:50 PM , 08:02 PM
[2018-09-09] MEDS: RESP: Acetylcysteine 10% 4 ML Neb NEB SCH ×3 (04:32→20:23)
[2018-09-09 05:00] LABS: Hematocrit 24.9 % (39.0-51.0); Hemoglobin 8.6 gm/dL (13.0-17.0); Mean Corpuscular HGB Conc 34.3 % (32.0-36.0); Mean Corpuscular Hemoglobin 31.1 pg (27.0-34.0); Mean Corpuscular Volume 90.7 fL (80.0-100.0); Mean Platelet Volume 7.7 fL (7.0-11.0); Platelet Count 188 th/mm3 (150-450); Red Blood Count 2.75 mil/mm3 (4.50-5.90); Red Cell Distribution Width 15.4 % (11.6-17.2); White Blood Count 7.9 th/mm3 (4.0-11.0)
[2018-09-09 05:04] LABS: Activated Partial Thrombo Time 30.8 sec (23.4-31.7); INR 1.2 Ratio; Prothrombin Time 12.2 sec (9.8-11.6)
[2018-09-09 05:39] LABS: Calcium 7.8 mg/dL (8.5-10.1); Carbon Dioxide 24.6 meq/L (21.0-32.0); Magnesium 2.1 mg/dL (1.5-2.5); Potassium 4.1 meq/L (3.5-5.1)
[2018-09-09] MEDS: Insulin NovoLOG Aspart Correctional Sugar Inj SQ SCH ×5 (06:00→21:18)
--- NOTE | 2018-09-09 06:22 | XR ---
EXAM DATE: 09/09/2018 6:15 AM EST AGE/SEX: 87 years / Male INDICATIONS: Shortness of breath. CLINICAL DATA: This is the patient's subsequent encounter. Patient reports that signs and symptoms h ave been present for 2 days and indicates a pain score of Nonresponsive. MEDICAL/SURGICAL HISTORY: . Hypertension. Diabetes mellitus type II. Stroke. Intracranial hemor rhage. Coronary artery disease. A-Fib. . CABG. Loop recorder. COMPARISON: [facility] [place]ST 1V SINGLE AP, 09/08/2018. . FINDINGS: A single AP view of the chest demonstrates progressive consolidation involving the left lung now exte nding into the upper lobe. Consolidation within the medial right base is stable. Suspected small left effusion. Heart is normal in size. Central line and median sternotomy wires are noted. CONCLUSION: Continued progression in the consolidation of the left lung. Electronically signed by: Nahun Ball MD 09/09/2018 6:21 AM EST
[2018-09-09] MEDS: Metoprolol Tartrate 25 MG Tablet PO SCH ×2 (08:30→21:18)
[2018-09-09] MEDS: Doxazosin 4 MG Tablet PO SCH (08:30)
[2018-09-09] MEDS: Finasteride 5 MG Tablet PO SCH (08:30)
[2018-09-09] MEDS: Levofloxacin 500 mg Premix Inj 500 MG/100 ML PIGGYBACK IV.SIG SCH (09:28)
[2018-09-09] MEDS: Enoxaparin Inj 40 MG/0.4 ML Syringe SQ SCH (12:11)
--- NOTE | 2018-09-09 14:31 | P.PNCV ---
- Note Subjective/Hospital Course: 87-year-old male patient of Dr. Rosibel Liu, Dr. Alhaji Mahmood, Dr. Oliver Vargas. History of coronary artery disease, recently developed some new onset of angina. He is an avid swimmer which developed over a couple weeks ago. He was placed on dual antianginal therapy and he also has a history of some paroxysmal atrial fibrillation. The loop recorder showed a rate up to 146 in July, which he was entirely asymptomatic. They discussed permanent pacemaker, but he wanted to wait until after for that to be placed. He underwent elective cardiac catheterization today by Dr. Worthy, which showed a left main disease of 75%, proximal LAD 95%, mid distal LAD 70%, RCA 75%. We were consulted to evaluate for coronary artery bypass grafting x3. The patient had an intraaortic balloon pump placed to the right groin, which is currently at a 1:1 augmentation. EF 55% PAST MEDICAL HISTORY: Includes paroxysmal atrial fibrillation, sick sinus syndrome, diabetes mellitus type 2, hyperlipidemia, hypertension. He had a history of intracranial hemorrhage in 2009, had a CVA also following that in 2017. 09/03 surgery : SURGICAL PROCEDURE 1. Urgent Off-pump Coronary Artery Bypass Grafting x 4 with Left Internal Mammary Artery (CEBALLOS) to Left Anterior Descending (LAD), reverse saphenous vein graft to obtuse Marginal branch of the left Circumflex artery, reverse saphenous vein graft to the posterior Descending branch of the right Coronary artery, reverse saphenous vein graft to the Diagonal 2 branch of the LAD 2. Left leg Endoscopic Vein [place] 3. Intraoperative Vein Mapping. crystalloid 3500cc, 380cc cell saver 09/04 pt remains intubated, weaning in progress awake on low dose precedex remains on pressors / IABP 1:2 plan once pt extubated / eval for possible IABP removal on insulin gtt ASA, statin , no BB 2/2 hypotension 09/05 Doing well clinically Weaning norepinephrine as tolerated IABP pulled yesterday. Right groin soft without hematoma Out of bed to chair today Physical therapy Maintain chest tubes to drainage for now 12/2 More confused this morning. Likely some component of ICU psychosis in this elderly gentleman Some issues with swallowing. We will have speech evaluate Agree with transfusion and diuresis Physical therapy Keep in ICU for now 09/07 chest tubes dc without difficulty needs aggressive pulm toileting, concern for aspiration swallow eval pending , A&V wires left in place back in NSR, off milrinone, BP stable , fournier cath in place, on diuretics keep in ICU pt has HX tachy bina syndrome , discussed with Dr Mishra 09/08 now on thickened liquids, still with congested cough , but improved on 02 3 liters for permanent pacer today eval for transfer out of CVICU in am check sputum, add levaquin pulm toileting / CXR noted, has some left lower lobe consolidation will need rehab at discharge 09/09 s/p pacer yesterday , medtronic micro chip/ VVI at 50 on nasal cannula 2 liters, lung sound improved remains on thickened liguids for now will add lovenox, for DVT prevention in am continue levaquin for now / pulm toileting transfer to stepdown Objective: Vital Signs - 24 hr 09/08/18 15:00 09/08/18 17:06 09/08/18 17:44 Temperature 98.0 F Pulse Rate 88 95 H 190 H Respiratory Rate 20 20 Blood Pressure 127/65 Pulse Oximetry 96 09/08/18 19:00 09/08/18 20:30 09/08/18 21:17 Temperature 98.0 F Pulse Rate 91 H 84 88 Respiratory Rate 18 22 Blood Pressure 120/64 Pulse Oximetry 95 96 09/08/18 23:00 09/09/18 03:00 09/09/18 04:32 Temperature 98.0 F 99.1 F Pulse Rate 98 H 93 H 95 H Respiratory Rate 16 16 18 Blood Pressure 120/56 L 110/62 Pulse Oximetry 96 97 09/09/18 07:00 09/09/18 07:07 09/09/18 08:00 Temperature 98.6 F Pulse Rate 92 H 92 H Respiratory Rate 16 Blood Pressure 106/59 L Pulse Oximetry 97 97 09/09/18 09:15 09/09/18 09:27 09/09/18 10:50 Temperature Pulse Rate 104 H Respiratory Rate 17 Blood Pressure Pulse Oximetry 95 95 95 09/09/18 11:00 09/09/18 12:00 09/09/18 13:40 Temperature 98.4 F 97.9 F Pulse Rate 97 H 86 90 Respiratory Rate 16 18 Blood Pressure 125/63 112/57 L Pulse Oximetry 97 93 L GENERAL: A&O x 3 SKIN: Warm and dry. prevena dressing to chest HEAD: Normocephalic. EYES: No scleral icterus. No injection or drainage. NECK: Supple, trachea midline. No JVD or lymphadenopathy. CARDIOVASCULAR: Regular rate and rhythm without murmurs, gallops, or rubs. RESPIRATORY: coarse breath sounds Breath sounds equal bilaterally. No accessory muscle use. GASTROINTESTINAL: Abdomen soft, non-tender, nondistended. MUSCULOSKELETAL: No cyanosis, or edema. BACK: Nontender without obvious deformity. No CVA tenderness. Labs: Laboratory Results - last 12 hr 09/09/18 09/09/18 09/09/18 04:30 04:30 04:30 WBC 7.9 RBC 2.75 L Hgb 8.6 L Hct 24.9 L MCV 90.7 MCH 31.1 MCHC 34.3 RDW 15.4 Plt Count 188 MPV 7.7 PT 12.2 H INR 1.2 APTT 30.8 Sodium 139 Potassium 4.1 D Chloride 108 H Carbon Dioxide 24.6 Anion Gap 6 BUN 26 H Creatinine 1.13 Estimated GFR 61 L Random Glucose 216 H D Calcium 7.8 L Magnesium 2.1 Result Diagrams: 09/09/18 04:30 09/09/18 04:30 Telemetry: NSR - Plan (3) Chest pain (5) S/P CABG x 4 Plan: resp: continue pulm toileting , Mucomyst nebs wean 02 as tolerated CV: s/p miccra chip VVI at 50 on low dose BB eval for diuresis in am GI: + BM gi motility meds Protonix for GI prophy endo: insulin ss diabetic / heart healthy diet ID: continue IV levaquin, transition to po in am eval for possible transfer to [place] in am (6) Cardiogenic postoperative shock Plan: resolved (3) Chest pain Qualifiers: Chest pain type: unspecified Qualified Code(s): R07.9 - Chest pain, unspecified
[2018-09-09] MEDS ORDERED: Potassium Chloride 25 MEQ Effervescent Tablet PO ONE (14:37)
--- NOTE | 2018-09-09 17:00 | ECG ---
Date Performed: 09/09/2018 Time Performed: 04:51:08 PTAGE: 87 years EKG: Sinus rhythm Normal ECG PREVIOUS TRACING : 09/05/2018 03.44 Since the previous tracing, no significant change noted DOCTOR: Riccardo Caballero Interpretating Date/Time 09/09/2018 17:00:11
[2018-09-09] MEDS: Clindamycin 300 mg/NS Premix 300 MG/50 ML PIGGYBACK IV.SIG SCH (17:23)
[2018-09-09] MEDS: levETIRAcetam 500 MG Tablet PO SCH (21:17)
[2018-09-09] MEDS: Pantoprazole Inj 40 MG Vial IV.PUSH SCH (21:18)
--- NOTE | 2018-09-10 00:29 | P.PNCA ---
Subjective Interval history: Micro PPM placed No complaints Medications and Allergies Active Medications: Active Medications Acetaminophen (Tylenol) 650 mg PO Q4H PRN PRN Reason: Temp > 100.4 Acetylcysteine (Mucomyst 10% Neb) 2 ml NEB Q6HR NEB [facility] Last Admin: 09/09/18 20:23 Dose: 2 ml Albuterol (Duoneb Neb (Prn)) 1 ampul NEB Q2HR NEB PRN PRN Reason: wheezing Last Admin: 09/09/18 04:32 Dose: 1 ampul Albuterol (Duoneb Neb (Kalin)) 1 ampul NEB Q6HR WHILE AWAKE NEB [facility] Last Admin: 09/09/18 20:23 Dose: 1 ampul Aspirin (Ecotrin) 81 mg PO DAILY [facility] Last Admin: 09/09/18 08:31 Dose: 81 mg Atorvastatin Calcium (Lipitor) 40 mg PO HS [facility] Last Admin: 09/09/18 21:18 Dose: 40 mg Bisacodyl (Dulcolax Supp) 10 mg RECTAL DAILY PRN PRN Reason: SEVERE CONSITIPATION Clopidogrel Bisulfate (Plavix) 75 mg PO DAILY [facility] Last Admin: 09/09/18 08:31 Dose: 75 mg Dextrose (D50w Vial) 50 ml IV.PUSH UNSCH PRN PRN Reason: PER HYPOGLYCEMIA PROTOCOL Doxazosin Mesylate (Cardura) 4 mg PO DAILY [facility] Last Admin: 09/09/18 08:30 Dose: 4 mg Enoxaparin Sodium (Lovenox Inj) 40 mg SQ DAILY [facility] Last Admin: 09/09/18 12:11 Dose: 40 mg Finasteride (Proscar) 5 mg PO DAILY [facility] Last Admin: 09/09/18 08:30 Dose: 5 mg Glucagon (Glucagon Inj) 1 mg OTHER PRN PRN PRN Reason: for Hypoglycemia Protocol Sodium Chloride (Ns Inj) 1,000 mls @ 100 mls/hr IV.CONT .Q10H [facility] Last Admin: 09/03/18 20:21 Dose: Not Given Phenylephrine HCl 40 mg/ (Dextrose) 500 mls @ 30 mls/hr IV.CONT TITRATE PRN; Protocol PRN Reason: Per Protocol Last Titration: 09/05/18 09:23 Dose: 0 mcg/min, 0 mls/hr Sodium Chloride (Ns Inj) 500 mls @ 30 mls/hr IV.SIG .Q10H [facility] Last Admin: 09/03/18 07:24 Dose: Not Given Norepinephrine Bitartrate 16 (mg/ Dextrose) 250 mls @ 1.87 mls/hr IV.CONT TITRATE PRN; Protocol PRN Reason: See Protocol Last Titration: 09/05/18 12:49 Dose: 3 mcg/min, 2.81 mls/hr Levofloxacin/Dextrose (Levaquin 500 Mg Premix Inj) 500 mg in 100 mls @ 100 mls/ hr IV.SIG Q24H [facility] Stop: 09/15/18 09:59 Last Infusion: 09/09/18 12:12 Dose: Infused Clindamycin/Sodium Chloride (Cleocin 300 Mg/Ns Premix) 300 mg in 50 mls @ 100 mls/hr IV.SIG Q8H [facility] Last Infusion: 09/09/18 20:57 Dose: Infused Insulin Aspart (Novolog Insulin Correctional Sugar Inj) 0 unit SQ ACHS [facility]; Protocol Last Admin: 09/09/18 21:18 Dose: 9 unit Lactobacillus Acidophilus (Lactinex Pkt) 1 gm PO TID [facility] Last Admin: 09/09/18 17:04 Dose: 1 gm Levetiracetam (Keppra) 500 mg PO HS [facility] Last Admin: 09/09/18 21:17 Dose: 500 mg Metoprolol Tartrate (Lopressor Inj) 2.5 mg IV.PUSH Q1H PRN PRN Reason: SEE LABEL COMMENTS Last Admin: 09/07/18 11:39 Dose: 2.5 mg Metoprolol Tartrate (Lopressor) 12.5 mg PO BID [facility] Last Admin: 09/09/18 21:18 Dose: 12.5 mg Miscellaneous (Pill Splitter) 1 each OTHER PRN PRN PRN Reason: SEE LABEL COMMENTS Morphine Sulfate (Morphine Inj) 2 mg IV.PUSH Q4H PRN PRN Reason: BREAKTHROUGH PAIN Last Admin: 09/07/18 11:50 Dose: 2 mg Nitroglycerin (Nitrostat Sl (Override)) 0.4 mg SL Q5M PRN PRN Reason: Chest Pain Ondansetron HCl (Zofran Inj) 4 mg IV.PUSH Q6H PRN PRN Reason: NAUSEA OR VOMITING Ondansetron HCl (Zofran Inj) 4 mg IV.PUSH Q4H PRN PRN Reason: NAUSEA Pantoprazole Sodium (Protonix Inj) 40 mg IV.PUSH Q24H [facility] Last Admin: 09/09/18 21:18 Dose: 40 mg Pantoprazole Sodium (Protonix) 40 mg PO Q24H [facility] Last Admin: 09/07/18 21:29 Dose: 40 mg Prochlorperazine (Compazine Supp) 25 mg RECTAL Q12HR PRN PRN Reason: NAUSEA OR VOMITING Sennosides (Senokot) 17.2 mg PO Q12H PRN PRN Reason: Moderate Constipation Sodium Chloride (Ns Flush) 2 ml IV.FLUSH BID [facility] Last Admin: 09/09/18 21:18 Dose: 2 ml Sodium Chloride (Ns Flush) 2 ml IV.FLUSH PRN PRN PRN Reason: FLUSH AFTER USING IV ACCESS Tamsulosin HCl (Flomax) 0.4 mg PO DAILY [facility] Last Admin: 09/09/18 08:31 Dose: 0.4 mg Terbutaline Sulfate (Brethine Inj) 1 mg SQ UNSCH PRN PRN Reason: For Extravasation Tramadol HCl (Ultram) 50 mg PO Q6H PRN PRN Reason: PAIN SCALE 1 TO 5 Last Admin: 09/09/18 08:31 Dose: 50 mg Allergies Allergy/AdvReac Type Severity Reaction Status Date / Time penicillin G Allergy Severe rash Verified 09/01/18 21:30 Home Medications Medication Instructions Recorded Confirmed Type amlodipine 2.5 mg PO DAILY 09/01/18 09/01/18 History aspirin [Aspir-Low] 81 mg PO DAILY 09/01/18 09/01/18 History doxazosin 4 mg PO DAILY 09/01/18 09/01/18 History finasteride 5 mg PO DAILY 09/01/18 09/01/18 History levetiracetam 500 mg PO HS 09/01/18 09/01/18 History nitroglycerin [Nitrostat] 0.4 mg SUBLINGUAL Q5-15M PRN 09/01/18 09/01/18 History tamsulosin 0.4 mg PO DAILY 09/01/18 09/01/18 History isosorbide mononitrate 30 mg PO DAILY 09/02/18 09/02/18 History Physical Exam Vital signs: Vital Signs 09/09/18 03:00 09/09/18 04:32 09/09/18 07:00 Temperature 99.1 F 98.6 F Pulse Rate 93 H 95 H 92 H Respiratory Rate 16 18 16 Blood Pressure 110/62 106/59 L Pulse Oximetry 97 97 09/09/18 07:07 09/09/18 08:00 09/09/18 09:15 Temperature Pulse Rate 92 H Respiratory Rate Blood Pressure Pulse Oximetry 97 95 09/09/18 09:27 09/09/18 10:50 09/09/18 11:00 Temperature 98.4 F Pulse Rate 104 H 97 H Respiratory Rate 17 16 Blood Pressure 125/63 Pulse Oximetry 95 95 97 09/09/18 12:00 09/09/18 13:40 09/09/18 15:00 Temperature 97.9 F Pulse Rate 86 90 91 H Respiratory Rate 18 Blood Pressure 112/57 L Pulse Oximetry 93 L 09/09/18 16:00 09/09/18 17:00 09/09/18 18:00 Temperature 97.9 F Pulse Rate 96 H 92 H 92 H Respiratory Rate 18 Blood Pressure 118/62 Pulse Oximetry 95 09/09/18 19:00 09/09/18 20:00 09/09/18 20:23 Temperature 98.1 F 98.1 F Pulse Rate 94 H 94 H 95 H Respiratory Rate 20 20 16 Blood Pressure 120/65 120/65 Pulse Oximetry 93 L 93 L Intake & Output 09/09/18 09/09/18 09/10/18 06:59 18:59 06:59 Intake Total 620 / 620 2360 / 2360 50 / 50 Output Total 150 / 150 850 / 850 Balance 470 / 470 1510 / 1510 50 / 50 Weight 79 kg Intake: IV 200 / 200 50 / 50 Cleocin 300 mg/NS Premix 300 mg 50 / 50 In 50 ml @ 100 mls/hr IV.SIG Q8H [facility] Rx#:[id number] Levaquin 500 mg Premix Inj 500 100 / 100 mg In 100 ml @ 100 mls/hr IV. SIG Q24H [facility] Rx#:[id number] KCl 20 mEq Premix Inj 20 meq In 100 / 100 100 ml @ 50 mls/hr IV.SIG Q2H PRN Rx#:[id number] Oral 620 / 620 2160 / 2160 Output: Urine 150 / 150 850 / 850 Other: Date of Last Bowel Movement 09/09/18 09/09/18 # Bowel Movements 2 1 Narrative: Gen: Lying in ICU bed no acute distress Head: Normocephalic. Atraumatic. EENT: Pupils equal round and reactive Cardiovascular: Regular rate and rhythm. No murmurs, rubs or gallops. Sinus rhythm with frequent PVCs. Prevena in place Respiratory: Lungs clear to auscultation bilaterally. No wheezes or rhonchi. Abdomen: Soft, nontender, nondistended. No peritoneal signs. Musculoskeletal: No gross deformities. No edema. Bilateral pedal pulses are palpable. Right femoral with no hematoma Skin: No obvious rashes or erythema. Neuro: Alert awake, denies any chest pain. Moves all 4 extremities - Urinary Catheter Management Indwelling Temp Sensing Catheter Cath placed during this visit: yes, but has since been removed by the nurse Reason for continuing: Not indwelling catheter Insertion date: 09/02/18 Insertion time: 15:40 Removal date: 09/08/18 Removal time: 08:30 Indwelling Urethral Catheter Cath placed during this visit: no Reason for continuing: Hourly intake/output Results 09/09/18 04:30 09/09/18 04:30 Cardiac Enzymes 09/08/18 Range/Units 04:00 AST 58 H (15-37) U/L Coagulation 09/09/18 Range/Units 04:30 PT 12.2 H (9.8-11.6) sec APTT 30.8 (23.4-31.7) sec CBC 09/08/18 09/09/18 Range/Units 04:00 04:30 WBC 6.3 7.9 (4.0-11.0) th/mm3 RBC 2.88 L 2.75 L (4.50-5.90) mil/mm3 Hgb 8.9 L 8.6 L (13.0-17.0) gm/dL Hct 25.6 L 24.9 L (39.0-51.0) % Plt Count 165 D 188 (150-450) th/mm3 Comprehensive Metabolic Panel 09/08/18 09/09/18 Range/Units 04:00 04:30 Sodium 139 139 (136-145) meq/L Potassium 3.2 L 4.1 D (3.5-5.1) meq/L Chloride 107 108 H (98-107) meq/L Carbon Dioxide 25.2 24.6 (21.0-32.0) meq/L BUN 22 H 26 H (7-18) mg/dL Creatinine 1.00 1.13 (0.60-1.30) mg/dL Calcium 8.0 L 7.8 L (8.5-10.1) mg/dL AST 58 H (15-37) U/L ALT 53 (12-78) U/L Alkaline Phosphatase 76 (45-117) U/L Total Protein 5.5 L (6.4-8.2) g/dL Albumin 2.3 L (3.4-5.0) g/dL Intake and Output 09/09/18 09/09/18 09/10/18 14:59 22:59 06:59 Intake Total 1100 / 1100 1310 / 1310 Output Total 250 / 250 600 / 600 Balance 850 / 850 710 / 710 Intake: IV 200 / 200 50 / 50 Cleocin 300 mg/NS Premix 300 mg 50 / 50 In 50 ml @ 100 mls/hr IV.SIG Q8H [facility] Rx#:[id number] Levaquin 500 mg Premix Inj 500 100 / 100 mg In 100 ml @ 100 mls/hr IV. SIG Q24H [facility] Rx#:[id number] KCl 20 mEq Premix Inj 20 meq In 100 / 100 100 ml @ 50 mls/hr IV.SIG Q2H PRN Rx#:[id number] Oral 900 / 900 1260 / 1260 Output: Urine 250 / 250 600 / 600 Other: Date of Last Bowel Movement 09/09/18 09/09/18 # Bowel Movements 1 - Imaging and Cardiology Imaging: Impressions Chest X-Ray 09/08/18 06:00 CONCLUSION: 1. No pneumothorax following left chest tube removal. 2. Left pleural effusion and bibasilar consolidations. The left lower lobe consolidation has progressed. Chest X-Ray 09/09/18 06:00 CONCLUSION: Continued progression in the consolidation of the left lung. Assessment and Plan - Assessment (1) Tachy-bina syndrome Code(s): I49.5 - Sick sinus syndrome Status: Acute (2) Afib Code(s): I48.91 - Unspecified atrial fibrillation Status: Acute (3) Cardiogenic postoperative shock Code(s): T81.11XA - Postprocedural cardiogenic shock, initial encounter Status : Acute (4) CAD (coronary artery disease), [place] coronary artery Code(s): I25.10 - Atherosclerotic heart disease of [place] coronary artery without angina pectoris Status: Acute (5) S/P CABG x 4 Code(s): Z95.1 - Presence of aortocoronary bypass graft Status: Acute (6) Elevated troponin Code(s): R74.8 - Abnormal levels of other serum enzymes Status: Acute (7) Acute electrocardiogram changes Code(s): R94.31 - Abnormal electrocardiogram [ECG] [EKG] Status: Acute - Plan 1) CAD/NSTEMI s/p CABG x4 IABP removed post-surgery 2) Tachy-bina syndrome Had episodes of AFib with RVR while here Continue on Amiodarone Micro PPM placed by Dr. Velasco 3) Afib For now, no anticoagulation due to anemia/thrombocytopenia Will need to be reevaluated inpt vs outpt
[2018-09-10] MEDS: Clindamycin 300 mg/NS Premix 300 MG/50 ML PIGGYBACK IV.SIG SCH ×4 (03:24→18:30)
[2018-09-10] MEDS: RESP: Acetylcysteine 10% 4 ML Neb NEB SCH ×2 (03:28→09:38)
--- NOTE | 2018-09-10 04:33 | XR ---
EXAM DATE: 09/10/2018 4:26 AM EST AGE/SEX: 87 years / Male INDICATIONS: Shortness of breath, possible pneumothorax. CLINICAL DATA: This is the patient's subsequent encounter. Patient reports that signs and symptoms h ave been present for 3 days and indicates a pain score of 6/10. MEDICAL/SURGICAL HISTORY: Hypertension. Diabetes mellitus type II. Stroke. . Coronary artery disease. A-Fib. . CABG. Loop recorder. COMPARISON: [facility], CHEST 1V SINGLE AP, 09/09/2018. . FINDINGS: A single AP view of the chest demonstrates no interval change. Left pleural effusion, left lung infil trate, and right basilar infiltrate are unchanged. Heart is normal in size. Median sternotomy wires. CONCLUSION: Unchanged left pleural effusion, left lung infiltrate, and right basilar infiltrate. Electronically signed by: Nahun Ball MD 09/10/2018 4:32 AM EST
[2018-09-10 05:49] LABS: Hematocrit 25.1 % (39.0-51.0); Hemoglobin 8.6 gm/dL (13.0-17.0); Mean Corpuscular HGB Conc 34.1 % (32.0-36.0); Mean Corpuscular Hemoglobin 31.1 pg (27.0-34.0); Mean Platelet Volume 7.7 fL (7.0-11.0); Platelet Count 214 th/mm3 (150-450); Red Blood Count 2.76 mil/mm3 (4.50-5.90); Red Cell Distribution Width 15.5 % (11.6-17.2); White Blood Count 7.4 th/mm3 (4.0-11.0)
[2018-09-10] MEDS: Insulin NovoLOG Aspart Correctional Sugar Inj SQ SCH ×5 (10:04→20:30)
[2018-09-10] MEDS: Enoxaparin Inj 40 MG/0.4 ML Syringe SQ SCH (10:04)
[2018-09-10] MEDS: Metoprolol Tartrate 25 MG Tablet PO SCH ×2 (10:05→20:23)
[2018-09-10] MEDS: Doxazosin 4 MG Tablet PO SCH (10:09)
[2018-09-10] MEDS: Finasteride 5 MG Tablet PO SCH (10:09)
[2018-09-10] MEDS: Levofloxacin 500 mg Premix Inj 500 MG/100 ML PIGGYBACK IV.SIG SCH (10:11)
[2018-09-10] MEDS ORDERED: Metoprolol Tartrate 25 MG Tablet PO SCH (13:29)
--- NOTE | 2018-09-10 13:53 | P.PNCV ---
- Note Subjective/Hospital Course: 87-year-old male patient of Dr. Rosibel Liu, Dr. Alhaji Mahmood, Dr. Oliver Vargas. History of coronary artery disease, recently developed some new onset of angina. He is an avid swimmer which developed over a couple weeks ago. He was placed on dual antianginal therapy and he also has a history of some paroxysmal atrial fibrillation. The loop recorder showed a rate up to 146 in July, which he was entirely asymptomatic. They discussed permanent pacemaker, but he wanted to wait until after for that to be placed. He underwent elective cardiac catheterization today by Dr. Worthy, which showed a left main disease of 75%, proximal LAD 95%, mid distal LAD 70%, RCA 75%. We were consulted to evaluate for coronary artery bypass grafting x3. The patient had an intraaortic balloon pump placed to the right groin, which is currently at a 1:1 augmentation. EF 55% PAST MEDICAL HISTORY: Includes paroxysmal atrial fibrillation, sick sinus syndrome, diabetes mellitus type 2, hyperlipidemia, hypertension. He had a history of intracranial hemorrhage in 2009, had a CVA also following that in 2017. 09/03 surgery : SURGICAL PROCEDURE 1. Urgent Off-pump Coronary Artery Bypass Grafting x 4 with Left Internal Mammary Artery (CEBALLOS) to Left Anterior Descending (LAD), reverse saphenous vein graft to obtuse Marginal branch of the left Circumflex artery, reverse saphenous vein graft to the posterior Descending branch of the right Coronary artery, reverse saphenous vein graft to the Diagonal 2 branch of the LAD 2. Left leg Endoscopic Vein [place] 3. Intraoperative Vein Mapping. crystalloid 3500cc, 380cc cell saver 09/04 pt remains intubated, weaning in progress awake on low dose precedex remains on pressors / IABP 1:2 plan once pt extubated / eval for possible IABP removal on insulin gtt ASA, statin , no BB 2/2 hypotension 09/05 Doing well clinically Weaning norepinephrine as tolerated IABP pulled yesterday. Right groin soft without hematoma Out of bed to chair today Physical therapy Maintain chest tubes to drainage for now 12/2 More confused this morning. Likely some component of ICU psychosis in this elderly gentleman Some issues with swallowing. We will have speech evaluate Agree with transfusion and diuresis Physical therapy Keep in ICU for now 09/07 chest tubes dc without difficulty needs aggressive pulm toileting, concern for aspiration swallow eval pending , A&V wires left in place back in NSR, off milrinone, BP stable , fournier cath in place, on diuretics keep in ICU pt has HX tachy bina syndrome , discussed with Dr Smith 09/08 now on thickened liquids, still with congested cough , but improved on 02 3 liters for permanent pacer today eval for transfer out of CVICU in am check sputum, add levaquin pulm toileting / CXR noted, has some left lower lobe consolidation will need rehab at discharge 09/09 s/p pacer yesterday , medtronic micro chip/ VVI at 50 on nasal cannula 2 liters, lung sound improved remains on thickened liguids for now will add lovenox, for DVT prevention in am continue levaquin for now / pulm toileting transfer to stepdown 09/10 CXR noted still with small effusion and consolidation continue pulm toileting and antibiotics for aspiration PNA pt still on pureed nectar thickened liguids on 2 liter nasal canula discussed with Dr smith , david dc plavix and start eliquis with his recent afib await pulm input / Objective: Vital Signs - 24 hr 09/09/18 15:00 09/09/18 16:00 09/09/18 17:00 Temperature 97.9 F Pulse Rate 91 H 96 H 92 H Respiratory Rate 18 Blood Pressure 118/62 Pulse Oximetry 95 09/09/18 18:00 09/09/18 19:00 09/09/18 20:00 Temperature 98.1 F 98.1 F Pulse Rate 92 H 94 H 96 H Respiratory Rate 20 20 Blood Pressure 120/65 120/65 Pulse Oximetry 93 L 93 L 09/09/18 20:23 09/09/18 21:00 09/09/18 22:00 Temperature Pulse Rate 95 H 98 H 90 Respiratory Rate 16 Blood Pressure Pulse Oximetry 09/09/18 23:00 09/10/18 00:00 09/10/18 01:00 Temperature 98.1 F Pulse Rate 83 80 82 Respiratory Rate 20 Blood Pressure 97/56 L Pulse Oximetry 94 L 09/10/18 02:00 09/10/18 03:00 09/10/18 03:28 Temperature 98.1 F Pulse Rate 80 84 78 Respiratory Rate 20 16 Blood Pressure 124/59 L Pulse Oximetry 96 09/10/18 04:00 09/10/18 05:00 09/10/18 06:00 Temperature Pulse Rate 88 90 94 H Respiratory Rate Blood Pressure Pulse Oximetry 09/10/18 09:39 Temperature Pulse Rate 90 Respiratory Rate 16 Blood Pressure Pulse Oximetry 96 GENERAL: A&O x 3 SKIN: Warm and dry. sternal incision intact and well approximated HEAD: Normocephalic. EYES: No scleral icterus. No injection or drainage. NECK: Supple, trachea midline. No JVD or lymphadenopathy. CARDIOVASCULAR: Regular rate and rhythm without murmurs, gallops, or rubs. RESPIRATORY: Breath sounds equal bilaterally. No accessory muscle use. crackles in bases, congested cough improving GASTROINTESTINAL: Abdomen soft, non-tender, nondistended. MUSCULOSKELETAL: No cyanosis, or edema. BACK: Nontender without obvious deformity. No CVA tenderness. Labs: Laboratory Results - last 12 hr 09/10/18 09/10/18 09/10/18 05:13 08:24 11:15 WBC 7.4 RBC 2.76 L Hgb 8.6 L Hct 25.1 L MCV 91.0 MCH 31.1 MCHC 34.1 RDW 15.5 Plt Count 214 MPV 7.7 POC Glucose 151 H 183 H Result Diagrams: 09/10/18 05:13 09/09/18 04:30 Telemetry: NSR - Plan (3) Chest pain (5) S/P CABG x 4 Plan: resp: continue pulm toileting , nebs pulm consult pending wean 02 as tolerated CV: s/p miccra chip VVI at 50 increase BB diuresis GI: + BM gi motility meds Protonix for GI prophy endo: insulin ss diabetic / heart healthy diet ID: continue IV levaquin, clindamycin added eval for possible transfer to [place] next 24-48 hrs (6) Cardiogenic postoperative shock Plan: resolved (3) Chest pain Qualifiers: Chest pain type: unspecified Qualified Code(s): R07.9 - Chest pain, unspecified
--- NOTE | 2018-09-10 15:50 | P.PNPL ---
Subjective Interval history: 87 YOWM with AF,DM,CAD, s/p CABG CXR left basal infilterates with atelactesis has cough, no sp On 02 2LNC No Fever Physical Exam Vital signs: Vital Signs 09/09/18 16:00 09/09/18 17:00 09/09/18 18:00 Temperature 97.9 F Pulse Rate 96 H 92 H 92 H Respiratory Rate 18 Blood Pressure 118/62 Pulse Oximetry 95 09/09/18 19:00 09/09/18 20:00 09/09/18 20:23 Temperature 98.1 F 98.1 F Pulse Rate 94 H 96 H 95 H Respiratory Rate 20 20 16 Blood Pressure 120/65 120/65 Pulse Oximetry 93 L 93 L 09/09/18 21:00 09/09/18 22:00 09/09/18 23:00 Temperature 98.1 F Pulse Rate 98 H 90 83 Respiratory Rate 20 Blood Pressure 97/56 L Pulse Oximetry 94 L 09/10/18 00:00 09/10/18 01:00 09/10/18 02:00 Temperature Pulse Rate 80 82 80 Respiratory Rate Blood Pressure Pulse Oximetry 09/10/18 03:00 09/10/18 03:28 09/10/18 04:00 Temperature 98.1 F Pulse Rate 84 78 88 Respiratory Rate 20 16 Blood Pressure 124/59 L Pulse Oximetry 96 09/10/18 05:00 09/10/18 06:00 09/10/18 07:00 Temperature 98.3 F Pulse Rate 90 94 H 93 H Respiratory Rate 16 Blood Pressure 131/60 Pulse Oximetry 95 09/10/18 08:00 09/10/18 09:00 09/10/18 09:39 Temperature Pulse Rate 93 H 93 H 90 Respiratory Rate 16 Blood Pressure Pulse Oximetry 95 96 09/10/18 10:00 09/10/18 11:00 09/10/18 12:00 Temperature 98.4 F Pulse Rate 100 H 107 H 86 Respiratory Rate 18 Blood Pressure 141/70 H Pulse Oximetry 96 09/10/18 13:00 09/10/18 14:00 09/10/18 14:18 Temperature Pulse Rate 86 96 H 94 H Respiratory Rate 18 Blood Pressure Pulse Oximetry Intake & Output 09/09/18 09/10/18 09/10/18 18:59 06:59 18:59 Intake Total 2360 / 2360 220 / 220 150 / 150 Output Total 850 / 850 500 / 500 Balance 1510 / 1510 -280 / -280 150 / 150 Weight 78 kg Intake: IV 200 / 200 100 / 100 150 / 150 Cleocin 300 mg/NS Premix 300 mg 100 / 100 50 / 50 In 50 ml @ 100 mls/hr IV.SIG Q8H JAQUELIN Rx#:[id number] Levaquin 500 mg Premix Inj 500 100 / 100 100 / 100 mg In 100 ml @ 100 mls/hr IV. SIG Q24H JAQUELIN Rx#:[id number] KCl 20 mEq Premix Inj 20 meq In 100 / 100 100 ml @ 50 mls/hr IV.SIG Q2H PRN Rx#:[id number] Oral 2160 / 2160 120 / 120 Output: Urine 850 / 850 500 / 500 Other: Date of Last Bowel Movement 09/09/18 09/09/18 # Bowel Movements 1 GENERAL: Elderly Wm NAD SKIN: Warm and dry. HEAD: Normocephalic. EYES: No scleral icterus. No injection or drainage. NECK: Supple, trachea midline. No JVD or lymphadenopathy. CARDIOVASCULAR: Regular rate and rhythm without murmurs, gallops, or rubs. RESPIRATORY: Breath sounds equal bilaterally. No accessory muscle use. Sternal wound with VAC GASTROINTESTINAL: Abdomen soft, non-tender, nondistended. MUSCULOSKELETAL: No cyanosis, or edema. BACK: Nontender without obvious deformity. No CVA tenderness. - Urinary Catheter Management Indwelling Temp Sensing Catheter Cath placed during this visit: yes, but has since been removed by the nurse Reason for continuing: Not indwelling catheter Insertion date: 09/02/18 Insertion time: 15:40 Removal date: 09/08/18 Removal time: 08:30 Indwelling Urethral Catheter Cath placed during this visit: no Reason for continuing: Hourly intake/output Assessment and Plan - Plan IMPRESSION: LLL infilterate Atelactesis CAD, s/p CABG AF H/O CVA, ICH PLAN: Cont Abx Aerosol nebs Supplement 02 Encourage to use Acapella and IS Will change to PO abx as po intake improves Eliquis 5 mg bid.
[2018-09-10] MEDS: levETIRAcetam 500 MG Tablet PO SCH (20:23)
[2018-09-10] MEDS: Pantoprazole Inj 40 MG Vial IV.PUSH SCH (20:23)
--- NOTE | 2018-09-10 22:29 | P.PNCA ---
Subjective Interval history: No events overnight Up to the chair, no complaints Medications and Allergies Active Medications: Active Medications Acetaminophen (Tylenol) 650 mg PO Q4H PRN PRN Reason: Temp > 100.4 Albuterol (Duoneb Neb (Prn)) 1 ampul NEB Q2HR NEB PRN PRN Reason: wheezing Last Admin: 09/10/18 03:28 Dose: 1 ampul Albuterol (Duoneb Neb (Kalin)) 1 ampul NEB Q6HR WHILE AWAKE NEB [facility] Last Admin: 09/10/18 19:42 Dose: 1 ampul Apixaban (Eliquis) 5 mg PO BID [facility] Last Admin: 09/10/18 20:23 Dose: 5 mg Aspirin (Ecotrin) 81 mg PO DAILY [facility] Last Admin: 09/10/18 10:09 Dose: 81 mg Atorvastatin Calcium (Lipitor) 40 mg PO HS [facility] Last Admin: 09/10/18 20:23 Dose: 40 mg Bisacodyl (Dulcolax Supp) 10 mg RECTAL DAILY PRN PRN Reason: SEVERE CONSITIPATION Dextrose (D50w Vial) 50 ml IV.PUSH UNSCH PRN PRN Reason: PER HYPOGLYCEMIA PROTOCOL Doxazosin Mesylate (Cardura) 4 mg PO DAILY [facility] Last Admin: 09/10/18 10:09 Dose: 4 mg Finasteride (Proscar) 5 mg PO DAILY [facility] Last Admin: 09/10/18 10:09 Dose: 5 mg Furosemide (Lasix Inj) 40 mg IV.PUSH DAILY [facility] Last Admin: 09/10/18 15:18 Dose: 40 mg Glucagon (Glucagon Inj) 1 mg OTHER PRN PRN PRN Reason: for Hypoglycemia Protocol Sodium Chloride (Ns Inj) 1,000 mls @ 100 mls/hr IV.CONT .Q10H [facility] Last Admin: 09/03/18 20:21 Dose: Not Given Sodium Chloride (Ns Inj) 500 mls @ 30 mls/hr IV.SIG .Q10H [facility] Last Admin: 09/03/18 07:24 Dose: Not Given Norepinephrine Bitartrate 16 (mg/ Dextrose) 250 mls @ 1.87 mls/hr IV.CONT TITRATE PRN; Protocol PRN Reason: See Protocol Last Titration: 09/05/18 12:49 Dose: 3 mcg/min, 2.81 mls/hr Levofloxacin/Dextrose (Levaquin 500 Mg Premix Inj) 500 mg in 100 mls @ 100 mls/ hr IV.SIG Q24H [facility] Stop: 09/15/18 09:59 Last Infusion: 09/10/18 11:15 Dose: Infused Clindamycin Phosphate (Cleocin 300 Mg/Dex Premix) 300 mg in 50 mls @ 100 mls/ hr IV.SIG Q8H [facility] Insulin Aspart (Novolog Insulin Correctional Sugar Inj) 0 unit SQ ACHS [facility]; Protocol Last Admin: 09/10/18 20:30 Dose: 9 unit Lactobacillus Acidophilus (Lactinex Pkt) 1 gm PO TID [facility] Last Admin: 09/10/18 18:20 Dose: 1 gm Levetiracetam (Keppra) 500 mg PO HS [facility] Last Admin: 09/10/18 20:23 Dose: 500 mg Metoprolol Tartrate (Lopressor Inj) 2.5 mg IV.PUSH Q1H PRN PRN Reason: SEE LABEL COMMENTS Last Admin: 09/07/18 11:39 Dose: 2.5 mg Metoprolol Tartrate (Lopressor) 25 mg PO BID [facility] Last Admin: 09/10/18 20:23 Dose: 25 mg Miscellaneous (Pill Splitter) 1 each OTHER PRN PRN PRN Reason: SEE LABEL COMMENTS Morphine Sulfate (Morphine Inj) 2 mg IV.PUSH Q4H PRN PRN Reason: BREAKTHROUGH PAIN Last Admin: 09/07/18 11:50 Dose: 2 mg Nitroglycerin (Nitrostat Sl (Override)) 0.4 mg SL Q5M PRN PRN Reason: Chest Pain Ondansetron HCl (Zofran Inj) 4 mg IV.PUSH Q6H PRN PRN Reason: NAUSEA OR VOMITING Ondansetron HCl (Zofran Inj) 4 mg IV.PUSH Q4H PRN PRN Reason: NAUSEA Pantoprazole Sodium (Protonix Inj) 40 mg IV.PUSH Q24H [facility] Last Admin: 09/10/18 20:23 Dose: 40 mg Pantoprazole Sodium (Protonix) 40 mg PO Q24H [facility] Last Admin: 09/07/18 21:29 Dose: 40 mg Potassium Chloride (Klor-Con 10) 20 meq PO DAILY [facility] Last Admin: 09/10/18 15:18 Dose: 20 meq Prochlorperazine (Compazine Supp) 25 mg RECTAL Q12HR PRN PRN Reason: NAUSEA OR VOMITING Sennosides (Senokot) 17.2 mg PO Q12H PRN PRN Reason: Moderate Constipation Sodium Chloride (Ns Flush) 2 ml IV.FLUSH BID [facility] Last Admin: 09/10/18 20:31 Dose: 2 ml Sodium Chloride (Ns Flush) 2 ml IV.FLUSH PRN PRN PRN Reason: FLUSH AFTER USING IV ACCESS Tamsulosin HCl (Flomax) 0.4 mg PO DAILY [facility] Last Admin: 09/10/18 10:09 Dose: 0.4 mg Tramadol HCl (Ultram) 50 mg PO Q6H PRN PRN Reason: PAIN SCALE 1 TO 5 Last Admin: 09/10/18 20:23 Dose: 50 mg Allergies Allergy/AdvReac Type Severity Reaction Status Date / Time penicillin G Allergy Severe rash Verified 09/01/18 21:30 Home Medications Medication Instructions Recorded Confirmed Type amlodipine 2.5 mg PO DAILY 09/01/18 09/01/18 History aspirin [Aspir-Low] 81 mg PO DAILY 09/01/18 09/01/18 History doxazosin 4 mg PO DAILY 09/01/18 09/01/18 History finasteride 5 mg PO DAILY 09/01/18 09/01/18 History levetiracetam 500 mg PO HS 09/01/18 09/01/18 History nitroglycerin [Nitrostat] 0.4 mg SUBLINGUAL Q5-15M PRN 09/01/18 09/01/18 History tamsulosin 0.4 mg PO DAILY 09/01/18 09/01/18 History isosorbide mononitrate 30 mg PO DAILY 09/02/18 09/02/18 History Physical Exam Vital signs: Vital Signs 09/09/18 23:00 09/10/18 00:00 09/10/18 01:00 Temperature 98.1 F Pulse Rate 83 80 82 Respiratory Rate 20 Blood Pressure 97/56 L Pulse Oximetry 94 L 09/10/18 02:00 09/10/18 03:00 09/10/18 03:28 Temperature 98.1 F Pulse Rate 80 84 78 Respiratory Rate 20 16 Blood Pressure 124/59 L Pulse Oximetry 96 09/10/18 04:00 09/10/18 05:00 09/10/18 06:00 Temperature Pulse Rate 88 90 94 H Respiratory Rate Blood Pressure Pulse Oximetry 09/10/18 07:00 09/10/18 08:00 09/10/18 09:00 Temperature 98.3 F Pulse Rate 93 H 93 H 93 H Respiratory Rate 16 Blood Pressure 131/60 Pulse Oximetry 95 95 09/10/18 09:39 09/10/18 10:00 09/10/18 11:00 Temperature 98.4 F Pulse Rate 90 100 H 107 H Respiratory Rate 16 18 Blood Pressure 141/70 H Pulse Oximetry 96 96 09/10/18 12:00 09/10/18 13:00 09/10/18 14:00 Temperature Pulse Rate 86 86 96 H Respiratory Rate Blood Pressure Pulse Oximetry 09/10/18 14:18 09/10/18 15:00 09/10/18 16:00 Temperature 98.2 F Pulse Rate 94 H 93 H 93 H Respiratory Rate 18 16 Blood Pressure 120/60 Pulse Oximetry 96 09/10/18 17:00 09/10/18 18:00 09/10/18 19:42 Temperature Pulse Rate 90 91 H 94 H Respiratory Rate 20 Blood Pressure Pulse Oximetry 94 L Intake & Output 09/10/18 09/10/18 09/11/18 06:59 18:59 06:59 Intake Total 220 / 220 990 / 990 Output Total 500 / 500 1300 / 1300 Balance -280 / -280 -310 / -310 Weight 78 kg Intake: IV 100 / 100 150 / 150 Cleocin 300 mg/NS Premix 300 mg 100 / 100 50 / 50 In 50 ml @ 100 mls/hr IV.SIG Q8H KALIN Rx#:[id number] Levaquin 500 mg Premix Inj 500 100 / 100 mg In 100 ml @ 100 mls/hr IV. SIG Q24H KALIN Rx#:[id number] Oral 120 / 120 840 / 840 Output: Urine 500 / 500 1300 / 1300 Other: Date of Last Bowel Movement 09/09/18 Narrative: Gen: Lying in ICU bed no acute distress Head: Normocephalic. Atraumatic. EENT: Pupils equal round and reactive Cardiovascular: Regular rate and rhythm. No murmurs, rubs or gallops. Sinus rhythm with frequent PVCs. Prevena in place Respiratory: Lungs clear to auscultation bilaterally. No wheezes or rhonchi. Abdomen: Soft, nontender, nondistended. No peritoneal signs. Musculoskeletal: No gross deformities. No edema. Bilateral pedal pulses are palpable. Right femoral with no hematoma Skin: No obvious rashes or erythema. Neuro: Alert awake, denies any chest pain. Moves all 4 extremities - Urinary Catheter Management Indwelling Temp Sensing Catheter Cath placed during this visit: yes, but has since been removed by the nurse Reason for continuing: Not indwelling catheter Insertion date: 09/02/18 Insertion time: 15:40 Removal date: 09/08/18 Removal time: 08:30 Indwelling Urethral Catheter Cath placed during this visit: no Reason for continuing: Hourly intake/output Results 09/10/18 05:13 09/09/18 04:30 Coagulation 09/09/18 Range/Units 04:30 PT 12.2 H (9.8-11.6) sec APTT 30.8 (23.4-31.7) sec CBC 09/09/18 09/10/18 Range/Units 04:30 05:13 WBC 7.9 7.4 (4.0-11.0) th/mm3 RBC 2.75 L 2.76 L (4.50-5.90) mil/mm3 Hgb 8.6 L 8.6 L (13.0-17.0) gm/dL Hct 24.9 L 25.1 L (39.0-51.0) % Plt Count 188 214 (150-450) th/mm3 Comprehensive Metabolic Panel 09/09/18 Range/Units 04:30 Sodium 139 (136-145) meq/L Potassium 4.1 D (3.5-5.1) meq/L Chloride 108 H (98-107) meq/L Carbon Dioxide 24.6 (21.0-32.0) meq/L BUN 26 H (7-18) mg/dL Creatinine 1.13 (0.60-1.30) mg/dL Calcium 7.8 L (8.5-10.1) mg/dL Intake and Output 09/10/18 09/10/18 09/10/18 06:59 14:59 22:59 Intake Total 170 / 170 150 / 150 840 / 840 Output Total 500 / 500 1300 / 1300 Balance -330 / -330 150 / 150 -460 / -460 Intake: IV 50 / 50 150 / 150 Cleocin 300 mg/NS Premix 300 mg 50 / 50 50 / 50 In 50 ml @ 100 mls/hr IV.SIG Q8H [facility] Rx#:[id number] Levaquin 500 mg Premix Inj 500 100 / 100 mg In 100 ml @ 100 mls/hr IV. SIG Q24H [facility] Rx#:[id number] Oral 120 / 120 840 / 840 Output: Urine 500 / 500 1300 / 1300 Other: Date of Last Bowel Movement 09/09/18 09/09/18 Weight 78 kg - Imaging and Cardiology Imaging: Impressions Chest X-Ray 09/09/18 06:00 CONCLUSION: Continued progression in the consolidation of the left lung. Chest X-Ray 09/10/18 06:00 CONCLUSION: Unchanged left pleural effusion, left lung infiltrate, and right basilar infiltrate. Assessment and Plan - Assessment (1) Tachy-bina syndrome Code(s): I49.5 - Sick sinus syndrome Status: Acute (2) Afib Code(s): I48.91 - Unspecified atrial fibrillation Status: Acute (3) Cardiogenic postoperative shock Code(s): T81.11XA - Postprocedural cardiogenic shock, initial encounter Status : Acute (4) CAD (coronary artery disease), [place] coronary artery Code(s): I25.10 - Atherosclerotic heart disease of [place] coronary artery without angina pectoris Status: Acute (5) S/P CABG x 4 Code(s): Z95.1 - Presence of aortocoronary bypass graft Status: Acute (6) Elevated troponin Code(s): R74.8 - Abnormal levels of other serum enzymes Status: Acute (7) Acute electrocardiogram changes Code(s): R94.31 - Abnormal electrocardiogram [ECG] [EKG] Status: Acute - Plan 1) CAD/NSTEMI s/p CABG x4 IABP removed post-surgery 2) Tachy-bina syndrome Had episodes of AFib with RVR while here Continue on Amiodarone Micro PPM placed by Dr. Velasco 3) Afib Discussed with patient and family High risk for CVA Agree to be placed on Eliquis as he was on that before Eliquis was stopped before due to him having 6 second pauses and afraid he was going to pass out and hit his head Eliquis 5mg BID Will stop Plavix
[2018-09-11] MEDS: Clindamycin 300 mg/Dex Premix 300 MG/50 ML PIGGYBACK IV.SIG SCH ×2 (02:00→10:59)
[2018-09-11] MEDS: Insulin NovoLOG Aspart Correctional Sugar Inj SQ SCH ×2 (11:00→12:34)
[2018-09-11] MEDS: Finasteride 5 MG Tablet PO SCH (11:00)
[2018-09-11] MEDS: Metoprolol Tartrate 25 MG Tablet PO SCH (11:01)
[2018-09-11] MEDS: Levofloxacin 500 mg Premix Inj 500 MG/100 ML PIGGYBACK IV.SIG SCH (11:02)
[2018-09-11] MEDS: Doxazosin 4 MG Tablet PO SCH (11:02)
--- NOTE | 2018-09-11 14:03 | P.DS ---
Date of admission: 09/01/18 22:26 Primary care physician: Oliver Vargas MD Attending physician on discharge: Mc Kimbrough Anticipated date of discharge: 09/11/18 Brief History from admission: 87-year-old male with a past medical history significant for hypertension, hyperlipidemia, diet controlled diabetes mellitus, BPH and history of intracranial hemorrhage 8 years ago presents to the emergency department for evaluation of chest pain. The patient is currently undergoing a chest pain workup as an outpatient with his shirt presser, Dr. Sanchez. He currently has a loop recorder. He states there was discussion of doing a cardiac catheterization in the near future. The patient reports that he was sitting at rest earlier yesterday afternoon when he had chest pain which he described as a substernal pressure that radiated down his bilateral upper extremities that was relieved by nitro. He reports the pressure returned 1 hour later and he had to take another nitro. At that time, the patient's insisted that he come to the emergency department for further evaluation. He denies any episodes of diaphoresis. No associated shortness of breath. No abdominal pain. No nausea/ vomiting/diarrhea. No fever/chills. No focal neurologic symptoms. 87-year-old male patient of Dr. Rosibel Liu, Dr. Alhaji Mahmood, Dr. Oliver Vargas. History of coronary artery disease, recently developed some new onset of angina. He is an avid swimmer which developed over a couple weeks ago. He was placed on dual antianginal therapy and he also has a history of some paroxysmal atrial fibrillation. The loop recorder showed a rate up to 146 in July, which he was entirely asymptomatic. They discussed permanent pacemaker, but he wanted to wait until after for that to be placed. He underwent elective cardiac catheterization today by Dr. Worthy, which showed a left main disease of 75%, proximal LAD 95%, mid distal LAD 70%, RCA 75%. We were consulted to evaluate for coronary artery bypass grafting x3. The patient had an intraaortic balloon pump placed to the right groin, which is currently at a 1:1 augmentation. EF 55% PAST MEDICAL HISTORY: Includes paroxysmal atrial fibrillation, sick sinus syndrome, diabetes mellitus type 2, hyperlipidemia, hypertension. He had a history of intracranial hemorrhage in 2009, had a CVA also following that in 2016. Patient update on day of discharge: pt now on room air, breath sounds improved, still has some crackles left lower lobe needs to continue nebs, ezpap , acapella NSR on eliquis continue antibiotics as directed followed by speech / now on thin liguids DS: Diagnosis - Discharge Diagnosis (1) Acute electrocardiogram changes Status: Acute (2) CAD (coronary artery disease), [place] coronary artery Status: Acute (3) Chest pain Status: Acute (4) Elevated troponin Status: Acute (5) S/P CABG x 4 Status: Acute (6) Cardiogenic postoperative shock Status: Acute (7) Aspiration pneumonia Status: Acute DS: Summary Hospital Course: 09/03 surgery : SURGICAL PROCEDURE 1. Urgent Off-pump Coronary Artery Bypass Grafting x 4 with Left Internal Mammary Artery (CEBALLOS) to Left Anterior Descending (LAD), reverse saphenous vein graft to obtuse Marginal branch of the left Circumflex artery, reverse saphenous vein graft to the posterior Descending branch of the right Coronary artery, reverse saphenous vein graft to the Diagonal 2 branch of the LAD 2. Left leg Endoscopic Vein Rozet 3. Intraoperative Vein Mapping. crystalloid 3500cc, 380cc cell saver 09/04 pt remains intubated, weaning in progress awake on low dose precedex remains on pressors / IABP 1:2 plan once pt extubated / eval for possible IABP removal on insulin gtt ASA, statin , no BB 2/2 hypotension 09/05 Doing well clinically Weaning norepinephrine as tolerated IABP pulled yesterday. Right groin soft without hematoma Out of bed to chair today Physical therapy Maintain chest tubes to drainage for now 12 More confused this morning. Likely some component of ICU psychosis in this elderly gentleman Some issues with swallowing. We will have speech evaluate Agree with transfusion and diuresis Physical therapy Keep in ICU for now 09/07 chest tubes dc without difficulty needs aggressive pulm toileting, concern for aspiration swallow eval pending , A&V wires left in place back in NSR, off milrinone, BP stable , fournier cath in place, on diuretics keep in ICU pt has HX tachy bina syndrome , discussed with Dr Mishra 09/08 now on thickened liquids, still with congested cough , but improved on 02 3 liters for permanent pacer today eval for transfer out of CVICU in am check sputum, add levaquin pulm toileting / CXR noted, has some left lower lobe consolidation will need rehab at discharge 09/09 s/p pacer yesterday , medtronic micro chip/ VVI at 50 on nasal cannula 2 liters, lung sound improved remains on thickened liguids for now will add lovenox, for DVT prevention in am continue levaquin for now / pulm toileting transfer to stepdown 09/10 CXR noted still with small effusion and consolidation continue pulm toileting and antibiotics for aspiration PNA pt still on pureed nectar thickened liguids on 2 liter nasal canula discussed with david Navarrete dc plavix and start eliquis with his recent afib await pulm input / 09/11 now on room air continue antibiotics/ change to po has bed available at [facility] today - Time Spent with Patient Total time spent providing and/or coordinating discharge services: Greater than 30 minutes Exam Vital signs: Vital Signs 09/10/18 14:00 09/10/18 14:18 09/10/18 15:00 Temperature 98.2 F Pulse Rate 96 H 94 H 93 H Respiratory Rate 18 16 Blood Pressure 120/60 Pulse Oximetry 96 09/10/18 16:00 09/10/18 17:00 09/10/18 18:00 Temperature Pulse Rate 93 H 90 91 H Respiratory Rate Blood Pressure Pulse Oximetry 09/10/18 19:00 09/10/18 19:42 09/10/18 20:00 Temperature 99.6 F Pulse Rate 90 94 H 96 H Respiratory Rate 18 20 Blood Pressure 121/60 Pulse Oximetry 94 L 94 L 94 L 09/10/18 21:00 09/10/18 22:00 09/10/18 23:00 Temperature 98.7 F Pulse Rate 96 H 88 81 Respiratory Rate 18 Blood Pressure 110/53 L Pulse Oximetry 96 09/11/18 00:00 09/11/18 01:00 09/11/18 02:00 Temperature Pulse Rate 78 78 78 Respiratory Rate 18 Blood Pressure Pulse Oximetry 09/11/18 03:00 09/11/18 04:00 09/11/18 05:00 Temperature 98.6 F Pulse Rate 77 88 80 Respiratory Rate 20 Blood Pressure 122/57 L Pulse Oximetry 94 L 09/11/18 06:00 09/11/18 07:00 09/11/18 07:45 Temperature 98.5 F Pulse Rate 78 87 77 Respiratory Rate 16 18 Blood Pressure 131/60 Pulse Oximetry 94 L 92 L 09/11/18 08:00 Temperature Pulse Rate 86 Respiratory Rate Blood Pressure Pulse Oximetry 94 L Intake & Output 09/10/18 09/11/18 09/11/18 18:59 06:59 18:59 Intake Total 990 / 990 530 / 530 150 / 150 Output Total 1300 / 1300 400 / 400 Balance -310 / -310 130 / 130 150 / 150 Weight 78 kg Intake: IV 150 / 150 50 / 50 150 / 150 Cleocin 300 mg/Dex Premix 300 50 / 50 50 / 50 mg In 50 ml @ 100 mls/hr IV.SIG Q8H JAQUELIN Rx#:[id number] Cleocin 300 mg/NS Premix 300 mg 50 / 50 In 50 ml @ 100 mls/hr IV.SIG Q8H JAQUELIN Rx#:[id number] Levaquin 500 mg Premix Inj 500 100 / 100 100 / 100 mg In 100 ml @ 100 mls/hr IV. SIG Q24H JAQUELIN Rx#:[id number] Oral 840 / 840 480 / 480 Output: Urine 1300 / 1300 400 / 400 Other: Date of Last Bowel Movement 09/09/18 - Constitutional no acute distress - Routine HEENT Exam Head: Present: normocephalic, atraumatic Eye: Present: EOMI, PERRL, normal accommodation - Routine Neck Exam Present: supple, full ROM - Routine Chest/Breast/Axilla Exam Chest wall: Present: tenderness - Routine Respiratory Exam Comments: diminished left lower lobe on room air - Routine Cardiovascular Exam Present: RRR, S1, S2 - Routine Abdominal Exam Present: soft, normoactive bowel sounds - Routine Extremities Exam Present: full ROM, pulses intact - Routine Skin Exam Present: intact, wounds Comments: sternal incision intact and well approximated , left leg incision intact - Routine Neurological Exam Present: alert, oriented X3, CN II-XII intact Results Procedures completed during hospitalization: OPERATIVE REPORT Pt Name: Thanh Webb MR#: [id number] [facility] Attended By: Mc Kimbrough MD Patient: Thanh Webb Report #: [id number] Electronically Signed: Ernestine Velasco MD Patient: Thanh Gagnonlegel Report #: [id number] Electronically Signed: Hanscy RodErnestine Pierre MD, MD DATE OF OPERATION: 09/08/2018 Single chamber myocardial pulmonary p implantation and loop recorder removal. INDICATIONS FOR PROCEDURE: Mr. Webb is an 87-year-old gentleman with history of coronary artery disease, status post coronary artery bypass grafting, history of severe bradycardia, symptomatic refused permanent pacemaker in the past. During hospitalization developed multiple pauses and episodes of bradycardia. Decisions about the pacing insertion was taken. The risks, the nature and the benefits of the procedure were clearly said to him. Risks include pneumothorax, cardiac perforation, stroke and even . He understood and agreed to proceed. DESCRIPTION OF PROCEDURE: After written informed consent was obtained, the patient was brought to the EP lab where he was prepped and draped in the usual sterile fashion. Conscious sedation was initiated and maintained throughout the procedure by the anesthesiologist. Once sedation was verified, the right inguinal area was anesthetized with 2% Xylocaine. Using modified Seldinger technique, the right femoral vein was cannulated on one occasion; 1 guidewire was advanced. A stiff Amplatz was advanced all the way to the superior vena cava. Then I made less than a cm incision at the entry point. Then, the area was dilated using an 8, 12, 16 and 20-Albanian dilator. The delivery sheath was advanced. This was delivered to the right atrium. Through this sheath, the micro pacer delivery system was advanced. The patient already received 3000 heparin. The sheath was kept in place at the septal area. Subsequently, the device was released. A fluoroscopy showed good seating of the device. Then, at that point, a sensing was performed. He was between 13 and 16 millivolts. On 3 occasions it was around 13-14 and then stable at 16 millivolt. Vein threshold was performed. The patient just come from the coronary artery bypass grafting. Threshold was 1.88 volt at 0.4 millisecond. Most likely it will be in the morning. At that point, the device was released. The sheath and dilator were removed and the delivery system was removed, 2-0 Ethibond suture were placed at the exit point to prevent backbleeding. It was tied in a pursestring fashion. Sutures are going to be removed 6-8 post-procedure. At that point, I did proceed with loop recorder removal. The left parasternal area was anesthetized with 2% Xylocaine. Using an 11 blade scalpel, less than a cm incision was made. Subsequently, the lead was removed. The border of the wound was reapproximated using Dermabond and Steri-Strip. No incident to report. That was a very complex procedure. BLOOD LOSS: Minimal. 1. Accelerated or decelerated loop recorder. It is a Medtron[employer] model number LNQ11, serial number [id number]. 2. ablated myocardial permanent pacemaker is a Medtronics model number [id number], serial number [id number]. Setting the device in the VVI 50. Rate at this point will be evaluated after device interrogation. CONCLUSION: Successful loop recorder removal, successful myocardium permanent pacemaker insertion. RECOMMENDATIONS: The patient is going to be transferred to the telemetry unit. Will be observed when stable, can be discharged home whenever it is okay with the managing team. Ernestine Velasco MD Date of procedure: 09/03/18 Anesthesia: GETA Surgeon: Mc Kimbrough MD Operation and Findings: PREPROCEDURE DIAGNOSES 1. Severe Multi Vessel Coronary Artery Disease. 2. Critical Left Main Stenosis 3. Supraventricular Tachyarrhythmias with Sick Sinus Syndrome 4. IABP Circulatory Support POSTPROCEDURE DIAGNOSES Same SURGICAL PROCEDURE 1. Urgent Off-pump Coronary Artery Bypass Grafting x 4 with Left Internal Mammary Artery (CEBALLOS) to Left Anterior Descending (LAD), reverse saphenous vein graft to obtuse Marginal branch of the left Circumflex artery, reverse saphenous vein graft to the posterior Descending branch of the right Coronary artery, reverse saphenous vein graft to the Diagonal 2 branch of the LAD 2. Left leg Endoscopic Vein Rozet 3. Intraoperative Vein Mapping. Labs on day of discharge: Labs from last 24 hours 09/11/18 09/11/18 09/10/18 12:04 08:41 20:19 POC Glucose 223 H 190 H 197 H 09/10/18 17:26 POC Glucose 138 H Preliminary micro results at discharge 09/09/18 19:01 Aerobic Blood Culture - Preliminary Blood - Line No growth in 2 days Anaerobic Blood Culture - Preliminary No growth in 2 days 09/09/18 18:56 Aerobic Blood Culture - Preliminary Blood - Line No growth in 2 days Anaerobic Blood Culture - Preliminary No growth in 2 days - Impressions ITS Impressions Carotid Doppler Study 09/02/18 12:39 CONCLUSION: 1. Right Internal Carotid Artery: The exam demonstrates moderate atherosclerotic plaquing at the bifurcation. There is no hemodynamically significant stenosis identified. 2. Left Internal Carotid Artery: Moderate atherosclerotic plaquing at the bifurcation. No hemodynamically significant stenosis identified. Lower Extremity Ultrasound 09/02/18 12:39 CONCLUSION: 1. Vein mapping as above. Venous Doppler Study 09/02/18 12:39 CONCLUSION: 1. Very limited evaluation of the right leg. 2. Normal study on the left Chest X-Ray 09/10/18 06:00 CONCLUSION: Unchanged left pleural effusion, left lung infiltrate, and right basilar infiltrate. Discharge Plan - Discharge Disposition Patient Disposition: [facility] Rehab Inpatient - Discharge Condition Condition: Fair - Discharge Order Discharge Orders: Discharge Order (Routine); Ordered 09/11/18 Ordered By: Candice Dodge ED Use Only Admit Order (Routine); Ordered 09/01/18 Ordered By: Gianni Matos - Discharge Details Anticipated Discharge Date: 09/11/18 Discharge Comment: dc to rehab when bed available - Physicians Team Primary Care Provider: Oliver Vargas Attending Provider: Mc Kimbrough Other Providers: Rosibel Liu MD ; Saeid Tanner MD ; Ernestine Velasco MD ; Reid Pinon MD
[2018-09-11 14:08] VITALS: BP 132/66; TEMP 98.6; O2SAT 93
[2018-09-11 14:47] VITALS: PULSE 86; RESP 18
--- NOTE | 2018-09-11 17:35 | P.PNCA ---
Subjective Interval history: No events overnight Plan for rehab today Medications and Allergies Allergies Allergy/AdvReac Type Severity Reaction Status Date / Time penicillin G Allergy Severe rash Verified 09/01/18 21:30 Home Medications Medication Instructions Recorded Confirmed Type aspirin [Aspir-Low] 81 mg PO DAILY 09/01/18 09/11/18 History doxazosin 4 mg PO DAILY 09/01/18 09/11/18 History finasteride 5 mg PO DAILY 09/01/18 09/11/18 History levetiracetam 500 mg PO HS 09/01/18 09/11/18 History tamsulosin 0.4 mg PO DAILY 09/01/18 09/11/18 History Physical Exam Vital signs: Vital Signs 09/10/18 18:00 09/10/18 19:00 09/10/18 19:42 Temperature 99.6 F Pulse Rate 91 H 90 94 H Respiratory Rate 18 20 Blood Pressure 121/60 Pulse Oximetry 94 L 94 L 09/10/18 20:00 09/10/18 21:00 09/10/18 22:00 Temperature Pulse Rate 96 H 96 H 88 Respiratory Rate Blood Pressure Pulse Oximetry 94 L 09/10/18 23:00 09/11/18 00:00 09/11/18 01:00 Temperature 98.7 F Pulse Rate 81 78 78 Respiratory Rate 18 18 Blood Pressure 110/53 L Pulse Oximetry 96 09/11/18 02:00 09/11/18 03:00 09/11/18 04:00 Temperature 98.6 F Pulse Rate 78 77 88 Respiratory Rate 20 Blood Pressure 122/57 L Pulse Oximetry 94 L 09/11/18 05:00 09/11/18 06:00 09/11/18 07:00 Temperature 98.5 F Pulse Rate 80 78 87 Respiratory Rate 16 Blood Pressure 131/60 Pulse Oximetry 94 L 09/11/18 07:45 09/11/18 08:00 09/11/18 09:00 Temperature Pulse Rate 77 86 96 H Respiratory Rate 18 Blood Pressure Pulse Oximetry 92 L 94 L 09/11/18 10:00 09/11/18 11:00 09/11/18 12:00 Temperature 98.6 F Pulse Rate 92 H 97 H 92 H Respiratory Rate 14 Blood Pressure 132/66 Pulse Oximetry 93 L 09/11/18 13:00 09/11/18 14:00 09/11/18 14:47 Temperature Pulse Rate 90 84 86 Respiratory Rate 18 Blood Pressure Pulse Oximetry Intake & Output 09/10/18 09/11/18 09/11/18 18:59 06:59 18:59 Intake Total 990 / 990 530 / 530 150 / 150 Output Total 1300 / 1300 400 / 400 Balance -310 / -310 130 / 130 150 / 150 Weight 78 kg Intake: IV 150 / 150 50 / 50 150 / 150 Cleocin 300 mg/Dex Premix 300 50 / 50 50 / 50 mg In 50 ml @ 100 mls/hr IV.SIG Q8H JAQUELIN Rx#:[id number] Cleocin 300 mg/NS Premix 300 mg 50 / 50 In 50 ml @ 100 mls/hr IV.SIG Q8H JAQUELIN Rx#:[id number] Levaquin 500 mg Premix Inj 500 100 / 100 100 / 100 mg In 100 ml @ 100 mls/hr IV. SIG Q24H JAQUELIN Rx#:[id number] Oral 840 / 840 480 / 480 Output: Urine 1300 / 1300 400 / 400 Other: Date of Last Bowel Movement 09/09/18 Narrative: Gen: Lying in ICU bed no acute distress Head: Normocephalic. Atraumatic. EENT: Pupils equal round and reactive Cardiovascular: Regular rate and rhythm. No murmurs, rubs or gallops. Sinus rhythm with frequent PVCs. Prevena in place Respiratory: Lungs clear to auscultation bilaterally. No wheezes or rhonchi. Abdomen: Soft, nontender, nondistended. No peritoneal signs. Musculoskeletal: No gross deformities. No edema. Bilateral pedal pulses are palpable. Right femoral with no hematoma Skin: No obvious rashes or erythema. Neuro: Alert awake, denies any chest pain. Moves all 4 extremities - Urinary Catheter Management Indwelling Temp Sensing Catheter Cath placed during this visit: yes, but has since been removed by the nurse Reason for continuing: Not indwelling catheter Insertion date: 09/02/18 Insertion time: 15:40 Removal date: 09/08/18 Removal time: 08:30 Indwelling Urethral Catheter Cath placed during this visit: no Reason for continuing: Hourly intake/output Results 09/10/18 05:13 09/09/18 04:30 CBC 09/10/18 Range/Units 05:13 WBC 7.4 (4.0-11.0) th/mm3 RBC 2.76 L (4.50-5.90) mil/mm3 Hgb 8.6 L (13.0-17.0) gm/dL Hct 25.1 L (39.0-51.0) % Plt Count 214 (150-450) th/mm3 Intake and Output 09/11/18 09/11/18 09/11/18 06:59 14:59 22:59 Intake Total 530 / 530 150 / 150 Output Total 400 / 400 Balance 130 / 130 150 / 150 Intake: IV 50 / 50 150 / 150 Cleocin 300 mg/Dex Premix 300 50 / 50 50 / 50 mg In 50 ml @ 100 mls/hr IV.SIG Q8H JAQUELIN Rx#:[id number] Levaquin 500 mg Premix Inj 500 100 / 100 mg In 100 ml @ 100 mls/hr IV. SIG Q24H JAQUELIN Rx#:[id number] Oral 480 / 480 Output: Urine 400 / 400 Other: Weight 78 kg - Imaging and Cardiology Imaging: Impressions Chest X-Ray 09/10/18 06:00 CONCLUSION: Unchanged left pleural effusion, left lung infiltrate, and right basilar infiltrate. Assessment and Plan - Assessment (1) Tachy-bina syndrome Code(s): I49.5 - Sick sinus syndrome Status: Acute (2) Afib Code(s): I48.91 - Unspecified atrial fibrillation Status: Chronic (3) Cardiogenic postoperative shock Code(s): T81.11XA - Postprocedural cardiogenic shock, initial encounter Status : Acute (4) CAD (coronary artery disease), [place] coronary artery Code(s): I25.10 - Atherosclerotic heart disease of [place] coronary artery without angina pectoris Status: Acute (5) S/P CABG x 4 Code(s): Z95.1 - Presence of aortocoronary bypass graft Status: Acute (6) Elevated troponin Code(s): R74.8 - Abnormal levels of other serum enzymes Status: Acute (7) Acute electrocardiogram changes Code(s): R94.31 - Abnormal electrocardiogram [ECG] [EKG] Status: Acute - Plan 1) CAD/NSTEMI s/p CABG x4 IABP removed post-surgery 2) Tachy-bina syndrome Had episodes of AFib with RVR while here Continue on Amiodarone Micro PPM placed by Dr. Velasco 3) Afib Discussed with patient and family High risk for CVA Agree to be placed on Eliquis as he was on that before Eliquis was stopped before due to him having 6 second pauses and afraid he was going to pass out and hit his head Eliquis 5mg BID Will stop Plavix 4) For rehab today Follow up with Dr. Liu on discharge (2) Afib Qualifiers: Atrial fibrillation type: paroxysmal Qualified Code(s): I48.0 - Paroxysmal atrial fibrillation (3) Cardiogenic postoperative shock Qualifiers: Encounter type: initial encounter Qualified Code(s): T81.11XA - Postprocedural cardiogenic shock, initial encounter
[2018-09-12] MEDS ORDERED: levoFLOXacin 500 MG Tablet PO SCH (09:00)
== END 2018-09-11 16:42 ==
LOC: NEPE 20:28 → NEDA 22:26 → NEDH 09-02 04:16 → HCVI 09-02 13:26 → HCPC 09-09 11:42
PROVIDERS: ADMIT Thoracic Surgery (Cardiothoracic Vascular Surgery); ATTEND Thoracic Surgery (Cardiothoracic Vascular Surgery)

== ENCOUNTER 2018-10-10 13:55 | Inpatient (IN) ==
--- NOTE | 2018-10-10 14:54 | ED ---
HPI General Chief Complaint: Arrhythmia / Palpitations Stated Complaint: weakness Time Seen by Provider: 10/10/18 14:28 Source: patient Mode of arrival: EMS Limitations: no limitations History of Present Illness HPI Narrative: The patient is a 87-year-old male who presents to the emergency department via EMS for dizziness, lightheadedness, and near syncope. The patient states he underwent open heart surgery in September by Dr. Kimbrough, was hospitalized to intensive care unit for several days, discharged home near the end of September. The patient states he has not had much of an appetite and has not been drinking fluids at home. The patient states he got up this morning and tried to clean himself prior to his helping him when he suddenly became lightheaded and dizzy. The patient felt like he was going to pass out. The patient states he was placed back in the bed, his symptoms improved while lying supine. EMS apparently arrived and the patient was in SVT and administered adenosine 6 mg intravenously. The patient then converted to a sinus rhythm. The patient still complains of mild dizziness and lightheadedness with positional changes, such as going from lying supine to sitting upright. The patient states the nausea has improved. The patient denies any chest pain, palpitations, or focal deficits. Symptoms are moderate. MD complaint: Reports lightheadedness and near syncope Onset (ago): hour(s) Timing: intermittent and waxing/waning Description: Reports lightheadedness and near-syncope History of similar episodes: No History of trauma: No Severity: moderate Relieving factors: rest Exacerbating factors: position Associated symptoms: Reports diaphoresis and nausea Related Data Previous Rx's Medication Instructions Recorded acetaminophen 650 mg PO Q4H PRN tab 09/11/18 apixaban [Eliquis] 5 mg PO BID 30 Days #60 tab 09/23/18 aspirin [Aspir-Low] 81 mg PO DAILY 30 Days #30 tab 09/23/18 atorvastatin 40 mg PO HS 30 Days #30 tab 09/23/18 doxazosin 4 mg PO DAILY 30 Days #30 tab 09/23/18 finasteride 5 mg PO DAILY 30 Days #30 tab 09/23/18 levetiracetam 500 mg PO HS 30 Days #30 tab 09/23/18 metformin [Glucophage] 1,000 mg PO BIDPC 30 Days tab 09/23/18 metoprolol tartrate 25 mg PO BID 30 Days #60 tab 09/23/18 pantoprazole 40 mg PO Q24H 30 Days #30 tab 09/23/18 tamsulosin 0.4 mg PO DAILY 30 Days #30 cap 09/23/18 Allergies Allergy/AdvReac Type Severity Reaction Status Date / Time penicillin G Allergy Severe rash Verified 09/01/18 21:30 Review of Systems ROS: all other systems reviewed are negative [facility] Medical History Medical History Aneurysm (Acute) Atrial fibrillation with RVR (Acute) BPH (benign prostatic hyperplasia) (Acute) Chronic back pain (Acute) Diabetes (Acute) Hyperlipidemia (Acute) Hypertension (Acute) Intracranial hemorrhage (Acute) Tachycardia-bradycardia syndrome (Acute) Surgical History Surgical History H/O eye surgery (Acute) H/O knee surgery (Acute) H/O shoulder surgery (Acute) Family History Family History Father Diabetes mellitus Mother Unknown whether patient has any health problems Social History Social History Substance History: No History of Abuse Second Hand Smoke Exposure: No Smoking Status: Never smoker How Often Do You Have a Drink Containing Alcohol: Never Hx Recent Travel: No Immunization History Tetanus Immunization: Unsure Exam Narrative Exam Narrative: GENERAL: Awake, alert, pleasant 87-year-old male who appears his stated age and is in no acute respiratory distress. SKIN: Focused skin assessment warm/dry. HEAD: Atraumatic. Normocephalic. EYES: Pupils equal and round. No scleral icterus. No injection or drainage. ENT: No nasal bleeding or discharge. Slightly dry mucous membranes. NECK: Trachea midline. No JVD. CARDIOVASCULAR: Regular rate and rhythm. No murmur appreciated. Healing midline surgical scar. RESPIRATORY: No accessory muscle use. Clear to auscultation. Breath sounds equal bilaterally. GASTROINTESTINAL: Abdomen soft, non-tender, nondistended. No rebound tenderness. MUSCULOSKELETAL: No obvious deformities. No clubbing. No cyanosis. No edema. NEUROLOGICAL: Awake and alert. No obvious cranial nerve deficits. Motor grossly within normal limits. Normal speech. Nonfocal. Oriented x3. PSYCHIATRIC: Appropriate mood and affect; insight and judgment normal. Course Initial Documented Vital Signs Temperature 98.5 F 10/10/18 14:14 Pulse Rate 83 10/10/18 14:14 Respiratory Rate 18 10/10/18 14:14 Blood Pressure 141/75 H 10/10/18 14:14 Pulse Oximetry 98 10/10/18 14:14 Last Documented Vital Signs Temperature 98.5 F 10/10/18 14:14 Pulse Rate 71 10/10/18 15:43 Respiratory Rate 20 10/10/18 15:43 Blood Pressure 115/67 10/10/18 15:43 Pulse Oximetry 95 10/10/18 15:43 Medical Decision Making MDM Narrative Medical decision making narrative: IV was established, labs are drawn and sent, and the patient was placed on cardiac telemetry monitoring and continuous pulse oximetry monitoring. EKG was ordered and interpreted. Orthostatic vital signs were obtained. The patient was administered normal saline 500 cc fluid bolus. Chest x-ray was obtained. The patient had a single lead ventricular pacemaker placed per the [employer] rep, will not tell us whether the patient had any atrial arrhythmias. Therefore, unsure if the patient had atrial flutter 2-1 block versus SVT. The patient surgery was performed on September 03, [address] Kimbrough. The patient's troponin was elevated, may be secondary to dysrhythmia. As the patient had a near syncopal episode with probable dysrhythmia and elevated troponin, the patient will be admitted for observation. I discussed the patient with Dr. Eze London who agrees with 23- hour observation. A courtesy call was placed to the patient's cardiothoracic surgeon, Dr. Kimbrough, as the patient is postop from CABG on September 03. I discussed the patient with Dr. Burr at 5:23 PM who is aware that the patient will be admitted to the medical service. Medical Screen Exam Complete: Yes Emergency Medical Condition: Yes Differential Diagnosis Differential Diagnosis: Differential diagnosis includes arrhythmia, dysrhythmia , electrolyte abnormality, orthostatic hypotension, acute kidney injury, dehydration, pleural effusion, Olimpia syndrome. Lab Data Result diagrams: 10/10/18 14:49 10/10/18 14:49 Lab Results 10/10/18 10/10/18 10/10/18 Range/Units 14:49 14:49 14:49 WBC 5.5 (4.0-11.0) th/mm3 RBC 3.61 L (4.50-5.90) mil/mm3 Hgb 11.2 L (13.0-17.0) gm/dL Hct 31.8 L (39.0-51.0) % MCV 88.1 (80.0-100.0) fL MCH 31.2 (27.0-34.0) pg MCHC 35.4 (32.0-36.0) % RDW 16.4 (11.6-17.2) % Plt Count 168 D (150-450) th/mm3 MPV 8.4 (7.0-11.0) fL Neut % (Auto) 73.6 H (16.0-70.0) % Lymph % (Auto) 17.7 (9.0-44.0) % Blount % (Auto) 7.0 (0.0-8.0) % Eos % (Auto) 0.8 (0.0-4.0) % Baso % (Auto) 0.9 (0.0-2.0) % Neut # (Auto) 4.0 (1.8-7.7) th/mm3 Lymph # (Auto) 1.0 (1.0-4.8) th/mm3 Blount # (Auto) 0.4 (0.0-0.9) th/mm3 Eos # (Auto) 0.0 (0.0-0.4) th/mm3 Baso # (Auto) 0.0 (0.0-0.2) th/mm3 WBC Differential . Differential Comment Auto diff final PT 11.8 H (9.8-11.6) sec INR 1.2 Ratio APTT 33.7 H (23.4-31.7) sec Sodium 138 (136-145) meq/L Potassium 4.2 (3.5-5.1) meq/L Chloride 105 (98-107) meq/L Carbon Dioxide 26.8 (21.0-32.0) meq/L Anion Gap 6 (5-15) meq/L BUN 18 (7-18) mg/dL Creatinine 1.17 (0.60-1.30) mg/dL Estimated GFR 59 L (>89) mL/min Random Glucose 139 H (74-106) mg/dL Calcium 8.3 L (8.5-10.1) mg/dL Magnesium 1.5 (1.5-2.5) mg/dL Total Bilirubin 0.7 (0.2-1.0) mg/dL AST 26 (15-37) U/L ALT 18 (12-78) U/L Alkaline Phosphatase 105 (45-117) U/L Troponin I 0.57 H (0.02-0.05) ng/mL B-Natriuretic Peptide (0-100) pg/mL Total Protein 6.7 (6.4-8.2) g/dL Albumin 2.9 L (3.4-5.0) g/dL 10/10/18 Range/Units 14:49 WBC (4.0-11.0) th/mm3 RBC (4.50-5.90) mil/mm3 Hgb (13.0-17.0) gm/dL Hct (39.0-51.0) % MCV (80.0-100.0) fL MCH (27.0-34.0) pg MCHC (32.0-36.0) % RDW (11.6-17.2) % Plt Count (150-450) th/mm3 MPV (7.0-11.0) fL Neut % (Auto) (16.0-70.0) % Lymph % (Auto) (9.0-44.0) % Blount % (Auto) (0.0-8.0) % Eos % (Auto) (0.0-4.0) % Baso % (Auto) (0.0-2.0) % Neut # (Auto) (1.8-7.7) th/mm3 Lymph # (Auto) (1.0-4.8) th/mm3 Blount # (Auto) (0.0-0.9) th/mm3 Eos # (Auto) (0.0-0.4) th/mm3 Baso # (Auto) (0.0-0.2) th/mm3 WBC Differential Differential Comment PT (9.8-11.6) sec INR Ratio APTT (23.4-31.7) sec Sodium (136-145) meq/L Potassium (3.5-5.1) meq/L Chloride (98-107) meq/L Carbon Dioxide (21.0-32.0) meq/L Anion Gap (5-15) meq/L BUN (7-18) mg/dL Creatinine (0.60-1.30) mg/dL Estimated GFR (>89) mL/min Random Glucose (74-106) mg/dL Calcium (8.5-10.1) mg/dL Magnesium (1.5-2.5) mg/dL Total Bilirubin (0.2-1.0) mg/dL AST (15-37) U/L ALT (12-78) U/L Alkaline Phosphatase (45-117) U/L Troponin I (0.02-0.05) ng/mL B-Natriuretic Peptide 66 (0-100) pg/mL Total Protein (6.4-8.2) g/dL Albumin (3.4-5.0) g/dL Imaging Data Radiologist's impression: Chest X-Ray 10/10/18 14:45 CONCLUSION: Left lung base opacity is present may be due to a combination of consolidation and or pleural effusion. ECG Data EKG Prior to Arrival: No Attestation: I personally reviewed and interpreted this ECG as follows: Interpretation: EKG reveals sinus rhythm with occasional supraventricular premature complex. Low QRS voltage in extremity leads. Discharge Plan Discharge Disposition Patient Disposition: ED Admit(ED Internal Use Only) Discharge Condition Condition: Stable Discharge Order Discharge Orders: ED Use Only Admit Order (Routine); Ordered 10/10/18 Ordered By: Geoff Bose Discharge Details Diagnosis: Tachyarrhythmia, Orthostatic hypotension Physicians Team ED Provider: Geoff Bose Primary Care Provider: Oliver Vargas Attending Provider: Jeison London Status ED Status: Admitted Observation Patient
[2018-10-10] MEDS ORDERED: Sodium Chlor 0.9% Inj 500 ML IV.SIG SCH (15:00)
[2018-10-10 15:04] LABS: Baso % (Auto) 0.9 % (0.0-2.0); Eos % (Auto) 0.8 % (0.0-4.0); Hematocrit 31.8 % (39.0-51.0); Hemoglobin 11.2 gm/dL (13.0-17.0); Lymph % (Auto) 17.7 % (9.0-44.0); Mean Corpuscular HGB Conc 35.4 % (32.0-36.0); Mean Corpuscular Hemoglobin 31.2 pg (27.0-34.0); Mean Corpuscular Volume 88.1 fL (80.0-100.0); Mean Platelet Volume 8.4 fL (7.0-11.0); Mono # (Auto) 0.4 th/mm3 (0.0-0.9); Neut % (Auto) 73.6 % (16.0-70.0); Platelet Count 168 th/mm3 (150-450); Red Blood Count 3.61 mil/mm3 (4.50-5.90); Red Cell Distribution Width 16.4 % (11.6-17.2); White Blood Count 5.5 th/mm3 (4.0-11.0)
--- NOTE | 2018-10-10 15:08 | XR ---
EXAM DATE: 10/10/2018 3:03 PM EST AGE/SEX: 87 years / Male INDICATIONS: Chest pain, shortness of breath and general weakness. CLINICAL DATA: This is the patient's initial encounter. Patient reports that signs and symptoms have been present for 1 day and indicates a pain score of 6/10. MEDICAL/SURGICAL HISTORY: Cardiovascular disease. Diabetes mellitus type II. Stroke. Hyperte nsion. AFIB. Pacemaker. CABG. Loop recorder. COMPARISON: [facility], CHEST 1V SINGLE AP, 09/15/2018. . FINDINGS: Left lung base opacity is present may be due to a combination of consolidation and or pleu ral effusion. Overall reduction in size of the pleural effusions since the prior study. Chronic tend initis right shoulder not changed. CONCLUSION: Left lung base opacity is present may be due to a combination of consolidation and or pleural effu fredi. Electronically signed by: Marcial Baltazar MD Board Certified Radiologist 10/10/2018 3:07 PM EST
[2018-10-10 15:14] LABS: Activated Partial Thrombo Time 33.7 sec (23.4-31.7); INR 1.2 Ratio; Prothrombin Time 11.8 sec (9.8-11.6)
[2018-10-10 15:23] LABS: Alkaline Phosphatase 105 U/L (45-117); Total Protein 6.7 g/dL (6.4-8.2); Troponin I 0.57 ng/mL (0.02-0.05)
[2018-10-10 15:25] LABS: Alanine Aminotransferase 18 U/L (12-78); Albumin 2.9 g/dL (3.4-5.0); Anion Gap 6 meq/L (5-15); Aspartate Aminotransferase 26 U/L (15-37); Blood Urea Nitrogen 18 mg/dL (7-18); Calcium 8.3 mg/dL (8.5-10.1); Carbon Dioxide 26.8 meq/L (21.0-32.0); Chloride 105 meq/L (98-107); Glomerular Filtration Rate 59 mL/min (>89); Glucose,Random 139 mg/dL (74-106); Magnesium 1.5 mg/dL (1.5-2.5); Potassium 4.2 meq/L (3.5-5.1); Sodium 138 meq/L (136-145)
[2018-10-10] MEDS ORDERED: Acetaminophen 325 MG Tablet PO PRN (17:37)
--- NOTE | 2018-10-10 17:44 | P.HPIM ---
History of Present Illness Primary Care Physician: Oliver Vargas MD History of Present Illness: 87-year-old male with a history of type 2 diabetes, coronary artery disease s/p CABG 5 weeks ago, atrial fibrillation, tachybradycardia syndrome, BPH presents to the ER following a hypotensive episode at home. On admission he was found to have a heart rate up to 180, EKG was irregular and it was unclear whether this was flutter or SVT or A. fib. The rhythm resolved though he remains hypotensive. He denies any chest pain though his troponins were elevated likely due to rapid heart rate. She states that following his open heart surgery, while he was hospitalized, he had hypotensive episodes and it was necessary to place a pacemaker with defibrillator. Since then his recovery has gone normally up until now. He denies any recent fevers, denies upper respiratory infection, denies chest pain , denies nausea, vomiting, or diarrhea. [facility] Medical History Medical History Aneurysm (Acute) Atrial fibrillation with RVR (Acute) BPH (benign prostatic hyperplasia) (Acute) Chronic back pain (Acute) Diabetes (Acute) Hyperlipidemia (Acute) Hypertension (Acute) Intracranial hemorrhage (Acute) Tachycardia-bradycardia syndrome (Acute) Surgical History Surgical History H/O eye surgery (Acute) H/O knee surgery (Acute) H/O shoulder surgery (Acute) Family History Family History Father Diabetes mellitus Mother Unknown whether patient has any health problems Social History Social History Substance History: No History of Abuse Second Hand Smoke Exposure: No Smoking Status: Never smoker How Often Do You Have a Drink Containing Alcohol: Never Hx Recent Travel: No Immunization History Tetanus Immunization: Unsure Medications and Allergies Allergies Allergy/AdvReac Type Severity Reaction Status Date / Time penicillin G Allergy Severe rash Verified 09/01/18 21:30 Active Medications: Active Medications Acetaminophen (Tylenol) 650 mg PO Q4H PRN PRN Reason: Temp > 100.4 Al Hydroxide/Mg Hydroxide (Milk Of Magnesia Liq) 30 ml PO Q12H PRN PRN Reason: Mild Constipation Ondansetron HCl (Zofran Inj) 4 mg IV.PUSH Q6H PRN PRN Reason: NAUSEA OR VOMITING Sodium Chloride (Ns Flush) 2 ml IV.FLUSH BID JAQUELIN Sodium Chloride (Ns Flush) 2 ml IV.FLUSH PRN PRN PRN Reason: FLUSH AFTER USING IV ACCESS Physical Exam Vital signs: Last Vital Signs Temp 98.5 F 10/10/18 14:14 Pulse 71 10/10/18 15:43 Resp 20 10/10/18 15:43 BP 115/67 10/10/18 15:43 Pulse Ox 95 10/10/18 15:43 Intake & Output 10/08/18 10/09/18 10/10/18 10/11/18 06:59 06:59 06:59 06:59 Intake Total 500 / 500 Balance 500 / 500 Weight 65.317 kg Narrative: GENERAL: AAOx3, no acute distress, adequate nutrition SKIN: Warm and dry, no rashes. Sternal surgical scar well HEAD: Atraumatic. Normocephalic. EYES: Pupils equal, round, reactive to light. No scleral icterus. No injection or drainage. ENT: No nasal bleeding or discharge. Moist mucous membranes. Nonerythematous oropharynx. NECK: Trachea midline. No JVD. Thyroid size within normal limits. CARDIOVASCULAR: Regular rate and rhythm. No murmur, no gallops, no rubs. RESPIRATORY: Clear and equal to auscultation bilaterally. No crackles, no wheezes. No accessory muscle use. GASTROINTESTINAL: Abdomen soft, non-tender, nondistended, normal active bowel sounds. Hepatic and splenic margins not palpable. MUSCULOSKELETAL: Extremities without clubbing or cyanosis. No obvious deformities. No edema. NEUROLOGICAL: Awake and alert. No obvious cranial nerve deficits. Motor grossly within normal limits. No focal deficits. Five out of 5 muscle strength in the arms and legs. Normal speech. PSYCHIATRIC: Appropriate mood and affect; insight and judgment normal. Results Labs CBC & Chem 7: 10/10/18 14:49 10/10/18 14:49 Imaging Impressions Chest X-Ray 10/10/18 14:45 CONCLUSION: Left lung base opacity is present may be due to a combination of consolidation and or pleural effusion. Caprini VTE Risk Assessment Caprini VTE Risk Assessment: Moderate/High Risk (score >= 2) Caprini Risk Assessment Model: Point Value = 1 Point Value = 2 Point Value = 3 Point Value = 5 Age 41-60 Minor surgery BMI > 25 kg/m2 Swollen legs Varicose veins or History of unexplained or recurrent spontaneous Oral contraceptives or hormone replacement Sepsis (< 1 month) Serious lung disease, including pneumonia (< 1 month) Abnormal pulmonary function Acute myocardial infarction Congestive heart failure (< 1 month) History of inflammatory bowel disease Medical patient at bed rest Age 61-74 Arthroscopic surgery Major open surgery (> 45 min) Laparoscopic surgery (> 45 min) Malignancy Confined to bed (> 72 hours) Immobilizing plaster cast Central venous access Age >= 75 History of VTE Family history of VTE Factor V Leiden Prothrombin [id number] Lupus anticoagulant Anticardiolipin antibodies Elevated serum homocysteine Heparin-induced thrombocytopenia Other congenital or acquired thrombophilia Stroke (< 1 month) Elective arthroplasty Hip, pelvis, or leg fracture Acute spinal cord injury (< 1 month) Prophylaxis Regimen: Total Risk Factor Score Risk Level Prophylaxis Regimen 0-1 Low Early ambulation 2 Moderate Order ONE of the following: *Sequential Compression Device (SCD) *Heparin 5000 units SQ BID 3-4 Higher Order ONE of the following medications: *Heparin 5000 units SQ TID *Enoxaparin/Lovenox 40 mg SQ daily (WT < 150 kg, CrCl > 30 mL/min) *Enoxaparin/Lovenox 30 mg SQ daily (WT < 150 kg, CrCl > 10-29 mL/min) *Enoxaparin/Lovenox 30 mg SQ BID (WT < 150 kg, CrCl > 30 mL/min) AND/OR *Sequential Compression Device (SCD) 5 or more Highest Order ONE of the following medications: *Heparin 5000 units SQ TID (Preferred with Epidurals) *Enoxaparin/Lovenox 40 mg SQ daily (WT < 150 kg, CrCl > 30 mL/min) *Enoxaparin/Lovenox 30 mg SQ daily (WT < 150 kg, CrCl > 10-29 mL/min) *Enoxaparin/Lovenox 30 mg SQ BID (WT < 150 kg, CrCl > 30 mL/min) AND *Sequential Compression Device (SCD) Assessment and Plan Plan Hypotension with tachyarrhythmia Both have resolved at this point, but patient presented with elevated heart rate and reduce blood pressure Patient should be monitored overnight to watch for recurrence of tachyarrhythmia He has a pacemaker with defibrillator, at this point due to low blood pressure and holding his metoprolol He can be treated as needed with a beta-viv for increased rhythm or hypertension if they occur Repeat troponin levels to trend pattern Obtain urine sample to rule out metabolic causes Cardiology is consulted Tachybradycardia syndrome Patient has history of pacemaker with defibrillator placed This is mostly for management of bradycardia, tachycardia has been today's problem [employer] stated they were unable to evaluate tachyarrhythmias, only bradycardia arrhythmias Cardiology is consulted to assist with review Type 2 diabetes Accu-Cheks with sliding scale insulin coverage Diabetic diet BPH Continue home dose of doxazosin, finasteride, Flomax Patient is at increased risk for urinary tract infection, labs to follow DVT prophylaxis Eliquis at home dosage
[2018-10-10] MEDS ORDERED: Metoprolol Inj 5 MG/5 ML Vial IV.PUSH ONE (19:45)
[2018-10-10] MEDS ORDERED: levETIRAcetam 500 MG Tablet PO SCH (21:00)
[2018-10-10] MEDS ORDERED: Heparin Drip 25,000 UNIT/250 ML BAG IV.CONT PRN (21:18)
[2018-10-10] MEDS ORDERED: Heparin 10,000 UNITS/10 ML Vial (for IV use) IV.PUSH STA (21:18)
[2018-10-10 22:27] LABS: INR 1.2 Ratio; Prothrombin Time 11.8 sec (9.8-11.6)
[2018-10-10 22:46] LABS: Bilirubin,Urine Negative (Negative); Clarity,Urine Clear (Clear); Color,Urine Yellow (Yellw/Straw); Glucose,Urine (UA) Negative (Negative); Hyaline Casts,Urine 26 /lpf (0-3); Leukocyte Esterase,Urine Negative (Negative); Mucus,Urine Few /lpf (Occasional); Nitrite,Urine Negative (Negative); Specific Gravity,Urine 1.014 (1.002-1.035); Squamous Epithelial Cell,Urine <1 /hpf (0-5)
[2018-10-10 23:19] VITALS: RESP 18
[2018-10-10] MEDS ORDERED: Dextrose 50% in Water 50 ML Vial IV.PUSH PRN (23:41)
[2018-10-11 03:02] LABS: Baso % (Auto) 0.6 % (0.0-2.0); Eos # (Auto) 0.2 th/mm3 (0.0-0.4); Eos % (Auto) 3.6 % (0.0-4.0); Hematocrit 32.6 % (39.0-51.0); Lymph # (Auto) 1.8 th/mm3 (1.0-4.8); Lymph % (Auto) 34.6 % (9.0-44.0); Mean Corpuscular HGB Conc 33.8 % (32.0-36.0); Mean Corpuscular Hemoglobin 29.9 pg (27.0-34.0); Mean Corpuscular Volume 88.5 fL (80.0-100.0); Mean Platelet Volume 8.1 fL (7.0-11.0); Mono # (Auto) 0.5 th/mm3 (0.0-0.9); Mono % (Auto) 9.5 % (0.0-8.0); Neut # (Auto) 2.7 th/mm3 (1.8-7.7); Neut % (Auto) 51.7 % (16.0-70.0); Platelet Count 176 th/mm3 (150-450); Red Blood Count 3.68 mil/mm3 (4.50-5.90); Red Cell Distribution Width 16.5 % (11.6-17.2); White Blood Count 5.3 th/mm3 (4.0-11.0)
[2018-10-11 03:21] LABS: Calcium 8.2 mg/dL (8.5-10.1); Carbon Dioxide 24.3 meq/L (21.0-32.0); Potassium 3.6 meq/L (3.5-5.1)
[2018-10-11 03:32] LABS: Troponin I 4.18 ng/mL (0.02-0.05)
[2018-10-11] MEDS ORDERED: Dextrose 50% in Water 50 ML Vial IV.PUSH PRN (08:36)
[2018-10-11] MEDS ORDERED: Doxazosin 4 MG Tablet PO SCH (09:00)
[2018-10-11] MEDS ORDERED: Finasteride 5 MG Tablet PO SCH (09:00)
[2018-10-11] MEDS ORDERED: Metoprolol Tartrate 50 MG Tablet PO SCH (09:15)
[2018-10-11 09:18] VITALS: O2SAT 95
--- NOTE | 2018-10-11 10:36 | MB ---
cc: Brett Diehl MD DATE: 10/11/2018 REASON FOR CONSULTATION: Tachycardia, syncope, elevated troponin. HISTORY OF PRESENT ILLNESS: The patient is a very pleasant 87-year-old gentleman who sees my partner, Dr. Liu, who has a history of CABG about 5 weeks ago, as well as atrial fibrillation, on Eliquis. The patient was at home and began having dizzy spells and apparently passed out. He was brought to the hospital in a rapid narrow complex tachycardia that apparently resolved on its own. He was brought into the hospital for observation. This morning, the patient is completely asymptomatic, hoping to be discharged home. He had no chest pain during this episode and he has no further lightheadedness or dizziness. No shortness of breath. PAST MEDICAL HISTORY: 1. Coronary artery disease, status post recent coronary artery bypass grafting. 2. Atrial fibrillation, on Eliquis. 3. Diabetes. 4. Hypertension. 5. Pacemaker. CURRENT MEDICATIONS: 1. Eliquis 5 mg b.i.d. 2. Aspirin 81 mg daily. 3. Cardura 4 mg daily. 4. Proscar 5 mg daily. 5. Keppra 500 mg at bedtime. ALLERGIES: PENICILLIN. PHYSICAL EXAMINATION: VITAL SIGNS: Afebrile, pulse 68, respiratory rate 18, BP 115/68, saturating 98% on room air. GENERAL: Pleasant, elderly gentleman in no distress. NECK: No JVD. LUNGS: Clear to auscultation bilaterally. CARDIOVASCULAR: Regular rate and rhythm. No murmurs appreciated. ABDOMEN: Benign. EXTREMITIES: No edema. LABORATORY DATA: White count 5.3, hematocrit 32.6, platelets 176. INR is 1.2. Sodium 139, potassium 3.6, chloride 107, bicarbonate 24.3, BUN 16, creatinine 0.86, glucose 117. Troponin peaked at 4.18. Initial strips showed a narrow regular tachycardia at about 180, most consistent with SVT. Current EKG and telemetry show sinus rhythm with nonspecific ST changes. ASSESSMENT AND PLAN: 1. Syncope. The patient seems to have had a tachycardic mediated syncopal episode, which has now resolved. He already has a pacemaker. I did discuss aggressive options including electrophysiologic study with possible ablation, but the patient declines this, given he is almost 88 years old and wants medical therapy only. 2. Elevated troponin. The elevated troponin is very likely due to the rapid heart rate with his known coronary disease. He had no chest pain and it is very unlikely, given his recent CABG, that he had acute coronary syndrome as well. Regardless, the patient wishes for medical therapy only. 3. I will add a beta viv to his regimen. 4. Given that he is in sinus rhythm asymptomatic and wishes for medical therapy only, he could be discharged home from my standpoint to follow up with Dr. Liu as an outpatient. Thank you again for the opportunity to participate in this patient's care. MD MONA Le/jerrod , 09:05 AM , 09:13 AM
--- NOTE | 2018-10-11 11:27 | P.DS ---
DS: Providers Date of admission: 10/10/18 21:24 Primary care physician: Oliver Vargas MD Consults: 10/10/18 23:42 Consult to Cardiology Routine Consulting Provider: Brett Diehl Does the patient have a Sack Sewer Machine who follows them?: No Preferred Solution Professional:: Occupational Medicine Specialist Physician Reason for Consultation: elevated troponin, Tachycardia, hx of afib Notified:: Service Spoke with:: Qasim Date Notified:: 10/10/18 Time Notified:: 23:45 Ordering Provider: DEEDEE Brief History from admission: 87-year-old male with a history of type 2 diabetes , coronary artery disease s/p CABG 5 weeks ago, atrial fibrillation, tachybradycardia syndrome, BPH presents to the ER following a hypotensive episode at home. On admission he was found to have a heart rate up to 180, EKG was irregular and it was unclear whether this was flutter or SVT or A. fib. The rhythm resolved though he remains hypotensive. He denies any chest pain though his troponins were elevated likely due to rapid heart rate. She states that following his open heart surgery, while he was hospitalized, he had hypotensive episodes and it was necessary to place a pacemaker with defibrillator. Since then his recovery has gone normally up until now. He denies any recent fevers, denies upper respiratory infection, denies chest pain , denies nausea, vomiting, or diarrhea. DS: Summary 87-year-old male with history of recent CABG was admitted yesterday with hypotension and tachycardia. The tachycardia appeared to be SVT versus other, he had associated hypotension which made him feel like passing out at home. He had a similar episode following his surgery 5 weeks ago. By the time I saw him in the ER he felt well and wanted to go home, but our recommendation was to have him admitted and observed on telemetry overnight. This morning he was seen by cardiology who points out that he has a pacemaker in place and recommends resuming metoprolol. Patient is motivated to go home today and is cleared for discharge by cardiology. He is instructed to follow-up with Dr. Sanchez his primary actuary within a week, and his primary care physician in 1-2 weeks.. Time Spent with Patient Total time spent providing and/or coordinating discharge services: Less than 30 minutes Quality: VTE Deep Vein Thrombosis/Pulmonary Embolism Present on Admission: No Results Labs on day of discharge: Labs from last 24 hours 10/11/18 10/11/18 10/11/18 11:14 02:44 02:44 WBC 5.3 RBC 3.68 L Hgb 11.0 L Hct 32.6 L MCV 88.5 MCH 29.9 MCHC 33.8 RDW 16.5 Plt Count 176 MPV 8.1 Neut % (Auto) 51.7 Lymph % (Auto) 34.6 Crisp % (Auto) 9.5 H Eos % (Auto) 3.6 Baso % (Auto) 0.6 Neut # (Auto) 2.7 Lymph # (Auto) 1.8 Crisp # (Auto) 0.5 Eos # (Auto) 0.2 Baso # (Auto) 0.0 WBC Differential . Differential Comment Auto diff final PT INR APTT 55.1 H D Sodium Potassium Chloride Carbon Dioxide Anion Gap BUN Creatinine Estimated GFR POC Glucose 162 H Random Glucose Calcium Magnesium Total Bilirubin AST ALT Alkaline Phosphatase Troponin I B-Natriuretic Peptide Total Protein Albumin Urine Color Urine Clarity Urine pH Ur Specific [place] Urine Protein Urine Glucose (UA) Urine Ketones Urine Occult Blood Urine Nitrate Urine Bilirubin Urine Urobilinogen Ur Leukocyte Esterase Urine RBC Urine WBC Ur Squamous Epith Cells Hyaline Casts Granular Casts Urine Mucus Micro UA Comment Ur Microscopic Review Urine Culture Comments 10/11/18 10/10/18 10/10/18 02:44 22:20 22:00 WBC RBC Hgb Hct MCV MCH MCHC RDW Plt Count MPV Neut % (Auto) Lymph % (Auto) Crisp % (Auto) Eos % (Auto) Baso % (Auto) Neut # (Auto) Lymph # (Auto) Crisp # (Auto) Eos # (Auto) Baso # (Auto) WBC Differential Differential Comment PT 11.8 H INR 1.2 APTT 33.0 H Sodium 139 Potassium 3.6 Chloride 107 Carbon Dioxide 24.3 Anion Gap 8 BUN 16 Creatinine 0.86 Estimated GFR 84 L POC Glucose Random Glucose 117 H Calcium 8.2 L Magnesium Total Bilirubin AST ALT Alkaline Phosphatase Troponin I 4.18 H* B-Natriuretic Peptide Total Protein Albumin Urine Color Yellow Urine Clarity Clear Urine pH 5.0 Ur Specific Pacific 1.014 Urine Protein Negative Urine Glucose (UA) Negative Urine Ketones Trace H Urine Occult Blood Negative Urine Nitrate Negative Urine Bilirubin Negative Urine Urobilinogen Less than 2 Ur Leukocyte Esterase Negative Urine RBC 1 Urine WBC 2 Ur Squamous Epith Cells <1 Hyaline Casts 26 Granular Casts 4 Urine Mucus Few H Micro UA Comment Culture not ind Ur Microscopic Review Not Reportable Urine Culture Comments Culture not ind 10/10/18 10/10/18 10/10/18 20:20 14:49 14:49 WBC RBC Hgb Hct MCV MCH MCHC RDW Plt Count MPV Neut % (Auto) Lymph % (Auto) Crisp % (Auto) Eos % (Auto) Baso % (Auto) Neut # (Auto) Lymph # (Auto) Crisp # (Auto) Eos # (Auto) Baso # (Auto) WBC Differential Differential Comment PT INR APTT Sodium 138 Potassium 4.2 Chloride 105 Carbon Dioxide 26.8 Anion Gap 6 BUN 18 Creatinine 1.17 Estimated GFR 59 L POC Glucose Random Glucose 139 H Calcium 8.3 L Magnesium 1.5 Total Bilirubin 0.7 AST 26 ALT 18 Alkaline Phosphatase 105 Troponin I 2.62 H* 0.57 H B-Natriuretic Peptide 66 Total Protein 6.7 Albumin 2.9 L Urine Color Urine Clarity Urine pH Ur Specific [place] Urine Protein Urine Glucose (UA) Urine Ketones Urine Occult Blood Urine Nitrate Urine Bilirubin Urine Urobilinogen Ur Leukocyte Esterase Urine RBC Urine WBC Ur Squamous Epith Cells Hyaline Casts Granular Casts Urine Mucus Micro UA Comment Ur Microscopic Review Urine Culture Comments 10/10/18 10/10/18 14:49 14:49 WBC 5.5 RBC 3.61 L Hgb 11.2 L Hct 31.8 L MCV 88.1 MCH 31.2 MCHC 35.4 RDW 16.4 Plt Count 168 D MPV 8.4 Neut % (Auto) 73.6 H Lymph % (Auto) 17.7 Crisp % (Auto) 7.0 Eos % (Auto) 0.8 Baso % (Auto) 0.9 Neut # (Auto) 4.0 Lymph # (Auto) 1.0 Crisp # (Auto) 0.4 Eos # (Auto) 0.0 Baso # (Auto) 0.0 WBC Differential . Differential Comment Auto diff final PT 11.8 H INR 1.2 APTT 33.7 H Sodium Potassium Chloride Carbon Dioxide Anion Gap BUN Creatinine Estimated GFR POC Glucose Random Glucose Calcium Magnesium Total Bilirubin AST ALT Alkaline Phosphatase Troponin I B-Natriuretic Peptide Total Protein Albumin Urine Color Urine Clarity Urine pH Ur Specific [place] Urine Protein Urine Glucose (UA) Urine Ketones Urine Occult Blood Urine Nitrate Urine Bilirubin Urine Urobilinogen Ur Leukocyte Esterase Urine RBC Urine WBC Ur Squamous Epith Cells Hyaline Casts Granular Casts Urine Mucus Micro UA Comment Ur Microscopic Review Urine Culture Comments Impressions ITS Impressions Chest X-Ray 10/10/18 14:45 CONCLUSION: Left lung base opacity is present may be due to a combination of consolidation and or pleural effusion. Discharge Plan Discharge Disposition Patient Disposition: /Home Health Service Discharge Condition Condition: Stable Discharge Order Discharge Orders: Discharge Order (Routine); Ordered 10/11/18 Ordered By: Jeison London Discharge Details Anticipated Discharge Date: 10/11/18 Physicians Team Primary Care Provider: Oliver Vargas Attending Provider: Jeison London Other Providers: Brett Diehl Rxs /Orders / Referrals /Forms Prescriptions: Continue metformin [Glucophage] 500 mg Tablet 1,000 mg PO BIDPC 30 Days RF: 0 atorvastatin 40 mg Tablet 40 mg PO HS 30 Days Qty: 30 RF: 0 levetiracetam 500 mg Tablet 500 mg PO HS 30 Days Qty: 30 RF: 0 aspirin [Aspir-Low] 81 mg Tablet,Delayed Release (Dr/Ec) 81 mg PO DAILY 30 Days Qty: 30 RF: 0 tamsulosin 0.4 mg Capsule 0.4 mg PO DAILY 30 Days Qty: 30 RF: 0 pantoprazole 40 mg Tablet,Delayed Release (Dr/Ec) 40 mg PO Q24H 30 Days Qty: 30 RF: 0 doxazosin 4 mg Tablet 4 mg PO DAILY 30 Days Qty: 30 RF: 0 finasteride 5 mg Tablet 5 mg PO DAILY 30 Days Qty: 30 RF: 0 metoprolol tartrate 25 mg Tablet 25 mg PO BID 30 Days Qty: 60 RF: 0 apixaban [Eliquis] 5 mg Tablet 5 mg PO BID 30 Days Qty: 60 RF: 0 acetaminophen 325 mg Tablet 650 mg PO Q4H PRN (Reason: Temp > 100.4) RF: 0 Referrals: Rosibel Liu MD [Family Provider] - See Instructions Oliver Vargas MD [Primary Care Provider] - See Instructions Status ED Status: Left Department
[2018-10-11 11:39] VITALS: BP 134/69; TEMP 98.2
[2018-10-11] MEDS ORDERED: Insulin NovoLOG Aspart Correctional Sugar Inj SQ SCH (12:00)
[2018-10-11 13:15] VITALS: PULSE 67
--- NOTE | 2018-10-11 14:55 | ECG ---
Date Performed: 10/10/2018 Time Performed: 14:18:14 PTAGE: 87 years EKG: Sinus rhythm WITH OCCASIONAL SUPRAVENTRICULAR PREMATURE COMPLEXES LOW QRS VOLTAGE IN EXTREMITY LEADS BORDERLINE E CG Since PREVIOUS TRACING , no significant change noted PREVIOUS TRACIN09/09/2018 04.51 DOCTOR: Zion Saldivar Interpretating Date/Time 10/11/2018 14:54:10
--- NOTE | 2018-10-11 14:57 | ECG ---
Date Performed: 10/10/2018 Time Performed: 19:45:03 PTAGE: 87 years EKG: Sinus rhythm NONSPECIFIC ST & T-WAVE ABNORMALITY ABNORMAL ECG Compared to PREVIOUS TRACING , T-waves are slightly more abnormal anterolaterally, QRS voltage improv ed in the limb leads. PREVIOUS TRACIN10/10/2018 14.18 DOCTOR: Zion Saldivar Interpretating Date/Time 10/11/2018 14:55:23
--- NOTE | 2018-10-11 14:58 | ECG ---
Date Performed: 10/11/2018 Time Performed: 03:07:04 PTAGE: 87 years EKG: Sinus rhythm with PAC(s). Poor R wave progression - probable normal variant Anterior T wave changes are nonspecif ic Low QRS voltages in limb leads Borderline ECG Compared to PREVIOUS TRACING , PACs are new, T-wave changes are about the same. PREVIOUS TRACIN02/2019 19.45 DOCTOR: Zion Saldivar Interpretating Date/Time 10/11/2018 14:56:09
== END 2018-10-11 15:24 | disposition home health service (06) | DRG 310 ==
LOC: NEDA 13:55 → NEPE 13:55 → NEDA 18:35 → NEPGCP 18:39 → HCPC 22:28
PROVIDERS: ADMIT Family Medicine; ATTEND Family Medicine
CPT/HCPCS: 71010; 71045; 80048; 80053; 81001; 82948; 82962; 83520; 83735; 83880; 84484; 85025; 85610; 85730; 90760; 93005; 96360; 99285; J1644; J7040